=== PATIENT | male | born 1955 | race African-American/Black ===

== ENCOUNTER 2016-08-15 11:36 | Observation (INO) | payer MEDICARE, MEDICAID ==
--- NOTE | 2016-08-15 11:49 | ER Document Report ---
ED Medical Screen (RME) - General Stated Complaint: CHEST PAIN Mode of Arrival: Medic Information source: Patient Notes: Patient presents via EMS with chest pain history of cardiac disease and stents. No other symptoms, received nitroglycerin and aspirin. TRAVEL OUTSIDE OF THE [place] IN LAST 30 DAYS: No - Related Data Allergies/Adverse Reactions: adhesive [Adhesive] Allergy (Severe, Verified 08/15/16 11:49) peels skin gabapentin [From Neurontin] Allergy (Unknown, Verified 08/15/16 11:49) disoriented levofloxacin [From Levaquin] Allergy (Unknown, Verified 08/15/16 11:49) Sulfa (Sulfonamide Antibiotics) Allergy (Unknown, Verified 08/15/16 11:49) skin wilson tramadol [Tramadol] Allergy (Unknown, Verified 08/15/16 11:49) ibuprofen [From Motrin] Allergy (Verified 08/15/16 11:49) tramadol HCl [From Ultram] Allergy (Verified 08/15/16 11:49) Home Medications: Current Home Medications Amlodipine Besylate [Norvasc 10 mg Tablet] 10 mg PO DAILY 08/15/16 [History] Aspirin [Aspirin 325 mg Tablet] 325 mg PO DAILY 08/15/16 [History] Atorvastatin Calcium [Lipitor 80 mg Tablet] 80 mg PO QHS 08/15/16 [History] Clopidogrel Bisulfate [Plavix 75 mg Tablet] 75 mg PO DAILY 08/15/16 [History] Diazepam [Valium 5 mg Tablet] 5 mg PO TIDP PRN 08/15/16 [History] Isosorbide Mononitrate [Isosorbide Mononitrate ER] 120 mg PO DAILY 08/15/16 [ History] Lisinopril [Prinivil 10 mg Tablet] 10 mg PO DAILY 08/15/16 [History] Metformin HCl [Glucophage] 1,000 mg PO DAILY 08/15/16 [History] Morphine Sulfate 30 mg PO BIDP PRN 08/15/16 [History] Nitroglycerin [Nitrostat] 0.4 mg SL Q5MP PRN 08/15/16 [History] Ranitidine HCl 150 mg PO Q12 08/15/16 [History] Ranolazine [Ranexa] 1,000 mg PO BID 08/15/16 [History] Sertraline HCl [Zoloft 50 mg Tablet] 50 mg PO Q12 08/15/16 [History] Past Medical History - Social History Family history: DM, Hyperlipidemia, Hypertension - Past Medical History Cardiac Medical History: Reports: Hx Coronary Artery Disease, 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/ MOST RECENT 11/28/15, Hx Hypercholesterolemia, Hx Hypertension Pulmonary Medical History: Reports: Hx Pneumonia Denies: Hx Asthma, Hx Bronchitis, Hx COPD Neurological Medical History: Denies: Hx Cerebrovascular Accident, Hx Seizures Endocrine Medical History: Reports: Hx Diabetes Mellitus Type 2, Hx Hypothyroidism GI Medical History: Reports: Hx Gastroesophageal Reflux Disease Musculoskeltal Medical History: Reports Hx Arthritis Psychiatric Medical History: Reports: Hx Anxiety, Hx Depression Past Surgical History: Reports: Hx Adenoidectomy, Hx Appendectomy, Hx Bowel Surgery - hemorrhoidectomy, Hx Cardiac Catheterization - last one was 2010, Hx Cardiac Surgery - CABG, Hx Coronary Artery Bypass Graft, Hx Coronary Stent - X10 -most recent was 2010, Hx Open Heart Surgery, Hx Rectal Surgery - hemorrhoids, Hx Testicular Surgery - torsion, vastectomy, Hx Tonsillectomy - Immunizations Immunizations up to date: Yes Hx Diphtheria, Pertussis, Tetanus Vaccination: Yes Physical Exam - Vital signs Vitals: Temp Pulse Resp BP Pulse Ox 98.1 F 76 16 98/68 L 96 08/15/16 11:57 08/15/16 11:57 08/15/16 11:57 08/15/16 11:57 08/15/16 11:57 Course - Vital Signs Vital signs: Temp Pulse Resp BP Pulse Ox 98.2 F 59 L 18 103/62 100 08/15/16 19:00 08/15/16 19:00 08/15/16 19:00 08/15/16 19:00 08/15/16 19:00 - Laboratory Result Diagrams: 08/15/16 12:00 08/15/16 12:00 Laboratory results interpreted by me: 08/15/16 12:00 RBC 4.20 L Hgb 12.6 L MCHC 31.4 L Lymphocytes % 46.1 H Doctor's Discharge - Discharge Clinical Impression: Chest pain Qualifiers: Chest pain type: unspecified Qualified Code(s): R07.9 - Chest pain, unspecified Condition: Fair Disposition: ADMITTED OBSERVATION
[2016-08-15 12:23] LABS: ABSOLUTE EOSINOPHILS # (AUTO) 0.1 10^3/uL (0.0-0.6); ABSOLUTE LYMPHOCYTES (AUTO) 2.7 10^3/uL (0.5-4.7); ABSOLUTE MONOCYTES (AUTO) 0.4 10^3/uL (0.1-1.4); ABSOLUTE NEUT (AUTO) 2.7 10^3/uL (1.7-8.2); BASOPHILS % (AUTO) 0.6 % (0-2); EOSINOPHILS % (AUTO) 1.7 % (0-6); HEMATOCRIT 39.9 % (37.9-51.0); HEMOGLOBIN 12.6 g/dL (13.5-17.0); HGB HCT DIFFERENCE -2.1; LYMPHOCYTES % (AUTO) 46.1 % (13-45); MEAN CORPUSCULAR HEMOGLOBIN 29.9 pg (27.0-33.4); MEAN CORPUSCULAR HGB CONC 31.4 g/dL (32.0-36.0); MEAN CORPUSCULAR VOLUME 95 fl (80-97); MONOCYTES % (AUTO) 5.9 % (3-13); RED CELL DISTRIBUTION WIDTH 13.9 % (11.5-14.0); SEGMENTED NEUTROPHILS % (AUTO) 45.7 % (42-78); WHITE BLOOD COUNT 5.9 10^3/uL (4.0-10.5)
[2016-08-15 12:39] LABS: ALANINE AMINOTRANSFERASE 34 U/L (21-72); ALBUMIN 4.3 g/dL (3.5-5.0); ALKALINE PHOSPHATASE 55 U/L (38-126); ANION GAP 12 (5-19); ASPARTATE AMINO TRANSFERASE 21 U/L (17-59); BILIRUBIN,TOTAL 0.7 mg/dL (0.2-1.3); BLOOD UREA NITROGEN 9 mg/dL (7-20); CALCIUM 9.6 mg/dL (8.4-10.2); CARBON DIOXIDE 26 mmol/L (22-30); CHLORIDE 104 mmol/L (98-107); CREATINE KINASE 62 U/L (55-170); GLUCOSE 109 mg/dL (75-110); POTASSIUM 4.1 mmol/L (3.6-5.0); SODIUM 141.7 mmol/L (137-145); TOTAL PROTEIN 7.4 g/dL (6.3-8.2)
[2016-08-15 12:49] LABS: CREATINE KINASE MB 0.24 ng/mL (<4.55)
[2016-08-15 12:51] LABS: TROPONIN I < 0.012 ng/mL
[2016-08-15] MEDS ORDERED: NITROGLYCERIN 2% OINTMENT 1 GM PACKET TP ONE (13:49)
[2016-08-15] MEDS ORDERED: NITROGLYCERIN 0.4 MG/TAB 25 TAB/BOTTLE SL PRN ×3 (13:49→17:12)
--- NOTE | 2016-08-15 13:53 | ER Document Report ---
[id number] Mode of Arrival: Medic Information source: Patient Notes: 61-year-old male with past medical history including a CABG in 2009 requiring stenting around one year ago who presents today with some left sided radiating chest pain to his left shoulder. He describes it as a "burning" pain he denies any nausea, vomiting, aggravating or relieving factors, diaphoresis, calf pain or leg swelling, recent trips or travel, or shortness of breath. Patient did actually just come off antibiotics recently for an upper history tract infection. TRAVEL OUTSIDE OF THE [place] IN LAST 30 DAYS: No - HPI Patient complains to provider of: Chest pain Was the onset of pain: Gradual Is the pain a: New problem Chest pain location: Other - See above Quality of pain: Other - See above Chest pain radiation location: None - See above Severity now: Mild Severity at worst: Moderate Pain level currently: 2 Positive cardiac history: Yes Associated symptoms: Other - See above Exacerbated by: Denies Relieved by: Nothing Similar symptoms previously: Yes Recently seen / treated by doctor: Yes - Related Data Allergies/Adverse Reactions: adhesive [Adhesive] Allergy (Severe, Verified 08/15/16 11:49) peels skin gabapentin [From Neurontin] Allergy (Unknown, Verified 08/15/16 11:49) disoriented levofloxacin [From Levaquin] Allergy (Unknown, Verified 08/15/16 11:49) Sulfa (Sulfonamide Antibiotics) Allergy (Unknown, Verified 08/15/16 11:49) skin wilson tramadol [Tramadol] Allergy (Unknown, Verified 08/15/16 11:49) ibuprofen [From Motrin] Allergy (Verified 08/15/16 11:49) tramadol HCl [From Ultram] Allergy (Verified 08/15/16 11:49) Home Medications: Current Home Medications Amlodipine Besylate [Norvasc 10 mg Tablet] 10 mg PO DAILY 08/15/16 [History] Aspirin [Aspirin 325 mg Tablet] 325 mg PO DAILY 08/15/16 [History] Atorvastatin Calcium [Lipitor 80 mg Tablet] 80 mg PO QHS 08/15/16 [History] Clopidogrel Bisulfate [Plavix 75 mg Tablet] 75 mg PO DAILY 08/15/16 [History] Diazepam [Valium 5 mg Tablet] 5 mg PO TIDP PRN 08/15/16 [History] Isosorbide Mononitrate [Isosorbide Mononitrate ER] 120 mg PO DAILY 08/15/16 [ History] Lisinopril [Prinivil 10 mg Tablet] 10 mg PO DAILY 08/15/16 [History] Metformin HCl [Glucophage] 1,000 mg PO DAILY 08/15/16 [History] Morphine Sulfate 30 mg PO BIDP PRN 08/15/16 [History] Nitroglycerin [Nitrostat] 0.4 mg SL Q5MP PRN 08/15/16 [History] Ranitidine HCl 150 mg PO Q12 08/15/16 [History] Ranolazine [Ranexa] 1,000 mg PO BID 08/15/16 [History] Sertraline HCl [Zoloft 50 mg Tablet] 50 mg PO Q12 08/15/16 [History] Past Medical History - General Information source: Patient - Social History Smoking Status: Never Smoker Chew tobacco use (# tins/day): No Drug Abuse: None Family History: CAD, CVA Patient has suicidal ideation: No Patient has homicidal ideation: No - Past Medical History Cardiac Medical History: Reports: Hx Coronary Artery Disease, 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/ MOST RECENT 11/28/15, Hx Hypercholesterolemia, Hx Hypertension Pulmonary Medical History: Reports: Hx Pneumonia Denies: Hx Asthma, Hx Bronchitis, Hx COPD Neurological Medical History: Denies: Hx Cerebrovascular Accident, Hx Seizures Endocrine Medical History: Reports: Hx Diabetes Mellitus Type 2, Hx Hypothyroidism Renal/ Medical History: Reports: Hx Peritoneal Dialysis GI Medical History: Reports: Hx Gastroesophageal Reflux Disease Musculoskeltal Medical History: Reports Hx Arthritis Psychiatric Medical History: Reports: Hx Anxiety, Hx Depression Past Surgical History: Reports: Hx Adenoidectomy, Hx Appendectomy, Hx Bowel Surgery - hemorrhoidectomy, Hx Cardiac Catheterization - last one was 2010, Hx Cardiac Surgery - CABG, Hx Coronary Artery Bypass Graft, Hx Coronary Stent - X10 -most recent was 2010, Hx Open Heart Surgery, Hx Rectal Surgery - hemorrhoids, Hx Testicular Surgery - torsion, vastectomy, Hx Tonsillectomy - Immunizations Immunizations up to date: Yes Hx Diphtheria, Pertussis, Tetanus Vaccination: Yes Hx Pneumococcal Vaccination: 03/21/12 Review of Systems - Review of Systems Constitutional: denies: Fever EENT: denies: Eye discharge, Nose discharge Cardiovascular: denies: Palpitations, Heart racing, Syncope, Dizziness, Lightheaded Respiratory: Cough. denies: Short of breath Gastrointestinal: denies: Vomiting Genitourinary: denies: Dysuria Musculoskeletal: denies: Leg swelling Skin: Other - no hives. denies: Rash Neurological/Psychological: Other - no slurred speech -: Yes All other systems reviewed and negative Physical Exam - Vital signs Vitals: Temp Pulse Resp BP Pulse Ox 98.1 F 76 16 98/68 L 96 08/15/16 11:57 08/15/16 11:57 08/15/16 11:57 08/15/16 11:57 08/15/16 11:57 Notes: Reviewed vital signs and nursing note as charted by RN. CONSTITUTIONAL: Alert and oriented and responds appropriately to questions. Well -appearing; well-nourished HEAD: Normocephalic; atraumatic CARD: Regular rate and rhythm; no murmurs, no clicks, no rubs, no gallops; symmetric distal pulses RESP: Normal chest excursion without splinting or tachypnea; breath sounds clear and equal bilaterally; no wheezes, no rhonchi, no rales ABD/GI: Normal bowel sounds; non-distended; soft, non-tender, no rebound, no guarding; no palpable organomegaly or masses BACK: The back appears normal and is non-tender to palpation, there is no CVA tenderness EXT: Normal ROM in all joints; non-tender to palpation; no cyanosis, no effusions, no edema SKIN: Normal color for age and race; warm; dry; good turgor; capillary refill < 2 seconds; no acute lesions noted NEURO: Moves all extremities equally; Motor and sensory function intact PSYCH: The patient's mood and manner are appropriate. Grooming and personal hygiene are appropriate. Course - Re-evaluation Re-evalutation: 08/15/16 13:52 Given the history and physical examination with a heart of 76, oxygen saturation of 96%, I believe the risk of aortic dissection and pulmonary embolism to be unlikely. Given the patient's past history, we will place the patient on a monitor, provide aspirin and nitroglycerin, obtain an x-ray of the chest, and most likely admit the patient for serial cardiac markers and reevaluation. 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 Patient's HEART score is a 4. I believe he requires inpatient admission. Chest x-ray shows normal heart, normal mediastinum, no fractures, normal lung doyle, no pneumothorax. EKG shows a heart rate of 70, normal sinus rhythm, no obvious ST elevation or depression. Slightly inverted T waves in leads aVL and V2. - Vital Signs Vital signs: Temp Pulse Resp BP Pulse Ox 97.5 F 54 L 18 103/65 100 08/15/16 18:43 08/15/16 18:59 08/15/16 18:43 08/15/16 18:43 08/15/16 18:43 - Laboratory Result Diagrams: 08/15/16 12:00 08/15/16 12:00 Laboratory results interpreted by me: 08/15/16 12:00 RBC 4.20 L Hgb 12.6 L MCHC 31.4 L Lymphocytes % 46.1 H Discharge - Discharge Clinical Impression: Chest pain Qualifiers: Chest pain type: unspecified Qualified Code(s): R07.9 - Chest pain, unspecified Condition: Fair Disposition: ADMITTED OBSERVATION Admitting Provider: [facility] Unit Admitted: Telemetry
[2016-08-15] MEDS ORDERED: NORMAL SALINE 1000 ML 1,000 ML IV ONE (13:54)
[2016-08-15] MEDS ORDERED: DIAZEPAM 5 MG TABLET PO PRN (17:12)
--- NOTE | 2016-08-15 17:22 | PDOC H&P ---
History of Present Illness Admission Date/PCP: 08/15/16 16:43 SHELLY SETHI, Patient complains of: Chest pain History of Present Illness: ZOË ALATORRE is a 61 year old male Past Medical History Cardiac Medical History: Reports: Coronary Artery Disease, Myocardial Infarction - 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/ MOST RECENT 11/28/15, Hyperlipidema, Hypertension Pulmonary Medical History: Reports: Pneumonia Denies: Asthma, Bronchitis, Chronic Obstructive Pulmonary Disease (COPD) Neurological Medical History: Denies: Seizures Endocrine Medical History: Reports: Diabetes Mellitus Type 2, Hypothyroidism Malignancy Medical History: Denies: Breast Cancer, Cervical Cancer, Ovarian Cancer GI Medical History: Reports: Gastroesophageal Reflux Disease Musculoskeltal Medical History: Reports: Arthritis Psychiatric Medical History: Reports: Depression Hematology: Denies: Anemia Past Surgical History Past Surgical History: Reports: Appendectomy, Cardiac Catheterization - last one was 2010, Coronary Artery Bypass Graft, Coronary Stent - [id number] recent was 2010, Tonsillectomy Social History Smoking Status: Current Every Day Smoker Cigarettes Packs Per Day: 1 Frequency of Alcohol Use: None Hx Recreational Drug Use: No Hx Prescription Drug Abuse: No Family History Family History: CAD, CVA Parental Family History Reviewed: Yes Children Family History Reviewed: Yes Sibling(s) Family History Reviewed.: Yes Medication/Allergy Home Medications: Amlodipine Besylate [Norvasc 10 mg Tablet] 10 mg PO DAILY 08/15/16 Aspirin [Aspirin 325 mg Tablet] 325 mg PO DAILY 08/15/16 Atorvastatin Calcium [Lipitor 80 mg Tablet] 80 mg PO QHS 08/15/16 Clopidogrel Bisulfate [Plavix 75 mg Tablet] 75 mg PO DAILY 08/15/16 Diazepam [Valium 5 mg Tablet] 5 mg PO TIDP PRN 08/15/16 Isosorbide Mononitrate [Isosorbide Mononitrate ER] 120 mg PO DAILY 08/15/16 Lisinopril [Prinivil 10 mg Tablet] 10 mg PO DAILY 08/15/16 Metformin HCl [Glucophage] 1,000 mg PO DAILY 08/15/16 Morphine Sulfate 30 mg PO BIDP PRN 08/15/16 Nitroglycerin [Nitrostat] 0.4 mg SL Q5MP PRN 08/15/16 Ranitidine HCl 150 mg PO Q12 08/15/16 Ranolazine [Ranexa] 1,000 mg PO BID 08/15/16 Sertraline HCl [Zoloft 50 mg Tablet] 50 mg PO Q12 08/15/16 Allergies/Adverse Reactions: adhesive [Adhesive] Allergy (Severe, Verified 08/15/16 11:49) peels skin gabapentin [From Neurontin] Allergy (Unknown, Verified 08/15/16 11:49) disoriented levofloxacin [From Levaquin] Allergy (Unknown, Verified 08/15/16 11:49) Sulfa (Sulfonamide Antibiotics) Allergy (Unknown, Verified 08/15/16 11:49) skin wilson tramadol [Tramadol] Allergy (Unknown, Verified 08/15/16 11:49) ibuprofen [From Motrin] Allergy (Verified 08/15/16 11:49) tramadol HCl [From Ultram] Allergy (Verified 08/15/16 11:49) Review of Systems All systems: as per PMH Physical Exam Vital Signs: Temp Pulse Resp BP Pulse Ox 97.5 F 76 11 L 90/72 L 96 08/15/16 16:24 08/15/16 11:57 08/15/16 16:00 08/15/16 16:00 08/15/16 16:00 General appearance: PRESENT: mild distress Head exam: PRESENT: atraumatic Eye exam: PRESENT: conjunctiva pink Throat exam: ABSENT: post pharyngeal erythema Neck exam: ABSENT: carotid bruit, JVD Respiratory exam: PRESENT: clear to auscultation bessy Cardiovascular exam: PRESENT: RRR, +S1, +S2 Pulses: PRESENT: normal carotid pulses Vascular exam: PRESENT: normal capillary refill GI/Abdominal exam: PRESENT: normal bowel sounds, soft Extremities exam: PRESENT: full ROM Musculoskeletal exam: PRESENT: ambulatory Neurological exam: PRESENT: alert, oriented to time, CN II-XII grossly intact Results Impressions: Chest X-Ray 08/15/16 11:49 IMPRESSION: NO SIGNIFICANT RADIOGRAPHIC FINDING IN THE CHEST. Assessment & Plan - Diagnosis (1) Chest pain, rule out acute myocardial infarction Is this a current diagnosis for this admission?: YesPlan: Serial cardiac enzymes (2) Coronary artery disease Is this a current diagnosis for this admission?: YesPlan: Continue present medications (3) Diabetes mellitus Qualifiers: Diabetes mellitus type: type 2 Diabetes mellitus complication status: without complication Is this a current diagnosis for this admission?: YesPlan: Continue current treatment (4) Chronic pain syndrome Is this a current diagnosis for this admission?: YesPlan: Continue current treatment
[2016-08-15] MEDS ORDERED: (PENDING PHARMACY ID) (Ranolazine [Ranexa] 1,000 MG) PO SCH (18:00)
[2016-08-15 18:40] LABS: CREATINE KINASE MB < 0.22 ng/mL (<4.55); TROPONIN I < 0.012 ng/mL
--- NOTE | 2016-08-15 19:22 | EKG REPORT ---
SEVERITY:- BORDERLINE ECG - SINUS RHYTHM BORDERLINE T ABNORMALITIES, ANT-LAT LEADS : Confirmed by: Ann Domingo MD 15-Aug-2016 19:21:55
--- NOTE | 2016-08-15 19:22 | EKG REPORT ---
SEVERITY:- NORMAL ECG - SINUS RHYTHM : Confirmed by: Ann Domingo MD 15-Aug-2016 19:21:48
[2016-08-15] MEDS: MORPHINE SULFATE SR 30 MG TABLET PO SCH (21:04)
[2016-08-15] MEDS: FAMOTIDINE 20 MG TABLET PO SCH (21:04)
[2016-08-15] MEDS: SERTRALINE HCL 50 MG TABLET PO SCH (21:04)
[2016-08-15] MEDS: RANOLAZINE 500 MG TAB.SR.12H PO SCH (21:32)
[2016-08-15] MEDS ORDERED: ATORVASTATIN CALCIUM 80 MG TABLET PO SCH (22:00)
[2016-08-15] MEDS ORDERED: (PENDING PHARMACY ID) (Ranitidine Hcl [Ranitidine Hcl] 150 MG) PO SCH (22:00)
[2016-08-16 01:13] LABS: CREATINE KINASE MB < 0.22 ng/mL (<4.55); TROPONIN I < 0.012 ng/mL
[2016-08-16 07:16] LABS: CREATINE KINASE MB < 0.22 ng/mL (<4.55); TROPONIN I < 0.012 ng/mL
[2016-08-16 08:42] VITALS: BP 105/61
[2016-08-16] MEDS: RANOLAZINE 500 MG TAB.SR.12H PO SCH (09:18)
[2016-08-16] MEDS: SERTRALINE HCL 50 MG TABLET PO SCH (09:18)
[2016-08-16] MEDS: FAMOTIDINE 20 MG TABLET PO SCH (09:20)
[2016-08-16] MEDS: MORPHINE SULFATE SR 30 MG TABLET PO SCH (09:21)
--- NOTE | 2016-08-16 09:50 | PDOC DISCHARGE SUMMARY ---
General - Admit/Disc Date/PCP Admission Date/Primary Care Provider: 08/15/16 17:08 SHELLY SETHI, Discharge Date: 08/16/16 - Discharge Diagnosis (1) Chest pain, rule out acute myocardial infarction Summary: The patient ruled out for myocardial infarction. EKG no changes cardiac enzymes negative (2) Coronary artery disease Is this a current diagnosis for this admission?: YesSummary: Stable continue current medication. Follow-up with cardiology (3) Diabetes mellitus Is this a current diagnosis for this admission?: Yes (4) Chronic pain syndrome Is this a current diagnosis for this admission?: YesSummary: Controlled with medication continue current treatment and follow-up with pain management - Additional Information Resuscitation Status: Full Code Discharge Diet: As Tolerated Discharge Activity: Activity As Tolerated Home Medications: Amlodipine Besylate [Norvasc 10 mg Tablet] 10 mg PO DAILY 08/15/16 Aspirin [Aspirin 325 mg Tablet] 325 mg PO DAILY 08/15/16 Atorvastatin Calcium [Lipitor 80 mg Tablet] 80 mg PO QHS 08/15/16 Clopidogrel Bisulfate [Plavix 75 mg Tablet] 75 mg PO DAILY 08/15/16 Diazepam [Valium 5 mg Tablet] 5 mg PO TIDP PRN 08/15/16 Isosorbide Mononitrate [Isosorbide Mononitrate ER] 120 mg PO DAILY 08/15/16 Lisinopril [Prinivil 10 mg Tablet] 10 mg PO DAILY 08/15/16 Metformin HCl [Glucophage] 1,000 mg PO DAILY 08/15/16 Morphine Sulfate 30 mg PO BIDP PRN 08/15/16 Nitroglycerin [Nitrostat] 0.4 mg SL Q5MP PRN 08/15/16 Ranitidine HCl 150 mg PO Q12 08/15/16 Ranolazine [Ranexa] 1,000 mg PO BID 08/15/16 Sertraline HCl [Zoloft 50 mg Tablet] 50 mg PO Q12 08/15/16 History of Present Illness History of Present Illness: ZOË ALATORRE is a 61 year old male Hospital Course Hospital Course: The patient did well did not have any recurrence of chest pain. His cardiac enzymes were negative 3. Physical Exam Vital Signs: Temp Pulse Resp BP Pulse Ox 98.0 F 60 14 105/61 100 08/16/16 07:36 08/16/16 09:04 08/16/16 07:36 08/16/16 07:36 08/16/16 07:36 Intake & Output 08/15/16 08/16/16 08/17/16 06:59 06:59 06:59 Intake Total 596 Balance 596 Weight 86.7 kg General appearance: PRESENT: no acute distress Head exam: PRESENT: atraumatic Eye exam: PRESENT: conjunctiva pink Neck exam: ABSENT: carotid bruit, JVD Respiratory exam: PRESENT: clear to auscultation bessy Cardiovascular exam: PRESENT: RRR, +S1, +S2 Pulses: PRESENT: normal carotid pulses Vascular exam: PRESENT: normal capillary refill Extremities exam: PRESENT: full ROM Musculoskeletal exam: PRESENT: ambulatory Neurological exam: PRESENT: alert, oriented to time Results Laboratory Results: 08/15/16 08/16/16 08/16/16 18:05 00:37 06:22 CK-MB (CK-2) < 0.22 < 0.22 < 0.22 Troponin I < 0.012 < 0.012 < 0.012 Impressions: Chest X-Ray 08/15/16 11:49 IMPRESSION: NO SIGNIFICANT RADIOGRAPHIC FINDING IN THE CHEST. Plan Discharge Plan: Discharge home continue present medication follow-up in one week and when necessary Time Spent: Less than 30 Minutes
[2016-08-16] MEDS ORDERED: LISINOPRIL 10 MG TABLET PO SCH (10:00)
[2016-08-16] MEDS ORDERED: ISOSORBIDE MONONITRATE 60 MG TAB.ER.24H PO SCH (10:00)
[2016-08-16] MEDS ORDERED: ASPIRIN 81 MG TABLET, ENT COATED PO SCH (10:00)
[2016-08-16] MEDS ORDERED: AMLODIPINE BESYLATE 10 MG TABLET PO SCH (10:00)
[2016-08-16] MEDS ORDERED: ASPIRIN 325 MG TABLET PO SCH (10:00)
[2016-08-16] MEDS ORDERED: METFORMIN HCL 500 MG TABLET PO SCH (10:00)
[2016-08-16] MEDS ORDERED: CLOPIDOGREL BISULFATE 75 MG TABLET PO SCH (10:00)
[2016-08-16] MEDS ORDERED: (PENDING PHARMACY ID) (Isosorbide Mononitrate [Isosorbide Mononitrate Er] 120 MG) PO SCH (10:00)
--- NOTE | 2016-08-16 12:46 | EKG REPORT ---
SEVERITY:- NORMAL ECG - SINUS RHYTHM : Confirmed by: Ann Domingo MD 16-Aug-2016 12:45:35
== END 2016-08-16 10:50 | disposition home or self-care (01) ==
LOC: ER 11:36 → UNDOADMOB 16:43 → EH 16:43 → 4S 17:08 → EH 17:12 → 3N 08-16 00:11
PROVIDERS: ADMIT Internal Medicine; ATTEND Internal Medicine
DX: R07.9 Chest pain, unspecified (principal); I25.810 Atherosclerosis of coronary artery bypass graft(s) without angina pectoris; E11.9 Type 2 diabetes mellitus without complications; G89.4 Chronic pain syndrome; Z79.84 Long term (current) use of oral hypoglycemic drugs; I25.2 Old myocardial infarction; E78.5 Hyperlipidemia, unspecified; I10 Essential (primary) hypertension; E03.9 Hypothyroidism, unspecified; K21.9 Gastro-esophageal reflux disease without esophagitis; M19.90 Unspecified osteoarthritis, unspecified site; F32.9 Major depressive disorder, single episode, unspecified; Z95.1 Presence of aortocoronary bypass graft; F17.210 Nicotine dependence, cigarettes, uncomplicated; Z82.49 Family history of ischemic heart disease and other diseases of the circulatory system; Z82.3 Family history of stroke
CPT/HCPCS: 93005 ×2; 99285; 96360; 36415 ×2; 82553 ×2; 82550; 85025; 80053; 84484 ×2; 71020; 93010 ×2; G0378 ×2; A9270 ×10; J3490 ×2; J7030

== ENCOUNTER 2016-10-06 20:21 | Emergency (ER) | payer MEDICARE, MEDICAID ==
--- NOTE | 2016-10-06 20:30 | ER Document Report ---
ED Medical Screen (RME) - General Stated Complaint: BACK PAIN Notes: patient p/w back pain from friday, was moving a chair and pain started later. has been using valium, morphine, opana at home for chest pain but has not been covering his back pain. Denies any urinary/stool incontinence, saddle anesthesia. Patient is ambulatory and able to bear weight I have greeted and performed a rapid initial assessment of this patient. A comprehensive ED assessment and evaluation of the patient, analysis of test results and completion of the medical decision making process will be conducted by additional ED providers. TRAVEL OUTSIDE OF THE [place] IN LAST 30 DAYS: No - Related Data Allergies/Adverse Reactions: adhesive [Adhesive] Allergy (Severe, Verified 10/06/16 20:30) peels skin gabapentin [From Neurontin] Allergy (Unknown, Verified 10/06/16 20:30) disoriented levofloxacin [From Levaquin] Allergy (Unknown, Verified 10/06/16 20:30) Sulfa (Sulfonamide Antibiotics) Allergy (Unknown, Verified 10/06/16 20:30) skin wilson tramadol [Tramadol] Allergy (Unknown, Verified 10/06/16 20:30) ibuprofen [From Motrin] Allergy (Verified 10/06/16 20:30) tramadol HCl [From Ultram] Allergy (Verified 10/06/16 20:30) Past Medical History - Social History Family history: DM, Hyperlipidemia, Hypertension - Past Medical History Cardiac Medical History: Reports: Hx Coronary Artery Disease, 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/ MOST RECENT 11/28/15, Hx Hypercholesterolemia, Hx Hypertension Pulmonary Medical History: Reports: Hx Pneumonia Denies: Hx Asthma, Hx Bronchitis, Hx COPD Neurological Medical History: Denies: Hx Cerebrovascular Accident, Hx Seizures Endocrine Medical History: Reports: Hx Diabetes Mellitus Type 2, Hx Hypothyroidism Renal/ Medical History: Reports: Hx Peritoneal Dialysis GI Medical History: Reports: Hx Gastroesophageal Reflux Disease Musculoskeltal Medical History: Reports Hx Arthritis Psychiatric Medical History: Reports: Hx Anxiety, Hx Depression Past Surgical History: Reports: Hx Adenoidectomy, Hx Appendectomy, Hx Bowel Surgery - hemorrhoidectomy, Hx Cardiac Catheterization - last one was 2010, Hx Cardiac Surgery - CABG, Hx Coronary Artery Bypass Graft, Hx Coronary Stent - X10 -most recent was 2010, Hx Open Heart Surgery, Hx Rectal Surgery - hemorrhoids, Hx Testicular Surgery - torsion, vastectomy, Hx Tonsillectomy - Immunizations Immunizations up to date: Yes Hx Diphtheria, Pertussis, Tetanus Vaccination: Yes
--- NOTE | 2016-10-06 22:58 | ER Document Report ---
ED Neck/Back Problem - General Chief Complaint: Back Pain Stated Complaint: BACK PAIN Time seen by provider: 22:54 Mode of Arrival: Ambulatory Information source: Patient Notes: 61 yo male with chronic low back pain caused it to be worse after helping someon move furniture on friday. Started that evening. No saddle anesthesia, no radiculopapthy. Worse with movement, gets stuck bent forward. Takes pain management meds. Here for a back brace. TRAVEL OUTSIDE OF THE [place] IN LAST 30 DAYS: No - Related Data Allergies/Adverse Reactions: adhesive [Adhesive] Allergy (Severe, Verified 10/06/16 20:30) peels skin gabapentin [From Neurontin] Allergy (Unknown, Verified 10/06/16 20:30) disoriented levofloxacin [From Levaquin] Allergy (Unknown, Verified 10/06/16 20:30) Sulfa (Sulfonamide Antibiotics) Allergy (Unknown, Verified 10/06/16 20:30) skin wilson tramadol [Tramadol] Allergy (Unknown, Verified 10/06/16 20:30) ibuprofen [From Motrin] Allergy (Verified 10/06/16 20:30) tramadol HCl [From Ultram] Allergy (Verified 10/06/16 20:30) Past Medical History - General Information source: Patient - Social History Smoking Status: Current Every Day Smoker Chew tobacco use (# tins/day): No Frequency of alcohol use: None Drug Abuse: None Lives with: Family Family History: CAD, CVA - Past Medical History Cardiac Medical History: Reports: Hx Coronary Artery Disease, 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/ MOST RECENT 11/28/15, Hx Hypercholesterolemia, Hx Hypertension Pulmonary Medical History: Reports: Hx Pneumonia Endocrine Medical History: Reports: Hx Diabetes Mellitus Type 2, Hx Hypothyroidism Renal/ Medical History: Reports: Hx Peritoneal Dialysis GI Medical History: Reports: Hx Gastroesophageal Reflux Disease Musculoskeltal Medical History: Reports Hx Arthritis Psychiatric Medical History: Reports: Hx Anxiety, Hx Depression Past Surgical History: Reports: Hx Adenoidectomy, Hx Appendectomy, Hx Bowel Surgery - hemorrhoidectomy, Hx Cardiac Catheterization - last one was 2010, Hx Cardiac Surgery - CABG, Hx Coronary Artery Bypass Graft, Hx Coronary Stent - X10 -most recent was 2010, Hx Open Heart Surgery, Hx Rectal Surgery - hemorrhoids, Hx Testicular Surgery - torsion, vastectomy, Hx Tonsillectomy - Immunizations Immunizations up to date: Yes Hx Diphtheria, Pertussis, Tetanus Vaccination: Yes Hx Pneumococcal Vaccination: 03/21/12 Review of Systems - Review of Systems Constitutional: No symptoms reported EENT: No symptoms reported Cardiovascular: No symptoms reported Respiratory: No symptoms reported Gastrointestinal: No symptoms reported Genitourinary: No symptoms reported Male Genitourinary: No symptoms reported Musculoskeletal: See HPI Skin: No symptoms reported Hematologic/Lymphatic: No symptoms reported Neurological/Psychological: No symptoms reported Physical Exam - Vital signs Vitals: Temp Pulse Resp BP Pulse Ox 97.9 F 77 18 95/63 L 98 10/06/16 20:33 10/06/16 20:33 10/06/16 20:33 10/06/16 20:33 10/06/16 20:33 Interpretation: Normal - General General appearance: Appears well, Alert - HEENT Head: Normocephalic, Atraumatic Eyes: Normal Pupils: PERRL Neck: Supple - Respiratory Respiratory status: No respiratory distress Chest status: Nontender Breath sounds: Normal Chest palpation: Normal - Cardiovascular Rhythm: Regular Heart sounds: Normal auscultation Murmur: No - Abdominal Inspection: Normal Distension: No distension Bowel sounds: Normal Tenderness: Nontender Organomegaly: No organomegaly - Back Back: Normal, Nontender. No: Vertebra tenderness - Extremities General upper extremity: Normal inspection, Nontender, Normal color, Normal ROM , Normal temperature General lower extremity: Normal inspection, Nontender, Normal color, Normal ROM , Normal temperature, Normal weight bearing. No: Enrique's sign - Neurological Neuro grossly intact: Yes Cognition: Normal Orientation: AAOx4 Circle Coma Scale Eye Opening: Spontaneous Circle Coma Scale Verbal: Oriented Ken Coma Scale Motor: Obeys Commands Circle Coma Scale Total: 15 Speech: Normal Motor strength normal: LUE, RUE, LLE, RLE Sensory: Normal Knee - Reflex grade: 2 = Normal - bessy Ankle - Reflex grade: 2 = Normal - bessy - Psychological Associated symptoms: Normal affect, Normal mood - Skin Skin Temperature: Warm Skin Moisture: Dry Skin Color: Normal Course - Vital Signs Vital signs: Temp Pulse Resp BP Pulse Ox 97.7 F 71 16 92/63 L 98 10/06/16 23:05 10/06/16 23:05 10/06/16 23:05 10/06/16 23:05 10/06/16 23:05 Discharge - Discharge Clinical Impression: Low back strain Qualifiers: Encounter type: initial encounter Qualified Code(s): S39.012A - Strain of muscle, fascia and tendon of lower back, initial encounter Condition: Good Disposition: HOME, SELF-CARE Instructions: Warm Packs ([facility]), Muscle Strain ([facility]), Low Back Pain ([facility]) Additional Instructions: warm compress lizy wrap for back support back braces are available at [facility] over the counter Please complete the patient satisfaction survey if you get one, and return it.. If you do not receive a survey, then you can go to the [facility] website, [email or web address] and place your comments about your very good care. Thank you very much. It was a pleasure being your medical provider today. Referrals: SHELLY SETHI MD [Primary Care Provider] - Follow up tomorrow
[2016-10-06 23:53] VITALS: BP 92/63
== END 2016-10-06 23:05 | disposition home or self-care (01) ==
LOC: ER 20:21
DX: S39.012A Strain of muscle, fascia and tendon of lower back, initial encounter (principal); X50.0XXA Overexertion from strenuous movement or load, initial encounter; G89.29 Other chronic pain; M54.9 Dorsalgia, unspecified; F17.200 Nicotine dependence, unspecified, uncomplicated; I25.10 Atherosclerotic heart disease of native coronary artery without angina pectoris; E78.00 Pure hypercholesterolemia, unspecified; I10 Essential (primary) hypertension; E11.9 Type 2 diabetes mellitus without complications; E03.9 Hypothyroidism, unspecified; I25.2 Old myocardial infarction; Z88.6 Allergy status to analgesic agent; Z88.2 Allergy status to sulfonamides; Z95.1 Presence of aortocoronary bypass graft
CPT/HCPCS: 99283

== ENCOUNTER 2016-10-14 20:50 | Emergency (ER) | payer MEDICARE, MEDICAID ==
[2016-10-14] MEDS ORDERED: ASPIRIN 81 MG TABLET, CHEWABLE PO ONE (20:55)
--- NOTE | 2016-10-14 21:02 | ER Document Report ---
ED Medical Screen (RME) - General Chief Complaint: Chest Pain Stated Complaint: CHEST PAIN Mode of Arrival: Medic Information source: Patient, Emergency Med Personnel Notes: Patient presents to the emergency department with complaints of chest pain via EMS Reports that he had an argument with his son and started having chest pain. Has history of PA., CABG, stents , one artery still occluded, pain 4/5 burning sensation to left chest left shoulder with light pressure. 2 NTG SL, NO relief. No vomiting/fever. Pt took ASA TRAVEL OUTSIDE OF THE [place] IN LAST 30 DAYS: No - Related Data Allergies/Adverse Reactions: adhesive [Adhesive] Allergy (Severe, Verified 10/06/16 20:30) peels skin gabapentin [From Neurontin] Allergy (Unknown, Verified 10/06/16 20:30) disoriented levofloxacin [From Levaquin] Allergy (Unknown, Verified 10/06/16 20:30) Sulfa (Sulfonamide Antibiotics) Allergy (Unknown, Verified 10/06/16 20:30) skin wilson tramadol [Tramadol] Allergy (Unknown, Verified 10/06/16 20:30) ibuprofen [From Motrin] Allergy (Verified 10/06/16 20:30) tramadol HCl [From Ultram] Allergy (Verified 10/06/16 20:30) Past Medical History - Social History Family history: DM, Hyperlipidemia, Hypertension - Past Medical History Cardiac Medical History: Reports: Hx Coronary Artery Disease, 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/ MOST RECENT 11/28/15, Hx Hypercholesterolemia, Hx Hypertension Pulmonary Medical History: Reports: Hx Pneumonia Denies: Hx Asthma, Hx Bronchitis, Hx COPD Neurological Medical History: Denies: Hx Cerebrovascular Accident, Hx Seizures Endocrine Medical History: Reports: Hx Diabetes Mellitus Type 2, Hx Hypothyroidism Renal/ Medical History: Reports: Hx Peritoneal Dialysis GI Medical History: Reports: Hx Gastroesophageal Reflux Disease Musculoskeltal Medical History: Reports Hx Arthritis Psychiatric Medical History: Reports: Hx Anxiety, Hx Depression Past Surgical History: Reports: Hx Adenoidectomy, Hx Appendectomy, Hx Bowel Surgery - hemorrhoidectomy, Hx Cardiac Catheterization - last one was 2010, Hx Cardiac Surgery - CABG, Hx Coronary Artery Bypass Graft, Hx Coronary Stent - X10 -most recent was 2010, Hx Open Heart Surgery, Hx Rectal Surgery - hemorrhoids, Hx Testicular Surgery - torsion, vastectomy, Hx Tonsillectomy - Immunizations Immunizations up to date: Yes Hx Diphtheria, Pertussis, Tetanus Vaccination: Yes Physical Exam - Vital signs Vitals: Temp Pulse Resp BP Pulse Ox 98.8 F 73 12 110/73 96 10/14/16 21:15 10/14/16 21:15 10/14/16 21:15 10/14/16 21:15 10/14/16 21:15 Course - Vital Signs Vital signs: Temp Pulse Resp BP Pulse Ox 98.8 F 73 12 110/73 96 10/14/16 21:15 10/14/16 21:15 10/14/16 21:15 10/14/16 21:15 10/14/16 21:15
[2016-10-14 22:21] LABS: ABSOLUTE EOSINOPHILS # (AUTO) 0.1 10^3/uL (0.0-0.6); ABSOLUTE LYMPHOCYTES (AUTO) 3.6 10^3/uL (0.5-4.7); ABSOLUTE MONOCYTES (AUTO) 0.6 10^3/uL (0.1-1.4); ABSOLUTE NEUT (AUTO) 3.6 10^3/uL (1.7-8.2); BASOPHILS % (AUTO) 0.4 % (0-2); EOSINOPHILS % (AUTO) 1.4 % (0-6); HEMATOCRIT 36.1 % (37.9-51.0); HEMOGLOBIN 12.2 g/dL (13.5-17.0); HGB HCT DIFFERENCE 0.5; LYMPHOCYTES % (AUTO) 45.5 % (13-45); MEAN CORPUSCULAR HEMOGLOBIN 31.6 pg (27.0-33.4); MEAN CORPUSCULAR HGB CONC 33.8 g/dL (32.0-36.0); MEAN CORPUSCULAR VOLUME 94 fl (80-97); MONOCYTES % (AUTO) 7.4 % (3-13); RED BLOOD COUNT 3.85 10^6/uL (4.35-5.55); RED CELL DISTRIBUTION WIDTH 14.4 % (11.5-14.0); SEGMENTED NEUTROPHILS % (AUTO) 45.3 % (42-78); WHITE BLOOD COUNT 7.9 10^3/uL (4.0-10.5)
--- NOTE | 2016-10-14 22:33 | ER Document Report ---
ED Cardiac - General Mode of Arrival: Medic Information source: Patient TRAVEL OUTSIDE OF THE [place] IN LAST 30 DAYS: No - HPI Patient complains to provider of: Chest pain Quality of pain: Other - see HPI Chest pain radiation location: Left shoulder Cardiac risk factors: Diabetes, Hx [place] Associated symptoms: Other - see HPI <WERNER STEPHENS - Last Filed: 10/15/16 02:22> <MELISSA RICHARDSON - Last Filed: 10/15/16 06:40> - General Chief Complaint: Chest Pain Stated Complaint: CHEST PAIN Notes: 61 year old male with history of 10 stents, 2 MIs, and diabetes presents to the ED via EMS complaining of chest pain that started after having an argument with his son earlier this evening. Patient reports that he has left sided chest pain that radiates to his left shoulder. Patient was given 325 mg of Aspirin and 2x nitroglycerin to no relief. Patient is currently complaining of chest pain. Patient reports history of chest pain and explains that anytime the pain becomes too intense and starts radiating to his left shoulder, he comes into the ED. Patient is additionally complaining of dizziness, but no nausea or vomiting. Patient's television station manager is Dr. Cavanaugh and primary care physician is Dr. Sethi. (WERNER STEPHENS) - Related Data Allergies/Adverse Reactions: adhesive [Adhesive] Allergy (Severe, Verified 10/06/16 20:30) peels skin gabapentin [From Neurontin] Allergy (Unknown, Verified 10/06/16 20:30) disoriented levofloxacin [From Levaquin] Allergy (Unknown, Verified 10/06/16 20:30) Sulfa (Sulfonamide Antibiotics) Allergy (Unknown, Verified 10/06/16 20:30) skin wilson tramadol [Tramadol] Allergy (Unknown, Verified 10/06/16 20:30) ibuprofen [From Motrin] Allergy (Verified 10/06/16 20:30) tramadol HCl [From Ultram] Allergy (Verified 10/06/16 20:30) Past Medical History - General Information source: Patient, Emergency Med Personnel - Social History Smoking Status: Current Every Day Smoker Drug Abuse: None Family History: CAD, CVA Patient has suicidal ideation: No Patient has homicidal ideation: No - Past Medical History Cardiac Medical History: Reports: Hx Coronary Artery Disease, 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/ MOST RECENT 11/28/15, Hx Hypercholesterolemia, Hx Hypertension Pulmonary Medical History: Reports: Hx Pneumonia Endocrine Medical History: Reports: Hx Diabetes Mellitus Type 2, Hx Hypothyroidism Renal/ Medical History: Reports: Hx Peritoneal Dialysis GI Medical History: Reports: Hx Gastroesophageal Reflux Disease Musculoskeltal Medical History: Reports Hx Arthritis Psychiatric Medical History: Reports: Hx Anxiety, Hx Depression Past Surgical History: Reports: Hx Adenoidectomy, Hx Appendectomy, Hx Bowel Surgery - hemorrhoidectomy, Hx Cardiac Catheterization - last one was 2010, Hx Cardiac Surgery - CABG, Hx Coronary Artery Bypass Graft, Hx Coronary Stent - X10 -most recent was 2010, Hx Open Heart Surgery, Hx Rectal Surgery - hemorrhoids, Hx Testicular Surgery - torsion, vastectomy, Hx Tonsillectomy - Immunizations Immunizations up to date: Yes Hx Diphtheria, Pertussis, Tetanus Vaccination: Yes Hx Pneumococcal Vaccination: 03/21/12 <WERNER STEPHENS - Last Filed: 10/15/16 02:22> Review of Systems - Review of Systems Constitutional: No symptoms reported EENT: No symptoms reported Cardiovascular: See HPI, Chest pain - left, Dizziness Respiratory: No symptoms reported Gastrointestinal: No symptoms reported. denies: Nausea, Vomiting Genitourinary: No symptoms reported Male Genitourinary: No symptoms reported Musculoskeletal: No symptoms reported Skin: No symptoms reported Hematologic/Lymphatic: No symptoms reported Neurological/Psychological: No symptoms reported -: Yes All other systems reviewed and negative <WERNER STEPHENS - Last Filed: 10/15/16 02:22> Course - Laboratory Result Diagrams: 10/14/16 22:09 10/14/16 22:09 - Consults Dr. Cavanaugh Time consulted: 02:20 <WERNER STEPHENS - Last Filed: 10/15/16 02:22> - Laboratory Result Diagrams: 10/14/16 22:09 10/14/16 22:09 <MELISSA RICHARDSON - Last Filed: 10/15/16 06:40> - Re-evaluation Re-evalutation: 10/15/16 03:00 Patient is feeling better at this time. Troponin negative 2. EKG with no acute changes. Patient was discussed with his television station manager who states that the patient is to follow-up with him in the office. Patient agrees this plan. Stable for discharge at this time. (MELISSA RICHARDSON) - Vital Signs Vital signs: Temp Pulse Resp BP Pulse Ox 97.5 F 73 14 102/79 97 10/15/16 02:43 10/14/16 21:15 10/15/16 02:43 10/15/16 02:43 10/15/16 02:43 - Laboratory Laboratory results interpreted by me: 10/14/16 10/14/16 22:09 22:09 RBC 3.85 L Hgb 12.2 L Hct 36.1 L RDW 14.4 H Lymphocytes % 45.5 H AST 16 L - Consults Dr. Cavanaugh Reason for consultation: 10/15/16 02:20 Dr. Cavanaugh was called to discuss the patient's EKG and blood work, states to tell patient to call the office in the morning and schedule an appointment with him on Friday. (WERNER STEPHENS) Discharge <WERNER STEPHENS - Last Filed: 10/15/16 02:22> <MELISSA RICHARDSON - Last Filed: 10/15/16 06:40> - Discharge Clinical Impression: Chest pain Qualifiers: Chest pain type: unspecified Qualified Code(s): R07.9 - Chest pain, unspecified Condition: Stable Disposition: HOME, SELF-CARE Instructions: Chest Pain of Unclear Cause ([facility]) Referrals: SHELLY SETHI MD [Primary Care Provider] - Follow up as needed DANITA PEÑA MD [ACTIVE STAFF] - 10/15/16 Scribe Attestation: 10/15/16 06:39 I personally performed the services described in the documentation, reviewed and edited the documentation which was dictated to the scribe in my presence, and it accurately records my words and actions. (MELISSA RICHARDSON) Scribe Documentation - Scribe Written by Fabian:: Fabian Perez, 10/15/2016 0003 acting as scribe for :: Carlie <WERNER STEPHENS - Last Filed: 10/15/16 02:22>
[2016-10-14] MEDS ORDERED: NORMAL SALINE 1000 ML 500 ML IV ONE (22:34)
[2016-10-14 22:39] LABS: ALANINE AMINOTRANSFERASE 25 U/L (21-72); ALBUMIN 3.9 g/dL (3.5-5.0); ALKALINE PHOSPHATASE 47 U/L (38-126); ANION GAP 10 (5-19); ASPARTATE AMINO TRANSFERASE 16 U/L (17-59); BILIRUBIN,DIRECT 0.1 mg/dL (0.0-0.4); BILIRUBIN,TOTAL 0.4 mg/dL (0.2-1.3); BLOOD UREA NITROGEN 10 mg/dL (7-20); CALCIUM 9.2 mg/dL (8.4-10.2); CARBON DIOXIDE 27 mmol/L (22-30); CHLORIDE 105 mmol/L (98-107); CREATINE KINASE 74 U/L (55-170); CREATININE RESULT 0.73 mg/dL (0.52-1.25); GLUCOSE 93 mg/dL (75-110); POTASSIUM 3.7 mmol/L (3.6-5.0); SODIUM 142.3 mmol/L (137-145); TOTAL PROTEIN 6.4 g/dL (6.3-8.2)
[2016-10-14 22:52] LABS: CREATINE KINASE MB 0.44 ng/mL (<4.55)
[2016-10-14 22:53] LABS: TROPONIN I < 0.012 ng/mL
[2016-10-15 02:50] VITALS: BP 102/79
--- NOTE | 2016-10-15 09:35 | EKG REPORT ---
SEVERITY:- ABNORMAL ECG - SINUS RHYTHM NONSPECIFIC T ABNORMALITIES, ANT-LAT LEADS : Confirmed by: Bety Cobb 15-Oct-2016 09:34:30
== END 2016-10-15 02:48 | disposition home or self-care (01) ==
LOC: ER 20:50
DX: R07.9 Chest pain, unspecified (principal); M25.512 Pain in left shoulder; R42 Dizziness and giddiness; I25.10 Atherosclerotic heart disease of native coronary artery without angina pectoris; E78.00 Pure hypercholesterolemia, unspecified; I10 Essential (primary) hypertension; E11.9 Type 2 diabetes mellitus without complications; E03.9 Hypothyroidism, unspecified; K21.9 Gastro-esophageal reflux disease without esophagitis; I25.2 Old myocardial infarction; Z88.6 Allergy status to analgesic agent; Z88.2 Allergy status to sulfonamides; Z95.1 Presence of aortocoronary bypass graft
CPT/HCPCS: 93005; 99285; 36415; 82553; 82550; 85025; 80053; 84484; 71010; 93010; J7030

== ENCOUNTER → 2016-10-23 | Outpatient (CLI) | payer MEDICARE, MEDICAID ==
[~2016-10-23] MED LIST: AMINOPHYLLINE INJ/PF 250 MG/10 ML SDV IV ONE; REGADENOSON INJ 0.4 MG/5 ML DISP.SYRIN IV ONE
--- NOTE | 2016-10-23 13:39 | DRAGON STRESS TEST REPORT ---
INDICATION: Patient with chest pain PROCEDURE REPORT: Nuclear stress test explained to the patient in detail. Risks/benefits were discussed and informed consent was obtained. BASELINE: The patient's baseline heart rate was noted to be 70 bpm with BP of 111/69. Baseline EKG showed sinus rhythm, minor nonspecific T-wave changes noted. Following above being obtained, patient was bolused with regadenoson per protocol. The patient tolerated the Regadenoson bolus well without any significant complaints. At two minutes post-bolus, the patient's heart rate was 83 with BP of 106/68. At three minutes post-Regadenoson bolus, the patient's heart rate was 79 with BP of 101/66. Stress and postprocedure EKGs: EKGs obtained during the procedure and post- procedure did not show any additional STT wave changes. NUCLEAR IMAGING: Nuclear imaging was performed following a protocol. Rest imaging : was performed earlier in the day after patient was injected with a 12.8. Mci of technetium sestamibi compound Stress imaging: The patient was bolused with Regadenoson 0.4 mg over 10 seconds. This was followed by normal saline bolus followed by Technetium Sestamibi injection of 39.4 mci followed again by normal saline bolus. Stress imaging was performed according to set protocol. Both rest and stress images were obtained using tomographic technique. EKG gated imaging was also obtained. NUCLEAR INTERPRETATION: Both raw and processed data were used for interpretation. Visual, qualitative, computer generated quantitative data were used. There is good myocardial uptake of Technetium compound. Motion artifact and attenuation artifacts were noted. No definitive areas of transient perfusion defect was noted. No definite fixed perfusion defect noted. EKG gated imaging showed no significant regional wall motion abnormalities. LVEF is noted to be 56%. Lung/heart ratio noted to be within normal at 0.32 There is transient ischemic dilatation noted with tid ratio of 1.29 RV free wall uptake noted to be increased SUMMARY OF FINDINGS/IMPRESSION: 1. NO SIGNIFICANT EKG CHANGES WITH REGADENOSON BOLUS. 2. NUCLEAR IMAGES SHOWED NO DEFINITIVE AREAS OF TRANSIENT PERFUSION DEFECT OR ISCHEMIA NOTED. 3. NO DEFINITIVE FIXED DEFECTS OR SCAR NOTED. 4. EKG GATED IMAGING SHOWED NORMAL LVEF. NO DEFINITE WALL MOTION ABNORMALITIES NOTED. 5. LUNG/HEART RATIO NOTED TO BE WITHIN NORMAL LIMITS. 6. TRANSIENT ISCHEMIC DILATATIONS WERE NOTED. THIS IS OF UNCERTAIN SIGNIFICANCE IN THE ABSENCE OF SIGNIFICANT PERFUSION ABNORMALITIES HOWEVER OLDER LITERATURE SUGGESTS THAT THAT IT COULD REPRESENT BALANCED ISCHEMIA. MOST RECENT LITERATURE REVIEW SUGGEST NO SIGNIFICANT INCREASED RISK OF EVENTS IN THE ABSENCE OF PERFUSION ABNORMALITY. HOWEVER WOULD RECOMMEND CLOSE CARDIOLOGY FOLLOW-UP. 7. CLINICAL CORRELATION IS REQUESTED OCCASIONALLY SINGLE VESSEL DISEASE OR BALANCED ISCHEMIA COULD BE MISSED. ALSO INABILITY TO EXERCISE BY ITSELF LEADS TO INCREASED CARDIOVASCULAR EVENT RATE. STRESS TEST RESULTS WOULD ALSO NEED TO BE INTERPRETED IN THE CONTEXT OF PRETEST PROBABILITY. INTERPRETING PHYSICIAN: Radha HO. BOARD CERTIFIED IN CARDIOVASCULAR DISEASES , NUCLEAR CARDIOLOGY, ECHOCARDIOGRAPHY [facility]
== END ==
LOC: RAD 07:12
PROVIDERS: ATTEND Specialist
DX: R07.9 Chest pain, unspecified (principal)
CPT/HCPCS: 93017; 78452; A9500; J2785; J0280; Q9969

== ENCOUNTER 2016-10-28 14:40 | Emergency (ER) | payer MEDICARE, MEDICAID ==
[2016-10-28] MEDS ORDERED: AMOXICILLIN TR/POT CLAVULANATE 500-125 MG TAB PO ONE (15:33)
[2016-10-28] MEDS ORDERED: DIPH/PERTUSS(ACELL)/TETANUS VAC/PF 0.5 ML SYR (>=10YO) IM ONE (15:33)
--- NOTE | 2016-10-28 15:54 | ER Document Report ---
HPI - HPI Patient complains to provider of: dog bite Pain Level: 2 Context: Patient is a 61-year-old male presents emergency Department complaining of dog bite to his right leg in the finger. States this happened around 1 PM this afternoon. States is his friend's dog who said that his shots are up-to-date. Animal control has been notified and will be observing the dog of the next 1-2 weeks. States his pain over his right knee laceration. Otherwise he states his tetanus is not up-to-date. 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/ MOST RECENT 11/28/15, Hx Hypercholesterolemia, Hx Hypertension Pulmonary Medical History: Reports: Hx Pneumonia Denies: Hx Asthma, Hx Bronchitis, Hx COPD Neurological Medical History: Denies: Hx Cerebrovascular Accident, Hx Seizures Endocrine Medical History: Reports: Hx Diabetes Mellitus Type 2, Hx Hypothyroidism Renal/ Medical History: Denies: Hx Peritoneal Dialysis GI Medical History: Reports: Hx Gastroesophageal Reflux Disease Musculoskeltal Medical History: Reports Hx Arthritis Psychiatric Medical History: Reports: Hx Anxiety, Hx Depression Past Surgical History: Reports: Hx Adenoidectomy, Hx Appendectomy, Hx Bowel Surgery - hemorrhoidectomy, Hx Cardiac Catheterization - last one was 2010, Hx Cardiac Surgery - CABG, Hx Coronary Artery Bypass Graft, Hx Coronary Stent - X10 -most recent was 2010, Hx Open Heart Surgery, Hx Rectal Surgery - hemorrhoids, Hx Testicular Surgery - torsion, vastectomy, Hx Tonsillectomy - Immunizations Immunizations up to date: Yes Hx Diphtheria, Pertussis, Tetanus Vaccination: Yes Hx Pneumococcal Vaccination: 03/21/12 Vertical Provider Document - CONSTITUTIONAL Agree With Documented VS: Yes Exam Limitations: No Limitations General Appearance: WD/WN, No Apparent Distress - INFECTION CONTROL TRAVEL OUTSIDE OF THE [place] IN LAST 30 DAYS: No - RESPIRATORY O2 Sat by Pulse Oximetry: 97 - MUSCULOSKELETAL/EXTREMETIES Musculoskeletal/Extremeties: MAEW, FROM, Non-Tender, No Edema. negative: Eccymosis - NEURO Level of Consciousness: Awake, Alert, Appropriate - DERM Integumentary: Warm, Dry, Laceration - 3 cm laceration on the anterior aspect of the right knee that is not through the dermis and is a scabbed over. Nontender Notes: Does have evidence of a broken fingernail on the left middle finger and associated abrasion Course - Re-evaluation Re-evalutation: 10/28/16 17:00 Dog is a family dog can be observed for rabies concerns. Tetanus status is been updated, Augmentin has been given. Wounds were irrigated with Betadine and saline and dry sterile dressings applied. - Vital Signs Vital signs: Temp Pulse Resp BP Pulse Ox 99.2 F 100 16 111/86 H 97 10/28/16 15:12 10/28/16 15:12 10/28/16 15:12 10/28/16 15:12 10/28/16 15:12 Discharge - Discharge Clinical Impression: Dog bite Condition: Good Disposition: HOME, SELF-CARE Instructions: Animal Bites ([facility]), Tetanus Immunization Given ([facility]) Prescriptions: Amox Tr/Potassium Clavulanate [Augmentin 875-125 Tablet] 1 tab PO BID 5 Days Referrals: SHELLY SETHI MD [Primary Care Provider] - Follow up as needed
[2016-10-28 16:24] VITALS: BP 118/84
== END 2016-10-28 16:15 | disposition home or self-care (01) ==
LOC: ER 14:40
DX: S81.851A Open bite, right lower leg, initial encounter (principal); W54.0XXA Bitten by dog, initial encounter
CPT/HCPCS: 99283; 90471; 90715; A9270

== ENCOUNTER 2016-12-15 12:56 | Emergency (ER) | payer MEDICARE, MEDICAID ==
[2016-12-15 13:39] LABS: ABSOLUTE EOSINOPHILS # (AUTO) 0.2 10^3/uL (0.0-0.6); ABSOLUTE LYMPHOCYTES (AUTO) 2.5 10^3/uL (0.5-4.7); ABSOLUTE MONOCYTES (AUTO) 0.4 10^3/uL (0.1-1.4); ABSOLUTE NEUT (AUTO) 1.5 10^3/uL (1.7-8.2); BASOPHILS % (AUTO) 0.9 % (0-2); EOSINOPHILS % (AUTO) 4.2 % (0-6); HEMATOCRIT 35.9 % (37.9-51.0); HEMOGLOBIN 11.8 g/dL (13.5-17.0); HGB HCT DIFFERENCE -0.5; LYMPHOCYTES % (AUTO) 53.8 % (13-45); MEAN CORPUSCULAR HEMOGLOBIN 31.1 pg (27.0-33.4); MEAN CORPUSCULAR HGB CONC 32.8 g/dL (32.0-36.0); MEAN CORPUSCULAR VOLUME 95 fl (80-97); MONOCYTES % (AUTO) 8.5 % (3-13); RED BLOOD COUNT 3.78 10^6/uL (4.35-5.55); RED CELL DISTRIBUTION WIDTH 14.7 % (11.5-14.0); SEGMENTED NEUTROPHILS % (AUTO) 32.6 % (42-78); WHITE BLOOD COUNT 4.6 10^3/uL (4.0-10.5)
[2016-12-15 13:47] LABS: ALANINE AMINOTRANSFERASE 27 U/L (21-72); ALBUMIN 3.5 g/dL (3.5-5.0); ALKALINE PHOSPHATASE 52 U/L (38-126); ANION GAP 10 (5-19); ASPARTATE AMINO TRANSFERASE 16 U/L (17-59); BILIRUBIN,DIRECT 0.3 mg/dL (0.0-0.4); BILIRUBIN,TOTAL 0.6 mg/dL (0.2-1.3); BLOOD UREA NITROGEN 8 mg/dL (7-20); CALCIUM 9.1 mg/dL (8.4-10.2); CARBON DIOXIDE 26 mmol/L (22-30); CHLORIDE 107 mmol/L (98-107); CREATINE KINASE 66 U/L (55-170); CREATININE RESULT 0.86 mg/dL (0.52-1.25); GLUCOSE 87 mg/dL (75-110); POTASSIUM 4.1 mmol/L (3.6-5.0); SODIUM 142.6 mmol/L (137-145); TOTAL PROTEIN 6.2 g/dL (6.3-8.2)
[2016-12-15 14:00] LABS: CREATINE KINASE MB 0.32 ng/mL (<4.55); TROPONIN I < 0.012 ng/mL
--- NOTE | 2016-12-15 14:11 | RADIOLOGY REPORT (SQ) ---
EXAM DESCRIPTION: CHEST SINGLE VIEW COMPLETED DATE/TIME: 12/15/2016 1:54 pm REASON FOR STUDY: er 11 chest pain COMPARISON: 10/14/2016. EXAM PARAMETERS: NUMBER OF VIEWS: One view. TECHNIQUE: Single frontal radiographic view of the chest acquired. RADIATION DOSE: NA LIMITATIONS: None. FINDINGS: LUNGS AND PLEURA: No opacities, masses or pneumothorax. No pleural effusion. MEDIASTINUM AND HILAR STRUCTURES: No masses. Contour normal. HEART AND VASCULAR STRUCTURES: Heart normal in size. Normal vasculature. BONES: No acute findings. HARDWARE: Sternotomy wires. OTHER: No other significant finding. IMPRESSION: NO ACUTE RADIOGRAPHIC FINDING IN THE CHEST. TECHNICAL DOCUMENTATION: JOB ID: [id number]
[2016-12-15] MEDS ORDERED: METOCLOPRAMIDE HCL INJ/PF 10 MG/2 ML SDV IV ONE (14:16)
--- NOTE | 2016-12-15 14:16 | ER Document Report ---
ED General - General Chief Complaint: Chest Pain Stated Complaint: CHEST PAIN Time Seen by Provider: 12/15/16 13:48 Mode of Arrival: Medic Information source: Patient Notes: 61-year-old male extensive coronary artery disease 10 stents one bypass on Plavix with 3-4 MIs presents with complaints of chest burning sensation nonreproducible 3 out of 10 midsternal left-sided. Patient took sublingual nitros and aspirin per EMS with some relief. Notes pain has been consistent since sat night TRAVEL OUTSIDE OF THE [place] IN LAST 30 DAYS: No - HPI Onset: Yesterday Onset/Duration: Sudden Quality of pain: Burning, Pressure Severity: Mild Pain Level: 1 Associated symptoms: Chest pain, Nausea, Weakness Exacerbated by: Denies Relieved by: Denies Similar symptoms previously: Yes Recently seen / treated by doctor: Yes - Related Data Allergies/Adverse Reactions: adhesive [Adhesive] Allergy (Severe, Verified 12/15/16 13:27) peels skin gabapentin [From Neurontin] Allergy (Unknown, Verified 12/15/16 13:27) disoriented levofloxacin [From Levaquin] Allergy (Unknown, Verified 12/15/16 13:27) Sulfa (Sulfonamide Antibiotics) Allergy (Unknown, Verified 12/15/16 13:27) skin wilson tramadol [Tramadol] Allergy (Unknown, Verified 12/15/16 13:27) ibuprofen [From Motrin] Allergy (Verified 12/15/16 13:27) tramadol HCl [From Ultram] Allergy (Verified 12/15/16 13:27) Past Medical History - Social History Smoking Status: Never Smoker Cigarette use (# per day): No Chew tobacco use (# tins/day): No Smoking Education Provided: No Family History: CAD, CVA - Past Medical History Cardiac Medical History: Reports: Hx Coronary Artery Disease, 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/ MOST RECENT 11/28/15, Hx Hypercholesterolemia, Hx Hypertension Pulmonary Medical History: Reports: Hx Pneumonia Denies: Hx Asthma, Hx Bronchitis, Hx COPD Neurological Medical History: Denies: Hx Cerebrovascular Accident, Hx Seizures Endocrine Medical History: Reports: Hx Diabetes Mellitus Type 2, Hx Hypothyroidism Renal/ Medical History: Denies: Hx Peritoneal Dialysis GI Medical History: Reports: Hx Gastroesophageal Reflux Disease Musculoskeltal Medical History: Reports Hx Arthritis Psychiatric Medical History: Reports: Hx Anxiety, Hx Depression Past Surgical History: Reports: Hx Adenoidectomy, Hx Appendectomy, Hx Bowel Surgery - hemorrhoidectomy, Hx Cardiac Catheterization - last one was 2010, stent x 10, Hx Cardiac Surgery - CABG, Hx Coronary Artery Bypass Graft, Hx Coronary Stent - [id number] recent was 2010, Hx Open Heart Surgery, Hx Rectal Surgery - hemorrhoids, Hx Testicular Surgery - torsion, vastectomy, Hx Tonsillectomy - Immunizations Immunizations up to date: Yes Hx Diphtheria, Pertussis, Tetanus Vaccination: Yes Hx Pneumococcal Vaccination: 03/21/12 Review of Systems - Review of Systems Notes: PHYSICAL EXAMINATION: GENERAL: Well-appearing, well-nourished and in no acute distress. HEAD: Atraumatic, normocephalic. EYES: Pupils equal round and reactive to light, extraocular movements intact, sclera anicteric, conjunctiva are normal. ENT: Nares patent, oropharynx clear without exudates. Moist mucous membranes. NECK: Normal range of motion, supple without lymphadenopathy LUNGS: Breath sounds clear to auscultation bilaterally and equal. No wheezes rales or rhonchi. HEART: Regular rate and rhythm without murmurs midsternal scar noted ABDOMEN: Soft, nontender, nondistended abdomen. No guarding, no rebound. No masses appreciated. Abdominal surgical incisions noted Musculoskeletal: Normal range of motion, no pitting or edema. No cyanosis. NEUROLOGICAL: Cranial nerves grossly intact. Normal speech, normal gait. Normal sensory, motor exams PSYCH: Normal mood, normal affect. SKIN: Warm, Dry, normal turgor, no rashes or lesions noted. Physical Exam - Vital signs Vitals: Temp Pulse Resp BP Pulse Ox 98.2 F 67 17 99/65 L 97 12/15/16 13:00 12/15/16 13:00 12/15/16 13:00 12/15/16 13:00 12/15/16 13:00 Course - Re-evaluation Re-evalutation: 12/15/16 14:21 Patient has an extensive cardiac history however first set of cardiac enzymes negative. Patient does have mild hypertension, this could be secondary to the nitroglycerin he had taken nausea will be controlled. 12/15/16 18:24 12/15/16 19:27 Given the 2 sets of cardiac enzymes were negative I have a low suspicion for any cardiac involvement at this time. Patient unfortunately has an extensive cardiac history, but he does not wish to be admitted at this time. I will discharge with the understanding that this is not a complete cardiac evaluation that he must return immediately if there are any other concerns. Patient states he will do so After performing a Medical Screening Examination, I estimate there is LOW risk for RUPTURED ESOPHAGUS, PNEUMOTHORAX, PULMONARY EMBOLISM, ACUTE CORONARY SYNDROME, OR THORACIC AORTIC DISSECTION, thus I consider the discharge disposition reasonable. I have reevaluated this patient multiple times and no significant life threatening changes are noted. The patient and I have discussed the diagnosis and risks, and we agree with discharging home with close follow-up. We also discussed returning to the Emergency Department immediately if new or worsening symptoms occur. We have discussed the symptoms which are most concerning (e.g., bloody sputum, worsening pain or shortness of breath) that necessitate immediate return. - Vital Signs Vital signs: Temp Pulse Resp BP Pulse Ox 98.2 F 67 14 92/69 L 97 12/15/16 13:00 12/15/16 13:00 12/15/16 19:01 12/15/16 19:01 12/15/16 19:01 - Laboratory Result Diagrams: 12/15/16 13:15 12/15/16 13:15 Laboratory results interpreted by me: 12/15/16 12/15/16 13:15 13:15 RBC 3.78 L Hgb 11.8 L Hct 35.9 L RDW 14.7 H Seg Neutrophils % 32.6 L Lymphocytes % 53.8 H Absolute Neutrophils 1.5 L AST 16 L Total Protein 6.2 L - Diagnostic Test Radiology reviewed: Image reviewed - EKG Interpretation by Mo EKG shows normal: Sinus rhythm, [place], Intervals, QRS Complexes Discharge - Discharge Clinical Impression: Chest pain Qualifiers: Chest pain type: unspecified Qualified Code(s): R07.9 - Chest pain, unspecified Coronary artery disease Qualifiers: Coronary Disease-Associated Artery/Lesion type: unspecified vessel or lesion type [place] vs. transplanted heart: [place] heart Associated angina: with stable angina Qualified Code(s): I25.118 - Atherosclerotic heart disease of [place] coronary artery with other forms of angina pectoris Instructions: Chest Pain of Unclear Cause ([facility]) Additional Instructions: you must see your wash driller immediately if symptoms worsen or return immediately if there are any other concerns Referrals: SHELLY SETHI MD [Primary Care Provider] - Follow up as needed
[2016-12-15] MEDS ORDERED: NORMAL SALINE 1000 ML 1,000 ML IV ONE (14:19)
[2016-12-15 19:19] VITALS: BP 92/69
--- NOTE | 2016-12-16 21:13 | EKG REPORT ---
SEVERITY:- NORMAL ECG - SINUS RHYTHM : Confirmed by: Bety Cobb 16-Dec-2016 21:12:13
== END 2016-12-15 19:25 | disposition home or self-care (01) ==
LOC: ER 12:56
DX: I25.118 Atherosclerotic heart disease of native coronary artery with other forms of angina pectoris (principal); R07.9 Chest pain, unspecified
CPT/HCPCS: 93005; 99285; 96361; 96374; 36415; 82553; 82550; 85025; 80053; 84484; 71010; 93010; J2765; J7030

== ENCOUNTER → 2017-02-19 | Outpatient (CLI) | payer MEDICARE, MEDICAID ==
[2017-02-19 16:24] LABS: ALANINE AMINOTRANSFERASE 26 U/L (21-72); ALBUMIN 4.2 g/dL (3.5-5.0); ALKALINE PHOSPHATASE 54 U/L (38-126); ANION GAP 9 (5-19); ASPARTATE AMINO TRANSFERASE 15 U/L (17-59); BILIRUBIN,DIRECT 0.2 mg/dL (0.0-0.4); BILIRUBIN,TOTAL 0.8 mg/dL (0.2-1.3); BLOOD UREA NITROGEN 9 mg/dL (7-20); CALCIUM 9.7 mg/dL (8.4-10.2); CARBON DIOXIDE 28 mmol/L (22-30); CHLORIDE 104 mmol/L (98-107); CHOLESTEROL 152.74 mg/dL (0-200); CREATININE RESULT 0.85 mg/dL (0.52-1.25); Direct HDL 39 mg/dL (>40); GLUCOSE 83 mg/dL (75-110); POTASSIUM 4.5 mmol/L (3.6-5.0); SODIUM 141.3 mmol/L (137-145); TOTAL PROTEIN 7.1 g/dL (6.3-8.2); TRIGLYCERIDES 143 mg/dL (<150)
[2017-02-19 16:35] LABS: DIRECT LDL 73 mg/dL (<100)
== END ==
LOC: OD 15:13
PROVIDERS: ATTEND Internal Medicine
DX: I25.118 Atherosclerotic heart disease of native coronary artery with other forms of angina pectoris (principal); I10 Essential (primary) hypertension; Z95.1 Presence of aortocoronary bypass graft; E11.9 Type 2 diabetes mellitus without complications; E78.5 Hyperlipidemia, unspecified; R06.00 Dyspnea, unspecified; Z98.61 Coronary angioplasty status; I25.2 Old myocardial infarction; Z79.899 Other long term (current) drug therapy
CPT/HCPCS: 36415; 80053; 80061; 83036

== ENCOUNTER 2017-04-08 01:18 | Emergency (ER) | payer MEDICARE, MEDICAID ==
[2017-04-08 01:30] LABS: ABSOLUTE BASOPHILS # (AUTO) 0.1 10^3/uL (0.0-0.2); ABSOLUTE EOSINOPHILS # (AUTO) 0.3 10^3/uL (0.0-0.6); ABSOLUTE LYMPHOCYTES (AUTO) 3.9 10^3/uL (0.5-4.7); ABSOLUTE MONOCYTES (AUTO) 0.6 10^3/uL (0.1-1.4); ABSOLUTE NEUT (AUTO) 2.9 10^3/uL (1.7-8.2); BASOPHILS % (AUTO) 1.1 % (0-2); EOSINOPHILS % (AUTO) 3.5 % (0-6); HEMATOCRIT 36.8 % (37.9-51.0); HEMOGLOBIN 12.4 g/dL (13.5-17.0); HGB HCT DIFFERENCE 0.4; MEAN CORPUSCULAR HEMOGLOBIN 32.1 pg (27.0-33.4); MEAN CORPUSCULAR HGB CONC 33.7 g/dL (32.0-36.0); MEAN CORPUSCULAR VOLUME 95 fl (80-97); MONOCYTES % (AUTO) 7.3 % (3-13); RED BLOOD COUNT 3.87 10^6/uL (4.35-5.55); RED CELL DISTRIBUTION WIDTH 14.4 % (11.5-14.0); SEGMENTED NEUTROPHILS % (AUTO) 37.1 % (42-78); WHITE BLOOD COUNT 7.7 10^3/uL (4.0-10.5)
--- NOTE | 2017-04-08 01:35 | ER Document Report ---
ED General - General TRAVEL OUTSIDE OF THE [place].S[place] IN LAST 30 DAYS: No <MRATA GABRIEL - Last Filed: 04/08/17 03:29> <BEL LOZOYA - Last Filed: 04/08/17 08:50> - General Chief Complaint: Chest Pain Stated Complaint: CHEST PAIN Time Seen by Provider: 04/08/17 01:34 Notes: Patient is a 61-year-old male presents with complaint of chest pain. He has a long history of coronary disease. He has had multiple stents as well as coronary bypass surgery. Stents and bypass were performed at [facility]. Patient also has any pain over his left femoral artery where he had his previous heart cath done. His last heart catheterization was in 2009. Said the pain over his left femoral artery is gone. Says his pain in his chest is still there. This just left to this sternal border. Does not radiate anywhere. Denies any difficulty breathing. No fevers. No headaches. He did receive aspirin as well as nitro in the ambulance. He is to change his pain much. Patient is followed locally by Dr. Cobb. He did have a nuclear stress test in October of this year which did not show any definite ischemic deficit. ( MARTA GABRIEL) - Related Data Allergies/Adverse Reactions: adhesive [Adhesive] Allergy (Severe, Verified 12/15/16 13:27) peels skin gabapentin [From Neurontin] Allergy (Unknown, Verified 12/15/16 13:27) disoriented levofloxacin [From Levaquin] Allergy (Unknown, Verified 12/15/16 13:27) Sulfa (Sulfonamide Antibiotics) Allergy (Unknown, Verified 12/15/16 13:27) skin wilson tramadol [Tramadol] Allergy (Unknown, Verified 12/15/16 13:27) ibuprofen [From Motrin] Allergy (Verified 12/15/16 13:27) tramadol HCl [From Ultram] Allergy (Verified 12/15/16 13:27) Past Medical History - Social History Smoking Status: Unknown if Ever Smoked Frequency of alcohol use: None Drug Abuse: None Family History: CAD, CVA - Past Medical History Cardiac Medical History: Reports: Hx Coronary Artery Disease, 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/ MOST RECENT 11/28/15, Hx Hypercholesterolemia, Hx Hypertension Pulmonary Medical History: Reports: Hx Pneumonia Denies: Hx Asthma, Hx Bronchitis, Hx COPD Neurological Medical History: Denies: Hx Cerebrovascular Accident, Hx Seizures Endocrine Medical History: Reports: Hx Diabetes Mellitus Type 2, Hx Hypothyroidism Renal/ Medical History: Denies: Hx Peritoneal Dialysis GI Medical History: Reports: Hx Gastroesophageal Reflux Disease Musculoskeltal Medical History: Reports Hx Arthritis Psychiatric Medical History: Reports: Hx Anxiety, Hx Depression Past Surgical History: Reports: Hx Adenoidectomy, Hx Appendectomy, Hx Bowel Surgery - hemorrhoidectomy, Hx Cardiac Catheterization - last one was 2010, stent x 10, Hx Cardiac Surgery - CABG, Hx Coronary Artery Bypass Graft, Hx Coronary Stent - [id number] recent was 2010, Hx Open Heart Surgery, Hx Rectal Surgery - hemorrhoids, Hx Testicular Surgery - torsion, vastectomy, Hx Tonsillectomy - Immunizations Immunizations up to date: Yes Hx Diphtheria, Pertussis, Tetanus Vaccination: Yes Hx Pneumococcal Vaccination: 03/21/12 <MARTA GABRIEL - Last Filed: 04/08/17 03:29> Review of Systems <MARTA GABRIEL - Last Filed: 04/08/17 03:29> <BEL LOZOYA - Last Filed: 04/08/17 08:50> - Review of Systems Notes: My Normal Review Basic REVIEW OF SYSTEMS: CONSTITUTIONAL : Denies fever, chills, or sweats. Denies recent illness. EENT: Denies eye, ear, throat, or mouth pain or symptoms. Denies nasal or sinus congestion. CARDIOVASCULAR: Chest pain RESPIRATORY: Denies cough, cold, or chest congestion. Denies shortness of breath, difficulty breathing, or wheezing. GASTROINTESTINAL: Denies abdominal pain. Denies nausea, vomiting, or diarrhea. MUSCULOSKELETAL: Denies neck or back pain or joint pain or swelling. SKIN: Denies rash or skin lesions. NEUROLOGICAL: Denies altered mental status or loss of consciousness. Denies headache. Denies weakness or paralysis or loss of use of either side. Denies problems with gait or speech. Denies sensory or motor loss. ALL OTHER SYSTEMS REVIEWED AND NEGATIVE. (MARTA GABRIEL) Physical Exam <MARTA GABRIEL - Last Filed: 04/08/17 03:29> <BEL LOZOYA - Last Filed: 04/08/17 08:50> - Vital signs Vitals: Resp 04/08/17 01:21 - Notes Notes: General Appearance: Well nourished, alert, cooperative, no acute distress, no obvious discomfort. Vitals: reviewed, See vital signs table. Head: no swelling or tenderness to the head Eyes: PERRL, EOMI, Conjuctiva clear Mouth: No decreasd moisture Chest Wall: No reproducible pain palpation of chest wall. Lungs: No wheezing, No rales, No rhonci, No accessory muscle use, good air exchange bilaterally. Heart: Normal rate, Regular rythm, No murmur, no rub Abdomen: Normal BS, soft, No rigidity, No abdominal tenderness, No guarding, no rebound, no abdominal masses, no organomegaly Extremities: strength 5/5 in all extremities, good pulses in all extremities, no swelling or tenderness in the extremities, no edema. Skin: warm, dry, appropriate color, no rash Neuro: speech clear, oriented x 3, normal affect, responds appropriately to questions. (MARTA GABRIEL) Course - Laboratory Result Diagrams: 04/08/17 01:20 04/08/17 01:20 <MARTA GABRIEL - Last Filed: 04/08/17 03:29> - Laboratory Result Diagrams: 04/08/17 01:20 04/08/17 01:20 <BEL LOZOYA - Last Filed: 04/08/17 08:50> - Re-evaluation Re-evalutation: 04/08/17 03:26 Patient's cardiac enzymes and EKG are negative thus far. I do have concern that the patient has had recurring worsening chest pain over the last couple months. He did have a negative stress test here in October. He does have history of coronary disease with stenting as well as coronary bypass surgery. At this time due to the fact that he said the extent of workup that we can possibly perform here and she does have history of significant coronary disease and has been told in the past that he may need further stenting or feel that it is appropriate to transfer him to a facility that can potentially do heart cath or at least where he can be evaluated for potential heart cath. I did speak with Dr. Garcia, morgue attendant at [facility], who agrees to accept the patient for transfer. He requests that I give the patient Lovenox as well as start him on Atorvastatin 80 mg. (MARTA GABRIEL) 04/08/17 08:50 Patient was reevaluated prior to transfer. He has no complaints and denies further chest pain. Heart and lungs are normal. (BEL LOZOYA) - Vital Signs Vital signs: Temp Pulse Resp BP Pulse Ox 98.1 F 74 12 100/71 100 04/08/17 01:30 04/08/17 01:30 04/08/17 08:36 04/08/17 08:36 04/08/17 08:36 - Laboratory Laboratory results interpreted by me: 04/08/17 01:20 RBC 3.87 L Hgb 12.4 L Hct 36.8 L RDW 14.4 H Seg Neutrophils % 37.1 L Lymphocytes % 51.0 H - EKG Interpretation by Me Additional EKG results interpreted by me: 04/08/17 01:35 EKG is reviewed and interpreted by me. EKG shows normal sinus rhythm with a rate of [address] segment elevation or depression. Patient does have a wave inversions in leads aVL and V2 however these are unchanged in comparison to his old EKG from December 15, 2016. [place] interval, QRS duration, QTc intervals are within normal range. No old EKG available for comparison. 04/08/17 01:40 (MARTA GABRIEL) Discharge <MARTA GABRIEL - Last Filed: 04/08/17 03:29> <BEL LOZOYA - Last Filed: 04/08/17 08:50> - Discharge Clinical Impression: Chest pain Qualifiers: Chest pain type: unspecified Qualified Code(s): R07.9 - Chest pain, unspecified Condition: Stable Disposition: [facility]
[2017-04-08 01:42] LABS: ALANINE AMINOTRANSFERASE 30 U/L (21-72); ALBUMIN 3.9 g/dL (3.5-5.0); ALKALINE PHOSPHATASE 53 U/L (38-126); ANION GAP 9 (5-19); ASPARTATE AMINO TRANSFERASE 18 U/L (17-59); BILIRUBIN,DIRECT 0.3 mg/dL (0.0-0.4); BILIRUBIN,TOTAL 0.6 mg/dL (0.2-1.3); BLOOD UREA NITROGEN 13 mg/dL (7-20); CALCIUM 9.3 mg/dL (8.4-10.2); CARBON DIOXIDE 29 mmol/L (22-30); CHLORIDE 105 mmol/L (98-107); CREATINE KINASE 111 U/L (55-170); CREATININE RESULT 1.03 mg/dL (0.52-1.25); GLUCOSE 107 mg/dL (75-110); POTASSIUM 3.8 mmol/L (3.6-5.0); SODIUM 143.4 mmol/L (137-145); TOTAL PROTEIN 6.8 g/dL (6.3-8.2)
[2017-04-08] MEDS ORDERED: NITROGLYCERIN 2% OINTMENT 1 GM PACKET TP ONE (01:47)
[2017-04-08 01:54] LABS: CREATINE KINASE MB 0.88 ng/mL (<4.55); TROPONIN I < 0.012 ng/mL
--- NOTE | 2017-04-08 02:19 | RADIOLOGY REPORT (SQ) ---
EXAM DESCRIPTION: CHEST SINGLE VIEW COMPLETED DATE/TIME: 04/08/2017 1:37 am REASON FOR STUDY: CP COMPARISON: 12/15/2016. EXAM PARAMETERS: NUMBER OF VIEWS: One view. TECHNIQUE: Single frontal radiographic view of the chest acquired. RADIATION DOSE: NA LIMITATIONS: None. FINDINGS: LUNGS AND PLEURA: No opacities, masses or pneumothorax. No pleural effusion. MEDIASTINUM AND HILAR STRUCTURES: No masses. Contour normal. HEART AND VASCULAR STRUCTURES: Heart normal in size. Normal vasculature. BONES: No acute findings. HARDWARE: Sternotomy. OTHER: No other significant finding. IMPRESSION: NO ACUTE RADIOGRAPHIC FINDING IN THE CHEST. TECHNICAL DOCUMENTATION: JOB ID: [id number]
[2017-04-08] MEDS ORDERED: ATORVASTATIN CALCIUM 80 MG TABLET PO ONE (03:24)
[2017-04-08] MEDS ORDERED: ENOXAPARIN SODIUM INJ 100 MG/1 ML DISP.SYRIN SUBCUT SCH (03:30)
[2017-04-08] MEDS ORDERED: ONDANSETRON HCL INJ/PF 4 MG/2 ML SDV IV ONE (04:16)
--- NOTE | 2017-04-08 07:54 | EKG REPORT ---
SEVERITY:- BORDERLINE ECG - SINUS RHYTHM BORDERLINE T ABNORMALITIES, ANT-LAT LEADS : Confirmed by: Elio Rae MD 08-Apr-2017 07:54:23
[2017-04-08 08:43] VITALS: BP 100/71
== END 2017-04-08 08:53 | disposition short-term general hospital (02) ==
LOC: ER 01:18
DX: R07.9 Chest pain, unspecified (principal); I25.10 Atherosclerotic heart disease of native coronary artery without angina pectoris; E78.00 Pure hypercholesterolemia, unspecified; I10 Essential (primary) hypertension; E11.9 Type 2 diabetes mellitus without complications; E03.9 Hypothyroidism, unspecified; Z95.1 Presence of aortocoronary bypass graft; Z88.2 Allergy status to sulfonamides; Z88.6 Allergy status to analgesic agent; I25.2 Old myocardial infarction
CPT/HCPCS: 93005; 99285; 96372; 96374; 36415; 82553; 82550; 85025; 80053; 84484; 71010; 93010; J2405; J1650; A9270

== ENCOUNTER 2017-04-29 03:04 | Emergency (ER) | payer MEDICARE, MEDICAID ==
--- NOTE | 2017-04-29 03:40 | ER Document Report ---
ED General - General Chief Complaint: Chest Pain Stated Complaint: CHEST PAIN Time Seen by Provider: 04/29/17 03:27 Notes: 61-year-old male with chronic pain and cardiovascular disease with several stents presents with chest pain intermittently for 4 days now constant for 2 straight days, woke up with it this morning and it has been constant left-sided 2 out of 10 and then increase to 6 out of 10 burning and going down to his jaw and left arm. Similar to many prior episodes of chest pain. Took nitro with no relief. He was brought in by ambulance and got nitro from them as well. Of note his last stress test was in October and he is and based on the records it was essentially normal. He says he got a stent a few months ago divided. TRAVEL OUTSIDE OF THE [place] IN LAST 30 DAYS: No - Related Data Allergies/Adverse Reactions: adhesive [Adhesive] Allergy (Severe, Verified 12/15/16 13:27) peels skin gabapentin [From Neurontin] Allergy (Unknown, Verified 12/15/16 13:27) disoriented levofloxacin [From Levaquin] Allergy (Unknown, Verified 12/15/16 13:27) Sulfa (Sulfonamide Antibiotics) Allergy (Unknown, Verified 12/15/16 13:27) skin wilson tramadol [Tramadol] Allergy (Unknown, Verified 12/15/16 13:27) ibuprofen [From Motrin] Allergy (Verified 12/15/16 13:27) tramadol HCl [From Ultram] Allergy (Verified 12/15/16 13:27) Past Medical History - Social History Smoking Status: Unknown if Ever Smoked Frequency of alcohol use: None Drug Abuse: None Family History: CAD, CVA Patient has suicidal ideation: No Patient has homicidal ideation: No - Past Medical History Cardiac Medical History: Reports: Hx Coronary Artery Disease, 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/ MOST RECENT 11/28/15, Hx Hypercholesterolemia, Hx Hypertension Pulmonary Medical History: Reports: Hx Pneumonia Denies: Hx Asthma, Hx Bronchitis, Hx COPD Neurological Medical History: Denies: Hx Cerebrovascular Accident, Hx Seizures Endocrine Medical History: Reports: Hx Diabetes Mellitus Type 2, Hx Hypothyroidism Renal/ Medical History: Denies: Hx Peritoneal Dialysis GI Medical History: Reports: Hx Gastroesophageal Reflux Disease Musculoskeltal Medical History: Reports Hx Arthritis Psychiatric Medical History: Reports: Hx Anxiety, Hx Depression Past Surgical History: Reports: Hx Adenoidectomy, Hx Appendectomy, Hx Bowel Surgery - hemorrhoidectomy, Hx Cardiac Catheterization - last one was 2010, stent x 10, Hx Cardiac Surgery - CABG, Hx Coronary Artery Bypass Graft, Hx Coronary Stent - [id number] recent was 2010, Hx Open Heart Surgery, Hx Rectal Surgery - hemorrhoids, Hx Testicular Surgery - torsion, vastectomy, Hx Tonsillectomy - Immunizations Immunizations up to date: Yes Hx Diphtheria, Pertussis, Tetanus Vaccination: Yes Hx Pneumococcal Vaccination: 03/21/12 Review of Systems - Review of Systems Notes: REVIEW OF SYSTEMS GEN: Denies fever, chills, weight loss ENT: Denies sore throat, nasal discharge, ear pain EYES: Denies blurry vision, eye pain, discharge CV: Chest pain a RESP: Denies cough, shortness of breath, wheezing GI: Denies abdominal pain, nausea, vomiting, diarrhea MSK: Denies joint pain/swelling, edema, SKIN: Denies rash, skin lesions LYMPH: Denies swollen glands/lymph nodes NEURO: Denies headache, focal weakness or numbness, dizziness PSYCH: Denies depression, suicidal or homicidal ideation PHYSICAL EXAMINATION General: No acute distress, well-nourished Head: Atraumatic, normocephalic ENT: Mouth normal, oropharynx moist, no exudates or tonsillar enlargement Eyes: Conjunctiva normal, pupils equal, lids normal Neck: No JVD, supple, no guarding CVS: Normal rate, regular rhythm, no murmurs Resp: No resp distress, equal and normal breath sounds bilaterally GI: Nondistended, soft, no tenderness to palpation, no rebound or guarding Ext: No deformities, no edema, normal range of motion in upper and lower ext Back: No CVA or midline TTP Skin: No rash, warm Lymphatic: No lymphadeopathy noted Neuro: Awake, alert. Face symmetric. GCS 15. Physical Exam - Vital signs Vitals: Pulse Ox 98 04/29/17 03:06 Course - Re-evaluation Re-evalutation: 04/29/17 03:39 61-year-old male with cardiovascular disease as well as chronic pain presents with typical sounding chest pain. It has been escalating but has been constant all day today. His ECG is abnormal with some T-wave inversions in V2, however these are unchanged from prior and the remainder of his EKG is normal and nonischemic. Nitro did not help his pain. No it does sound typical, he has been seen many many times with chest pain and usually rules out in the ED. in terms of other etiologies besides acute coronary syndrome, this could be chronic chest wall pain or atypical chest pain, less likely dissection PE pneumothorax based on the story. He will get a single troponin which will rule out OR and I will speak with his customer relations advisor by phone. - Vital Signs Vital signs: Temp Pulse Resp BP Pulse Ox 97.9 F 16 105/79 93 04/29/17 03:08 04/29/17 03:08 04/29/17 03:08 04/29/17 03:08 04/29/17 06:08 Typical sounding chest pain in a patient with severe cardiac disease. Despite his story he is very well-appearing and his EKG is unchanged. I reassessed him at 6 AM after a negative troponin and he was sleeping. When he woke up he stated he had pain. Given this I think he requires transfer. Spoke with Dr. Garcia who accepted the patient for Dr. Griggs at [facility]. She agrees that patient probably does not need the Lovenox at this time. - Laboratory Result Diagrams: 04/29/17 04:25 04/29/17 04:25 Laboratory results interpreted by me: 04/29/17 04/29/17 04:25 04:25 RBC 3.58 L Hgb 11.2 L Hct 33.8 L RDW 14.4 H Chloride 108 H AST 15 L Total Protein 6.1 L - EKG Interpretation by Me EKG shows normal: Sinus rhythm Rate: Normal Rhythm: NSR When compared to previous EKG there are: No significant change Discharge - Discharge Clinical Impression: Chest pain, unspecified Qualifiers: Chest pain type: unspecified Qualified Code(s): R07.9 - Chest pain, unspecified Condition: Good Disposition: [facility]
[2017-04-29 04:39] LABS: ABSOLUTE EOSINOPHILS # (AUTO) 0.2 10^3/uL (0.0-0.6); ABSOLUTE LYMPHOCYTES (AUTO) 2.5 10^3/uL (0.5-4.7); ABSOLUTE MONOCYTES (AUTO) 0.4 10^3/uL (0.1-1.4); ABSOLUTE NEUT (AUTO) 2.7 10^3/uL (1.7-8.2); BASOPHILS % (AUTO) 0.5 % (0-2); EOSINOPHILS % (AUTO) 3.5 % (0-6); HEMATOCRIT 33.8 % (37.9-51.0); HEMOGLOBIN 11.2 g/dL (13.5-17.0); HGB HCT DIFFERENCE -0.2; LYMPHOCYTES % (AUTO) 42.3 % (13-45); MEAN CORPUSCULAR HEMOGLOBIN 31.4 pg (27.0-33.4); MEAN CORPUSCULAR HGB CONC 33.3 g/dL (32.0-36.0); MEAN CORPUSCULAR VOLUME 94 fl (80-97); MONOCYTES % (AUTO) 7.2 % (3-13); RED BLOOD COUNT 3.58 10^6/uL (4.35-5.55); RED CELL DISTRIBUTION WIDTH 14.4 % (11.5-14.0); SEGMENTED NEUTROPHILS % (AUTO) 46.5 % (42-78); WHITE BLOOD COUNT 5.9 10^3/uL (4.0-10.5)
[2017-04-29 04:45] LABS: PROTHROMBIN TIME 13.2 SEC (11.4-15.4)
[2017-04-29 04:51] LABS: ALANINE AMINOTRANSFERASE 35 U/L (21-72); ALBUMIN 3.5 g/dL (3.5-5.0); ALKALINE PHOSPHATASE 48 U/L (38-126); ANION GAP 8 (5-19); ASPARTATE AMINO TRANSFERASE 15 U/L (17-59); BILIRUBIN,DIRECT 0.3 mg/dL (0.0-0.4); BILIRUBIN,TOTAL 0.5 mg/dL (0.2-1.3); BLOOD UREA NITROGEN 7 mg/dL (7-20); CARBON DIOXIDE 29 mmol/L (22-30); CHLORIDE 108 mmol/L (98-107); CREATINE KINASE 78 U/L (55-170); CREATININE RESULT 0.84 mg/dL (0.52-1.25); GLUCOSE 85 mg/dL (75-110); POTASSIUM 3.9 mmol/L (3.6-5.0); SODIUM 144.7 mmol/L (137-145); TOTAL PROTEIN 6.1 g/dL (6.3-8.2)
[2017-04-29 05:06] LABS: TROPONIN I < 0.012 ng/mL
--- NOTE | 2017-04-29 05:08 | RADIOLOGY REPORT (SQ) ---
EXAM DESCRIPTION: CHEST SINGLE VIEW COMPLETED DATE/TIME: 04/29/2017 4:51 am REASON FOR STUDY: CP COMPARISON: None. EXAM PARAMETERS: NUMBER OF VIEWS: One view. TECHNIQUE: Single frontal radiographic view of the chest acquired. RADIATION DOSE: NA LIMITATIONS: None. FINDINGS: LUNGS AND PLEURA: No opacities, masses or pneumothorax. No pleural effusion. MEDIASTINUM AND HILAR STRUCTURES: No masses. Contour normal. HEART AND VASCULAR STRUCTURES: Heart normal in size. Normal vasculature. BONES: No acute findings. HARDWARE: Median sternotomy. OTHER: No other significant finding. IMPRESSION: NO ACUTE RADIOGRAPHIC FINDING IN THE CHEST. TECHNICAL DOCUMENTATION: JOB ID: [id number]
[2017-04-29 06:29] LABS: APPEARANCE,URINE CLEAR; BILIRUBIN,URINE NEGATIVE (NEGATIVE); GLUCOSE, URINE NEGATIVE (NEGATIVE); KETONES,URINE NEGATIVE (NEGATIVE); LEUKOCYTE ESTERASE,URINE NEGATIVE (NEGATIVE); NITRITE,URINE NEGATIVE (NEGATIVE); PROTEIN,URINE NEGATIVE (NEGATIVE); URINE SPECIFIC GRAVITY 1.006; UROBILINOGEN,URINE NEGATIVE mg/dL (<2.0)
--- NOTE | 2017-04-29 08:13 | EKG REPORT ---
SEVERITY:- BORDERLINE ECG - SINUS RHYTHM BORDERLINE T ABNORMALITIES, ANT-LAT LEADS : Confirmed by: Elio Rae MD 29-Apr-2017 08:13:01
--- NOTE | 2017-04-29 08:13 | EKG REPORT ---
SEVERITY:- ABNORMAL ECG - SINUS RHYTHM PROBABLE POSTERIOR INFARCT : Confirmed by: Elio Rae MD 29-Apr-2017 08:12:50
[2017-04-29] MEDS ORDERED: (PENDING PHARMACY ID) (Oxymorphone Hcl [Opana] 10 MG) PO PRN (14:28)
[2017-04-29] MEDS ORDERED: NITROGLYCERIN 0.4 MG/TAB 25 TAB/BOTTLE SL PRN (14:28)
[2017-04-29] MEDS ORDERED: DOCUSATE SODIUM 100 MG CAPSULE PO PRN ×2 (14:28→14:39)
[2017-04-29] MEDS ORDERED: MORPHINE SULFATE IR 30 MG TABLET PO PRN (14:28)
[2017-04-29] MEDS ORDERED: DIAZEPAM 5 MG TABLET PO PRN ×2 (14:28→14:38)
[2017-04-29] MEDS ORDERED: (PENDING PHARMACY ID) (Ranolazine [Ranexa] 1,000 MG) PO SCH (18:00)
[2017-04-29] MEDS ORDERED: RANOLAZINE 500 MG TAB.SR.12H PO SCH (22:00)
[2017-04-29] MEDS ORDERED: SERTRALINE HCL 50 MG TABLET PO SCH (22:00)
[2017-04-29] MEDS ORDERED: ATORVASTATIN CALCIUM 80 MG TABLET PO SCH (22:00)
[2017-04-29] MEDS ORDERED: FAMOTIDINE 20 MG TABLET PO SCH (22:00)
[2017-04-29] MEDS ORDERED: (PENDING PHARMACY ID) (Ranitidine Hcl [Ranitidine Hcl] 150 MG) PO SCH (22:00)
[2017-04-30 04:13] VITALS: BP 103/61
[2017-04-30] MEDS ORDERED: ASPIRIN 81 MG TABLET, CHEWABLE PO SCH (10:00)
[2017-04-30] MEDS ORDERED: ISOSORBIDE MONONITRATE 60 MG TAB.ER.24H PO SCH (10:00)
[2017-04-30] MEDS ORDERED: CLOPIDOGREL BISULFATE 75 MG TABLET PO SCH (10:00)
[2017-04-30] MEDS ORDERED: METFORMIN HCL 500 MG TABLET PO SCH (10:00)
[2017-04-30] MEDS ORDERED: ISOSORBIDE MONONITRATE PO SCH (10:00)
[2017-04-30] MEDS ORDERED: ASPIRIN 325 MG TABLET PO SCH (10:00)
[2017-04-30] MEDS ORDERED: AMLODIPINE BESYLATE 10 MG TABLET PO SCH (10:00)
== END 2017-04-30 04:13 | disposition short-term general hospital (02) ==
LOC: ER 03:04
DX: R07.9 Chest pain, unspecified (principal); G89.29 Other chronic pain; I25.10 Atherosclerotic heart disease of native coronary artery without angina pectoris; R68.84 Jaw pain; M79.602 Pain in left arm
CPT/HCPCS: 93005; 99285; 36415; 82553; 82550; 85025; 85610; 80053; 81001; 84484; 71010; 93010; A9270 ×3

== ENCOUNTER 2017-06-18 10:08 | Emergency (ER) | payer MEDICARE, MEDICAID ==
--- NOTE | 2017-06-18 10:18 | ER Document Report ---
ED Cardiac - General Chief Complaint: Chest Pain Stated Complaint: CHEST PAIN Time Seen by Provider: 06/18/17 10:17 Notes: The patient is a 62-year-old male, past medical history CAD status post stents and CABG, presents with left upper chest pain that started when he woke up today. He went to cardiac rehab today and came back to the ER because he was still having pain. He took his 240 mg isosorbide nitrate this morning, but did not take any of his other medications. He was admitted dto [facility] 2 months ago and said that his mononitrate was doubled. His last stress test was 7 months ago and he said it was normal and his last cath was 16 months ago. Patient denies shortness of breath, nausea, vomiting, back pain, numbness, tingling, leg swelling, fevers, headache or rash. TRAVEL OUTSIDE OF THE [place] IN LAST 30 DAYS: No - Related Data Allergies/Adverse Reactions: adhesive [Adhesive] Allergy (Severe, Verified 12/15/16 13:27) peels skin gabapentin [From Neurontin] Allergy (Unknown, Verified 12/15/16 13:27) disoriented levofloxacin [From Levaquin] Allergy (Unknown, Verified 12/15/16 13:27) Sulfa (Sulfonamide Antibiotics) Allergy (Unknown, Verified 12/15/16 13:27) skin wilson tramadol [Tramadol] Allergy (Unknown, Verified 12/15/16 13:27) ibuprofen [From Motrin] Allergy (Verified 12/15/16 13:27) tramadol HCl [From Ultram] Allergy (Verified 12/15/16 13:27) Past Medical History - General Information source: Patient - Social History Smoking Status: Unknown if Ever Smoked Family History: CAD, CVA - Past Medical History Cardiac Medical History: Reports: Hx Coronary Artery Disease, 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 Denies: Hx Pancreatitis Musculoskeltal Medical History: Reports Hx Arthritis Psychiatric Medical History: Reports: Hx Anxiety, Hx Depression Past Surgical History: Reports: Hx Adenoidectomy, Hx Appendectomy, Hx Bowel Surgery - hemorrhoidectomy, Hx Cardiac Catheterization - last one was 2010, stent x 10, Hx Cardiac Surgery - CABG, Hx Coronary Artery Bypass Graft, Hx Coronary Stent - [id number] recent was 2010, Hx Open Heart Surgery, Hx Rectal Surgery - hemorrhoids, Hx Testicular Surgery - torsion, vastectomy, Hx Tonsillectomy - Immunizations Immunizations up to date: Yes Hx Diphtheria, Pertussis, Tetanus Vaccination: Yes Hx Pneumococcal Vaccination: 03/21/12 Review of Systems - Review of Systems Notes: REVIEW OF SYSTEMS: CONSTITUTIONAL: -fevers, -chills EENT: -eye pain, -difficulty swallowing, -nasal congestion CARDIOVASCULAR:- +chest pain, -syncope. RESPIRATORY: -cough, -SOB GASTROINTESTINAL: -abdominal pain, - nausea, -vomiting, -diarrhea GENITOURINARY: -dysuria, -hematuria MUSCULOSKELETAL: -back pain, -neck pain SKIN: -rash or skin lesions. HEMATOLOGIC: -easy bruising or bleeding. LYMPHATIC: -swollen, enlarged glands. NEUROLOGICAL: -altered mental status or loss of consciousness, -headache, - neurologic symptoms PSYCHIATRIC: -anxiety, -depression. ALL OTHER SYSTEMS REVIEWED AND NEGATIVE. Physical Exam - Notes Notes: PHYSICAL EXAMINATION: GENERAL: Well-appearing, well-nourished and in no acute distress. HEAD: Atraumatic, normocephalic. EYES: Pupils equal round and reactive to light, extraocular movements intact, sclera anicteric, conjunctiva are normal. ENT: nares patent, oropharynx clear without exudates. Moist mucous membranes. NECK: Normal range of motion, supple without lymphadenopathy LUNGS: Breath sounds clear to auscultation bilaterally and equal. No wheezes rales or rhonchi. HEART: Regular rate and rhythm without murmurs ABDOMEN: Soft, nontender, normoactive bowel sounds. No guarding, no rebound. No masses appreciated. EXTREMITIES: Normal range of motion, no pitting or edema. No cyanosis. NEUROLOGICAL: Cranial nerves grossly intact. Normal speech, normal gait. Normal sensory and motor exams. PSYCH: Normal mood, normal affect. SKIN: Warm, Dry, normal turgor, no rashes or lesions noted. Course - Re-evaluation Re-evalutation: Patient's troponin, chest x-ray and EKG are all negative for acute ischemia. Feels much better after he received his sublingual nitro and he is chest pain free. He said that he did not have his nitro spray at home while he was at cardiac rehab and that is why he came to the ER. Spoke to Dr. Cavanaugh (his Lacing Operator) and he recommends discharging patient after 2 troponins and following-up in his office tomorrow. Also spoke to his PMD, Dr. Velasquez and he is in agreement with the plan. His chest pain is chronic in nature and he is already diagnosed with angina and has Nitro at home. Patient comfortable with plan and urged to return anytime if his symptoms worsen. - Laboratory Result Diagrams: 06/18/17 10:30 06/18/17 10:30 Laboratory results interpreted by me: 06/18/17 06/18/17 10:30 10:30 RBC 4.10 L Hgb 13.2 L RDW 14.3 H Lymphocytes % 45.2 H BUN 4 L - Diagnostic Test Radiology reviewed: Image reviewed, Reports reviewed Radiology results interpreted by me: CXR: NAD - EKG Interpretation by Me EKG shows normal: Sinus rhythm, [place], Intervals, QRS Complexes, ST-T Waves Rate: Normal When compared to previous EKG there are: No significant change Discharge - Discharge Clinical Impression: Chronic chest pain Condition: Stable Additional Instructions: You must see her office sweeper, Dr. Peña, tomorrow for further evaluation evaluation of your chronic chest pain. Continue to take the nitro. CHEST PAIN OF UNCLEAR CAUSE: The exact cause of your chest pain isn't clear. Fortunately, there is no evidence of a dangerous medical condition. Further testing may be required to find the source of the pain. Most often, we find that this pain is coming from the chest wall -- the muscles or rib joints in the chest. But chest pain can come from the lung and lung lining, the esophagus, the heart valves or heart lining, and even the stomach or gallbladder. Rest. Eat lightly until the pain is gone. We may prescribe medicine for pain and inflammation. You should call the physician immediately if the pain radiates to the shoulder, jaw or arms; if you start to run a fever or develop a cough; or if you develop shortness of breath, or other new or alarming symptoms. NORMAL EXAM AND WORKUP: At this time, your examination and workup show no significant abnormality. No significant abnormal physical findings were noted. All laboratory, EKG, and imaging (x-ray, CT scans, ultrasound) studies that were ordered show no significant abnormality. Although your examination and all studies that were ordered showed no significant abnormal finding, there are no examinations and no studies that are 100% accurate. There is always the possibility that some abnormality could exist and not be detected with physical examination or within the limits and capabilities of laboratory and other studies. You should return or follow up as you were instructed on your visit today for further evaluation if your symptoms do not resolve. CHEST WALL PAIN: Your chest pain may be coming from the chest wall. This is often caused by straining the muscles or joints in the chest during physical activity, direct trauma, coughing, or vigorous vomiting. Persons with arthritis are especially prone to this type of pain, due to inflammation of the cartilage joints near the breast bone. Occasionally, no cause can be found. Rest from strenuous physical activity. This kind of chest pain is usually made worse by movement of the chest. Depending on the symptoms, we may prescribe medicine for pain, muscle relaxation, and antiinflammatory effects. If the pain is new, and seems to be due to muscle strain, cold packs can help. Otherwise, apply gentle warmth to the painful area for 15 minutes every hour or two. You should call contact the doctor immediately if things change. Further evaluation is needed if you develop a fever or cough, if the nature of the pain changes, or if you become short of breath. ANGINA EPISODE: Your physician has diagnosed the pain you experienced as an episode of angina. Angina occurs when a portion of the heart muscle temporarily lacks oxygen. It does not cause any permanent heart damage, but serves as a warning. Hospitalization is not necessary now. Evaluation of your cardiac condition , and medical therapy for angina will be necessary. It's important you be sure to keep all appointments and take medication exactly as prescribed. Angina is usually treated with a type of "nitrate" medication. This is available as ointment, pills, or sublingual (under the tongue) tablets. Depending on your clinical situation, other medications may be added to help control angina. These may include beta blockers or calcium blockers. If episodes of angina are occurring with increased frequency, or if chest pain lasts longer than 15 minutes or does not respond to nitroglycerin, you must seek emergency medical care immediately. ASPIRIN: Aspirin has been shown to have a beneficial effect on blood circulation by reducing the clotting effect of platelets in the blood. These beneficial effects can be achieved by taking just a single baby (81 mg) aspirin a day. It is recommended that any person over the age of forty take a single baby aspirin every day for heart and brain circulation, unless you are allergic to aspirin or have some significant bleeding disorder. It is strongly recommended that people who have proven cardiac or blood circulation disturbances should take a baby aspirin every day. NITRATES: Nitroglycerin and related longer-acting nitrate medications are used to prevent or treat attacks of angina. These medicines dilate blood vessels, decreasing the work of the heart, and improving its supply of oxygen. Many different forms are available, including sublingual tablets (used under the tongue), sprays, skin patches, and long-acting pills. If the particular form of medication you have been given is not working well for you, contact your doctor. Long-acting forms: Take exactly as prescribed. Sudden stopping of medication can provoke increased attacks. Sublingual tabs or spray: A headache will usually occur with use. Sit or lie while waiting for the pain to go away. If angina doesn't respond to three doses (five minutes apart), call for emergency assistance. FOLLOW-UP CARE: If you have been referred to a physician for follow-up care, call the physician s office for an appointment as you were instructed or within the next two days. If you experience worsening or a significant change in your symptoms, notify the physician immediately or return to the Emergency Department at any time for re-evaluation. Referrals: SHELLY SETHI MD [Primary Care Provider] - Follow up as needed DANITA PEÑA MD [ACTIVE STAFF] - Follow up as needed
[2017-06-18 10:46] LABS: ABSOLUTE EOSINOPHILS # (AUTO) 0.1 10^3/uL (0.0-0.6); ABSOLUTE LYMPHOCYTES (AUTO) 2.2 10^3/uL (0.5-4.7); ABSOLUTE MONOCYTES (AUTO) 0.4 10^3/uL (0.1-1.4); ABSOLUTE NEUT (AUTO) 2.1 10^3/uL (1.7-8.2); EOSINOPHILS % (AUTO) 2.9 % (0-6); HEMATOCRIT 38.8 % (37.9-51.0); HEMOGLOBIN 13.2 g/dL (13.5-17.0); HGB HCT DIFFERENCE 0.8; LYMPHOCYTES % (AUTO) 45.2 % (13-45); MEAN CORPUSCULAR HEMOGLOBIN 32.1 pg (27.0-33.4); MEAN CORPUSCULAR HGB CONC 33.9 g/dL (32.0-36.0); MEAN CORPUSCULAR VOLUME 95 fl (80-97); MONOCYTES % (AUTO) 8.2 % (3-13); RED CELL DISTRIBUTION WIDTH 14.3 % (11.5-14.0); SEGMENTED NEUTROPHILS % (AUTO) 42.7 % (42-78)
[2017-06-18] MEDS ORDERED: NITROGLYCERIN 0.4 MG/TAB 25 TAB/BOTTLE SL PRN (11:07)
[2017-06-18] MEDS ORDERED: ASPIRIN 325 MG TABLET PO ONE (11:07)
[2017-06-18 11:13] LABS: ALANINE AMINOTRANSFERASE 35 U/L (21-72); ALBUMIN 4.3 g/dL (3.5-5.0); ALKALINE PHOSPHATASE 57 U/L (38-126); ANION GAP 11 (5-19); ASPARTATE AMINO TRANSFERASE 22 U/L (17-59); BILIRUBIN,DIRECT 0.3 mg/dL (0.0-0.4); BILIRUBIN,TOTAL 0.5 mg/dL (0.2-1.3); BLOOD UREA NITROGEN 4 mg/dL (7-20); CALCIUM 9.4 mg/dL (8.4-10.2); CARBON DIOXIDE 28 mmol/L (22-30); CHLORIDE 103 mmol/L (98-107); CREATINE KINASE 88 U/L (55-170); CREATININE RESULT 0.84 mg/dL (0.52-1.25); GLUCOSE 100 mg/dL (75-110); POTASSIUM 4.6 mmol/L (3.6-5.0); SODIUM 141.7 mmol/L (137-145)
--- NOTE | 2017-06-18 11:16 | RADIOLOGY REPORT (SQ) ---
EXAM DESCRIPTION: CHEST SINGLE VIEW COMPLETED DATE/TIME: 06/18/2017 11:08 am REASON FOR STUDY: chest pain COMPARISON: 04/29/2017. EXAM PARAMETERS: NUMBER OF VIEWS: One view. TECHNIQUE: Single frontal radiographic view of the chest acquired. RADIATION DOSE: NA LIMITATIONS: None. FINDINGS: LUNGS AND PLEURA: No opacities, masses or pneumothorax. No pleural effusion. MEDIASTINUM AND HILAR STRUCTURES: No masses. Contour normal. HEART AND VASCULAR STRUCTURES: Heart normal in size. Normal vasculature. BONES: No acute findings. HARDWARE: Sternotomy wires. OTHER: No other significant finding. IMPRESSION: NO ACUTE RADIOGRAPHIC FINDING IN THE CHEST. TECHNICAL DOCUMENTATION: JOB ID: [id number] [employer]- All Rights Reserved
[2017-06-18 11:26] LABS: TROPONIN I < 0.012 ng/mL
[2017-06-18 13:15] VITALS: BP 97/65
--- NOTE | 2017-06-18 13:22 | EKG REPORT ---
SEVERITY:- NORMAL ECG - SINUS RHYTHM : Confirmed by: Elio Rae MD 18-Jun-2017 13:22:06
== END 2017-06-18 13:16 | disposition home or self-care (01) ==
LOC: ER 10:08
DX: I25.119 Atherosclerotic heart disease of native coronary artery with unspecified angina pectoris (principal); I10 Essential (primary) hypertension; I25.2 Old myocardial infarction; Z95.5 Presence of coronary angioplasty implant and graft; Z91.5 Personal history of self-harm; Z79.899 Other long term (current) drug therapy; Z91.048 Other nonmedicinal substance allergy status; Z88.6 Allergy status to analgesic agent; Z88.1 Allergy status to other antibiotic agents; Z88.2 Allergy status to sulfonamides; Z88.5 Allergy status to narcotic agent
CPT/HCPCS: 36415; 71010; 80053; 82550; 83880; 84484; 85025; 93005; 93010; 99285

== ENCOUNTER 2017-08-22 14:39 | Emergency (ER) | payer MEDICARE, MEDICAID ==
[2017-08-22] MEDS ORDERED: METOCLOPRAMIDE HCL ORAL SOLN 10 MG/10 ML UDCUP PO ONE (14:57)
[2017-08-22] MEDS ORDERED: LIDOCAINE 2% URO-JET 5 ML KIT MM ONE (14:57)
--- NOTE | 2017-08-22 15:02 | ER Document Report ---
ED General - General Stated Complaint: ABDOMINAL PAIN Time Seen by Provider: 08/22/17 14:48 TRAVEL OUTSIDE OF THE [place] IN LAST 30 DAYS: No - HPI Notes: Patient is a 62-year-old male with a history of chronic narcotic use secondary to chronic significant cardiac medical history who presents the ED complaining of constipation and not having a bowel movement 4 days with pressure in his rectum. Patient states that he has no abdominal pain. Patient states that he has been trying to have a bowel movement for a couple days and has been unsuccessful. Patient states that he does feel the cramping, and when he tries to have a bowel movement nothing comes out. Patient states that he has pain with sitting as well. Patient states that he has had issues with this in the past. Patient states he is otherwise eating and drinking without difficulties. He is urinating normally. Patient denies any other recent illness. He has not noticed any melena or hematochezia. No other concerns or complaints. Patient has had a previous history of an obstruction as well in the past. Denies any headache, fever, neck pain, URI, sore throat, chest pain, palpitations, syncope, cough, shortness of breath, wheeze, dyspnea, abdominal pain, nausea/vomiting/diarrhea, urinary retention, dysuria, hematuria, loss of control of bowel or bladder, numbness/tingling, saddle anesthesia, muscle paralysis/weakness, or rash. - Related Data Allergies/Adverse Reactions: adhesive [Adhesive] Allergy (Severe, Verified 12/15/16 13:27) peels skin gabapentin [From Neurontin] Allergy (Unknown, Verified 12/15/16 13:27) disoriented levofloxacin [From Levaquin] Allergy (Unknown, Verified 12/15/16 13:27) Sulfa (Sulfonamide Antibiotics) Allergy (Unknown, Verified 12/15/16 13:27) skin wilson tramadol [Tramadol] Allergy (Unknown, Verified 12/15/16 13:27) ibuprofen [From Motrin] Allergy (Verified 12/15/16 13:27) tramadol HCl [From Ultram] Allergy (Verified 12/15/16 13:27) Past Medical History - Social History Smoking Status: Unknown if Ever Smoked Family History: CAD, CVA - Past Medical History Cardiac Medical History: Reports: Hx Coronary Artery Disease, 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 Denies: Hx Pancreatitis Musculoskeltal Medical History: Reports Hx Arthritis Psychiatric Medical History: Reports: Hx Anxiety, Hx Depression Past Surgical History: Reports: Hx Adenoidectomy, Hx Appendectomy, Hx Bowel Surgery - hemorrhoidectomy, Hx Cardiac Catheterization - last one was 2010, stent x 10, Hx Cardiac Surgery - CABG, Hx Coronary Artery Bypass Graft, Hx Coronary Stent - [id number] recent was 2010, Hx Open Heart Surgery, Hx Rectal Surgery - hemorrhoids, Hx Testicular Surgery - torsion, vastectomy, Hx Tonsillectomy - Immunizations Immunizations up to date: Yes Hx Diphtheria, Pertussis, Tetanus Vaccination: Yes Hx Pneumococcal Vaccination: 03/21/12 Review of Systems - Review of Systems -: Yes All other systems reviewed and negative Physical Exam - Vital signs Vitals: Temp Pulse Resp BP Pulse Ox 98.4 F 106 H 20 125/78 99 08/22/17 14:56 08/22/17 14:56 08/22/17 14:56 08/22/17 14:56 08/22/17 14:56 - Notes Notes: PHYSICAL EXAMINATION: GENERAL: Well-appearing, well-nourished and in no acute distress. LUNGS: Breath sounds clear to auscultation bilaterally and equal. No wheezes rales or rhonchi. HEART: Regular rate and rhythm without murmurs, rubs, gallops. ABDOMEN: Soft, nontender, nondistended abdomen. No guarding, no rebound. No masses appreciated. Normal bowel sounds present. No CVA tenderness bilaterally. Rectal: + fecal impaction noted. stool is brown colored, no jaqueline blood or melena noted. No obvious hemorrhoids or fissures.. Extremities: No cyanosis, clubbing, or edema b/l. Peripheral pulses 2+. Capillary refill less than 3 seconds. NEUROLOGICAL: Normal speech, normal gait. Normal sensory, motor exams PSYCH: Normal mood, normal affect. SKIN: Warm, Dry, normal turgor, no rashes or lesions noted. Course - Re-evaluation Re-evalutation: 08/22/17 16:36 Patient is an afebrile, well-hydrated, 62-year-old male who presents to the ED with fecal impaction and constipation. Vitals are stable. PE is otherwise unremarkable. Acute abdomen series was unremarkable for any acute pathology aside from abundant stool throughout. Patient was noted to have an impaction on exam. No other complaints were noted or exam findings. Patient was given Reglan p.o. as well as a Urojet rectally. Disimpaction was performed successfully without any complications to the extent that I could reach. Patient tolerated procedure well. We will now follow that up with a subset mineral oil enema. Pt's stool after impaction is Stage 3. 08/22/17 17:19 Nurse was able to get approx 250cc of the enema in. pt still having difficulty expelling his contents in the ED. Reviewed with Dr. Sy. We will send him home with Lactulose to take PO at home. His stool is now soft since we were able to get the hard stool balls removed during impaction that I could reach. Low suspicion/risk for acute appendicitis, bowel obstruction, acute cholecystitis, perforated diverticulitis, incarcerated hernia, pancreatitis, perforated ulcer, peritonitis, sepsis, testicular torsion, or other systemic emergent condition at this time. Patient is aware that his condition can change from initial presentation and he needs to monitor symptoms closely and seek medical attention if any acute changes. I will send him home with miralax as well. Conservative measures otherwise for symptoms. Recheck with PCM in 2-3 days. Consider consult with a space officer. Return to the ED with any worsening/concerning symptoms otherwise as reviewed in discharge. Patient is in agreement. - Vital Signs Vital signs: Temp Pulse Resp BP Pulse Ox 98.4 F 106 H 20 125/78 99 08/22/17 14:56 08/22/17 14:56 08/22/17 14:56 08/22/17 14:56 08/22/17 14:56 Discharge - Discharge Clinical Impression: Fecal impaction Constipation Qualifiers: Constipation type: drug induced constipation Qualified Code(s): K59.03 - Drug induced constipation Condition: Stable Disposition: HOME, SELF-CARE Instructions: Constipation ([facility]), Fecal Impaction ([facility]), Laxative ([facility]) Additional Instructions: Maintain adequate fluid and food intake tylenol if needed Take Lactulose as directed Monitor for any worsening symptoms Make sure you are staying hydrated enough to urinate and have normal BM's Recheck with your PCM in 2-3 days Consider consult with Gastroenterology for ongoing/worsening symptoms Return to the ED with any worsening symptoms and/or development of fever, headache, chest pain, palpitations, syncope, shortness of breath, trouble breathing, abdominal pain, n/v/d, blood in stool/urine, weakness, or other worsening symptoms that are concerning to you. Prescriptions: Polyethylene Glycol 3350 [Miralax] 1 cap PO DAILY #527 powder Referrals: SHELLY SETHI MD [Primary Care Provider] - 08/25/17 СЕРГЕЙ URBINA MD [ACTIVE STAFF] - Follow up as needed
--- NOTE | 2017-08-22 15:35 | RADIOLOGY REPORT (SQ) ---
EXAM DESCRIPTION: ACUTE ABDOMEN SERIES COMPLETED DATE/TIME: 08/22/2017 3:26 pm REASON FOR STUDY: constipation COMPARISON: 02/14/2007. NUMBER OF VIEWS: Three views. TECHNIQUE: Frontal chest, supine abdomen and upright/decubitus abdomen radiographic images acquired. LIMITATIONS: None. FINDINGS: CHEST: Lungs clear of infiltrates. FREE AIR: None. No abnormal gas collections. BOWEL GAS PATTERN: Nonobstructive pattern. No dilated loops or air fluid levels. CALCIFICATIONS: No suspicious calcifications. HARDWARE: Clips in the lower abdomen. Sternotomy wires. SOFT TISSUES: No gross mass or suggestion of organomegaly. BONES: No acute fracture. No worrisome bone lesions. OTHER: No other significant finding. IMPRESSION: NO RADIOGRAPHIC EVIDENCE FOR ACUTE ABDOMINAL DISEASE. TECHNICAL DOCUMENTATION: JOB ID: [id number] [employer]- All Rights Reserved
[2017-08-22] MEDS ORDERED: MINERAL OIL 30 ML UDCUP PR ONE (16:33)
[2017-08-22] MEDS ORDERED: LACTULOSE SYRUP 20 GM/30 ML UDCUP PO ONE (17:17)
[2017-08-22 17:56] VITALS: BP 116/60
== END 2017-08-22 18:00 | disposition home or self-care (01) ==
LOC: ER 14:39
DX: K59.03 Drug induced constipation (principal); Z79.899 Other long term (current) drug therapy
CPT/HCPCS: 99284; 74022; A9270 ×3; J3490

== ENCOUNTER 2017-08-22 21:04 | Emergency (ER) | payer MEDICARE, MEDICAID ==
--- NOTE | 2017-08-22 22:24 | ER Document Report ---
ED Medical Screen (RME) - General Chief Complaint: Constipation Stated Complaint: CONSTIPATION Time Seen by Provider: 08/22/17 21:54 Notes: Patient is a 62-year-old male who returns emergency department with a chief complaint of chest pain. Patient was seen here earlier today and diagnosed with constipation. Patient has not had a bowel movement in the past 4 days. Patient underwent digital disimpaction as well as an enema on the emergency department earlier this afternoon. He states that he has not had a bowel movement since then but is passing a lot of gas. States that he was at home when he started having intermittent chest pain with associated burning sensation and palpitations. He states this is what brought him to the emergency room. He denies any nausea, shortness of breath. He admits to abdominal discomfort, distention. He denies any nausea or vomiting admits to flatus without bowel movement. Patient states that he has a very complicated cardiac history and remains a DO NOT RESUSCITATE DO NOT INTUBATE and on symptom management for this condition. He has been taking chronic narcotics. Patient's cardiac history is as follows: 2 MIs in the , CABG 1 in 2008, 10 coronary stents was recently in November 2015, on Plavix Past medical history involves osteoarthritis, COPD, diabetes, hypertension, hyperlipidemia, CAD Patient smokes approximately one pack a day for the past 10 years. Denies alcohol or drug use TRAVEL OUTSIDE OF THE [place] IN LAST 30 DAYS: No - Related Data Allergies/Adverse Reactions: adhesive [Adhesive] Allergy (Severe, Verified 12/15/16 13:27) peels skin gabapentin [From Neurontin] Allergy (Unknown, Verified 12/15/16 13:27) disoriented levofloxacin [From Levaquin] Allergy (Unknown, Verified 12/15/16 13:27) Sulfa (Sulfonamide Antibiotics) Allergy (Unknown, Verified 12/15/16 13:27) skin wilson tramadol [Tramadol] Allergy (Unknown, Verified 12/15/16 13:27) ibuprofen [From Motrin] Allergy (Verified 12/15/16 13:27) tramadol HCl [From Ultram] Allergy (Verified 12/15/16 13:27) Past Medical History - Social History Family history: DM, Hyperlipidemia, Hypertension - Past Medical History Cardiac Medical History: Reports: Hx Coronary Artery Disease, 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 Denies: Hx Pancreatitis Musculoskeltal Medical History: Reports Hx Arthritis Psychiatric Medical History: Reports: Hx Anxiety, Hx Depression Past Surgical History: Reports: Hx Adenoidectomy, Hx Appendectomy, Hx Bowel Surgery - hemorrhoidectomy, Hx Cardiac Catheterization - last one was 2010, stent x 10, Hx Cardiac Surgery - CABG, Hx Coronary Artery Bypass Graft, Hx Coronary Stent - [id number] recent was 2010, Hx Open Heart Surgery, Hx Rectal Surgery - hemorrhoids, Hx Testicular Surgery - torsion, vastectomy, Hx Tonsillectomy - Immunizations Immunizations up to date: Yes Hx Diphtheria, Pertussis, Tetanus Vaccination: Yes Physical Exam - Vital signs Vitals: Temp Pulse Resp BP Pulse Ox 99.4 F 103 H 16 133/93 H 97 08/22/17 21:07 08/22/17 21:07 08/22/17 21:07 08/22/17 21:07 08/22/17 21:07 - Notes Notes: PHYSICAL EXAM GENERAL: Alert, interacts well. LUNGS: Clear to auscultation bilaterally, no wheezes, rales, or rhonchi. No respiratory distress. HEART: Regular rate and rhythm. No murmurs, gallops, or rubs. ABDOMEN: Soft, distended, nontender. No guarding, rebound, or rigidity.. hyperactive bowel sounds present in all 4 quadrants. EXTREMITIES: Moves all 4 extremities spontaneously. No edema, radial and dorsalis pedis pulses 2/4 bilaterally. No cyanosis. NEUROLOGICAL: Alert and oriented x4. Normal speech. PSYCH: Normal affect, normal mood. SKIN: Warm, dry, normal turgor. No rashes or lesions noted. Course - Vital Signs Vital signs: Temp Pulse Resp BP Pulse Ox 99.4 F 103 H 16 133/93 H 97 08/22/17 21:07 08/22/17 21:07 08/22/17 21:07 08/22/17 21:07 08/22/17 21:07
[2017-08-22] MEDS ORDERED: ASPIRIN 81 MG TABLET, CHEWABLE PO ONE (22:30)
--- NOTE | 2017-08-22 23:39 | RADIOLOGY REPORT (SQ) ---
EXAM DESCRIPTION: ACUTE ABDOMEN SERIES COMPLETED DATE/TIME: 08/22/2017 11:26 pm REASON FOR STUDY: ABD PAIN COMPARISON: Abdominal series 08/22/2017 at 15:19 hours, 02/14/2007 NUMBER OF VIEWS: Three views. TECHNIQUE: Frontal chest, supine abdomen and upright/decubitus abdomen radiographic images acquired on 08/22/2017 at 23:28 hours. LIMITATIONS: None. FINDINGS: CHEST: Lungs clear of infiltrates. FREE AIR: None. BOWEL GAS PATTERN: Nonobstructive pattern. No dilated loops or air fluid levels. Large amount of sto ol throughout the colon. CALCIFICATIONS: No suspicious calcifications. HARDWARE: Surgical clips are noted in the right lower quadrant. Sternotomy wires are present. SOFT TISSUES: No gross mass or suggestion of organomegaly. BONES: Degenerative changes at the spine. IMPRESSION: Nonobstructive bowel gas pattern. Large amount of stool at the colon. TECHNICAL DOCUMENTATION: JOB ID: [id number] [employer]- All Rights Reserved
[2017-08-22 23:54] LABS: ABSOLUTE LYMPHOCYTES (AUTO) 1.1 10^3/uL (0.5-4.7); ABSOLUTE MONOCYTES (AUTO) 0.6 10^3/uL (0.1-1.4); ABSOLUTE NEUT (AUTO) 8.5 10^3/uL (1.7-8.2); BASOPHILS % (AUTO) 0.2 % (0-2); EOSINOPHILS % (AUTO) 0.1 % (0-6); HEMATOCRIT 39.7 % (37.9-51.0); HEMOGLOBIN 13.4 g/dL (13.5-17.0); LYMPHOCYTES % (AUTO) 10.5 % (13-45); MEAN CORPUSCULAR HEMOGLOBIN 31.5 pg (27.0-33.4); MEAN CORPUSCULAR HGB CONC 33.9 g/dL (32.0-36.0); MEAN CORPUSCULAR VOLUME 93 fl (80-97); MONOCYTES % (AUTO) 6.1 % (3-13); PLATELET COUNT 201 10^3/uL (150-450); RED BLOOD COUNT 4.26 10^6/uL (4.35-5.55); RED CELL DISTRIBUTION WIDTH 14.1 % (11.5-14.0); SEGMENTED NEUTROPHILS % (AUTO) 83.1 % (42-78); TOTAL CELLS COUNTED % (AUTO) 100 %; WHITE BLOOD COUNT 10.3 10^3/uL (4.0-10.5)
[2017-08-23 00:02] LABS: ALANINE AMINOTRANSFERASE 29 U/L (21-72); ALBUMIN 4.4 g/dL (3.5-5.0); ALKALINE PHOSPHATASE 56 U/L (38-126); ANION GAP 10 (5-19); ASPARTATE AMINO TRANSFERASE 19 U/L (17-59); BILIRUBIN,DIRECT 0.2 mg/dL (0.0-0.4); BLOOD UREA NITROGEN 10 mg/dL (7-20); CALCIUM 9.6 mg/dL (8.4-10.2); CARBON DIOXIDE 28 mmol/L (22-30); CHLORIDE 105 mmol/L (98-107); CREATINE KINASE 150 U/L (55-170); GLUCOSE 97 mg/dL (75-110); POTASSIUM 3.9 mmol/L (3.6-5.0); SODIUM 142.7 mmol/L (137-145); TOTAL PROTEIN 7.3 g/dL (6.3-8.2)
[2017-08-23 00:14] LABS: CREATINE KINASE MB 0.87 ng/mL (<4.55)
[2017-08-23 00:16] LABS: TROPONIN I < 0.012 ng/mL
--- NOTE | 2017-08-23 00:26 | ER Document Report ---
ED GI/ - General Chief Complaint: Constipation Stated Complaint: CONSTIPATION Time Seen by Provider: 08/22/17 21:54 Mode of Arrival: Ambulatory Information source: Patient Notes: Patient is a 62-year-old male who presents to the ER today for constipation and chest pain. Patient was just seen here earlier today and disimpacted. Patient was sent home with a MiraLAX prescription which she has not gotten filled yet. Patient states that he got home and started having chest pains so he came back. Patient has been seen here many times for chest pain with normal workups. He denies any nausea, vomiting or shortness of breath with this. Patient denies having a heart attack or stroke. TRAVEL OUTSIDE OF THE [place] IN LAST 30 DAYS: No - Related Data Allergies/Adverse Reactions: adhesive [Adhesive] Allergy (Severe, Verified 12/15/16 13:27) peels skin gabapentin [From Neurontin] Allergy (Unknown, Verified 12/15/16 13:27) disoriented levofloxacin [From Levaquin] Allergy (Unknown, Verified 12/15/16 13:27) Sulfa (Sulfonamide Antibiotics) Allergy (Unknown, Verified 12/15/16 13:27) skin wilson tramadol [Tramadol] Allergy (Unknown, Verified 12/15/16 13:27) ibuprofen [From Motrin] Allergy (Verified 12/15/16 13:27) tramadol HCl [From Ultram] Allergy (Verified 12/15/16 13:27) Past Medical History - General Information source: Patient - Social History Smoking Status: Unknown if Ever Smoked Family History: CAD, CVA Patient has suicidal ideation: No Patient has homicidal ideation: No - Past Medical History Cardiac Medical History: Reports: Hx Coronary Artery Disease, 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 Denies: Hx Pancreatitis Musculoskeltal Medical History: Reports Hx Arthritis Psychiatric Medical History: Reports: Hx Anxiety, Hx Depression Past Surgical History: Reports: Hx Adenoidectomy, Hx Appendectomy, Hx Bowel Surgery - hemorrhoidectomy, Hx Cardiac Catheterization - last one was 2010, stent x 10, Hx Cardiac Surgery - CABG, Hx Coronary Artery Bypass Graft, Hx Coronary Stent - [id number] recent was 2010, Hx Open Heart Surgery, Hx Rectal Surgery - hemorrhoids, Hx Testicular Surgery - torsion, vastectomy, Hx Tonsillectomy - Immunizations Immunizations up to date: Yes Hx Diphtheria, Pertussis, Tetanus Vaccination: Yes Hx Pneumococcal Vaccination: 03/21/12 Review of Systems - Review of Systems Constitutional: No symptoms reported EENT: No symptoms reported Cardiovascular: See HPI Respiratory: No symptoms reported Gastrointestinal: See HPI Genitourinary: No symptoms reported Male Genitourinary: No symptoms reported Musculoskeletal: No symptoms reported Skin: No symptoms reported Hematologic/Lymphatic: No symptoms reported Neurological/Psychological: No symptoms reported Physical Exam - Vital signs Vitals: Temp Pulse Resp BP Pulse Ox 99.4 F 103 H 16 133/93 H 97 08/22/17 21:07 08/22/17 21:07 08/22/17 21:07 08/22/17 21:07 08/22/17 21:07 - Notes Notes: PHYSICAL EXAMINATION: GENERAL: Well-appearing and in no acute distress. HEAD: Atraumatic, normocephalic. EYES: Pupils equal round and reactive to light, extraocular movements intact, sclera anicteric, conjunctiva are normal. ENT: ear canals without erythema or foreign body, TMs pearly suárez with good bony landmarks, nares patent, oropharynx clear without exudates. Moist mucous membranes. NECK: Normal range of motion, supple without lymphadenopathy LUNGS: CTAB and equal. No wheezes rales or rhonchi. HEART: Regular rate and rhythm without murmurs ABDOMEN: Soft, no tenderness. No guarding, no rebound BACK: no vertebral tenderness, normal ROM GI/: no CVA tenderness EXTREMITIES: Normal range of motion, no pitting edema. No cyanosis. NEUROLOGICAL: Cranial nerves grossly intact. Normal sensory/motor exams. PSYCH: Normal mood, normal affect. SKIN: Warm, Dry, normal turgor, no rashes or lesions noted Course - Re-evaluation Re-evalutation: 08/23/17 04:11 Patient was just disimpacted and received an enema today in the emergency department. Patient states he has not had a bowel movement since that time but had quite a large bowel movement in the ER. Patient sent home with MiraLAX prescription, I advised him to get that filled. X-ray of the abdomen today reports constipation throughout the colon. Does not report any impacted stool at the rectum. Cardiac enzymes are negative today, EKG reveals a normal sinus rhythm without evidence of ischemia or abnormality. Patient be discharged home. - Vital Signs Vital signs: Temp Pulse Resp BP Pulse Ox 99.0 F 83 18 116/76 98 08/23/17 00:45 08/23/17 00:45 08/23/17 00:45 08/23/17 00:45 08/23/17 00:45 - Laboratory Result Diagrams: 08/22/17 23:39 08/22/17 23:39 Laboratory results interpreted by me: 08/22/17 23:39 RBC 4.26 L Hgb 13.4 L RDW 14.1 H Seg Neutrophils % 83.1 H Lymphocytes % 10.5 L Absolute Neutrophils 8.5 H Discharge - Discharge Clinical Impression: Constipation Qualifiers: Constipation type: unspecified constipation type Qualified Code(s): K59.00 - Constipation, unspecified Chest pain Qualifiers: Chest pain type: unspecified Qualified Code(s): R07.9 - Chest pain, unspecified Condition: Stable Disposition: HOME, SELF-CARE Additional Instructions: Please take your MiraLAX as prescribed yesterday. Return immediately for any new or worsening symptoms. Follow up with primary care provider, call tomorrow to make followup appointment. Referrals: SHELLY SETHI MD [Primary Care Provider] - Follow up as needed
[2017-08-23 00:47] VITALS: BP 116/76
--- NOTE | 2017-08-23 08:51 | EKG REPORT ---
SEVERITY:- ABNORMAL ECG - SINUS RHYTHM PROBABLE LEFT ATRIAL ABNORMALITY NONSPECIFIC T ABNORMALITIES, ANT-LAT LEADS : Confirmed by: Elio Rae MD 23-Aug-2017 08:51:08
== END 2017-08-23 00:47 | disposition home or self-care (01) ==
LOC: ER 21:04
DX: K59.00 Constipation, unspecified (principal); R07.9 Chest pain, unspecified; I25.10 Atherosclerotic heart disease of native coronary artery without angina pectoris; E78.00 Pure hypercholesterolemia, unspecified; I10 Essential (primary) hypertension; Z88.6 Allergy status to analgesic agent; Z88.2 Allergy status to sulfonamides; I25.2 Old myocardial infarction; Z95.1 Presence of aortocoronary bypass graft
CPT/HCPCS: 93005; 99284; 36415; 82553; 82550; 85025; 80053; 84484; 74022; 93010; A9270

== ENCOUNTER 2017-10-11 12:15 | Observation (INO) | payer MEDICARE, MEDICAID ==
[2017-10-11] MEDS ORDERED: ASPIRIN 81 MG TABLET, CHEWABLE PO ONE (12:16)
[2017-10-11] MEDS ORDERED: NITROGLYCERIN 0.4 MG/TAB 25 TAB/BOTTLE SL PRN ×2 (12:32→16:45)
--- NOTE | 2017-10-11 12:40 | ER Document Report ---
ED General - General Chief Complaint: Chest Pain Stated Complaint: CHEST PAIN Time Seen by Provider: 10/11/17 12:21 Mode of Arrival: Medic Information source: Patient TRAVEL OUTSIDE OF THE [place] IN LAST 30 DAYS: No - HPI Notes: 32-year-old male with a history of 11 stents placed, last one was placed August 2016, 2 heart attacks, CABG presents via EMS today with complaints of left-sided chest pain that started at 0830 this morning, states it felt like a burning pain and pressure, patient still went to anabaptism, patient took his blood pressure at home and his blood pressure was 169/80, patient decided to come to the emergency room. Patient states he does see Dr. Cavanaugh, implant polisher with [facility], states just last month he had his lisinopril increased due to elevated blood pressure. Patient was given 2 nitro in the ambulance and took morphine pill that he has and Valium at home, this did not cause any relief. Patient states his last stent was placed in August 2016. Patient states his last stress test was 6 months ago. States that this chest pain feels different today. It is still an active smoker. Denies fevers, chills, palpitations, shortness of breath, dyspnea, nausea, vomiting, diarrhea, abdominal pain, hematuria,blurred vision, double vision, loss of vision, speech changes, LH, dizziness, syncope, headaches, wheezing, ST, URI, neck pain, weakness, bowel or bladder dysfunction, saddle anesthesia, numbness or tingling in bilateral upper or lower extremities equally, muscle paralysis, weakness in bilateral upper or lower extremities equally or rash. Denies IV drug use. - Related Data Allergies/Adverse Reactions: adhesive [Adhesive] Allergy (Severe, Verified 10/11/17 12:22) peels skin gabapentin [From Neurontin] Allergy (Unknown, Verified 10/11/17 12:22) disoriented levofloxacin [From Levaquin] Allergy (Unknown, Verified 10/11/17 12:22) Sulfa (Sulfonamide Antibiotics) Allergy (Unknown, Verified 10/11/17 12:22) skin wilson tramadol [Tramadol] Allergy (Unknown, Verified 10/11/17 12:22) ibuprofen [From Motrin] Allergy (Verified 10/11/17 12:22) tramadol HCl [From Ultram] Allergy (Verified 03/24/18 12:22) Past Medical History - General Information source: Patient - Social History Smoking Status: Current Every Day Smoker Frequency of alcohol use: None Drug Abuse: None Family History: CAD, CVA Patient has suicidal ideation: No Patient has homicidal ideation: No - Past Medical History Cardiac Medical History: Reports: Hx Coronary Artery Disease, 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 Denies: Hx Pancreatitis Musculoskeltal Medical History: Reports Hx Arthritis Psychiatric Medical History: Reports: Hx Anxiety, Hx Depression Past Surgical History: Reports: Hx Adenoidectomy, Hx Appendectomy, Hx Bowel Surgery - hemorrhoidectomy, Hx Cardiac Catheterization - last one was 2010, stent x 10, Hx Cardiac Surgery - CABG, Hx Coronary Artery Bypass Graft, Hx Coronary Stent - [id number] recent was 2010, Hx Open Heart Surgery, Hx Rectal Surgery - hemorrhoids, Hx Testicular Surgery - torsion, vastectomy, Hx Tonsillectomy - Immunizations Immunizations up to date: Yes Hx Diphtheria, Pertussis, Tetanus Vaccination: Yes Hx Pneumococcal Vaccination: 03/21/12 Review of Systems - Review of Systems Notes: REVIEW OF SYSTEMS: CONSTITUTIONAL : Denies fever, chills, or sweats. Denies recent illness. EENT: Denies eye, ear, throat, or mouth pain or symptoms. Denies nasal or sinus congestion or discharge. Denies throat, tongue, or mouth swelling or difficulty swallowing. CARDIOVASCULAR: reports chest pain. Denies palpitations or racing or irregular heart beat. Denies ankle edema. RESPIRATORY: Denies cough, cold, or chest congestion. Denies shortness of breath, difficulty breathing, or wheezing. GASTROINTESTINAL: Denies abdominal pain or distention. Denies nausea, vomiting , or diarrhea. Denies blood in vomitus, stools, or per rectum. Denies black, tarry stools. Denies constipation. GENITOURINARY: Denies difficulty urinating, painful urination, burning, frequency, blood in urine, or discharge. MUSCULOSKELETAL: Denies back or neck pain or stiffness. Denies joint pain or swelling. SKIN: Denies rash, lesions or sores. HEMATOLOGIC : Denies easy bruising or bleeding. LYMPHATIC: Denies swollen, enlarged glands. NEUROLOGICAL: Denies confusion or altered mental status. Denies passing out or loss of consciousness. Denies dizziness or lightheadedness. Denies headache. Denies weakness or paralysis or loss of use of either side. Denies problems with gait or speech. Denies sensory loss, numbness, or tingling. Denies seizures. PSYCHIATRIC: Denies anxiety or stress. Denies depression, suicidal ideation, or homicidal ideation. ALL OTHER SYSTEMS REVIEWED AND NEGATIVE. Dictation was performed using [employer] voice recognition software PHYSICAL EXAMINATION: GENERAL: Well-appearing, well-nourished and in no acute distress. HEAD: Atraumatic, normocephalic. EYES: Pupils equal round and reactive to light, extraocular movements intact, sclera anicteric, conjunctiva are normal. ENT: Nares patent, oropharynx clear without exudates. Moist mucous membranes. NECK: Normal range of motion, supple without lymphadenopathy LUNGS: Breath sounds clear to auscultation bilaterally and equal. No wheezes rales or rhonchi. HEART: Regular rate and rhythm without murmurs. Unable to reproduce chest pain. ABDOMEN: Soft, nontender, nondistended abdomen. No guarding, no rebound. No masses appreciated. Musculoskeletal: Normal range of motion, no pitting or edema. No cyanosis. NEUROLOGICAL: Cranial nerves grossly intact. Normal speech, normal gait. Normal sensory, motor exams PSYCH: Normal mood, normal affect. SKIN: Warm, Dry, normal turgor, no rashes or lesions noted. Physical Exam - Vital signs Vitals: Pulse Ox 97 10/11/17 12:15 Course - Re-evaluation Re-evalutation: 10/11/17 16:00 A 62-year-old male with an extensive cardiac history presents today with sudden onset left-sided chest pain. States that he had an elevated blood pressure this morning of 169/80 with a heart rate of 99 with increasing left-sided chest pain. while patient was in emergency room, patient states that he started experiencing left-sided chest pain radiated to his left shoulder. patient states that this pain feels different than his typical chest pain. He was given nitro, states this did not help. CBC negative for any leukocytosis or anemia, CMP negative for any acute renal or hepatic dysfunction, electrolytes within normal range. Cardiac enzyme negative, EKG negative for STEMI, patient did have some relief with morphine. Patient is not finding any relief with his chest pain. And continues to have chest pain. Due to significant cardiac history with a heart score of 4, patient has a moderate heart score. Discussed with hospitalist, Dr. Ortez at 1550, will place pt in observation for serial repeat troponins as well as evaluation of unrelieved chest pain. - Vital Signs Vital signs: Temp Pulse Resp BP Pulse Ox 98.9 F 20 112/81 99 10/11/17 12:29 10/11/17 15:10 10/11/17 15:11 10/11/17 15:10 - Laboratory Result Diagrams: 10/11/17 12:00 10/11/17 12:00 Laboratory results interpreted by me: 10/11/17 10/11/17 12:00 12:00 RDW 15.2 H Sodium 145.2 H Carbon Dioxide 31 H BUN 4 L Glucose 119 H Calcium 10.6 H - EKG Interpretation by Dc EKG shows normal: Sinus rhythm Rate: Normal Rhythm: NSR When compared to previous EKG there are: No significant change Discharge - Discharge Clinical Impression: Unstable angina Condition: Good Disposition: ADMITTED OBSERVATION Admitting Provider: Hospitalist - Dr. Ortez Unit Admitted: Telemetry Referrals: SHELLY SETHI MD [Primary Care Provider] - Follow up as needed
[2017-10-11 12:46] LABS: ABSOLUTE EOSINOPHILS # (AUTO) 0.1 10^3/uL (0.0-0.6); ABSOLUTE LYMPHOCYTES (AUTO) 2.1 10^3/uL (0.5-4.7); ABSOLUTE MONOCYTES (AUTO) 0.3 10^3/uL (0.1-1.4); ABSOLUTE NEUT (AUTO) 2.5 10^3/uL (1.7-8.2); BASOPHILS % (AUTO) 0.8 % (0-2); EOSINOPHILS % (AUTO) 1.2 % (0-6); HEMATOCRIT 41.7 % (37.9-51.0); HEMOGLOBIN 13.8 g/dL (13.5-17.0); LYMPHOCYTES % (AUTO) 41.3 % (13-45); MEAN CORPUSCULAR VOLUME 94 fl (80-97); MONOCYTES % (AUTO) 6.7 % (3-13); PLATELET COUNT 220 10^3/uL (150-450); RED BLOOD COUNT 4.44 10^6/uL (4.35-5.55); RED CELL DISTRIBUTION WIDTH 15.2 % (11.5-14.0); TOTAL CELLS COUNTED % (AUTO) 100 %; WHITE BLOOD COUNT 5.1 10^3/uL (4.0-10.5)
[2017-10-11 13:02] LABS: ALANINE AMINOTRANSFERASE 37 U/L (21-72); ALBUMIN 4.6 g/dL (3.5-5.0); ALKALINE PHOSPHATASE 60 U/L (38-126); ANION GAP 11 (5-19); ASPARTATE AMINO TRANSFERASE 24 U/L (17-59); BILIRUBIN,DIRECT 0.1 mg/dL (0.0-0.4); BILIRUBIN,TOTAL 0.4 mg/dL (0.2-1.3); BLOOD UREA NITROGEN 4 mg/dL (7-20); CALCIUM 10.6 mg/dL (8.4-10.2); CARBON DIOXIDE 31 mmol/L (22-30); CHLORIDE 103 mmol/L (98-107); CREATINE KINASE 71 U/L (55-170); GLUCOSE 119 mg/dL (75-110); POTASSIUM 4.5 mmol/L (3.6-5.0); SODIUM 145.2 mmol/L (137-145); TOTAL PROTEIN 7.6 g/dL (6.3-8.2)
[2017-10-11 13:11] LABS: CREATINE KINASE MB 0.25 ng/mL (<4.55)
--- NOTE | 2017-10-11 13:11 | RADIOLOGY REPORT (SQ) ---
EXAM DESCRIPTION: CHEST SINGLE VIEW COMPLETED DATE/TIME: 10/11/2017 12:43 pm REASON FOR STUDY: chest pain COMPARISON: Chest films 08/15/2016, 12/15/2016, 04/29/2017, 06/18/2017 EXAM PARAMETERS: NUMBER OF VIEWS: One view. TECHNIQUE: Single frontal radiographic view of the chest acquired. RADIATION DOSE: NA LIMITATIONS: None. FINDINGS: LUNGS AND PLEURA: No opacities, masses or pneumothorax. No pleural effusion. MEDIASTINUM AND HILAR STRUCTURES: No masses. Contour normal. HEART AND VASCULAR STRUCTURES: Heart normal in size. Normal vasculature. BONES: No acute findings. HARDWARE: Old sternotomy. OTHER: No other significant finding. IMPRESSION: NO ACUTE RADIOGRAPHIC FINDING IN THE CHEST. TECHNICAL DOCUMENTATION: JOB ID: [id number] [employer]- All Rights Reserved Reading location - IP/workstation name: [email or web address]
[2017-10-11 13:13] LABS: TROPONIN I < 0.012 ng/mL
[2017-10-11] MEDS ORDERED: NITROGLYCERIN 0.4 MG/TAB 25 TAB/BOTTLE SL ONE ×2 (14:55→15:02)
[2017-10-11] MEDS ORDERED: MORPHINE SULFATE 10 MG/ML INJ IV ONE (15:12)
--- NOTE | 2017-10-11 15:18 | EKG REPORT ---
SEVERITY:- NORMAL ECG - SINUS RHYTHM : Confirmed by: Bety Cobb 11-Oct-2017 15:17:33
[2017-10-11] MEDS ORDERED: ZOLPIDEM TARTRATE 5 MG TABLET PO PRN (16:30)
[2017-10-11] MEDS ORDERED: PROMETHAZINE HCL INJ 25 MG/1 ML VIAL IV PRN (16:30)
[2017-10-11] MEDS ORDERED: ACETAMINOPHEN 325 MG TABLET PO PRN (16:30)
[2017-10-11] MEDS ORDERED: MAGNESIUM HYDROXIDE SUSP 30 ML UDCUP PO PRN (16:30)
[2017-10-11] MEDS ORDERED: MORPHINE SULFATE IR 30 MG TABLET PO PRN (16:45)
[2017-10-11] MEDS ORDERED: DIAZEPAM 5 MG TABLET PO PRN (16:45)
--- NOTE | 2017-10-11 17:12 | PDOC H&P ---
History of Present Illness Admission Date/PCP: 10/11/17 16:09 SHELLY SETHI, Patient complains of: Chest pain History of Present Illness: ZOË ALATORRE is a 62 year old male with known CAD presented to the ED with left sided chest pain that began about 0830 on the morning of admission. His pain was not brought on by anything. It wasn't relieved by Nitro at home, nor in the ED. It radiated to his left shoulder. It was not associated with nausea, vomiting, SOB, or palpitations. It wasn't relieved until he received morphine in the ED. he has an extensive cardiac history, beginning in 1995. He has had a CABG, 11 stents, and has experienced 2 MIs. His last stress test was about 4 months ago his bunghole borer's office. He sees . He tells me that there was a small area of concern on the stress imaging. He is on maximum medical therapy except for beta-tucker. For some reason he was taken off metoprolol. Despite his cardiac history, he continues to smoke cigarettes. Past Medical History Cardiac Medical History: Reports: Coronary Artery Disease, Myocardial Infarction - 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/ MOST RECENT 11/28/15, Hyperlipidema, Hypertension Pulmonary Medical History: Reports: Pneumonia Denies: Asthma, Bronchitis, Chronic Obstructive Pulmonary Disease (COPD) Neurological Medical History: Denies: Seizures Endocrine Medical History: Reports: Diabetes Mellitus Type 2, Hypothyroidism Malignancy Medical History: Denies: Breast Cancer, Cervical Cancer, Ovarian Cancer GI Medical History: Reports: Gastroesophageal Reflux Disease Musculoskeltal Medical History: Reports: Arthritis Psychiatric Medical History: Reports: Depression Hematology: Denies: Anemia Past Surgical History Past Surgical History: Reports: Appendectomy, Cardiac Catheterization - last one was 2010, stent x 10, Coronary Artery Bypass Graft, Coronary Stent - X10- most recent was 2010, Tonsillectomy Social History Smoking Status: Current Every Day Smoker Frequency of Alcohol Use: None Hx Recreational Drug Use: No Drugs: None Hx Prescription Drug Abuse: No - Advance Directive Resuscitation Status: Do Not Resuscitate Family History Family History: CAD, CVA Parental Family History Reviewed: No Children Family History Reviewed: No Sibling(s) Family History Reviewed.: No Medication/Allergy Home Medications: Amlodipine Besylate [Norvasc 10 mg Tablet] 10 mg PO DAILY 08/15/16 Aspirin [Aspirin 325 mg Tablet] 325 mg PO DAILY 08/15/16 Atorvastatin Calcium [Lipitor 80 mg Tablet] 80 mg PO QHS 08/15/16 Clopidogrel Bisulfate [Plavix 75 mg Tablet] 75 mg PO DAILY 08/15/16 Diazepam [Valium 5 mg Tablet] 5 mg PO TIDP PRN 08/15/16 Isosorbide Mononitrate [Isosorbide Mononitrate ER] 1 tab PO DAILY 08/15/16 Metformin HCl [Glucophage] 1,000 mg PO DAILY 08/15/16 Morphine Sulfate 30 mg PO BIDP PRN 08/15/16 Ranitidine HCl 150 mg PO Q12 08/15/16 Ranolazine [Ranexa] 1,000 mg PO BID 08/15/16 Sertraline HCl [Zoloft 50 mg Tablet] 50 mg PO Q12 08/15/16 Docusate Sodium 100 mg PO BID PRN 04/29/17 Fluticasone Propionate [24 Hour Allergy] 9.9 ml NS BID 10/11/17 Lisinopril 10 mg PO DAILY 10/11/17 Nitroglycerin [Nitrostat 0.4 mg (1/150 Gr) Tabs 25/Bottle] 1 tab SL Q5MP PRN Allergies/Adverse Reactions: adhesive [Adhesive] Allergy (Severe, Verified 10/11/17 12:22) peels skin gabapentin [From Neurontin] Allergy (Unknown, Verified 10/11/17 12:22) disoriented levofloxacin [From Levaquin] Allergy (Unknown, Verified 10/11/17 12:22) Sulfa (Sulfonamide Antibiotics) Allergy (Unknown, Verified 10/11/17 12:22) skin wilson tramadol [Tramadol] Allergy (Unknown, Verified 10/11/17 12:22) ibuprofen [From Motrin] Allergy (Verified 10/11/17 12:22) tramadol HCl [From Ultram] Allergy (Verified 10/11/17 12:22) Review of Systems Constitutional: ABSENT: chills, fever(s), headache(s), weight gain, weight loss Cardiovascular: PRESENT: chest pain. ABSENT: dyspnea on exertion, palpitations Respiratory: ABSENT: cough Gastrointestinal: ABSENT: abdominal pain, constipation, diarrhea, hematemesis, hematochezia, nausea, vomiting Musculoskeletal: ABSENT: joint swelling Neurological: ABSENT: abnormal gait, abnormal speech, confusion, dizziness, focal weakness, syncope Psychiatric: ABSENT: anxiety, depression, homidical ideation, suicidal ideation Endocrine: ABSENT: cold intolerance, heat intolerance, polydipsia, polyuria Hematologic/Lymphatic: ABSENT: easy bleeding, easy bruising Physical Exam Vital Signs: Temp Pulse Resp BP Pulse Ox 98.9 F 16 126/90 H 98 10/11/17 12:29 10/11/17 16:01 10/11/17 16:01 10/11/17 16:01 General appearance: PRESENT: no acute distress, well-developed, well-nourished Head exam: PRESENT: atraumatic, normocephalic Eye exam: PRESENT: EOMI, PERRLA Neck exam: ABSENT: carotid bruit, JVD, lymphadenopathy Respiratory exam: PRESENT: clear to auscultation bessy. ABSENT: rales, rhonchi, wheezes Cardiovascular exam: PRESENT: RRR. ABSENT: diastolic murmur, rubs, systolic murmur GI/Abdominal exam: PRESENT: normal bowel sounds, soft. ABSENT: distended, guarding, mass, organolmegaly, rebound, tenderness Musculoskeletal exam: PRESENT: ambulatory Neurological exam: PRESENT: alert, awake, oriented to person, oriented to place , oriented to time, oriented to situation, CN II-XII grossly intact. ABSENT: motor sensory deficit Psychiatric exam: PRESENT: appropriate affect, normal mood. ABSENT: homicidal ideation, suicidal ideation Skin exam: PRESENT: dry, intact, warm. ABSENT: cyanosis, rash Results Impressions: Chest X-Ray 10/11/17 12:16 IMPRESSION: NO ACUTE RADIOGRAPHIC FINDING IN THE CHEST. Assessment & Plan - Diagnosis (1) Chest pain Qualifiers: Chest pain type: unspecified Qualified Code(s): R07.9 - Chest pain, unspecified Is this a current diagnosis for this admission?: Yes Plan: He may be experiencing angina. He definitely has a history of CAD. The fact that he is taking Ranexa suggests he has chronic angina. The normal troponin and ECG is promising. I would not repeat another stress test since he had one 4 months ago. If anything, he would need a LHC, which is not done here. If his troponins and repeat ECG are normal, I will discharge him to follow up with Dr Cavanaugh. Continue ASA, Plavix, statin, and nitrates. I will defer to his bunghole borer about starting a beta tucker. (2) Dyslipidemia associated with type 2 diabetes mellitus Is this a current diagnosis for this admission?: Yes Plan: continue Statin (3) Hypertension Qualifiers: Hypertension type: essential hypertension Qualified Code(s): I10 - Essential (primary) hypertension Is this a current diagnosis for this admission?: Yes Plan: BP controlled. (4) Smoker Is this a current diagnosis for this admission?: Yes Plan: He was encouraged to quit. (5) CAD (coronary artery disease) Qualifiers: Coronary Disease-Associated Artery/Lesion type: unspecified vessel or lesion type [place] vs. transplanted heart: [place] heart Associated angina: with unspecified angina Qualified Code(s): I25.119 - Atherosclerotic heart disease of [place] coronary artery with unspecified angina pectoris Is this a current diagnosis for this admission?: Yes Plan: continue maximal medical management. (6) Type 2 diabetes mellitus Qualifiers: Diabetes mellitus [facility] insulin use: without [facility] use Diabetes mellitus complication status: without complication Qualified Code(s): E11.9 - Type 2 diabetes mellitus without complications Is this a current diagnosis for this admission?: Yes Plan: Continue glucophage. - Time Time Spent: 50 to 70 Minutes Smoking Cessation Education: 3 to 10 minutes Medications reviewed and adjusted accordingly: Yes Anticipated discharge: Home - Inpatient Certification Based on my medical assessment, after consideration of the patient's comorbidities, presenting symptoms, or acuity I expect that the services needed warrant INPATIENT care.: Yes I certify that my determination is in accordance with my understanding of Medicare's requirements for reasonable and necessary INPATIENT services [42 CFR 412.3e].: Yes
[2017-10-11] MEDS ORDERED: RANOLAZINE 500 MG TAB.SR.12H PO SCH (18:00)
[2017-10-11] MEDS ORDERED: ISOSORBIDE MONONITRATE 60 MG TAB.ER.24H PO SCH (18:00)
[2017-10-11] MEDS ORDERED: RANOLAZINE 500 MG TAB.SR.12H PO ONE (18:36)
[2017-10-11] MEDS: DOCUSATE SODIUM 100 MG CAPSULE PO PRN (18:57)
[2017-10-11] MEDS ORDERED: ATORVASTATIN CALCIUM 80 MG TABLET PO SCH (22:00)
[2017-10-11] MEDS ORDERED: METFORMIN HCL 500 MG TABLET PO SCH (22:00)
[2017-10-11] MEDS: SERTRALINE HCL 50 MG TABLET PO SCH (22:04)
[2017-10-11] MEDS: FAMOTIDINE 20 MG TABLET PO SCH (22:04)
[2017-10-11] MEDS: HEPARIN SOD (PORCINE) 5,000 UNIT/ML 1 ML SYRINGE SUBCUT SCH (22:17)
[2017-10-12] MEDS: HEPARIN SOD (PORCINE) 5,000 UNIT/ML 1 ML SYRINGE SUBCUT SCH (06:56)
--- NOTE | 2017-10-12 09:20 | PDOC DISCHARGE SUMMARY ---
General - Admit/Disc Date/PCP Admission Date/Primary Care Provider: 10/11/17 16:09 SHELLY SETHI, Discharge Date: 10/12/17 - Discharge Diagnosis (1) Chest pain Is this a current diagnosis for this admission?: Yes (2) Dyslipidemia associated with type 2 diabetes mellitus Is this a current diagnosis for this admission?: Yes (3) Hypertension Is this a current diagnosis for this admission?: Yes (4) Smoker Is this a current diagnosis for this admission?: Yes (5) CAD (coronary artery disease) Is this a current diagnosis for this admission?: Yes (6) Type 2 diabetes mellitus Is this a current diagnosis for this admission?: Yes - Additional Information Resuscitation Status: Do Not Resuscitate Discharge Diet: Cardiac Discharge Activity: Activity As Tolerated Home Medications: Amlodipine Besylate [Norvasc 10 mg Tablet] 10 mg PO DAILY 08/15/16 Aspirin [Aspirin 325 mg Tablet] 325 mg PO DAILY 08/15/16 Atorvastatin Calcium [Lipitor 80 mg Tablet] 80 mg PO QHS 08/15/16 Clopidogrel Bisulfate [Plavix 75 mg Tablet] 75 mg PO DAILY 08/15/16 Diazepam [Valium 5 mg Tablet] 5 mg PO TIDP PRN 08/15/16 Isosorbide Mononitrate [Isosorbide Mononitrate ER] 1 tab PO DAILY 08/15/16 Metformin HCl [Glucophage] 1,000 mg PO DAILY 08/15/16 Morphine Sulfate 30 mg PO BIDP PRN 08/15/16 Ranitidine HCl 150 mg PO Q12 08/15/16 Ranolazine [Ranexa] 1,000 mg PO BID 08/15/16 Sertraline HCl [Zoloft 50 mg Tablet] 50 mg PO Q12 08/15/16 Docusate Sodium 100 mg PO BID PRN 04/29/17 Lisinopril 10 mg PO DAILY 10/11/17 Nitroglycerin [Nitrostat 0.4 mg (1/150 Gr) Tabs 25/Bottle] 1 tab SL Q5MP PRN History of Present Illness History of Present Illness: ZOË ALATORRE is a 62 year old male with known CAD presented to the ED with left sided chest pain that began about 0830 on the morning of admission. His pain was not brought on by anything. It wasn't relieved by Nitro at home, nor in the ED. It radiated to his left shoulder. It was not associated with nausea, vomiting, SOB, or palpitations. It wasn't relieved until he received morphine in the ED. He has an extensive cardiac history, beginning in 1995. He has had a CABG, 11 stents, and has experienced 2 MIs. His last stress test was about 4 months ago his imaging aide's office. He sees Dr. Cavanaugh. He tells me that there was a small area of concern on the stress imaging. He is on maximum medical therapy except for beta-tucker. For some reason he was taken off metoprolol. Despite his cardiac history, he continues to smoke cigarettes. Hospital Course Hospital Course: He was admitted to rule out ME. His troponins were normal. His ECGs showed NSR , without ischemic changes. He may have chronic angina. His pain resolved by the time of discharge. His hospital stay was uneventful. He will follow up with his imaging aide for ongoing cardiac concerns. Physical Exam Vital Signs: Temp Pulse Resp BP Pulse Ox 98.4 F 71 14 94/56 L 98 10/12/17 07:22 10/12/17 07:22 10/12/17 07:22 10/12/17 07:22 10/12/17 07:22 Intake & Output 10/11/17 10/12/17 10/13/17 06:59 06:59 06:59 Intake Total 830 Output Total 750 Balance 80 Weight 86.4 kg General appearance: PRESENT: no acute distress Head exam: PRESENT: atraumatic, normocephalic Eye exam: PRESENT: EOMI, PERRLA Neck exam: ABSENT: carotid bruit Respiratory exam: PRESENT: clear to auscultation bessy. ABSENT: rales, rhonchi, wheezes Cardiovascular exam: PRESENT: RRR. ABSENT: diastolic murmur, rubs, systolic murmur GI/Abdominal exam: PRESENT: normal bowel sounds, soft. ABSENT: distended, guarding, mass, organolmegaly, rebound, tenderness Musculoskeletal exam: PRESENT: ambulatory Neurological exam: PRESENT: alert, awake, oriented to person, oriented to place , oriented to time, oriented to situation, CN II-XII grossly intact. ABSENT: motor sensory deficit Psychiatric exam: PRESENT: appropriate affect, normal mood. ABSENT: homicidal ideation, suicidal ideation Results Laboratory Results: 10/11/17 10/11/17 16:38 22:04 Troponin I < 0.012 < 0.012 Impressions: Chest X-Ray 10/11/17 12:16 IMPRESSION: NO ACUTE RADIOGRAPHIC FINDING IN THE CHEST. Qualifiers - * PATEINT BEING DISCHARGED WITH ANY OF THE FOLLOWING DIAGNOSIS?: No Plan Discharge Plan: Follow up with Dr Cavanaugh 1 - 2 weeks Time Spent: Less than 30 Minutes
[2017-10-12] MEDS: FAMOTIDINE 20 MG TABLET PO SCH (09:23)
[2017-10-12] MEDS: SERTRALINE HCL 50 MG TABLET PO SCH (09:23)
[2017-10-12] MEDS: DOCUSATE SODIUM 100 MG CAPSULE PO PRN (09:24)
[2017-10-12 09:34] VITALS: BP 99/57
[2017-10-12] MEDS ORDERED: LISINOPRIL 10 MG TABLET PO SCH (10:00)
[2017-10-12] MEDS ORDERED: AMLODIPINE BESYLATE 10 MG TABLET PO SCH (10:00)
[2017-10-12] MEDS ORDERED: ASPIRIN 325 MG TABLET PO SCH (10:00)
[2017-10-12] MEDS ORDERED: CLOPIDOGREL BISULFATE 75 MG TABLET PO SCH (10:00)
--- NOTE | 2017-10-12 16:21 | EKG REPORT ---
SEVERITY:- ABNORMAL ECG - SINUS RHYTHM PROBABLE POSTERIOR INFARCT : Confirmed by: Bety Cobb 12-Oct-2017 16:20:46
== END 2017-10-12 11:12 | disposition home or self-care (01) ==
LOC: ER 12:15 → EH 16:09 → 4S 17:05
PROVIDERS: ADMIT Internal Medicine; ATTEND Internal Medicine
DX: I25.119 Atherosclerotic heart disease of native coronary artery with unspecified angina pectoris (principal); I10 Essential (primary) hypertension; I25.2 Old myocardial infarction; E11.9 Type 2 diabetes mellitus without complications; E03.9 Hypothyroidism, unspecified; F17.200 Nicotine dependence, unspecified, uncomplicated; Z95.1 Presence of aortocoronary bypass graft
CPT/HCPCS: 93005 ×2; 99285; 96374; 36415; 82553; 82550; 85025; 80053; 84484; 71045; 93010 ×2; G0378 ×2; A9270 ×11; J1644; J2270

== ENCOUNTER 2017-11-03 18:19 | Emergency (ER) | payer MEDICARE, MEDICAID ==
[2017-11-03 18:48] LABS: ABSOLUTE EOSINOPHILS # (AUTO) 0.1 10^3/uL (0.0-0.6); ABSOLUTE LYMPHOCYTES (AUTO) 2.8 10^3/uL (0.5-4.7); ABSOLUTE MONOCYTES (AUTO) 0.4 10^3/uL (0.1-1.4); ABSOLUTE NEUT (AUTO) 2.1 10^3/uL (1.7-8.2); BASOPHILS % (AUTO) 0.8 % (0-2); EOSINOPHILS % (AUTO) 1.7 % (0-6); HEMATOCRIT 38.6 % (37.9-51.0); HEMOGLOBIN 12.7 g/dL (13.5-17.0); LYMPHOCYTES % (AUTO) 50.3 % (13-45); MEAN CORPUSCULAR HEMOGLOBIN 30.9 pg (27.0-33.4); MEAN CORPUSCULAR HGB CONC 32.8 g/dL (32.0-36.0); MEAN CORPUSCULAR VOLUME 94 fl (80-97); MONOCYTES % (AUTO) 7.9 % (3-13); PLATELET COUNT 214 10^3/uL (150-450); SEGMENTED NEUTROPHILS % (AUTO) 39.3 % (42-78); TOTAL CELLS COUNTED % (AUTO) 100 %; WHITE BLOOD COUNT 5.5 10^3/uL (4.0-10.5)
[2017-11-03 19:04] LABS: ALANINE AMINOTRANSFERASE 26 U/L (21-72); ALBUMIN 4.2 g/dL (3.5-5.0); ALKALINE PHOSPHATASE 59 U/L (38-126); ANION GAP 9 (5-19); ASPARTATE AMINO TRANSFERASE 17 U/L (17-59); BILIRUBIN,DIRECT 0.1 mg/dL (0.0-0.4); BILIRUBIN,TOTAL 0.4 mg/dL (0.2-1.3); BLOOD UREA NITROGEN 6 mg/dL (7-20); CALCIUM 9.3 mg/dL (8.4-10.2); CARBON DIOXIDE 29 mmol/L (22-30); CHLORIDE 101 mmol/L (98-107); CREATINE KINASE 124 U/L (55-170); GLUCOSE 128 mg/dL (75-110); POTASSIUM 3.7 mmol/L (3.6-5.0); SODIUM 139.4 mmol/L (137-145); TOTAL PROTEIN 6.8 g/dL (6.3-8.2)
[2017-11-03 19:16] LABS: CREATINE KINASE MB 0.57 ng/mL (<4.55)
[2017-11-03 19:17] LABS: TROPONIN I < 0.012 ng/mL
--- NOTE | 2017-11-03 19:23 | RADIOLOGY REPORT (SQ) ---
EXAM DESCRIPTION: CHEST SINGLE VIEW COMPLETED DATE/TIME: 11/03/2017 6:57 pm REASON FOR STUDY: bed 17 cp COMPARISON: 10/11/2017 EXAM PARAMETERS: NUMBER OF VIEWS: One view. TECHNIQUE: Single frontal radiographic view of the chest acquired. RADIATION DOSE: NA LIMITATIONS: None. FINDINGS: LUNGS AND PLEURA: No opacities, masses or pneumothorax. No pleural effusion. MEDIASTINUM AND HILAR STRUCTURES: No masses. Contour normal. HEART AND VASCULAR STRUCTURES: Heart normal in size. Normal vasculature. BONES: No acute findings. HARDWARE: Sternotomy wires. OTHER: No other significant finding. IMPRESSION: NO ACUTE RADIOGRAPHIC FINDING IN THE CHEST. TECHNICAL DOCUMENTATION: JOB ID: [id number] [employer]- All Rights Reserved Reading location - IP/workstation name: [email or web address]
[2017-11-03] MEDS ORDERED: MORPHINE SULFATE 10 MG/ML INJ IV ONE (19:48)
[2017-11-03] MEDS ORDERED: FENTANYL CITRATE INJ/PF 100 MCG/2 ML AMPUL IV ONE (20:17)
--- NOTE | 2017-11-03 21:12 | EKG REPORT ---
SEVERITY:- NORMAL ECG - SINUS RHYTHM : Confirmed by: Bety Cobb 03-Nov-2017 21:11:44
--- NOTE | 2017-11-03 21:17 | ER Document Report ---
ED General - General Chief Complaint: Chest Pain Stated Complaint: CHEST PAIN Time Seen by Provider: 11/03/17 19:25 Mode of Arrival: Stretcher Information source: Patient TRAVEL OUTSIDE OF THE [place] IN LAST 30 DAYS: No - HPI Patient complains to provider of: Chest pain Onset: This morning Onset/Duration: Intermittent Quality of pain: Sharp, Stabbing Severity: Moderate Pain Level: 3 Associated symptoms: None Exacerbated by: Denies Relieved by: Denies Similar symptoms previously: Yes Recently seen / treated by doctor: Yes Notes: Patient is a 62-year-old male with a history of coronary artery disease with a bypass surgery in 2008, presenting to the emergency room today complaining of intermittent chest pain lasting approximately 5 seconds at a time that has occurred 4-5 times throughout the day since early this morning, he states that the burning sensation and it is over the midsternum, and is associated with palpitations but no diaphoresis or shortness of breath, he states he normally gets this pain on a regular basis, usually gets a dose of morphine in the ER, pain goes away completely and he goes home - Related Data Allergies/Adverse Reactions: adhesive [Adhesive] Allergy (Severe, Verified 10/11/17 12:22) peels skin gabapentin [From Neurontin] Allergy (Unknown, Verified 10/11/17 12:22) disoriented levofloxacin [From Levaquin] Allergy (Unknown, Verified 10/11/17 12:22) Sulfa (Sulfonamide Antibiotics) Allergy (Unknown, Verified 10/11/17 12:22) skin wilson tramadol [Tramadol] Allergy (Unknown, Verified 10/11/17 12:22) ibuprofen [From Motrin] Allergy (Verified 10/11/17 12:22) tramadol HCl [From Ultram] Allergy (Verified 10/11/17 12:22) Past Medical History - General Information source: Patient - Social History Smoking Status: Current Every Day Smoker Chew tobacco use (# tins/day): No Frequency of alcohol use: None Drug Abuse: None Family History: CAD, CVA Patient has suicidal ideation: No Patient has homicidal ideation: No - Past Medical History Cardiac Medical History: Reports: Hx Coronary Artery Disease, 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 Denies: Hx Pancreatitis Musculoskeltal Medical History: Denies Hx Arthritis Psychiatric Medical History: Reports: Hx Anxiety, Hx Depression Past Surgical History: Reports: Hx Adenoidectomy, Hx Appendectomy, Hx Bowel Surgery - hemorrhoidectomy, Hx Cardiac Catheterization - last one was 2010, stent x 10, Hx Cardiac Surgery - CABG, Hx Coronary Artery Bypass Graft, Hx Coronary Stent - [id number] recent was 2010, Hx Open Heart Surgery, Hx Rectal Surgery - hemorrhoids, Hx Testicular Surgery - torsion, vastectomy, Hx Tonsillectomy - Immunizations Immunizations up to date: Yes Hx Diphtheria, Pertussis, Tetanus Vaccination: Yes Hx Pneumococcal Vaccination: 03/21/12 Review of Systems - Review of Systems Constitutional: No symptoms reported EENT: No symptoms reported, Ear pain Cardiovascular: Chest pain, Palpitations Respiratory: No symptoms reported Gastrointestinal: No symptoms reported Genitourinary: No symptoms reported Male Genitourinary: No symptoms reported Musculoskeletal: No symptoms reported Skin: No symptoms reported Hematologic/Lymphatic: No symptoms reported Neurological/Psychological: No symptoms reported -: Yes All other systems reviewed and negative Physical Exam - Vital signs Vitals: Pulse Ox 99 11/03/17 18:24 Interpretation: Normal - General General appearance: Appears well, Alert - HEENT Head: Normocephalic, Atraumatic Eyes: Normal Pupils: PERRL - Respiratory Respiratory status: No respiratory distress Chest status: Tender - Tenderness to palpate over the midsternum Breath sounds: Normal Chest palpation: Normal - Cardiovascular Rhythm: Regular Heart sounds: Normal auscultation Murmur: No - Abdominal Inspection: Normal Distension: No distension Bowel sounds: Normal Tenderness: Nontender Organomegaly: No organomegaly - Back Back: Normal, Nontender - Extremities General upper extremity: Normal inspection, Nontender, Normal color, Normal ROM , Normal temperature General lower extremity: Normal inspection, Nontender, Normal color, Normal ROM , Normal temperature, Normal weight bearing. No: Enrique's sign - Neurological Neuro grossly intact: Yes Cognition: Normal Orientation: AAOx4 [place] Coma Scale Eye Opening: Spontaneous [place] Coma Scale Verbal: Oriented [place] Coma Scale Motor: Obeys Commands [place] Coma Scale Total: 15 Speech: Normal Motor strength normal: LUE, RUE, LLE, RLE Sensory: Normal - Psychological Associated symptoms: Normal affect, Normal mood - Skin Skin Temperature: Warm Skin Moisture: Dry Skin Color: Normal Course - Re-evaluation Re-evalutation: 11/04/17 00:05 Patient with burning sensation in the midsternum, symptoms last 4-5 seconds at a time and have been going on since this morning intermittently, states he has had this pain many times in the past, usually gets a dose of pain medication and is discharged home, after receiving 1 dose of pain medication in the ER, his pain is once again resolved, his laboratory evaluation is unremarkable including a negative troponin, symptoms have been going on since about 8:00 this morning, I would expect to see some change in his troponin if this was an actual cardiac event, patient is agreeable to discharge home with outpatient follow-up, advised to return if symptoms worsen, patient acknowledges understanding and agreement with this plan - Vital Signs Vital signs: Temp Pulse Resp BP Pulse Ox 98.2 F 12 104/72 94 11/03/17 19:43 11/03/17 21:31 11/03/17 21:31 11/03/17 21:31 - Laboratory Result Diagrams: 11/03/17 18:06 11/03/17 18:06 Laboratory results interpreted by me: 11/03/17 11/03/17 18:06 18:06 RBC 4.10 L Hgb 12.7 L RDW 15.0 H Seg Neutrophils % 39.3 L Lymphocytes % 50.3 H BUN 6 L Glucose 128 H - Diagnostic Test Radiology reviewed: Image reviewed, Reports reviewed Discharge - Discharge Clinical Impression: Chronic chest pain Condition: Stable Disposition: HOME, SELF-CARE Instructions: Chest Pain of Unclear Cause ([facility]) Additional Instructions: Follow up with your primary care provider in one to 2 days. Return to the emergency room immediately if symptoms worsen or any additional concerns. Referrals: SHELLY SETHI MD [Primary Care Provider] - Follow up as needed
[2017-11-03 21:54] VITALS: BP 104/72
== END 2017-11-03 21:53 | disposition home or self-care (01) ==
LOC: ER 18:19
DX: G89.29 Other chronic pain (principal); R07.9 Chest pain, unspecified; F17.200 Nicotine dependence, unspecified, uncomplicated; E78.00 Pure hypercholesterolemia, unspecified; E11.9 Type 2 diabetes mellitus without complications; E03.9 Hypothyroidism, unspecified; I25.2 Old myocardial infarction; Z95.1 Presence of aortocoronary bypass graft
CPT/HCPCS: 93005; 99285; 96374; 36415; 82553; 82550; 85025; 80053; 84484; 71045; 93010; J3010

== ENCOUNTER → 2017-11-19 | Outpatient (CLI) | payer MEDICARE, MEDICAID ==
[2017-11-19 11:19] LABS: ALANINE AMINOTRANSFERASE 28 U/L (21-72); ALBUMIN 4.1 g/dL (3.5-5.0); ALKALINE PHOSPHATASE 56 U/L (38-126); ANION GAP 10 (5-19); ASPARTATE AMINO TRANSFERASE 21 U/L (17-59); BILIRUBIN,DIRECT 0.3 mg/dL (0.0-0.4); BILIRUBIN,TOTAL 0.5 mg/dL (0.2-1.3); BLOOD UREA NITROGEN 6 mg/dL (7-20); CALCIUM 9.7 mg/dL (8.4-10.2); CARBON DIOXIDE 31 mmol/L (22-30); CHLORIDE 104 mmol/L (98-107); CHOLESTEROL 145.25 mg/dL (0-200); GLUCOSE 97 mg/dL (75-110); POTASSIUM 4.5 mmol/L (3.6-5.0); SODIUM 144.7 mmol/L (137-145); TOTAL PROTEIN 7.2 g/dL (6.3-8.2); TRIGLYCERIDES 108 mg/dL (<150)
[2017-11-19 11:30] LABS: DIRECT LDL 72 mg/dL (<100)
[2017-11-19 13:19] LABS: ABSOLUTE EOSINOPHILS # (AUTO) 0.1 10^3/uL (0.0-0.6); ABSOLUTE LYMPHOCYTES (AUTO) 2.1 10^3/uL (0.5-4.7); ABSOLUTE MONOCYTES (AUTO) 0.4 10^3/uL (0.1-1.4); ABSOLUTE NEUT (AUTO) 3.5 10^3/uL (1.7-8.2); BASOPHILS % (AUTO) 0.7 % (0-2); EOSINOPHILS % (AUTO) 1.4 % (0-6); HEMATOCRIT 39.9 % (37.9-51.0); LYMPHOCYTES % (AUTO) 34.2 % (13-45); MEAN CORPUSCULAR HEMOGLOBIN 30.5 pg (27.0-33.4); MEAN CORPUSCULAR HGB CONC 32.5 g/dL (32.0-36.0); MEAN CORPUSCULAR VOLUME 94 fl (80-97); MONOCYTES % (AUTO) 6.1 % (3-13); PLATELET COUNT 251 10^3/uL (150-450); RED BLOOD COUNT 4.26 10^6/uL (4.35-5.55); RED CELL DISTRIBUTION WIDTH 15.3 % (11.5-14.0); SEGMENTED NEUTROPHILS % (AUTO) 57.6 % (42-78); TOTAL CELLS COUNTED % (AUTO) 100 %; WHITE BLOOD COUNT 6.1 10^3/uL (4.0-10.5)
== END ==
LOC: OD 09:17
PROVIDERS: ATTEND Internal Medicine
DX: E11.9 Type 2 diabetes mellitus without complications (principal); I10 Essential (primary) hypertension; I25.10 Atherosclerotic heart disease of native coronary artery without angina pectoris; E78.5 Hyperlipidemia, unspecified
CPT/HCPCS: 36415; 80053; 80061; 82043; 83036; 83735; 84443; 85025

== ENCOUNTER 2017-12-03 14:44 | Emergency (ER) | payer MEDICARE, MEDICAID ==
[2017-12-03] MEDS ORDERED: ASPIRIN 81 MG TABLET, CHEWABLE PO ONE (14:52)
[2017-12-03 15:10] LABS: ABSOLUTE BASOPHILS # (AUTO) 0.1 10^3/uL (0.0-0.2); ABSOLUTE EOSINOPHILS # (AUTO) 0.2 10^3/uL (0.0-0.6); ABSOLUTE MONOCYTES (AUTO) 0.5 10^3/uL (0.1-1.4); ABSOLUTE NEUT (AUTO) 1.9 10^3/uL (1.7-8.2); EOSINOPHILS % (AUTO) 4.1 % (0-6); HEMATOCRIT 35.3 % (37.9-51.0); HEMOGLOBIN 11.8 g/dL (13.5-17.0); LYMPHOCYTES % (AUTO) 52.6 % (13-45); MEAN CORPUSCULAR HEMOGLOBIN 31.3 pg (27.0-33.4); MEAN CORPUSCULAR HGB CONC 33.4 g/dL (32.0-36.0); MEAN CORPUSCULAR VOLUME 94 fl (80-97); MONOCYTES % (AUTO) 8.7 % (3-13); PLATELET COUNT 197 10^3/uL (150-450); RED BLOOD COUNT 3.78 10^6/uL (4.35-5.55); RED CELL DISTRIBUTION WIDTH 15.3 % (11.5-14.0); SEGMENTED NEUTROPHILS % (AUTO) 33.6 % (42-78); TOTAL CELLS COUNTED % (AUTO) 100 %; WHITE BLOOD COUNT 5.6 10^3/uL (4.0-10.5)
[2017-12-03] MEDS ORDERED: NORMAL SALINE 1000 ML 1,000 ML IV ONE ×2 (15:10→15:15)
[2017-12-03] MEDS ORDERED: FENTANYL CITRATE INJ/PF 100 MCG/2 ML AMPUL IV ONE (15:10)
--- NOTE | 2017-12-03 15:15 | ER Document Report ---
ED Cardiac - General Chief Complaint: Chest Pain > 30 Stated Complaint: CHEST PAIN Time Seen by Provider: 12/03/17 14:52 Notes: The patient is a 62-year-old male, past medical history CAD with 11 stents and a CABG in 2008 at [facility], presents with sudden onset of left upper chest pressure that started while he was waiting in the OB waiting room for his daughter to have a baby. He was given 2 nitro with only mild relief of his symptoms and his blood pressure dropped to 97/60. Patient says he has a known 100% occlusion of one of his coronary arteries. Patient denies radiation of pain, shortness of breath, back pain, nausea, vomiting, leg swelling, fevers, numbness, tingling, abdominal pain or rash. TRAVEL OUTSIDE OF THE [place] IN LAST 30 DAYS: No - Related Data Allergies/Adverse Reactions: adhesive [Adhesive] Allergy (Severe, Verified 10/11/17 12:22) peels skin gabapentin [From Neurontin] Allergy (Unknown, Verified 10/11/17 12:22) disoriented levofloxacin [From Levaquin] Allergy (Unknown, Verified 10/11/17 12:22) Sulfa (Sulfonamide Antibiotics) Allergy (Unknown, Verified 10/11/17 12:22) skin wilson tramadol [Tramadol] Allergy (Unknown, Verified 10/11/17 12:22) ibuprofen [From Motrin] Allergy (Verified 10/11/17 12:22) tramadol HCl [From Ultram] Allergy (Verified 10/11/17 12:22) Past Medical History - General Information source: Patient - Social History Smoking Status: Unknown if Ever Smoked Family History: CAD, CVA - Past Medical History Cardiac Medical History: Reports: Hx Coronary Artery Disease, 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 Denies: Hx Pancreatitis Musculoskeltal Medical History: Denies Hx Arthritis Psychiatric Medical History: Reports: Hx Anxiety, Hx Depression Past Surgical History: Reports: Hx Adenoidectomy, Hx Appendectomy, Hx Bowel Surgery - hemorrhoidectomy, Hx Cardiac Catheterization - last one was 2010, stent x 10, Hx Cardiac Surgery - CABG, Hx Coronary Artery Bypass Graft, Hx Coronary Stent - [id number] recent was 2010, Hx Open Heart Surgery, Hx Rectal Surgery - hemorrhoids, Hx Testicular Surgery - torsion, vastectomy, Hx Tonsillectomy - Immunizations Immunizations up to date: Yes Hx Diphtheria, Pertussis, Tetanus Vaccination: Yes Hx Pneumococcal Vaccination: 03/21/12 Review of Systems - Review of Systems Notes: REVIEW OF SYSTEMS: CONSTITUTIONAL: -fevers, -chills EENT: -eye pain, -difficulty swallowing, -nasal congestion CARDIOVASCULAR: +chest pain, -syncope. RESPIRATORY: -cough, -SOB GASTROINTESTINAL: -abdominal pain, -nausea, -vomiting, -diarrhea GENITOURINARY: -dysuria, -hematuria MUSCULOSKELETAL: -back pain, -neck pain SKIN: -rash or skin lesions. HEMATOLOGIC: -easy bruising or bleeding. LYMPHATIC: -swollen, enlarged glands. NEUROLOGICAL: -altered mental status or loss of consciousness, -headache, - neurologic symptoms PSYCHIATRIC: -anxiety, -depression. ALL OTHER SYSTEMS REVIEWED AND NEGATIVE. Physical Exam - Vital signs Vitals: Pulse Ox 100 12/03/17 14:49 - Notes Notes: PHYSICAL EXAMINATION: GENERAL: Well-appearing, well-nourished and in no acute distress. HEAD: Atraumatic, normocephalic. EYES: Pupils equal round and reactive to light, extraocular movements intact, sclera anicteric, conjunctiva are normal. ENT: nares patent, oropharynx clear without exudates. Moist mucous membranes. NECK: Normal range of motion, supple without lymphadenopathy LUNGS: Breath sounds clear to auscultation bilaterally and equal. No wheezes rales or rhonchi. HEART: Regular rhythm, bradycardia ABDOMEN: Soft, nontender, normoactive bowel sounds. No guarding, no rebound. No masses appreciated. EXTREMITIES: Normal range of motion, no pitting or edema. No cyanosis. NEUROLOGICAL: Cranial nerves grossly intact. Normal speech, normal gait. Normal sensory and motor exams. PSYCH: Normal mood, normal affect. SKIN: Warm, Dry, normal turgor, no rashes or lesions noted. Course - Re-evaluation Re-evalutation: Patient with anterior chest pain resolved after nitro and fentanyl. He took aspirin earlier today. Two EKG does not show any evidence of ischemic changes and two troponins are negative. Chest x-ray does not show any acute abnormalities. 12/03/17 16:00 Spoke to his coffee grinder, Dr. Cavanaugh. He recommends sending troponins and if these are negative, he will see the patient this week for follow-up. Patient is frequently in the ER for same chest pain. - Vital Signs Vital signs: Temp Pulse Resp BP Pulse Ox 8 L 96/66 L 100 12/03/17 18:31 12/03/17 18:31 12/03/17 18:31 - Laboratory Result Diagrams: 12/03/17 14:47 12/03/17 14:47 Laboratory results interpreted by me: 12/03/17 12/03/17 14:47 14:47 RBC 3.78 L Hgb 11.8 L Hct 35.3 L RDW 15.3 H Seg Neutrophils % 33.6 L Lymphocytes % 52.6 H Total Protein 6.1 L - Diagnostic Test Radiology reviewed: Image reviewed, Reports reviewed Radiology results interpreted by me: CXR: NAD - EKG Interpretation by Me EKG shows normal: Sinus rhythm, [place], Intervals, QRS Complexes, ST-T Waves Rate: Bradycardia When compared to previous EKG there are: No significant change Additional EKG results interpreted by me: No STEMI Discharge - Discharge Clinical Impression: Chronic chest pain Condition: Stable Disposition: HOME, SELF-CARE Additional Instructions: CHEST PAIN OF UNCLEAR CAUSE: The exact cause of your chest pain isn't clear. Fortunately, there is no evidence of a dangerous medical condition. Further testing may be required to find the source of the pain. Most often, we find that this pain is coming from the chest wall -- the muscles or rib joints in the chest. But chest pain can come from the lung and lung lining, the esophagus, the heart valves or heart lining, and even the stomach or gallbladder. Rest. Eat lightly until the pain is gone. We may prescribe medicine for pain and inflammation. You should call the physician immediately if the pain radiates to the shoulder, jaw or arms; if you start to run a fever or develop a cough; or if you develop shortness of breath, or other new or alarming symptoms. NORMAL EXAM AND WORKUP: At this time, your examination and workup show no significant abnormality. No significant abnormal physical findings were noted. All laboratory, EKG, and imaging (x-ray, CT scans, ultrasound) studies that were ordered show no significant abnormality. Although your examination and all studies that were ordered showed no significant abnormal finding, there are no examinations and no studies that are 100% accurate. There is always the possibility that some abnormality could exist and not be detected with physical examination or within the limits and capabilities of laboratory and other studies. You should return or follow up as you were instructed on your visit today for further evaluation if your symptoms do not resolve. CHEST WALL PAIN: Your chest pain may be coming from the chest wall. This is often caused by straining the muscles or joints in the chest during physical activity, direct trauma, coughing, or vigorous vomiting. Persons with arthritis are especially prone to this type of pain, due to inflammation of the cartilage joints near the breast bone. Occasionally, no cause can be found. Rest from strenuous physical activity. This kind of chest pain is usually made worse by movement of the chest. Depending on the symptoms, we may prescribe medicine for pain, muscle relaxation, and antiinflammatory effects. If the pain is new, and seems to be due to muscle strain, cold packs can help. Otherwise, apply gentle warmth to the painful area for 15 minutes every hour or two. You should call contact the doctor immediately if things change. Further evaluation is needed if you develop a fever or cough, if the nature of the pain changes, or if you become short of breath. ANGINA EPISODE: Your physician has diagnosed the pain you experienced as an episode of angina. Angina occurs when a portion of the heart muscle temporarily lacks oxygen. It does not cause any permanent heart damage, but serves as a warning. Hospitalization is not necessary now. Evaluation of your cardiac condition , and medical therapy for angina will be necessary. It's important you be sure to keep all appointments and take medication exactly as prescribed. Angina is usually treated with a type of "nitrate" medication. This is available as ointment, pills, or sublingual (under the tongue) tablets. Depending on your clinical situation, other medications may be added to help control angina. These may include beta blockers or calcium blockers. If episodes of angina are occurring with increased frequency, or if chest pain lasts longer than 15 minutes or does not respond to nitroglycerin, you must seek emergency medical care immediately. ASPIRIN: Aspirin has been shown to have a beneficial effect on blood circulation by reducing the clotting effect of platelets in the blood. These beneficial effects can be achieved by taking just a single baby (81 mg) aspirin a day. It is recommended that any person over the age of forty take a single baby aspirin every day for heart and brain circulation, unless you are allergic to aspirin or have some significant bleeding disorder. It is strongly recommended that people who have proven cardiac or blood circulation disturbances should take a baby aspirin every day. NITRATES: Nitroglycerin and related longer-acting nitrate medications are used to prevent or treat attacks of angina. These medicines dilate blood vessels, decreasing the work of the heart, and improving its supply of oxygen. Many different forms are available, including sublingual tablets (used under the tongue), sprays, skin patches, and long-acting pills. If the particular form of medication you have been given is not working well for you, contact your doctor. Long-acting forms: Take exactly as prescribed. Sudden stopping of medication can provoke increased attacks. Sublingual tabs or spray: A headache will usually occur with use. Sit or lie while waiting for the pain to go away. If angina doesn't respond to three doses (five minutes apart), call for emergency assistance. FOLLOW-UP CARE: If you have been referred to a physician for follow-up care, call the physician s office for an appointment as you were instructed or within the next two days. If you experience worsening or a significant change in your symptoms, notify the physician immediately or return to the Emergency Department at any time for re-evaluation. Referrals: DANITA PEÑA MD [ACTIVE STAFF] - Follow up tomorrow SHELLY SETHI MD [ACTIVE STAFF] - Follow up tomorrow
[2017-12-03 15:33] LABS: ALANINE AMINOTRANSFERASE 27 U/L (21-72); ALBUMIN 3.5 g/dL (3.5-5.0); ALKALINE PHOSPHATASE 44 U/L (38-126); ANION GAP 9 (5-19); ASPARTATE AMINO TRANSFERASE 18 U/L (17-59); BILIRUBIN,DIRECT 0.3 mg/dL (0.0-0.4); BILIRUBIN,TOTAL 0.7 mg/dL (0.2-1.3); BLOOD UREA NITROGEN 12 mg/dL (7-20); CALCIUM 8.8 mg/dL (8.4-10.2); CARBON DIOXIDE 28 mmol/L (22-30); CHLORIDE 106 mmol/L (98-107); CREATINE KINASE 69 U/L (55-170); GLUCOSE 99 mg/dL (75-110); POTASSIUM 4.7 mmol/L (3.6-5.0); SODIUM 142.6 mmol/L (137-145); TOTAL PROTEIN 6.1 g/dL (6.3-8.2)
--- NOTE | 2017-12-03 15:59 | RADIOLOGY REPORT (SQ) ---
EXAM DESCRIPTION: CHEST SINGLE VIEW COMPLETED DATE/TIME: 12/03/2017 3:39 pm REASON FOR STUDY: chest pain COMPARISON: Chest films 10/14/2016, 06/18/2017, 10/11/2017, 11/03/2017 EXAM PARAMETERS: NUMBER OF VIEWS: One view. TECHNIQUE: Single frontal radiographic view of the chest acquired. RADIATION DOSE: NA LIMITATIONS: Lordotic portable film with EKG leads over the chest FINDINGS: LUNGS AND PLEURA: No opacities, masses or pneumothorax. No pleural effusion. MEDIASTINUM AND HILAR STRUCTURES: No masses. Contour normal. HEART AND VASCULAR STRUCTURES: No cardiomegaly. Old sternotomy for CABG BONES: No acute findings. HARDWARE: None in the chest. OTHER: No other significant finding. IMPRESSION: No acute changes. Old sternotomy and CABG TECHNICAL DOCUMENTATION: JOB ID: [id number] [employer]- All Rights Reserved Reading location - IP/workstation name: [email or web address]
[2017-12-03 18:58] VITALS: BP 94/69
--- NOTE | 2017-12-03 22:52 | EKG REPORT ---
SEVERITY:- NORMAL ECG - SINUS RHYTHM : Confirmed by: Bety Cobb 03-Dec-2017 19:51:48
== END 2017-12-03 18:58 | disposition home or self-care (01) ==
LOC: ER 14:44
DX: R07.9 Chest pain, unspecified (principal); G89.29 Other chronic pain; I25.10 Atherosclerotic heart disease of native coronary artery without angina pectoris; Z95.1 Presence of aortocoronary bypass graft; I25.2 Old myocardial infarction; I10 Essential (primary) hypertension; E11.9 Type 2 diabetes mellitus without complications
CPT/HCPCS: 93005; 99285; 96361; 96374; 36415; 82962; 82550; 85025; 80053; 84484; 71045; 93010; J3010; J7030

== ENCOUNTER 2018-01-06 15:53 | Emergency (ER) | payer MEDICARE, MEDICAID ==
[2018-01-06] MEDS ORDERED: NORMAL SALINE 1000 ML 1,000 ML IV PRN (16:21)
[2018-01-06] MEDS ORDERED: FENTANYL CITRATE INJ/PF 100 MCG/2 ML AMPUL IV ONE (16:24)
--- NOTE | 2018-01-06 16:26 | ER Document Report ---
ED General - General Stated Complaint: POSSIBLE HEAT EXHAUSTION Time Seen by Provider: 01/06/18 16:21 Mode of Arrival: Ambulatory Information source: Patient Notes: This is a 62-year-old man with a history of coronary artery disease (CABG, 11 stents in the past) that presents to the emergency room with some nausea, left chest heaviness which occurred while he was outside power washing his house. It is extremely hot today. He states he was power washing the house for about 4 hours when he started to feel nauseated he went in the house started having some left chest heaviness. Patient states he did take aspirin at home just prior to arrival (325 mg). TRAVEL OUTSIDE OF THE [place] IN LAST 30 DAYS: No - HPI Onset: Just prior to arrival Onset/Duration: Gradual Quality of pain: Dull Severity: Mild Pain Level: 1 Associated symptoms: Chest pain, Shortness of breath Exacerbated by: Other - Heat exposure Relieved by: Denies Similar symptoms previously: Yes Recently seen / treated by doctor: Yes - Related Data Allergies/Adverse Reactions: adhesive [Adhesive] Allergy (Severe, Verified 10/11/17 12:22) peels skin gabapentin [From Neurontin] Allergy (Unknown, Verified 10/11/17 12:22) disoriented levofloxacin [From Levaquin] Allergy (Unknown, Verified 10/11/17 12:22) Sulfa (Sulfonamide Antibiotics) Allergy (Unknown, Verified 10/11/17 12:22) skin wilson tramadol [Tramadol] Allergy (Unknown, Verified 10/11/17 12:22) ibuprofen [From Motrin] Allergy (Verified 10/11/17 12:22) tramadol HCl [From Ultram] Allergy (Verified 10/11/17 12:22) Past Medical History - General Information source: Patient - Social History Smoking Status: Former Smoker Cigarette use (# per day): No Chew tobacco use (# tins/day): No Smoking Education Provided: No Frequency of alcohol use: None Drug Abuse: None Lives with: Family Family History: CAD, CVA Patient has suicidal ideation: No Patient has homicidal ideation: No - Past Medical History Cardiac Medical History: Reports: Hx Coronary Artery Disease, 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 Denies: Hx Pancreatitis Musculoskeltal Medical History: Denies Hx Arthritis Psychiatric Medical History: Reports: Hx Anxiety, Hx Depression Past Surgical History: Reports: Hx Adenoidectomy, Hx Appendectomy, Hx Bowel Surgery - hemorrhoidectomy, Hx Cardiac Catheterization - last one was 2010, stent x 10, Hx Cardiac Surgery - CABG, Hx Coronary Artery Bypass Graft, Hx Coronary Stent - [id number] recent was 2010, Hx Open Heart Surgery, Hx Rectal Surgery - hemorrhoids, Hx Testicular Surgery - torsion, vastectomy, Hx Tonsillectomy - Immunizations Immunizations up to date: Yes Hx Diphtheria, Pertussis, Tetanus Vaccination: Yes Hx Pneumococcal Vaccination: 03/21/12 Review of Systems - Review of Systems Constitutional: denies: Chills, Fever EENT: No symptoms reported Cardiovascular: See HPI Respiratory: No symptoms reported Gastrointestinal: No symptoms reported Genitourinary: No symptoms reported Male Genitourinary: No symptoms reported Musculoskeletal: No symptoms reported Skin: No symptoms reported Hematologic/Lymphatic: No symptoms reported Neurological/Psychological: No symptoms reported Physical Exam - Vital signs Vitals: Pulse Ox 94 01/06/18 16:05 Notes: Physical exam: GENERAL: 62-year-old man, alert and oriented 3, no acute distress. HEAD: Atraumatic, normocephalic. EYES: Pupils equal round and reactive to light, extraocular movements intact, sclera anicteric, conjunctiva are normal. ENT: TMs normal, nares patent, oropharynx clear without exudates. Moist mucous membranes. NECK: Normal range of motion, supple without obvious mass or JVD. LUNGS: Breath sounds clear to auscultation bilaterally and equal. No wheezes rales or rhonchi. HEART: Regular rate and rhythm without murmurs, rubs or gallops. ABDOMEN: Soft, normoactive bowel sounds. No tenderness to palpation. No guarding, no rebound. No masses appreciated. EXTREMITIES: Normal range of motion, no pitting or edema. No clubbing or cyanosis. NEUROLOGICAL: Cranial nerves II through XII grossly intact. Normal speech, moving all extremities. PSYCH: Normal mood, normal affect. SKIN: Warm, Dry, normal turgor, no rashes or lesions noted. Course - Re-evaluation Re-evalutation: 01/07/18 20:[address] Valencia who knows the patient well. He feels the patient should go home. The patient would like to go home and feels much better. Patient will follow up with Dr. Valencia in 1 day. - Vital Signs Vital signs: Temp Pulse Resp BP Pulse Ox 12 90/69 L 93 01/06/18 18:01 01/06/18 18:01 01/06/18 18:01 - Laboratory Result Diagrams: 01/06/18 16:50 01/06/18 16:50 Laboratory results interpreted by me: 01/06/18 01/06/18 16:50 16:50 RBC 3.59 L Hgb 11.2 L Hct 33.6 L RDW 14.9 H AST 14 L ALT 20 L Total Protein 6.2 L - Diagnostic Test Radiology reviewed: Image reviewed - EKG Interpretation by Me Rate: Normal Rhythm: NSR - EKG shows normal sinus rhythm with a ventricular rate of 72, inverted T waves in V2, no obvious ST elevations or depressions. Discharge - Discharge Clinical Impression: Chest pain Qualifiers: Ischemic chest pain type: stable angina pectoris Heat exhaustion Qualifiers: Encounter type: initial encounter Qualified Code(s): T67.5XXA - Heat exhaustion , unspecified, initial encounter Condition: Stable Disposition: HOME, SELF-CARE Additional Instructions: As we discussed, your labs and EKG look good. I did discuss the issues with Dr. Valencia and he wants to see you in the office tomorrow. Also, if you have any further chest pain, I am in the ER tomorrow. Continue current medicines. Referrals: SHELLY SETHI MD [Primary Care Provider] - Follow up tomorrow
--- NOTE | 2018-01-06 16:51 | RADIOLOGY REPORT (SQ) ---
EXAM DESCRIPTION: CHEST SINGLE VIEW COMPLETED DATE/TIME: 01/06/2018 4:39 pm REASON FOR STUDY: cp COMPARISON: None. EXAM PARAMETERS: NUMBER OF VIEWS: One view. TECHNIQUE: Single frontal radiographic view of the chest acquired. RADIATION DOSE: NA LIMITATIONS: None. FINDINGS: LUNGS AND PLEURA: No opacities, masses or pneumothorax. No pleural effusion. MEDIASTINUM AND HILAR STRUCTURES: No masses. Contour normal. HEART AND VASCULAR STRUCTURES: Heart normal in size. Normal vasculature. BONES: No acute findings. HARDWARE: None in the chest. OTHER: No other significant finding. IMPRESSION: NO ACUTE RADIOGRAPHIC FINDING IN THE CHEST. Status post CABG TECHNICAL DOCUMENTATION: JOB ID: [id number] [employer]- All Rights Reserved Reading location - IP/workstation name: [email or web address]
[2018-01-06 17:02] LABS: ABSOLUTE BASOPHILS # (AUTO) 0.1 10^3/uL (0.0-0.2); ABSOLUTE EOSINOPHILS # (AUTO) 0.2 10^3/uL (0.0-0.6); ABSOLUTE LYMPHOCYTES (AUTO) 1.8 10^3/uL (0.5-4.7); ABSOLUTE MONOCYTES (AUTO) 0.5 10^3/uL (0.1-1.4); BASOPHILS % (AUTO) 1.3 % (0-2); HEMATOCRIT 33.6 % (37.9-51.0); HEMOGLOBIN 11.2 g/dL (13.5-17.0); LYMPHOCYTES % (AUTO) 31.9 % (13-45); MEAN CORPUSCULAR HEMOGLOBIN 31.1 pg (27.0-33.4); MEAN CORPUSCULAR HGB CONC 33.2 g/dL (32.0-36.0); MEAN CORPUSCULAR VOLUME 94 fl (80-97); MONOCYTES % (AUTO) 9.1 % (3-13); PLATELET COUNT 184 10^3/uL (150-450); RED BLOOD COUNT 3.59 10^6/uL (4.35-5.55); RED CELL DISTRIBUTION WIDTH 14.9 % (11.5-14.0); SEGMENTED NEUTROPHILS % (AUTO) 54.7 % (42-78); TOTAL CELLS COUNTED % (AUTO) 100 %; WHITE BLOOD COUNT 5.6 10^3/uL (4.0-10.5)
[2018-01-06 17:21] LABS: ALANINE AMINOTRANSFERASE 20 U/L (21-72); ALBUMIN 3.7 g/dL (3.5-5.0); ALKALINE PHOSPHATASE 45 U/L (38-126); ANION GAP 10 (5-19); ASPARTATE AMINO TRANSFERASE 14 U/L (17-59); BILIRUBIN,DIRECT 0.3 mg/dL (0.0-0.4); BILIRUBIN,TOTAL 0.7 mg/dL (0.2-1.3); BLOOD UREA NITROGEN 11 mg/dL (7-20); CALCIUM 8.9 mg/dL (8.4-10.2); CARBON DIOXIDE 27 mmol/L (22-30); CHLORIDE 106 mmol/L (98-107); CREATINE KINASE 97 U/L (55-170); GLUCOSE 81 mg/dL (75-110); SODIUM 143.4 mmol/L (137-145); TOTAL PROTEIN 6.2 g/dL (6.3-8.2)
[2018-01-06 17:36] LABS: CREATINE KINASE MB 0.66 ng/mL (<4.55)
[2018-01-06 17:38] LABS: TROPONIN I < 0.012 ng/mL
--- NOTE | 2018-01-06 22:48 | EKG REPORT ---
SEVERITY:- ABNORMAL ECG - SINUS RHYTHM : Confirmed by: Bety Cobb 06-Jan-2018 22:48:07
--- NOTE | 2018-01-06 22:49 | EKG REPORT ---
SEVERITY:- ABNORMAL ECG - SINUS RHYTHM : Confirmed by: Bety Cobb 06-Jan-2018 22:48:43
[2018-01-12 08:19] VITALS: BP 95/78
== END 2018-01-06 19:16 | disposition home or self-care (01) ==
LOC: ER 15:53
DX: I20.8 Other forms of angina pectoris (principal); R11.0 Nausea; R07.9 Chest pain, unspecified; T67.5XXA Heat exhaustion, unspecified, initial encounter; X30.XXXA Exposure to excessive natural heat, initial encounter; Y93.H9 Activity, other involving exterior property and land maintenance, building and construction; Y92.009 Unspecified place in unspecified non-institutional (private) residence as the place of occurrence of the external cause; E11.9 Type 2 diabetes mellitus without complications; E03.9 Hypothyroidism, unspecified; Z95.1 Presence of aortocoronary bypass graft; Z88.6 Allergy status to analgesic agent; Z88.2 Allergy status to sulfonamides; I25.2 Old myocardial infarction
CPT/HCPCS: 93005; 99284; 96361; 96374; 36415; 82553; 82550; 85025; 80053; 84484; 71045; 93010; J3010; J7030

== ENCOUNTER 2018-02-23 13:32 | Observation (INO) | payer MEDICARE, MEDICAID ==
--- NOTE | 2018-02-23 14:19 | ER Document Report ---
ED Medical Screen (RME) - General TRAVEL OUTSIDE OF THE [place] IN LAST 30 DAYS: No <SHERRIE RAMOS - Last Filed: 02/23/18 14:18> <CARO CARTY - Last Filed: 02/23/18 19:37> - General Chief Complaint: Chest Pain Stated Complaint: CHEST PAIN Time Seen by Provider: 02/23/18 14:17 Notes: 62 years old male presents today with chest pain of nearly 2 day duration over the left precordial region. Nonradiating not associated with nausea vomiting palpitation or diaphoresis. No relevance to any exertion. Constant pain on and off exacerbation. History of coronary artery bypass surgery, 11 stents, multiple heart attacks. ( SHERRIE RAMOS) - Related Data Allergies/Adverse Reactions: adhesive [Adhesive] Allergy (Severe, Verified 10/11/17 12:22) peels skin gabapentin [From Neurontin] Allergy (Unknown, Verified 10/11/17 12:22) disoriented levofloxacin [From Levaquin] Allergy (Unknown, Verified 10/11/17 12:22) Sulfa (Sulfonamide Antibiotics) Allergy (Unknown, Verified 10/11/17 12:22) skin wilson tramadol [Tramadol] Allergy (Unknown, Verified 10/11/17 12:22) ibuprofen [From Motrin] Allergy (Verified 10/11/17 12:22) tramadol HCl [From Ultram] Allergy (Verified 10/11/17 12:22) Past Medical History - Social History Chew tobacco use (# tins/day): No Frequency of alcohol use: None Drug Abuse: None Family history: DM, Hyperlipidemia, Hypertension - Past Medical History Cardiac Medical History: Reports: Hx Coronary Artery Disease, 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 Denies: Hx Pancreatitis Musculoskeltal Medical History: Denies Hx Arthritis Psychiatric Medical History: Reports: Hx Anxiety, Hx Depression Past Surgical History: Reports: Hx Adenoidectomy, Hx Appendectomy, Hx Bowel Surgery - hemorrhoidectomy, Hx Cardiac Catheterization - last one was 2010, stent x 10, Hx Cardiac Surgery - CABG, Hx Coronary Artery Bypass Graft, Hx Coronary Stent - [id number] recent was 2010, Hx Open Heart Surgery, Hx Rectal Surgery - hemorrhoids, Hx Testicular Surgery - torsion, vastectomy, Hx Tonsillectomy - Immunizations Immunizations up to date: Yes Hx Diphtheria, Pertussis, Tetanus Vaccination: Yes History of Influenza Vaccine for 04/2017 - 09/2017 Season: Yes Influenza Administration Date for 04/2017 - 09/2017 Season: 07/21/17 <SHERRIE RAMOS - Last Filed: 02/23/18 14:18> - Vital signs Vitals: Temp Pulse Resp BP Pulse Ox 98.8 F 78 16 101/71 94 02/23/18 13:52 02/23/18 13:52 02/23/18 13:52 02/23/18 13:52 02/23/18 13:52 Course - Laboratory Result Diagrams: 02/23/18 14:31 02/23/18 14:31 <CARO CARTY F - Last Filed: 02/23/18 19:37> - Vital Signs Vital signs: Temp Pulse Resp BP Pulse Ox 98.8 F 78 14 101/71 97 02/23/18 13:52 02/23/18 13:52 02/23/18 18:25 02/23/18 13:52 02/23/18 18:25 - Laboratory Laboratory results interpreted by me: 02/23/18 02/23/18 14:31 14:31 RBC 3.99 L Hgb 12.5 L Hct 37.4 L RDW 14.8 H Glucose 116 H Doctor's Discharge <SHERRIE RAMOS - Last Filed: 02/23/18 14:18> <CARO CARTY - Last Filed: 02/23/18 19:37> - Discharge Clinical Impression: Chronic chest pain Condition: Stable Disposition: ADMITTED INPATIENT Instructions: Angina Episode ([facility]) Referrals: SHELLY SETHI MD [Primary Care Provider] - Follow up as needed
--- NOTE | 2018-02-23 15:06 | RADIOLOGY REPORT (SQ) ---
EXAM DESCRIPTION: CHEST 2 VIEWS COMPLETED DATE/TIME: 02/23/2018 2:56 pm REASON FOR STUDY: Chest pain COMPARISON: 08/15/2016 EXAM PARAMETERS: NUMBER OF VIEWS: two views TECHNIQUE: Digital Frontal and Lateral radiographic views of the chest acquired. RADIATION DOSE: NA LIMITATIONS: none FINDINGS: LUNGS AND PLEURA: No opacities, masses or pneumothorax. No pleural effusion. MEDIASTINUM AND HILAR STRUCTURES: No masses or contour abnormalities. HEART AND VASCULAR STRUCTURES: Heart normal size. No evidence for failure. BONES: No acute findings. HARDWARE: Prior anterior median sternotomy. OTHER: No other significant finding. IMPRESSION: 1 No significant interval changes since the prior examination dated 08/15/2016. No acute findings. TECHNICAL DOCUMENTATION: JOB ID: [id number] [employer]- All Rights Reserved Reading location - IP/workstation name: [email or web address]
[2018-02-23 15:10] LABS: ABSOLUTE EOSINOPHILS # (AUTO) 0.1 10^3/uL (0.0-0.6); ABSOLUTE MONOCYTES (AUTO) 0.3 10^3/uL (0.1-1.4); ABSOLUTE NEUT (AUTO) 2.4 10^3/uL (1.7-8.2); BASOPHILS % (AUTO) 0.7 % (0-2); HEMATOCRIT 37.4 % (37.9-51.0); HEMOGLOBIN 12.5 g/dL (13.5-17.0); LYMPHOCYTES % (AUTO) 40.9 % (13-45); MEAN CORPUSCULAR HEMOGLOBIN 31.4 pg (27.0-33.4); MEAN CORPUSCULAR HGB CONC 33.5 g/dL (32.0-36.0); MEAN CORPUSCULAR VOLUME 94 fl (80-97); MONOCYTES % (AUTO) 6.1 % (3-13); PLATELET COUNT 195 10^3/uL (150-450); RED BLOOD COUNT 3.99 10^6/uL (4.35-5.55); RED CELL DISTRIBUTION WIDTH 14.8 % (11.5-14.0); SEGMENTED NEUTROPHILS % (AUTO) 49.3 % (42-78); TOTAL CELLS COUNTED % (AUTO) 100 %; WHITE BLOOD COUNT 4.8 10^3/uL (4.0-10.5)
[2018-02-23 15:34] LABS: ALANINE AMINOTRANSFERASE 25 U/L (21-72); ALBUMIN 4.1 g/dL (3.5-5.0); ALKALINE PHOSPHATASE 52 U/L (38-126); ANION GAP 10 (5-19); ASPARTATE AMINO TRANSFERASE 18 U/L (17-59); BILIRUBIN,DIRECT 0.2 mg/dL (0.0-0.4); BILIRUBIN,TOTAL 0.6 mg/dL (0.2-1.3); BLOOD UREA NITROGEN 9 mg/dL (7-20); CALCIUM 9.2 mg/dL (8.4-10.2); CARBON DIOXIDE 27 mmol/L (22-30); CHLORIDE 106 mmol/L (98-107); CREATINE KINASE 74 U/L (55-170); GLUCOSE 116 mg/dL (75-110); POTASSIUM 4.6 mmol/L (3.6-5.0); SODIUM 142.7 mmol/L (137-145)
[2018-02-23 15:38] LABS: CREATINE KINASE MB 0.35 ng/mL (<4.55)
[2018-02-23 15:39] LABS: TROPONIN I < 0.012 ng/mL
[2018-02-23] MEDS ORDERED: FENTANYL CITRATE INJ/PF 100 MCG/2 ML AMPUL IV ONE (19:37)
[2018-02-23] MEDS ORDERED: ACETAMINOPHEN 325 MG TABLET PO PRN (20:41)
[2018-02-23] MEDS ORDERED: NORMAL SALINE 1000 ML 1,000 ML IV PRN (20:41)
[2018-02-23] MEDS ORDERED: MAGNESIUM HYDROXIDE SUSP 30 ML UDCUP PO PRN (20:41)
[2018-02-23] MEDS ORDERED: ONDANSETRON HCL INJ/PF 4 MG/2 ML SDV IV PRN (20:41)
[2018-02-23] MEDS ORDERED: MORPHINE SULFATE IR 30 MG TABLET PO PRN (20:57)
[2018-02-23] MEDS ORDERED: DIAZEPAM 5 MG TABLET PO PRN (20:57)
[2018-02-23] MEDS ORDERED: NITROGLYCERIN 0.4 MG/TAB 25 TAB/BOTTLE SL PRN (20:57)
[2018-02-23] MEDS ORDERED: DOCUSATE SODIUM 100 MG CAPSULE PO PRN (20:57)
[2018-02-23] MEDS ORDERED: SERTRALINE HCL 50 MG TABLET PO SCH (22:00)
[2018-02-23] MEDS ORDERED: RANOLAZINE 500 MG TAB.SR.12H PO SCH (22:00)
[2018-02-23] MEDS ORDERED: ATORVASTATIN CALCIUM 80 MG TABLET PO SCH (22:00)
[2018-02-23] MEDS ORDERED: FAMOTIDINE 20 MG TABLET PO SCH (22:00)
[2018-02-23] MEDS ORDERED: (PENDING PHARMACY ID) (Ranitidine Hcl [Ranitidine Hcl] 150 MG) PO SCH (22:00)
--- NOTE | 2018-02-23 22:28 | EKG REPORT ---
SEVERITY:- NORMAL ECG - SINUS RHYTHM : Confirmed by: Ann Domingo MD 23-Feb-2018 22:27:02
--- NOTE | 2018-02-23 23:26 | PDOC H&P ---
History of Present Illness Admission Date/PCP: 02/23/18 21:08 SHELLY SETHI MD Patient complains of: Chest pain History of Present Illness: ZOË ALATORRE is a 62 year old male with history of coronary artery disease status post PCI and a total of 11 stents more than 15 years ago who presented to the emergency room with acute onset of left parasternal chest pain felt like burning and graded 6-7/10 severity with no radiation, nausea vomiting or diaphoresis or dyspnea. He had yesterday and did not last long but it intensified this morning he admitted to [facility] however and it has been worsening with exertion. When he came to the ER his EKG showed normal sinus rhythm with rate of 79 with T-wave inversion in aVL. He denies any headache or dizziness or blurred vision. No bleeding diathesis. No cough or wheezing or hemoptysis. Upon arrival to the emergency room his blood pressure was 101/71 with a pulse of 78, respiratory rate of 16 and pulse oximetry 94 % on room air. His labs are remarkable for mild anemia with hemoglobin of 12.5 hematocrit of 37.4 and platelets were 195. Sodium was 142.7 with a potassium of 4.61, BUN of 9 and creatinine 0.95 with blood glucose of 116. LFTs were within normal and initial set of cardiac enzymes came back negative with CK of 74, CK-MB of 0.35 and troponin I less than 0.012. The patient will be admitted to an observation telemetry bed for further evaluation and monitoring. Past Medical History Past Medical History: Ongoing tobacco abuse Cardiac Medical History: Reports: Coronary Artery Disease, Myocardial Infarction - x2 TOTAL OF 11 STENTS/ MOST RECENT 08/21/16, Hyperlipidema, Hypertension Pulmonary Medical History: Denies: Asthma, Bronchitis, Chronic Obstructive Pulmonary Disease (COPD), Pneumonia Neurological Medical History: Denies: Seizures Endocrine Medical History: Reports: Diabetes Mellitus Type 2, Hypothyroidism Malignancy Medical History: Denies: Breast Cancer, Cervical Cancer, Ovarian Cancer GI Medical History: Reports: Gastroesophageal Reflux Disease Musculoskeltal Medical History: Denies: Arthritis Psychiatric Medical History: Reports: Depression Hematology: Denies: Anemia Past Surgical History Past Surgical History: Reports: Appendectomy, Cardiac Catheterization - last one was 2010, stent x 10, Coronary Artery Bypass Graft, Coronary Stent - X10- most recent was 2010, Tonsillectomy Social History Smoking Status: Current Every Day Smoker - He smokes half a pack of cigars per day Frequency of Alcohol Use: None Hx Recreational Drug Use: No Drugs: None Hx Prescription Drug Abuse: No Family History Family History: CAD, CVA, Malignancy Parental Family History Reviewed: Yes Children Family History Reviewed: Yes Sibling(s) Family History Reviewed.: Yes Medication/Allergy Allergies/Adverse Reactions: adhesive [Adhesive] Allergy (Severe, Verified 10/11/17 12:22) peels skin gabapentin [From Neurontin] Allergy (Unknown, Verified 10/11/17 12:22) disoriented levofloxacin [From Levaquin] Allergy (Unknown, Verified 10/11/17 12:22) Sulfa (Sulfonamide Antibiotics) Allergy (Unknown, Verified 10/11/17 12:22) skin wilson tramadol [Tramadol] Allergy (Unknown, Verified 10/11/17 12:22) ibuprofen [From Motrin] Allergy (Verified 10/11/17 12:22) tramadol HCl [From Ultram] Allergy (Verified 10/11/17 12:22) Review of Systems Review of Systems: As per history of present illness. All pertinent systems were reviewed above. Constitutional, HEENT, cardiovascular, respiratory, GI, , musculoskeletal, neuro, psychiatric, endocrine, integumentary and hematologic systems were reviewed and are otherwise negative/unremarkable except for positive findings mentioned above in the HPI. Physical Exam Vital Signs: Temp Pulse Resp BP Pulse Ox 98.8 F 78 10 L 101/71 96 02/23/18 13:52 02/23/18 13:52 02/23/18 22:00 02/23/18 13:52 02/23/18 22:00 Exam: Generally: Very pleasant elderly gentleman in no acute distress Vital signs-as listed Head - atraumatic, normocephalic. Pupils - equal, round and reactive to light and accommodation. Extraocular movements are intact. No scleral icterus. Oropharynx - moist mucous membranes and tongue. No pharyngeal erythema or exudate. Neck - supple. No JVD. Carotid pulses 2+ bilaterally. No carotid bruits. No palpable thyromegaly or lymphadenopathy. Cardiovascular - regular rate and rhythm. Normal S1 and S2. No murmurs, gallops or rubs. Lungs - clear to auscultation bilaterally. Abdomen - soft and nontender. Positive bowel sounds. No palpable organomegaly or masses. Extremities - no pitting edema, clubbing or cyanosis. Neuro - grossly non-focal. Skin - no rashes. and rectal exam - deferred. Results Impressions: Chest X-Ray 02/23/18 14:17 IMPRESSION: 1 No significant interval changes since the prior examination dated 08/15/2016. No acute findings. Assessment & Plan - Diagnosis (1) Chest pain Qualifiers: Chest pain type: unspecified Qualified Code(s): R07.9 - Chest pain, unspecified Is this a current diagnosis for this admission?: Yes Plan: Chest pain, rule out acute coronary syndrome. The patient will be admitted to an observation telemetry bed. Will follow serial cardiac enzymes and EKGs. We will obtain a cardiology consult in a.m. for further cardiac risk stratification. The patient will be placed on aspirin as well as p.r.n. sublingual nitroglycerin and morphine sulfate for pain. (2) Type 2 diabetes mellitus Is this a current diagnosis for this admission?: Yes Plan: The patient will be placed on supplemental coverage with Humalog (3) Dyslipidemia Is this a current diagnosis for this admission?: Yes Plan: We will continue statin therapy (4) Tobacco abuse Is this a current diagnosis for this admission?: Yes Plan: I counseled the patient for smoking cessation and the patient will receive further counseling here. (5) CAD (coronary artery disease) Qualifiers: Coronary Disease-Associated Artery/Lesion type: unspecified vessel or lesion type [place] vs. transplanted heart: [place] heart Associated angina: with unspecified angina Qualified Code(s): I25.119 - Atherosclerotic heart disease of [place] coronary artery with unspecified angina pectoris Is this a current diagnosis for this admission?: Yes Plan: We will continue aspirin and Plavix, statin therapy and BERTA inhibitor therapy, Ranexa. Heart rate is borderline for beta-tucker therapy. Will defer to Dr. Domingo (6) Hypertension Is this a current diagnosis for this admission?: Yes Plan: We will continue lisinopril. (7) DVT prophylaxis Is this a current diagnosis for this admission?: Yes Plan: Subcutaneous Lovenox
[2018-02-24 00:03] LABS: CREATINE KINASE MB 0.35 ng/mL (<4.55)
[2018-02-24 00:09] LABS: TROPONIN I < 0.012 ng/mL
--- NOTE | 2018-02-24 02:51 | RADIOLOGY REPORT (SQ) ---
EXAM DESCRIPTION: XR CHEST 1 VIEW COMPLETED DATE/TME: 02/24/2018 00:00 CLINICAL HISTORY: 62 years Male, chest pain COMPARISON: 6.19.18 NUMBER OF VIEWS/TECHNIQUE: 1/AP FINDINGS: Adequate lung volume, clear parenchyma, normal cardiac silhouette, and intact bony thorax. Sternotomy. IMPRESSION: No acute cardiopulmonary findings.
[2018-02-24 04:31] VITALS: BP 99/64
[2018-02-24 05:41] LABS: ABSOLUTE EOSINOPHILS # (AUTO) 0.2 10^3/uL (0.0-0.6); ABSOLUTE LYMPHOCYTES (AUTO) 2.2 10^3/uL (0.5-4.7); ABSOLUTE MONOCYTES (AUTO) 0.4 10^3/uL (0.1-1.4); BASOPHILS % (AUTO) 0.7 % (0-2); EOSINOPHILS % (AUTO) 3.6 % (0-6); HEMATOCRIT 32.1 % (37.9-51.0); MEAN CORPUSCULAR HGB CONC 34.2 g/dL (32.0-36.0); MEAN CORPUSCULAR VOLUME 93 fl (80-97); MONOCYTES % (AUTO) 7.6 % (3-13); PLATELET COUNT 161 10^3/uL (150-450); RED BLOOD COUNT 3.44 10^6/uL (4.35-5.55); RED CELL DISTRIBUTION WIDTH 14.9 % (11.5-14.0); SEGMENTED NEUTROPHILS % (AUTO) 42.1 % (42-78); TOTAL CELLS COUNTED % (AUTO) 100 %; WHITE BLOOD COUNT 4.9 10^3/uL (4.0-10.5)
[2018-02-24 05:59] LABS: ANION GAP 6 (5-19); BLOOD UREA NITROGEN 10 mg/dL (7-20); CALCIUM 8.6 mg/dL (8.4-10.2); CARBON DIOXIDE 27 mmol/L (22-30); CHLORIDE 110 mmol/L (98-107); CHOLESTEROL 135.79 mg/dL (0-200); GLUCOSE 111 mg/dL (75-110); POTASSIUM 4.1 mmol/L (3.6-5.0); SODIUM 143.4 mmol/L (137-145); TRIGLYCERIDES 241 mg/dL (<150)
[2018-02-24] MEDS ORDERED: LANSOPRAZOLE 30 MG TAB.RAP.DR PO SCH (06:00)
[2018-02-24 06:10] LABS: DIRECT LDL 52 mg/dL (<100)
[2018-02-24 06:11] LABS: CREATINE KINASE MB 0.33 ng/mL (<4.55)
[2018-02-24 06:15] LABS: TROPONIN I < 0.012 ng/mL; VLDL CHOLESTEROL 48.2 mg/dL (10-31)
--- NOTE | 2018-02-24 08:11 | PDOC DISCHARGE SUMMARY ---
General - Admit/Disc Date/PCP Admission Date/Primary Care Provider: 02/23/18 21:08 SHELLY SETHI MD Discharge Date: 02/24/18 - Discharge Diagnosis (1) Chronic chest pain Is this a current diagnosis for this admission?: Yes Summary: Continue current medications and follow-up with cardiology (2) Dyslipidemia Is this a current diagnosis for this admission?: Yes Summary: Diet and exercise (3) Hypertension Is this a current diagnosis for this admission?: Yes Summary: Continue current medications (4) Tobacco abuse Is this a current diagnosis for this admission?: Yes Summary: Smoking cessation discussed (5) Type 2 diabetes mellitus Is this a current diagnosis for this admission?: Yes Summary: Diet and medication (6) CAD (coronary artery disease) Is this a current diagnosis for this admission?: Yes Summary: Follow-up with cardiology (7) Chronic pain syndrome Is this a current diagnosis for this admission?: Yes Summary: Follow-up with pain management - Additional Information Resuscitation Status: Full Code Discharge Diet: Cardiac, Diabetic Discharge Activity: Activity As Tolerated Home Medications: Acetaminophen [Tylenol 325 mg Tablet] 650 mg PO Q4HP PRN tablet 02/24/18 Amlodipine Besylate [Norvasc 10 mg Tablet] 10 mg PO DAILY tablet 02/24/18 Aspirin [Aspirin 325 mg Tablet] 325 mg PO DAILY tablet 02/24/18 Atorvastatin Calcium [Lipitor 80 mg Tablet] 80 mg PO QHS tablet 02/24/18 Clopidogrel Bisulfate [Plavix 75 mg Tablet] 75 mg PO DAILY tablet 02/24/18 Diazepam [Valium 5 mg Tablet] 5 mg PO TIDP PRN tablet 02/24/18 Docusate Sodium [Colace 100 mg Capsule] 100 mg PO BID PRN capsule 02/24/18 Isosorbide Mononitrate [Imdur 60 mg Tablet.er] 120 mg PO DAILY tab.er.24h 02/24 Lansoprazole [Prevacid 30 mg Odt Tablet] 30 mg PO Q6AM tab.rap.dr 02/24/18 Lisinopril [Prinivil 10 mg Tablet] 10 mg PO DAILY tablet 02/24/18 Magnesium Hydroxide [Milk of Magnesia 30 ml Udcup] 30 ml PO HSP PRN udc Morphine Sulfate [Morphine Ir 30 mg Tablet] 30 mg PO BIDP PRN tablet 02/24/18 Nitroglycerin [Nitrostat 0.4 mg (1/150 Gr) Tabs 25/Bottle] 1 tab SL Q5MP PRN bottle 02/24/18 Ranolazine [Ranexa 500 mg Tab.sr] 1,000 mg PO Q12 tab.sr.12h 02/24/18 Sertraline HCl [Zoloft 50 mg Tablet] 50 mg PO Q12 tablet 02/24/18 History of Present Illness History of Present Illness: ZOË ALATORRE is a 62 year old male Hospital Course Hospital Course: The patient was admitted with chest pain. Unfortunately the nitroglycerin that he took at home did not relieve his pain. He has been eating at [employer] before the pain has started. The patient has chronic pains which she is having difficulty distinguishing from chronic pain syndrome and his chronic chest pain/angina. After the admission his cardiac enzymes were negative his EKG was unremarkable. The patient did not have any recurrence of chest pain or shortness of breath on the day of discharge he appeared comfortable in no acute distress Physical Exam Vital Signs: Temp Pulse Resp BP Pulse Ox 97.9 F 59 L 18 99/64 L 97 02/24/18 03:52 02/24/18 03:52 02/24/18 03:52 02/24/18 03:52 02/24/18 03:52 Intake & Output 02/23/18 02/24/18 02/25/18 06:59 06:59 06:59 Output Total 450 Balance -450 Weight 86.2 kg General appearance: PRESENT: no acute distress Head exam: PRESENT: atraumatic Eye exam: PRESENT: conjunctiva pink Neck exam: ABSENT: carotid bruit, JVD Respiratory exam: PRESENT: rhonchi Cardiovascular exam: PRESENT: RRR, +S1, +S2 Pulses: PRESENT: +1 pedal pulses bilateral GI/Abdominal exam: PRESENT: normal bowel sounds, soft Extremities exam: PRESENT: full ROM Musculoskeletal exam: PRESENT: ambulatory Neurological exam: PRESENT: alert, awake Results Laboratory Results: 02/24/18 05:15 02/24/18 05:15 02/24/18 02/24/18 05:15 05:15 WBC 4.9 RBC 3.44 L Hgb 11.0 L Hct 32.1 L MCV 93 MCH 32.0 MCHC 34.2 RDW 14.9 H Plt Count 161 Seg Neutrophils % 42.1 Lymphocytes % 46.0 H Monocytes % 7.6 Eosinophils % 3.6 Basophils % 0.7 Absolute Neutrophils 2.0 Absolute Lymphocytes 2.2 Absolute Monocytes 0.4 Absolute Eosinophils 0.2 Absolute Basophils 0.0 Sodium 143.4 Potassium 4.1 Chloride 110 H Carbon Dioxide 27 Anion Gap 6 BUN 10 Creatinine 0.84 Est GFR ( Amer) > 60 Est GFR (Non-Af Amer) > 60 Glucose 111 H Calcium 8.6 Triglycerides 241 H Cholesterol 135.79 LDL Cholesterol Direct 52 VLDL Cholesterol 48.2 H HDL Cholesterol 33 L 02/23/18 02/23/18 02/24/18 23:19 23:19 05:15 Creatine Kinase 66 63 CK-MB (CK-2) 0.35 Troponin I < 0.012 02/24/18 05:15 Creatine Kinase CK-MB (CK-2) 0.33 Troponin I < 0.012 Impressions: Chest X-Ray 02/24/18 00:00 IMPRESSION: No acute cardiopulmonary findings. Qualifiers - * PATIENT BEING DISCHARGED WITH ANY OF THE FOLLOWING DIAGNOSIS: No
[2018-02-24] MEDS ORDERED: ISOSORBIDE MONONITRATE 60 MG TAB.ER.24H PO SCH (10:00)
[2018-02-24] MEDS ORDERED: AMLODIPINE BESYLATE 10 MG TABLET PO SCH (10:00)
[2018-02-24] MEDS ORDERED: ASPIRIN 325 MG TABLET PO SCH (10:00)
[2018-02-24] MEDS ORDERED: LISINOPRIL 10 MG TABLET PO SCH (10:00)
[2018-02-24] MEDS ORDERED: ENOXAPARIN SODIUM INJ 40 MG/0.4 ML DISP.SYRIN SUBCUT SCH (10:00)
[2018-02-24] MEDS ORDERED: ISOSORBIDE MONONITRATE PO SCH (10:00)
[2018-02-24] MEDS ORDERED: (PENDING PHARMACY ID) (Ranolazine [Ranexa] 1,000 MG) PO SCH (10:00)
[2018-02-24] MEDS ORDERED: CLOPIDOGREL BISULFATE 75 MG TABLET PO SCH (10:00)
--- NOTE | 2018-02-24 13:43 | EKG REPORT ---
SEVERITY:- NORMAL ECG - SINUS RHYTHM : Confirmed by: Ann Domingo MD 24-Feb-2018 13:43:08
--- NOTE | 2018-02-28 08:34 | ER Document Report ---
ED Cardiac - General Chief Complaint: Chest Pain Stated Complaint: CHEST PAIN Time Seen by Provider: 02/23/18 14:17 TRAVEL OUTSIDE OF THE [place] IN LAST 30 DAYS: No - HPI Patient complains to provider of: Chest pain - 62 yo male with left sided chest pain with a history of [place] as well as 11 stents in the past. He notes pain and pressure in the chest over the last 2 days that has not stopped with normal medications. He denies diaphoresis, he denies emesis, he denies rashes, he denies diarrhea, constipation, fever, focal numbness of weakness. Was the onset of pain: Gradual Is the pain a: Chronic problem - Related Data Allergies/Adverse Reactions: adhesive [Adhesive] Allergy (Severe, Verified 10/11/17 12:22) peels skin gabapentin [From Neurontin] Allergy (Unknown, Verified 10/11/17 12:22) disoriented levofloxacin [From Levaquin] Allergy (Unknown, Verified 10/11/17 12:22) Sulfa (Sulfonamide Antibiotics) Allergy (Unknown, Verified 10/11/17 12:22) skin wilson tramadol [Tramadol] Allergy (Unknown, Verified 10/11/17 12:22) ibuprofen [From Motrin] Allergy (Verified 10/11/17 12:22) tramadol HCl [From Ultram] Allergy (Verified 10/11/17 12:22) Past Medical History - General Information source: Patient - Social History Smoking Status: Never Smoker Chew tobacco use (# tins/day): No Frequency of alcohol use: None Drug Abuse: None Family History: CAD, CVA, Malignancy Patient has suicidal ideation: No Patient has homicidal ideation: No - Past Medical History Cardiac Medical History: Reports: Hx Coronary Artery Disease, 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 Denies: Hx Pancreatitis Musculoskeletal Medical History: Denies Hx Arthritis Psychiatric Medical History: Reports: Hx Anxiety, Hx Depression Past Surgical History: Reports: Hx Adenoidectomy, Hx Appendectomy, Hx Bowel Surgery - hemorrhoidectomy, Hx Cardiac Catheterization - last one was 2010, stent x 10, Hx Cardiac Surgery - CABG, Hx Coronary Artery Bypass Graft, Hx Coronary Stent - [id number] recent was 2010, Hx Open Heart Surgery, Hx Rectal Surgery - hemorrhoids, Hx Testicular Surgery - torsion, vastectomy, Hx Tonsillectomy - Immunizations Immunizations up to date: Yes Hx Diphtheria, Pertussis, Tetanus Vaccination: Yes History of Pneumococcal Vaccine: Unknown Hx Pneumococcal Vaccination: 03/21/12 Review of Systems - Review of Systems -: Yes All other systems reviewed and negative Physical Exam - Vital signs Vitals: Temp Pulse Resp BP Pulse Ox 98.8 F 78 16 101/71 94 02/23/18 13:52 02/23/18 13:52 02/23/18 13:52 02/23/18 13:52 02/23/18 13:52 - General General appearance: Appears well In distress: None - HEENT Head: Normocephalic Eyes: Normal Conjunctiva: Normal - Respiratory Respiratory status: No respiratory distress Chest status: Nontender Breath sounds: Normal - Cardiovascular Rhythm: Regular Heart sounds: Normal auscultation Murmur: No - Abdominal Inspection: Normal Distension: No distension - Back Back: Normal - Extremities General upper extremity: Normal inspection General lower extremity: Normal inspection, Normal ROM - Neurological Neuro grossly intact: Yes Cognition: Normal Orientation: AAOx4 Course - Re-evaluation Re-evalutation: 02/28/18 08:31 this 62 year old man has a long history fo chest pain and significant cardiac disease including multiple stents in the past. He is now having pain at rest and has not recieved relief with nitroglycerin. He denies systemic illness at this time but is continuing to have pain. Initial troponin is negative, though given concerning history plan for admission and monitoring. His EKG was non diagnostic, did give narcotic for pain relief with improvment in his symptoms. Hospitalist has agreed to admission and monitoring. - Vital Signs Vital signs: Temp Pulse Resp BP Pulse Ox 97.9 F 59 L 18 99/64 L 97 02/24/18 08:36 02/24/18 08:36 02/24/18 08:36 02/24/18 08:36 02/24/18 08:36 - Laboratory Result Diagrams: 02/24/18 05:15 02/24/18 05:15 Laboratory results interpreted by me: 02/23/18 02/23/18 14:31 14:31 RBC 3.99 L Hgb 12.5 L Hct 37.4 L RDW 14.8 H Glucose 116 H Discharge - Discharge Clinical Impression: Chronic chest pain Condition: Good Disposition: ADMITTED INPATIENT
== END 2018-02-24 09:50 | disposition home or self-care (01) ==
LOC: ER 13:32 → EH 21:08 → 3W 23:52
PROVIDERS: ADMIT Family Medicine; ATTEND Family Medicine
DX: G89.29 Other chronic pain (principal); R07.9 Chest pain, unspecified; E78.5 Hyperlipidemia, unspecified; I10 Essential (primary) hypertension; E11.9 Type 2 diabetes mellitus without complications; I25.119 Atherosclerotic heart disease of native coronary artery with unspecified angina pectoris; G89.4 Chronic pain syndrome; D64.9 Anemia, unspecified; F17.290 Nicotine dependence, other tobacco product, uncomplicated; I25.2 Old myocardial infarction; Z79.899 Other long term (current) drug therapy; Z95.5 Presence of coronary angioplasty implant and graft; Z95.1 Presence of aortocoronary bypass graft; Z90.49 Acquired absence of other specified parts of digestive tract; Z82.49 Family history of ischemic heart disease and other diseases of the circulatory system; Z98.52 Vasectomy status; Z98.890 Other specified postprocedural states; Z79.02 Long term (current) use of antithrombotics/antiplatelets
CPT/HCPCS: 93005 ×2; 99285; 36415 ×2; 82553 ×2; 82550 ×2; 85025 ×2; 80048; 80053; 84484 ×2; 80061; 71046; 71045; 93010 ×2; G0378 ×2; A9270 ×7; J7030

== ENCOUNTER 2018-03-28 01:13 | Emergency (ER) | payer MEDICARE, MEDICAID ==
[2018-03-28] MEDS ORDERED: ASPIRIN 81 MG TABLET, CHEWABLE PO ONE (01:45)
[2018-03-28 02:02] LABS: ABSOLUTE EOSINOPHILS # (AUTO) 0.2 10^3/uL (0.0-0.6); ABSOLUTE LYMPHOCYTES (AUTO) 3.3 10^3/uL (0.5-4.7); ABSOLUTE MONOCYTES (AUTO) 0.5 10^3/uL (0.1-1.4); ABSOLUTE NEUT (AUTO) 2.6 10^3/uL (1.7-8.2); ALANINE AMINOTRANSFERASE 19 U/L (21-72); ALBUMIN 4.2 g/dL (3.5-5.0); ALKALINE PHOSPHATASE 54 U/L (38-126); ANION GAP 11 (5-19); ASPARTATE AMINO TRANSFERASE 20 U/L (17-59); BASOPHILS % (AUTO) 0.6 % (0-2); BILIRUBIN,DIRECT 0.3 mg/dL (0.0-0.4); BILIRUBIN,TOTAL 0.7 mg/dL (0.2-1.3); BLOOD UREA NITROGEN 7 mg/dL (7-20); CALCIUM 9.3 mg/dL (8.4-10.2); CARBON DIOXIDE 25 mmol/L (22-30); CHLORIDE 106 mmol/L (98-107); CREATINE KINASE 82 U/L (55-170); EOSINOPHILS % (AUTO) 2.6 % (0-6); GLUCOSE 98 mg/dL (75-110); HEMATOCRIT 39.2 % (37.9-51.0); HEMOGLOBIN 13.2 g/dL (13.5-17.0); LYMPHOCYTES % (AUTO) 49.7 % (13-45); MEAN CORPUSCULAR HEMOGLOBIN 31.6 pg (27.0-33.4); MEAN CORPUSCULAR HGB CONC 33.7 g/dL (32.0-36.0); MEAN CORPUSCULAR VOLUME 94 fl (80-97); MONOCYTES % (AUTO) 7.8 % (3-13); PLATELET COUNT 223 10^3/uL (150-450); POTASSIUM 3.8 mmol/L (3.6-5.0); RED BLOOD COUNT 4.19 10^6/uL (4.35-5.55); RED CELL DISTRIBUTION WIDTH 14.8 % (11.5-14.0); SEGMENTED NEUTROPHILS % (AUTO) 39.3 % (42-78); SODIUM 142.4 mmol/L (137-145); TOTAL CELLS COUNTED % (AUTO) 100 %; TOTAL PROTEIN 7.6 g/dL (6.3-8.2); WHITE BLOOD COUNT 6.6 10^3/uL (4.0-10.5)
[2018-03-28 02:14] LABS: CREATINE KINASE MB 0.37 ng/mL (<4.55)
[2018-03-28 02:15] LABS: TROPONIN I < 0.012 ng/mL
--- NOTE | 2018-03-28 02:15 | RADIOLOGY REPORT (SQ) ---
EXAM DESCRIPTION: XR CHEST 1 VIEW COMPLETED DATE/TME: 03/28/2018 01:45 CLINICAL HISTORY: 62 years, Male, chest pain COMPARISON: Prior single view chest performed on 02/24/2018. NUMBER OF VIEWS: One TECHNIQUE: A single portable AP upright view of the chest was performed. LIMITATIONS: None. FINDINGS: The lungs are well expanded and are clear. The cardiac silhouette and pulmonary vascularity are within normal limits. The costophrenic sulci are clear. No airspace process or pneumothorax is identified. There are remote postsurgical changes of the mediastinum. No acute osseous abnormalities are identified. No focal soft tissue abnormalities are seen. IMPRESSION: No evidence of acute intrathoracic disease or significant change when compared to the prior study.
[2018-03-28] MEDS ORDERED: FAMOTIDINE 20 MG TABLET PO ONE (02:34)
[2018-03-28] MEDS ORDERED: SUCRALFATE 1 GM TABLET PO ONE (02:34)
[2018-03-28] MEDS ORDERED: FENTANYL CITRATE INJ/PF 100 MCG/2 ML AMPUL IV ONE (02:59)
[2018-03-28] MEDS ORDERED: NORMAL SALINE 1000 ML 1,000 ML IV ONE (03:00)
--- NOTE | 2018-03-28 05:45 | ER Document Report ---
ED Cardiac - General Chief Complaint: Chest Pain Stated Complaint: CHEST PAIN Time Seen by Provider: 03/28/18 02:09 Notes: 62-year-old male presenting to the emergency department complaining of burning pressure in the center of his chest. Patient stated at 2300 hrs. this evening he was petting his dog, not exerting himself and developed 8 out of 10 chest discomfort. Patient denies any shortness of breath, diaphoresis, fever, nausea , vomiting, diarrhea, URI symptoms. Patient states his last echo was on 2017, states results were normal. Patient had a stress test 6 months ago and is scheduled for another one on 04/09/2018. Patient stated he took his at home aspirin and 3 sublingual nitroglycerin prior to calling EMS. EMS gave the patient 2 more sublingual nitroglycerin patient states pain is still 8 out of 10. Patient has a history of a CABG, with 11 stents and also GERD. Patient states he did not eat anything spicy or out of the ordinary this evening denies taking his Zantac. TRAVEL OUTSIDE OF THE [place] IN LAST 30 DAYS: No - HPI Patient complains to provider of: Chest pain - Related Data Allergies/Adverse Reactions: adhesive [Adhesive] Allergy (Severe, Verified 10/11/17 12:22) peels skin gabapentin [From Neurontin] Allergy (Unknown, Verified 10/11/17 12:22) disoriented levofloxacin [From Levaquin] Allergy (Unknown, Verified 10/11/17 12:22) Sulfa (Sulfonamide Antibiotics) Allergy (Unknown, Verified 10/11/17 12:22) skin wilson tramadol [Tramadol] Allergy (Unknown, Verified 10/11/17 12:22) ibuprofen [From Motrin] Allergy (Verified 10/11/17 12:22) tramadol HCl [From Ultram] Allergy (Verified 10/11/17 12:22) Past Medical History - General Information source: Patient - Social History Smoking Status: Current Every Day Smoker Frequency of alcohol use: None Drug Abuse: None Lives with: Alone Family History: CAD, CVA, Malignancy Patient has suicidal ideation: No Patient has homicidal ideation: No - Past Medical History Cardiac Medical History: Reports: Hx Coronary Artery Disease, 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 Denies: Hx Pancreatitis Musculoskeletal Medical History: Denies Hx Arthritis Psychiatric Medical History: Reports: Hx Anxiety, Hx Depression Past Surgical History: Reports: Hx Adenoidectomy, Hx Appendectomy, Hx Bowel Surgery - hemorrhoidectomy, Hx Cardiac Catheterization - last one was 2010, stent x 10, Hx Cardiac Surgery - CABG, Hx Coronary Artery Bypass Graft, Hx Coronary Stent - [id number] recent was 2010, Hx Open Heart Surgery, Hx Rectal Surgery - hemorrhoids, Hx Testicular Surgery - torsion, vastectomy, Hx Tonsillectomy - Immunizations Immunizations up to date: Yes Hx Diphtheria, Pertussis, Tetanus Vaccination: Yes Hx Pneumococcal Vaccination: 03/21/12 Review of Systems - Review of Systems Constitutional: See HPI EENT: No symptoms reported Cardiovascular: See HPI Respiratory: See HPI Gastrointestinal: No symptoms reported Genitourinary: No symptoms reported Male Genitourinary: No symptoms reported Musculoskeletal: No symptoms reported Skin: No symptoms reported Hematologic/Lymphatic: No symptoms reported Neurological/Psychological: No symptoms reported Physical Exam - Vital signs Vitals: Resp 17 03/28/18 01:38 - Notes Notes: GENERAL: Alert, interacts well. No acute distress. HEAD: Normocephalic, atraumatic. EYES: Pupils equal, round, and reactive to light. Extraocular movements intact. ENT: Oral mucosa moist, tongue midline. NECK: Full range of motion. Supple. Trachea midline. LUNGS: Clear to auscultation bilaterally, no wheezes, rales, or rhonchi. No respiratory distress. HEART: Regular rate and rhythm. No murmur ABDOMEN: Soft, non-tender. Non-distended. Bowel sounds present in all 4 quadrants. EXTREMITIES: Moves all 4 extremities spontaneously. No edema, normal radial and dorsalis pedis pulses bilaterally. No cyanosis. BACK: no cervical, thoracic, lumbar midline tenderness. No saddle anesthesia, normal distal neurovascular exam. NEUROLOGICAL: Alert and oriented x3. Normal speech. . PSYCH: Normal affect, normal mood. SKIN: Warm, dry, normal turgor. No rashes or lesions noted. Course - Re-evaluation Re-evalutation: We will treat the patient for GERD seeing as her nitroglycerin has not improved patient's pain. Initial troponin negative. EKG without any ST segment changes. Upon reevaluation patient states indigestion medicines did not help. Will do a trial of narcotics. Just prior to discharge went to evaluate the patient and the patient is sleeping. Upon waking up patient states pain is completely gone. Extensive conversation with the patient about need for follow-up with cotton program technician and primary care within 24-48 hours. Return precautions given. Repeat troponin negative. - Vital Signs Vital signs: Temp Pulse Resp BP Pulse Ox 97.9 F 16 96/74 L 100 03/28/18 06:09 03/28/18 06:01 03/28/18 06:00 03/28/18 06:01 - Laboratory Result Diagrams: 03/28/18 00:55 03/28/18 00:55 Laboratory results interpreted by me: 03/28/18 03/28/18 00:55 00:55 RBC 4.19 L Hgb 13.2 L RDW 14.8 H Seg Neutrophils % 39.3 L Lymphocytes % 49.7 H ALT 19 L Discharge - Discharge Clinical Impression: Chronic chest pain Condition: Stable Disposition: HOME, SELF-CARE Instructions: Angina Episode ([facility]), Antacid Therapy ([facility]), Chest Pain of Unclear Cause ([facility]) Referrals: SHELLY SETHI MD [Primary Care Provider] - Follow up as needed
[2018-03-28 06:09] VITALS: BP 96/74
--- NOTE | 2018-03-28 10:12 | EKG REPORT ---
SEVERITY:- ABNORMAL ECG - SINUS RHYTHM NONSPECIFIC REPOL ABNORMALITY, ANTERIOR LEADS, INCREASED FORM 02/24/18 EKG : Confirmed by: Elio Rae MD 28-Mar-2018 10:11:57
== END 2018-03-28 06:09 | disposition home or self-care (01) ==
LOC: ER 01:13
DX: R07.9 Chest pain, unspecified (principal); G89.29 Other chronic pain; Z79.899 Other long term (current) drug therapy; Z95.1 Presence of aortocoronary bypass graft; F17.200 Nicotine dependence, unspecified, uncomplicated; I25.10 Atherosclerotic heart disease of native coronary artery without angina pectoris; I10 Essential (primary) hypertension; E11.9 Type 2 diabetes mellitus without complications
CPT/HCPCS: 93005; 99285; 96360; 36415; 82553; 82550; 85025; 80053; 84484; 71045; 93010; A9270 ×2; J3010; J7030

== ENCOUNTER 2018-04-10 14:25 | Emergency (ER) | payer MEDICARE, MEDICAID ==
[2018-04-10 15:14] LABS: ALANINE AMINOTRANSFERASE 22 U/L (21-72); ALBUMIN 3.8 g/dL (3.5-5.0); ALKALINE PHOSPHATASE 53 U/L (38-126); ANION GAP 10 (5-19); ASPARTATE AMINO TRANSFERASE 20 U/L (17-59); BILIRUBIN,DIRECT 0.4 mg/dL (0.0-0.4); BLOOD UREA NITROGEN 6 mg/dL (7-20); CALCIUM 9.2 mg/dL (8.4-10.2); CARBON DIOXIDE 26 mmol/L (22-30); CHLORIDE 106 mmol/L (98-107); CREATINE KINASE 142 U/L (55-170); GLUCOSE 126 mg/dL (75-110); POTASSIUM 3.8 mmol/L (3.6-5.0); SODIUM 141.7 mmol/L (137-145); TOTAL PROTEIN 6.6 g/dL (6.3-8.2)
--- NOTE | 2018-04-10 15:25 | RADIOLOGY REPORT (SQ) ---
EXAM DESCRIPTION: CHEST SINGLE VIEW COMPLETED DATE/TIME: 04/10/2018 3:17 pm REASON FOR STUDY: cp COMPARISON: 03/28/2018. EXAM PARAMETERS: NUMBER OF VIEWS: One view. TECHNIQUE: Single frontal radiographic view of the chest acquired. RADIATION DOSE: NA LIMITATIONS: None. FINDINGS: LUNGS AND PLEURA: No opacities, masses or pneumothorax. No pleural effusion. MEDIASTINUM AND HILAR STRUCTURES: No masses. Contour normal. HEART AND VASCULAR STRUCTURES: Heart normal in size. Normal vasculature. BONES: No acute findings. HARDWARE: Sternotomy wires. OTHER: No other significant finding. IMPRESSION: NO ACUTE RADIOGRAPHIC FINDING IN THE CHEST. TECHNICAL DOCUMENTATION: JOB ID: [id number] [employer]- All Rights Reserved Reading location - IP/workstation name: [email or web address]
[2018-04-10 15:26] LABS: CREATINE KINASE MB 0.86 ng/mL (<4.55)
[2018-04-10 15:30] LABS: TROPONIN I < 0.012 ng/mL
[2018-04-10 16:04] LABS: ABSOLUTE EOSINOPHILS # (AUTO) 0.2 10^3/uL (0.0-0.6); ABSOLUTE LYMPHOCYTES (AUTO) 2.3 10^3/uL (0.5-4.7); ABSOLUTE MONOCYTES (AUTO) 0.4 10^3/uL (0.1-1.4); ABSOLUTE NEUT (AUTO) 1.7 10^3/uL (1.7-8.2); BASOPHILS % (AUTO) 0.9 % (0-2); EOSINOPHILS % (AUTO) 4.4 % (0-6); HEMATOCRIT 33.9 % (37.9-51.0); HEMOGLOBIN 11.6 g/dL (13.5-17.0); LYMPHOCYTES % (AUTO) 49.5 % (13-45); MEAN CORPUSCULAR HEMOGLOBIN 32.2 pg (27.0-33.4); MEAN CORPUSCULAR HGB CONC 34.2 g/dL (32.0-36.0); MEAN CORPUSCULAR VOLUME 94 fl (80-97); MONOCYTES % (AUTO) 9.1 % (3-13); PLATELET COUNT 188 10^3/uL (150-450); RED CELL DISTRIBUTION WIDTH 14.9 % (11.5-14.0); SEGMENTED NEUTROPHILS % (AUTO) 36.1 % (42-78); TOTAL CELLS COUNTED % (AUTO) 100 %; WHITE BLOOD COUNT 4.7 10^3/uL (4.0-10.5)
[2018-04-10] MEDS: NORMAL SALINE 1000 ML 1,000 ML IV PRN ×2 (16:30→18:32)
[2018-04-10 16:47] LABS: APPEARANCE,URINE CLEAR; BILIRUBIN,URINE NEGATIVE (NEGATIVE); COLOR,URINE AMBER; GLUCOSE, URINE NEGATIVE (NEGATIVE); KETONES,URINE NEGATIVE (NEGATIVE); LEUKOCYTE ESTERASE,URINE NEGATIVE (NEGATIVE); NITRITE,URINE NEGATIVE (NEGATIVE); PROTEIN,URINE NEGATIVE (NEGATIVE); URINE SPECIFIC GRAVITY 1.019
[2018-04-10 17:17] LABS: URINE AMPHETAMINES SCREEN NEGATIVE; URINE BARBITURATES SCREEN NEGATIVE; URINE BENZODIAZEPINES SCREEN UNCONFIRMED POSITIVE; URINE COCAINE SCREEN NEGATIVE; URINE MARIJUANA (THC) SCREEN NEGATIVE; URINE METHADONE SCREEN NEGATIVE; URINE PHENCYCLIDINE SCREEN NEGATIVE
--- NOTE | 2018-04-10 19:47 | ER Document Report ---
ED General - General Chief Complaint: Chest Pain Stated Complaint: CHEST PAIN Time Seen by Provider: 04/10/18 14:29 TRAVEL OUTSIDE OF THE [place] IN LAST 30 DAYS: No - HPI Patient complains to provider of: Chest pain Notes: Patient coming in for evaluation chest pain. Patient states started approximate 30 minutes prior to arrival. Patient states left-sided chest. Denies any fever chills nausea vomiting diarrhea. Patient is not able to differentiate between new chest pain versus his chronic chest pain. Patient otherwise is resting comfortably upon my evaluation denies any trauma. - Related Data Allergies/Adverse Reactions: adhesive [Adhesive] Allergy (Severe, Verified 10/11/17 12:22) peels skin gabapentin [From Neurontin] Allergy (Unknown, Verified 10/11/17 12:22) disoriented levofloxacin [From Levaquin] Allergy (Unknown, Verified 10/11/17 12:22) Sulfa (Sulfonamide Antibiotics) Allergy (Unknown, Verified 10/11/17 12:22) skin wilson tramadol [Tramadol] Allergy (Unknown, Verified 10/11/17 12:22) ibuprofen [From Motrin] Allergy (Verified 10/11/17 12:22) tramadol HCl [From Ultram] Allergy (Verified 10/11/17 12:22) Past Medical History - Social History Smoking Status: Current Every Day Smoker Frequency of alcohol use: None Drug Abuse: None Family History: CAD, CVA, Malignancy Patient has suicidal ideation: No Patient has homicidal ideation: No - Past Medical History Cardiac Medical History: Reports: Hx Coronary Artery Disease, 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 Denies: Hx Pancreatitis Musculoskeletal Medical History: Denies Hx Arthritis Psychiatric Medical History: Reports: Hx Anxiety, Hx Depression Past Surgical History: Reports: Hx Adenoidectomy, Hx Appendectomy, Hx Bowel Surgery - hemorrhoidectomy, Hx Cardiac Catheterization - last one was 2010, stent x 10, Hx Cardiac Surgery - CABG, Hx Coronary Artery Bypass Graft, Hx Coronary Stent - [id number] recent was 2010, Hx Open Heart Surgery, Hx Rectal Surgery - hemorrhoids, Hx Testicular Surgery - torsion, vastectomy, Hx Tonsillectomy - Immunizations Immunizations up to date: Yes Hx Diphtheria, Pertussis, Tetanus Vaccination: Yes Hx Pneumococcal Vaccination: 03/21/12 Review of Systems - Review of Systems Constitutional: No symptoms reported EENT: No symptoms reported Cardiovascular: Chest pain Respiratory: No symptoms reported Gastrointestinal: No symptoms reported Genitourinary: No symptoms reported Male Genitourinary: No symptoms reported Musculoskeletal: No symptoms reported Skin: No symptoms reported Hematologic/Lymphatic: No symptoms reported Neurological/Psychological: No symptoms reported -: Yes All other systems reviewed and negative Physical Exam - Vital signs Vitals: Temp Pulse Resp BP Pulse Ox 98.0 F 75 18 118/60 94 04/10/18 14:29 04/10/18 14:29 04/10/18 14:29 04/10/18 14:04/10/18 14:29 Interpretation: Normal - General General appearance: Appears well, Alert - HEENT Head: Normocephalic, Atraumatic Eyes: Normal Pupils: PERRL - Respiratory Respiratory status: No respiratory distress Chest status: Nontender Breath sounds: Normal Chest palpation: Normal - Cardiovascular Rhythm: Regular Heart sounds: Normal auscultation Murmur: No - Abdominal Inspection: Normal Distension: No distension Bowel sounds: Normal Tenderness: Nontender Organomegaly: No organomegaly - Back Back: Normal, Nontender - Extremities General upper extremity: Normal inspection, Nontender, Normal color, Normal ROM , Normal temperature General lower extremity: Normal inspection, Nontender, Normal color, Normal ROM , Normal temperature, Normal weight bearing. No: Enrique's sign - Neurological Neuro grossly intact: Yes Cognition: Normal Orientation: AAOx4 Ken Coma Scale Eye Opening: Spontaneous [place] Coma Scale Verbal: Oriented [place] Coma Scale Motor: Obeys Commands Ken Coma Scale Total: 15 Speech: Normal Motor strength normal: LUE, RUE, LLE, RLE Sensory: Normal - Psychological Associated symptoms: Normal affect, Normal mood - Skin Skin Temperature: Warm Skin Moisture: Dry Skin Color: Normal Course - Re-evaluation Re-evalutation: 04/10/18 22:31 The patient has atypical chest pain as the patient's chest pain is not suggestive of pulmonary embolus, cardiac ischemia, aortic dissection, or other serious etiology. Given the extremely low risk of these diagnoses further testing and evaluation for these possibilities does not appear to be indicated at this time. The patient has been instructed to return if the symptoms worsen or change in any way. - Vital Signs Vital signs: Temp Pulse Resp BP Pulse Ox 98.6 F 75 12 101/70 95 04/10/18 14:39 04/10/18 14:29 04/10/18 20:00 04/10/18 20:00 04/10/18 20:01 - Laboratory Result Diagrams: 04/10/18 15:52 04/10/18 14:37 Laboratory results interpreted by me: 04/10/18 04/10/18 04/10/18 14:37 15:52 16:04 RBC 3.60 L Hgb 11.6 L Hct 33.9 L RDW 14.9 H Seg Neutrophils % 36.1 L Lymphocytes % 49.5 H BUN 6 L Glucose 126 H Urine Urobilinogen 2.0 H Discharge - Discharge Clinical Impression: Chronic chest pain Condition: Good Disposition: HOME, SELF-CARE Instructions: Chest Wall Pain ([facility]), Chest Pain of Unclear Cause ([facility]) Additional Instructions: Your EKG laboratory studies today show no signs of cardiac ischemia cardiac damage. Chest x-ray is also negative for any signs of infection please continue take her home medications as prescribed sure drinking plenty water stay well-hydrated follow-up with your primary care physician return to ER symptoms worsen. Referrals: SHELLY SETHI MD [Primary Care Provider] - Follow up as needed
[2018-04-10 20:08] VITALS: BP 101/70
--- NOTE | 2018-04-11 12:42 | EKG REPORT ---
SEVERITY:- NORMAL ECG - SINUS RHYTHM : Confirmed by: Ann Domingo MD 11-Apr-2018 12:41:04
== END 2018-04-10 20:20 | disposition home or self-care (01) ==
LOC: ER 14:25
DX: G89.29 Other chronic pain (principal); R07.9 Chest pain, unspecified; I25.10 Atherosclerotic heart disease of native coronary artery without angina pectoris; E78.00 Pure hypercholesterolemia, unspecified; I10 Essential (primary) hypertension; E11.9 Type 2 diabetes mellitus without complications; E03.9 Hypothyroidism, unspecified; Z88.2 Allergy status to sulfonamides; Z88.6 Allergy status to analgesic agent; I25.2 Old myocardial infarction; Z95.1 Presence of aortocoronary bypass graft
CPT/HCPCS: 36415; 71045; 80053; 80307; 81001; 82550; 82553; 83690; 84484; 85025; 93005; 93010; 96360; 99285

== ENCOUNTER 2018-04-27 12:54 | Emergency (ER) | payer MEDICARE, MEDICAID ==
--- NOTE | 2018-04-27 13:54 | ER Document Report ---
HPI - HPI Patient complains to provider of: Left thumb injury Onset: This afternoon Onset/Duration: Sudden Quality of pain: Achy Pain Level: 4 Context: Patient was using a hammer and accidentally struck his left thumb. Patient is right-hand dominant. Patient complains of pain and swelling to left thumb. Patient's tetanus immunization is currently up-to-date but he is requesting a flu vaccine today. Exacerbated by: Movement Relieved by: Denies Similar symptoms previously: No Recently seen / treated by doctor: No - ROS ROS below otherwise negative: Yes Systems Reviewed and Negative: Yes All other systems reviewed and negative - REPRODUCTIVE Reproductive: DENIES: : - MUSCULOSKELETAL Musculoskeletal: REPORTS: Extremity pain, Swelling - DERM Skin Color: Ecchymosis Skin Problems: Abrasion Past Medical History - General Information source: Patient - Social History Smoking Status: Current Every Day Smoker Smoking Education Provided: Yes Frequency of alcohol use: None Drug Abuse: None Occupation: None Family History: CAD, CVA, Malignancy - Past Medical History Cardiac Medical History: Reports: Hx Coronary Artery Disease, 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 Denies: Hx Pancreatitis Musculoskeletal Medical History: Denies Hx Arthritis Psychiatric Medical History: Reports: Hx Anxiety, Hx Depression Past Surgical History: Reports: Hx Adenoidectomy, Hx Appendectomy, Hx Bowel Surgery - hemorrhoidectomy, Hx Cardiac Catheterization - last one was 2010, stent x 10, Hx Cardiac Surgery - CABG, Hx Coronary Artery Bypass Graft, Hx Coronary Stent - [id number] recent was 2010, Hx Open Heart Surgery, Hx Rectal Surgery - hemorrhoids, Hx Testicular Surgery - torsion, vastectomy, Hx Tonsillectomy - Immunizations Immunizations up to date: Yes Hx Diphtheria, Pertussis, Tetanus Vaccination: Yes Hx Pneumococcal Vaccination: 03/21/12 Vertical Provider Document - CONSTITUTIONAL Agree With Documented VS: Yes Exam Limitations: No Limitations General Appearance: WD/WN, No Apparent Distress - INFECTION CONTROL TRAVEL OUTSIDE OF THE [place] IN LAST 30 DAYS: No - HEENT HEENT: Atraumatic, Normocephalic - NECK Neck: Normal Inspection - RESPIRATORY Respiratory: No Respiratory Distress - CARDIOVASCULAR Pulses: Normal: Radial - MUSCULOSKELETAL/EXTREMETIES Musculoskeletal/Extremeties: MAEW, Tender - Left thumb tenderness with swelling and ecchymosis, small abrasion to area just proximal of nail bed - NEURO Level of Consciousness: Awake, Alert, Appropriate Motor/Sensory: No Motor Deficit - DERM Integumentary: Warm, Dry, No Rash, Laceration - Superficial laceration to left thumb Course - Vital Signs Vital signs: Temp Pulse Resp BP Pulse Ox 98.7 F 92 16 111/81 97 04/27/18 13:03 04/27/18 13:03 04/27/18 13:03 04/27/18 13:03 04/27/18 13:03 - Diagnostic Test Radiology reviewed: Pending, Image reviewed Procedures - Immobilization Left Thumb Pre-Proc Neuro Vasc Exam: Normal Immobilizer type: Thumb spica Performed by: PCT Post-Proc Neuro Vasc Exam: Normal Alignment checked and good: Yes Discharge - Discharge Clinical Impression: Abrasion Thumb fracture Qualifiers: Encounter type: initial encounter Fracture type: closed Phalanx: distal Fracture alignment: nondisplaced Laterality: left Qualified Code(s): S62.525A - Nondisplaced fracture of distal phalanx of left thumb, initial encounter for closed fracture Condition: Stable Disposition: HOME, SELF-CARE Instructions: Cephalexin ([facility]), Splint Precautions ([facility]), Fractured Thumb ([facility]) Additional Instructions: Return immediately for any new or worsening symptoms Followup with your primary care provider, call tomorrow to make a followup appointment Follow-up with orthopedics for further evaluation, call today to make a follow- up appointment Prescriptions: Cephalexin Monohydrate [Keflex 500 mg Capsule] 500 mg PO Q6H 5 Days capsule Forms: Smoking Cessation Education Referrals: SHELLY SETHI MD [Primary Care Provider] - Follow up as needed [facility] [Provider Group] - Follow up tomorrow
[2018-04-27] MEDS ORDERED: CEPHALEXIN 500 MG CAPSULE PO ONE (14:39)
[2018-04-27 15:22] VITALS: BP 96/72
--- NOTE | 2018-04-27 15:33 | RADIOLOGY REPORT (SQ) ---
EXAM DESCRIPTION: FINGER LEFT COMPLETED DATE/TIME: 04/27/2018 3:19 pm REASON FOR STUDY: left thumb struck with hammer COMPARISON: None. NUMBER OF VIEWS: Three views. TECHNIQUE: AP, lateral, and oblique images acquired of the left thumb. LIMITATIONS: None. FINDINGS: MINERALIZATION: Normal. BONES: No acute fracture or dislocation. No worrisome bone lesions. SOFT TISSUES: No soft tissue swelling. No foreign body. OTHER: No other significant finding. IMPRESSION: NO RADIOGRAPHIC EVIDENCE OF ACUTE INJURY. COMMENT: SITE OF TRAUMA/COMPLAINT MARKED/STAMP COMPLETED: No TECHNICAL DOCUMENTATION: JOB ID: [id number] [employer]- All Rights Reserved Reading location - IP/workstation name: [email or web address]
== END 2018-04-27 15:23 | disposition home or self-care (01) ==
LOC: ER 12:54
DX: S62.525A Nondisplaced fracture of distal phalanx of left thumb, initial encounter for closed fracture (principal); S61.012A Laceration without foreign body of left thumb without damage to nail, initial encounter; W27.8XXA Contact with other nonpowered hand tool, initial encounter; Z23 Encounter for immunization; F17.200 Nicotine dependence, unspecified, uncomplicated; I25.10 Atherosclerotic heart disease of native coronary artery without angina pectoris; I10 Essential (primary) hypertension; E11.9 Type 2 diabetes mellitus without complications; Z95.5 Presence of coronary angioplasty implant and graft; Z95.1 Presence of aortocoronary bypass graft
CPT/HCPCS: 99283; 73140; 90686; 29125; G0008; A9270; 90471

== ENCOUNTER 2018-07-11 23:32 | Emergency (ER) | payer MEDICARE, MEDICAID ==
--- NOTE | 2018-07-11 23:40 | ER Document Report ---
ED General - General Stated Complaint: CHEST PAIN Time Seen by Provider: 07/11/18 23:39 Notes: Patient is a pleasant 63-year-old male with a known history of coronary disease. He has had multiple stents placed. Last stent was in 2011. He had coronary bypass surgery that was in 2008. He had a negative stress test 3 months ago. He has chronic angina. His primary care doctor is Dr. Villarreal. His lead fabricator is Dr. Peña. He says that he has chronic angina but today was more intense than usual. He also had some associated nausea and therefore he came to the hospital. They gave him nitro name once but did not relieve his pain. He did receive 325 mg of aspirin. No fevers. No vomiting. No other complaints at this time. Patient says chest pain is left-sided and nonradiating. In a typical spot where his had in the past. TRAVEL OUTSIDE OF THE [place] IN LAST 30 DAYS: No - Related Data Allergies/Adverse Reactions: adhesive [Adhesive] Allergy (Severe, Verified 10/11/17 12:22) peels skin gabapentin [From Neurontin] Allergy (Unknown, Verified 10/11/17 12:22) disoriented levofloxacin [From Levaquin] Allergy (Unknown, Verified 10/11/17 12:22) Sulfa (Sulfonamide Antibiotics) Allergy (Unknown, Verified 10/11/17 12:22) skin wilson tramadol [Tramadol] Allergy (Unknown, Verified 10/11/17 12:22) ibuprofen [From Motrin] Allergy (Verified 10/11/17 12:22) tramadol HCl [From Ultram] Allergy (Verified 10/11/17 12:22) Past Medical History - Social History Smoking Status: Unknown if Ever Smoked Frequency of alcohol use: None Drug Abuse: None Family History: CAD, CVA, Malignancy - Past Medical History Cardiac Medical History: Reports: Hx Coronary Artery Disease, 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 Denies: Hx Pancreatitis Musculoskeletal Medical History: Denies Hx Arthritis Psychiatric Medical History: Reports: Hx Anxiety, Hx Depression Past Surgical History: Reports: Hx Adenoidectomy, Hx Appendectomy, Hx Bowel Surgery - hemorrhoidectomy, Hx Cardiac Catheterization - last one was 2010, stent x 10, Hx Cardiac Surgery - CABG, Hx Coronary Artery Bypass Graft, Hx Coronary Stent - [id number] recent was 2010, Hx Open Heart Surgery, Hx Rectal Surgery - hemorrhoids, Hx Testicular Surgery - torsion, vastectomy, Hx Tonsillectomy - Immunizations Immunizations up to date: Yes Hx Diphtheria, Pertussis, Tetanus Vaccination: Yes Hx Pneumococcal Vaccination: 03/21/12 Review of Systems - Review of Systems Notes: My Normal Review Basic REVIEW OF SYSTEMS: CONSTITUTIONAL : Denies fever, chills, or sweats. Denies recent illness. EENT: Denies eye, ear, throat, or mouth pain or symptoms. Denies nasal or sinus congestion. CARDIOVASCULAR: Has chest pain RESPIRATORY: Denies cough, cold, or chest congestion. Denies shortness of breath, difficulty breathing, or wheezing. GASTROINTESTINAL: Denies abdominal pain. Some nausea MUSCULOSKELETAL: Denies neck or back pain or joint pain or swelling. SKIN: Denies rash or skin lesions. HEMATOLOGIC : Denies easy bruising or bleeding. NEUROLOGICAL: Denies altered mental status or loss of consciousness. ALL OTHER SYSTEMS REVIEWED AND NEGATIVE. Physical Exam - Vital signs Vitals: Temp 97.9 F 07/11/18 23:32 - Notes Notes: General Appearance: Well nourished, alert, cooperative, no acute distress, no obvious discomfort. Vitals: reviewed, See vital signs table. Head: no swelling or tenderness to the head Eyes: PERRL, EOMI, Conjuctiva clear Mouth: No decreasd moisture Chest wall: No reproduction of chest pain with palpation of chest wall. Lungs: No wheezing, No rales, No rhonci, No accessory muscle use, good air exchange bilaterally. Heart: Normal rate, Regular rythm, No murmur, no rub Abdomen: Normal BS, soft, No rigidity, No abdominal tenderness, No guarding, no rebound, Extremities: strength 5/5 in all extremities, good pulses in all extremities, no swelling or tenderness in the extremities, Skin: warm, dry, appropriate color, no rash Neuro: speech clear, oriented x 3, normal affect, responds appropriately to questions. Course - Re-evaluation Re-evalutation: 07/12/18 03:18 Patient is remained chest pain-free since receiving the morphine. His repeat EKG remains normal. His repeat troponin remains normal. He has a history of chronic recurring chest pain. He has a recent negative stress test. Being that he does have a history of significant coronary disease I did call and speak with his lead fabricator, Dr. Cavanaugh, he says that he feels that he is safe to be discharged home and he would follow him up in the office. Informed patient if he has recurrent chest pain or feels unwell that he should return to the ER immediately. Patient agrees with plan and will be discharged home. Dictation of this chart was performed using voice recognition software; therefore, there may be some unintended grammatical errors. - Vital Signs Vital signs: Temp Pulse Resp BP Pulse Ox 97.9 F 12 100/70 92 07/11/18 23:32 07/12/18 03:02 07/12/18 03:02 07/12/18 03:02 - Laboratory Result Diagrams: 07/11/18 23:40 07/11/18 23:40 Laboratory results interpreted by me: 07/11/18 07/11/18 23:40 23:40 RBC 4.17 L Hgb 13.0 L RDW 14.4 H Lymphocytes % 45.1 H ALT 19 L - EKG Interpretation by Me Additional EKG results interpreted by me: 07/11/18 23:39 EKG is reviewed and interpreted by me. EKG shows sinus rhythm with a rate of [address] segment elevation or depression. No ischemic T wave inversions. NV interval, QRS duration, QT intervals are within normal range. Old EKG for comparison is from April 10, 2018. 07/11/18 23:41 07/12/18 02:44 EKG #2 is reviewed and interpreted by me. EKG shows sinus rhythm with a rate of [address] segment elevation or depression. No ischemic T wave inversions. NV interval slightly prolonged. QRS duration and QT intervals are within normal range. Old EKG for comparison is from July 11, 2018. Discharge - Discharge Clinical Impression: Chronic chest pain Condition: Good Disposition: HOME, SELF-CARE Additional Instructions: Please call Dr. Cavanaugh's office Friday morning to make a follow up appointment. please return to the ER if you have recurrent chest pain not immediately improved with your nitro, difficulty breathing, vomiting, or if you feel unwell. Referrals: DANITA PEÑA MD [ACTIVE STAFF] - Follow up in 3-5 days
[2018-07-11] MEDS ORDERED: MORPHINE SULFATE 10 MG/ML INJ IV ONE (23:46)
[2018-07-11 23:57] LABS: ABSOLUTE EOSINOPHILS # (AUTO) 0.1 10^3/uL (0.0-0.6); ABSOLUTE LYMPHOCYTES (AUTO) 3.1 10^3/uL (0.5-4.7); ABSOLUTE MONOCYTES (AUTO) 0.4 10^3/uL (0.1-1.4); ABSOLUTE NEUT (AUTO) 3.1 10^3/uL (1.7-8.2); BASOPHILS % (AUTO) 0.6 % (0-2); EOSINOPHILS % (AUTO) 1.6 % (0-6); HEMATOCRIT 38.9 % (37.9-51.0); LYMPHOCYTES % (AUTO) 45.1 % (13-45); MEAN CORPUSCULAR HEMOGLOBIN 31.1 pg (27.0-33.4); MEAN CORPUSCULAR HGB CONC 33.3 g/dL (32.0-36.0); MEAN CORPUSCULAR VOLUME 93 fl (80-97); MONOCYTES % (AUTO) 6.5 % (3-13); PLATELET COUNT 209 10^3/uL (150-450); RED BLOOD COUNT 4.17 10^6/uL (4.35-5.55); RED CELL DISTRIBUTION WIDTH 14.4 % (11.5-14.0); SEGMENTED NEUTROPHILS % (AUTO) 46.2 % (42-78); TOTAL CELLS COUNTED % (AUTO) 100 %; WHITE BLOOD COUNT 6.8 10^3/uL (4.0-10.5)
[2018-07-12 00:07] LABS: ALANINE AMINOTRANSFERASE 19 U/L (21-72); ALBUMIN 4.2 g/dL (3.5-5.0); ALKALINE PHOSPHATASE 60 U/L (38-126); ANION GAP 9 (5-19); ASPARTATE AMINO TRANSFERASE 23 U/L (17-59); BILIRUBIN,DIRECT 0.2 mg/dL (0.0-0.4); BILIRUBIN,TOTAL 0.4 mg/dL (0.2-1.3); BLOOD UREA NITROGEN 11 mg/dL (7-20); CALCIUM 9.4 mg/dL (8.4-10.2); CARBON DIOXIDE 26 mmol/L (22-30); CHLORIDE 105 mmol/L (98-107); GLUCOSE 108 mg/dL (75-110); SODIUM 139.5 mmol/L (137-145); TOTAL PROTEIN 7.1 g/dL (6.3-8.2)
--- NOTE | 2018-07-12 00:14 | RADIOLOGY REPORT (SQ) ---
EXAM DESCRIPTION: XR CHEST 1 VIEW COMPLETED DATE/TME: 07/11/2018 23:45 CLINICAL HISTORY: 63 years, Male, chest pain COMPARISON: None. NUMBER OF VIEWS: TECHNIQUE: LIMITATIONS: None. FINDINGS: No evidence of pulmonary infiltrate or pleural effusion. The heart is normal in size. No evidence of heart failure. The mediastinum is unremarkable. There are sternotomy wires place. IMPRESSION: No acute finding. copyright 2010 [employer]- All Rights Reserved
[2018-07-12 03:06] VITALS: BP 100/70
--- NOTE | 2018-07-12 07:40 | EKG REPORT ---
SEVERITY:- ABNORMAL ECG - SINUS RHYTHM PROBABLE LEFT ATRIAL ABNORMALITY PROBABLE POSTERIOR INFARCT : Confirmed by: Elio Rae MD 12-Jul-2018 07:39:23
--- NOTE | 2018-07-12 07:41 | EKG REPORT ---
SEVERITY:- BORDERLINE ECG - SINUS RHYTHM PROBABLE LEFT ATRIAL ABNORMALITY : Confirmed by: Elio Rae MD 12-Jul-2018 07:40:01
== END 2018-07-12 03:36 | disposition home or self-care (01) ==
LOC: ER 23:32
DX: G89.29 Other chronic pain (principal); R07.9 Chest pain, unspecified; I25.10 Atherosclerotic heart disease of native coronary artery without angina pectoris; E11.9 Type 2 diabetes mellitus without complications; Z95.1 Presence of aortocoronary bypass graft; Z88.2 Allergy status to sulfonamides; Z88.6 Allergy status to analgesic agent; I25.2 Old myocardial infarction
CPT/HCPCS: 93005 ×2; 99285; 36415; 85025; 80053; 84484; 71045; 93010 ×2; J2270

== ENCOUNTER 2018-07-30 20:17 | Emergency (ER) | payer MEDICARE, MEDICAID ==
[2018-07-30 21:35] LABS: ABSOLUTE BASOPHILS # (AUTO) 0.1 10^3/uL (0.0-0.2); ABSOLUTE EOSINOPHILS # (AUTO) 0.1 10^3/uL (0.0-0.6); ABSOLUTE LYMPHOCYTES (AUTO) 3.2 10^3/uL (0.5-4.7); ABSOLUTE MONOCYTES (AUTO) 0.5 10^3/uL (0.1-1.4); BASOPHILS % (AUTO) 0.9 % (0-2); EOSINOPHILS % (AUTO) 2.1 % (0-6); HEMATOCRIT 37.9 % (37.9-51.0); HEMOGLOBIN 12.9 g/dL (13.5-17.0); LYMPHOCYTES % (AUTO) 46.4 % (13-45); MEAN CORPUSCULAR HEMOGLOBIN 31.7 pg (27.0-33.4); MEAN CORPUSCULAR VOLUME 93 fl (80-97); MONOCYTES % (AUTO) 6.8 % (3-13); PLATELET COUNT 229 10^3/uL (150-450); RED BLOOD COUNT 4.06 10^6/uL (4.35-5.55); RED CELL DISTRIBUTION WIDTH 14.2 % (11.5-14.0); SEGMENTED NEUTROPHILS % (AUTO) 43.8 % (42-78); TOTAL CELLS COUNTED % (AUTO) 100 %; WHITE BLOOD COUNT 6.8 10^3/uL (4.0-10.5)
[2018-07-30 21:42] LABS: INTERNATIONAL RATION (INR) 0.96; PROTHROMBIN TIME 13.3 SEC (11.4-15.4)
[2018-07-30 21:43] LABS: PARTIAL THROMBOPLASTIN TIME 36.8 SEC (23.5-35.8)
[2018-07-30 21:53] LABS: ALANINE AMINOTRANSFERASE 26 U/L (21-72); ALBUMIN 4.4 g/dL (3.5-5.0); ALKALINE PHOSPHATASE 64 U/L (38-126); ANION GAP 9 (5-19); ASPARTATE AMINO TRANSFERASE 20 U/L (17-59); BILIRUBIN,DIRECT 0.1 mg/dL (0.0-0.4); BILIRUBIN,TOTAL 0.4 mg/dL (0.2-1.3); BLOOD UREA NITROGEN 6 mg/dL (7-20); CALCIUM 9.3 mg/dL (8.4-10.2); CARBON DIOXIDE 26 mmol/L (22-30); CHLORIDE 106 mmol/L (98-107); GLUCOSE 84 mg/dL (75-110); LIPASE 67.7 U/L (23-300); POTASSIUM 3.9 mmol/L (3.6-5.0); SODIUM 140.7 mmol/L (137-145); TOTAL PROTEIN 7.1 g/dL (6.3-8.2)
[2018-07-30 22:00] LABS: APPEARANCE,URINE SLIGHTLY-CLOUDY; BILIRUBIN,URINE NEGATIVE (NEGATIVE); CALCIUM OXALATE CRYSTALS,URINE RARE /HPF; COLOR,URINE YELLOW; GLUCOSE, URINE NEGATIVE (NEGATIVE); KETONES,URINE NEGATIVE (NEGATIVE); LEUKOCYTE ESTERASE,URINE NEGATIVE (NEGATIVE); NITRITE,URINE NEGATIVE (NEGATIVE); PROTEIN,URINE NEGATIVE (NEGATIVE); URINE SPECIFIC GRAVITY 1.018; UROBILINOGEN,URINE NEGATIVE mg/dL (<2.0)
[2018-07-30] MEDS ORDERED: NORMAL SALINE 500 ML IV ONE (22:36)
[2018-07-30] MEDS ORDERED: ONDANSETRON HCL INJ/PF 4 MG/2 ML SDV IV ONE (22:36)
[2018-07-30] MEDS ORDERED: DICYCLOMINE HCL 20 MG TABLET PO ONE (22:37)
--- NOTE | 2018-07-30 22:40 | ER Document Report ---
ED General - General Chief Complaint: Abdominal Pain Stated Complaint: ABDOMINAL PAIN Time Seen by Provider: 07/30/18 22:14 Notes: Patient is a 63-year-old male that presents to the emergency department for chief complaint of nausea and lower abdominal pain. Patient states that he is having pain from where he had a prior appendectomy that wraps around to the left side of his abdomen, comes and goes as a second time is had this, he had asso ciated nausea but no vomiting. Is also felt fatigued. He has a good appetite, denies any any fevers, chills, night sweats, chest pain or shortness of breath. He is unsure the cause, but it does feel similar to when he had it in the past, he does not recall what they told him was causing at that time. He otherwise states his been doing well, he currently rates the pain as a 4 out of 10, describes as an aching sensation. Past Medical History: CAD, diabetes, hypertension Past Surgical History: CABG, appendectomy, PCI with stenting Social History: Admits to smoking cigarettes, denies alcohol or drug use. Family History: Reviewed and noncontributory for presenting illness Allergies: Reviewed, see documented allergy list. REVIEW OF SYSTEMS: Other than noted above, the 12 point review of systems was reviewed with the patient and were negative, all pertinent findings are included in the HPI. PHYSICAL EXAMINATION: Vital signs reviewed, nursing noted reviewed. GENERAL: Well-appearing, well-nourished and in no acute distress. HEAD: Atraumatic, normocephalic. EYES: Eyes appear normal, extraocular movements intact, sclera anicteric, conjunctiva are normal. ENT: nares patent, oropharynx clear without exudates. Moist mucous membranes. NECK: Normal range of motion, supple without lymphadenopathy LUNGS: Breath sounds clear to auscultation bilaterally and equal. No wheezes rales or rhonchi. HEART: Regular rate and rhythm without murmurs ABDOMEN: Soft, nontender, no CVA tenderness, normoactive bowel sounds. No rebound, guarding, or rigidity. No masses appreciated. EXTREMITIES: Nontender, good range of motion, no pitting or edema. NEUROLOGICAL: No focal neurological deficits. Moves all extremities spontaneously Motor and sensory grossly intact on exam. PSYCH: Normal mood, normal affect. SKIN: Warm, Dry, normal turgor, no rashes or lesions noted on exposed skin TRAVEL OUTSIDE OF THE [place] IN LAST 30 DAYS: No - Related Data Allergies/Adverse Reactions: adhesive [Adhesive] Allergy (Severe, Verified 10/11/17 12:22) peels skin gabapentin [From Neurontin] Allergy (Unknown, Verified 10/11/17 12:22) disoriented levofloxacin [From Levaquin] Allergy (Unknown, Verified 10/11/17 12:22) Sulfa (Sulfonamide Antibiotics) Allergy (Unknown, Verified 10/11/17 12:22) skin wilson tramadol [Tramadol] Allergy (Unknown, Verified 10/11/17 12:22) ibuprofen [From Motrin] Allergy (Verified 10/11/17 12:22) tramadol HCl [From Ultram] Allergy (Verified 10/11/17 12:22) Past Medical History - Social History Smoking Status: Current Every Day Smoker Chew tobacco use (# tins/day): No Frequency of alcohol use: None Drug Abuse: None Family History: CAD, CVA, Malignancy Patient has suicidal ideation: No Patient has homicidal ideation: No - Past Medical History Cardiac Medical History: Reports: Hx Coronary Artery Disease, 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 Denies: Hx Pancreatitis Musculoskeletal Medical History: Denies Hx Arthritis Psychiatric Medical History: Reports: Hx Anxiety, Hx Depression Past Surgical History: Reports: Hx Adenoidectomy, Hx Appendectomy, Hx Bowel Surgery - hemorrhoidectomy, Hx Cardiac Catheterization - last one was 2010, stent x 10, Hx Cardiac Surgery - CABG, Hx Coronary Artery Bypass Graft, Hx Coronary Stent - [id number] recent was 2010, Hx Open Heart Surgery, Hx Rectal Surgery - hemorrhoids, Hx Testicular Surgery - torsion, vastectomy, Hx Tonsillectomy - Immunizations Immunizations up to date: Yes Hx Diphtheria, Pertussis, Tetanus Vaccination: Yes Hx Pneumococcal Vaccination: 03/21/12 Physical Exam - Vital signs Vitals: Temp Pulse Resp BP Pulse Ox 98.5 F 76 18 111/76 95 07/30/18 20:34 07/30/18 20:34 07/30/18 20:34 07/30/18 20:34 07/30/18 20:34 Course - Re-evaluation Re-evalutation: Patient seen and examined vital signs reviewed. Laboratory data and imaging were ordered as appropriate for the patient's presenting symptoms and complaint, with consideration of any critical or life threatening conditions that may be associated with their obtained history and exam as noted above. Patient's abdomen was nontender, will obtain a KUB, did not warrant CT imaging at this time although he was having discomfort, therefore will evaluate for possible obstruction, or constipation. Patient was treated with IV fluid, Zofran and Bentyl Results were reviewed when available and demonstrated unremarkable blood work, only mild anemia, seems to be consistent with his baseline, there is trace blood noted in the urine, no evidence of infection, results mentioned to the patient, advised follow-up regarding this and repeat UA. xr abdomen demonstrates significant stool burden, which would explain the patient symptoms. The patient was re-evaluated and was stable Evaluation was most consistent with constipation, patient will be started on miralax daily Results were discussed with the patient at this point, after careful consideration I feel that that patient can be discharged from the emergency department, the patient was educated treatments and reasons to return to the emergency department based on their presumed diagnosis as noted above, they were advised to followup with a primary care physician in 2-3 days. Patient was agreeable to plan of care. *Note is created using voice recognition software and may contain spelling, syntax or grammatical errors. Laboratory 07/30/18 07/30/18 07/30/18 21:09 21:20 21:20 WBC 6.8 RBC 4.06 L Hgb 12.9 L Hct 37.9 MCV 93 MCH 31.7 MCHC 34.0 RDW 14.2 H Plt Count 229 Seg Neutrophils % 43.8 Lymphocytes % 46.4 H Monocytes % 6.8 Eosinophils % 2.1 Basophils % 0.9 Absolute Neutrophils 3.0 Absolute Lymphocytes 3.2 Absolute Monocytes 0.5 Absolute Eosinophils 0.1 Absolute Basophils 0.1 PT INR APTT Sodium 140.7 Potassium 3.9 Chloride 106 Carbon Dioxide 26 Anion Gap 9 BUN 6 L Creatinine 0.79 Est GFR ( Amer) > 60 Est GFR (Non-Af Amer) > 60 Glucose 84 Calcium 9.3 Total Bilirubin 0.4 Direct Bilirubin 0.1 Neonat Total Bilirubin Not Reportable Neonat Direct Bilirubin Not Reportable Neonat Indirect Bili Not Reportable AST 20 ALT 26 Alkaline Phosphatase 64 Total Protein 7.1 Albumin 4.4 Lipase 67.7 Urine Color YELLOW Urine Appearance SLIGHTLY-CLOUDY Urine pH 5.0 Ur Specific [place] 1.018 Urine Protein NEGATIVE Urine Glucose (UA) NEGATIVE Urine Ketones NEGATIVE Urine Blood SMALL H Urine Nitrite NEGATIVE Urine Bilirubin NEGATIVE Urine Urobilinogen NEGATIVE Ur Leukocyte Esterase NEGATIVE Urine WBC (Auto) 1 Urine RBC (Auto) 6 Calcium Oxalate Cr Auto RARE Urine Mucus (Auto) OCC Urine Ascorbic Acid NEGATIVE 07/30/18 21:20 WBC RBC Hgb Hct MCV MCH MCHC RDW Plt Count Seg Neutrophils % Lymphocytes % Monocytes % Eosinophils % Basophils % Absolute Neutrophils Absolute Lymphocytes Absolute Monocytes Absolute Eosinophils Absolute Basophils PT 13.3 INR 0.96 APTT 36.8 H Sodium Potassium Chloride Carbon Dioxide Anion Gap BUN Creatinine Est GFR ( Amer) Est GFR (Non-Af Amer) Glucose Calcium Total Bilirubin Direct Bilirubin Neonat Total Bilirubin Neonat Direct Bilirubin Neonat Indirect Bili AST ALT Alkaline Phosphatase Total Protein Albumin Lipase Urine Color Urine Appearance Urine pH Ur Specific [place] Urine Protein Urine Glucose (UA) Urine Ketones Urine Blood Urine Nitrite Urine Bilirubin Urine Urobilinogen Ur Leukocyte Esterase Urine WBC (Auto) Urine RBC (Auto) Calcium Oxalate Cr Auto Urine Mucus (Auto) Urine Ascorbic Acid Abdomen X-Ray 07/30/18 22:39 IMPRESSION: Nonspecific gas pattern. Abundant stool in the colon copyright 2011 [employer]- All Rights Reserved - Vital Signs Vital signs: Temp Pulse Resp BP Pulse Ox 98.2 F 70 20 115/74 98 07/30/18 23:51 07/30/18 23:51 07/30/18 23:51 07/30/18 23:51 07/30/18 23:51 - Laboratory Result Diagrams: 07/30/18 21:20 07/30/18 21:20 Laboratory results interpreted by me: 07/30/18 07/30/18 07/30/18 21:09 21:20 21:20 RBC 4.06 L Hgb 12.9 L RDW 14.2 H Lymphocytes % 46.4 H APTT BUN 6 L Urine Blood SMALL H 07/30/18 21:20 RBC Hgb RDW Lymphocytes % APTT 36.8 H BUN Urine Blood - EKG Interpretation by Me Additional EKG results interpreted by me: EKG demonstrates sinus rhythm with a ventricular rate of 60 bpm, normal axis, normal intervals, single T wave inversion in lead V2, this is compared with prior EKG from 07/12/2018, without significant change. Discharge - Discharge Clinical Impression: Constipation Qualifiers: Constipation type: unspecified constipation type Qualified Code(s): K59.00 - Constipation, unspecified Abdominal pain Qualifiers: Abdominal location: unspecified location Qualified Code(s): R10.9 - Unspecified abdominal pain Condition: Stable Disposition: HOME, SELF-CARE Instructions: Abdominal Pain ([facility]), Constipation ([facility]) Additional Instructions: Please take the MiraLAX as instructed, 1 capful daily at least for the next week, he can also take [id number] magnesium citrate, which comes in a bottle. Prescriptions: Polyethylene Glycol 3350 [Miralax] 17 gm PO DAILY #238 gm Referrals: SHELLY SETHI MD [Primary Care Provider] - Follow up as needed
--- NOTE | 2018-07-30 23:10 | RADIOLOGY REPORT (SQ) ---
EXAM DESCRIPTION: XR ABDOMEN 2 VIEWS SUPINE ERECT COMPLETED DATE/TME: 07/30/2018 22:39 CLINICAL HISTORY: 63 years, Male, bilateral lower abdominal pain COMPARISON: None. NUMBER OF VIEWS: 2 TECHNIQUE: Supine and erect views of the abdomen LIMITATIONS: None. FINDINGS: Nonspecific, nonobstructive bowel gas pattern. No free air. Abundant stool in the colon. Surgical clips in the pelvis IMPRESSION: Nonspecific gas pattern. Abundant stool in the colon copyright 2010 [employer]- All Rights Reserved
[2018-07-30 23:58] VITALS: BP 115/74
--- NOTE | 2018-07-31 07:55 | EKG REPORT ---
SEVERITY:- ABNORMAL ECG - SINUS RHYTHM PROBABLE LEFT ATRIAL ABNORMALITY PROBABLE POSTERIOR INFARCT : Confirmed by: Elio Rae MD 31-Jul-2018 07:55:00
== END 2018-07-30 23:51 | disposition home or self-care (01) ==
LOC: ER 20:17
DX: K59.00 Constipation, unspecified (principal); R10.30 Lower abdominal pain, unspecified; R11.0 Nausea; I25.10 Atherosclerotic heart disease of native coronary artery without angina pectoris; E11.9 Type 2 diabetes mellitus without complications; I10 Essential (primary) hypertension; Z95.1 Presence of aortocoronary bypass graft; F17.210 Nicotine dependence, cigarettes, uncomplicated; Z88.3 Allergy status to other anti-infective agents; Z88.2 Allergy status to sulfonamides; Z88.6 Allergy status to analgesic agent
CPT/HCPCS: 93005; 99284; 96361; 96374; 36415; 83690; 85025; 85610; 85730; 80053; 81001; 74019; 93010; A9270; J2405; J7040; J3490

== ENCOUNTER 2018-08-01 19:32 | Emergency (ER) | payer MEDICARE, MEDICAID ==
[2018-08-01] MEDS ORDERED: METOCLOPRAMIDE HCL INJ/PF 10 MG/2 ML SDV IV ONE (19:57)
[2018-08-01] MEDS ORDERED: NORMAL SALINE 500 ML IV ONE (19:57)
--- NOTE | 2018-08-01 19:59 | ER Document Report ---
ED GI/ - General Chief Complaint: Constipation Stated Complaint: ABDOMINAL PAIN Time Seen by Provider: 08/01/18 19:43 Notes: Patient is a 63-year-old male that comes to the emergency department by EMS for chief complaint of abdominal pain. Pain is both in the lower and upper abdomen, intermittent, crampy, occasionally sharp. Had nausea earlier patient, denies vomiting. Had a bowel movement earlier that was nonbloody. States she was seen 2 days ago, placed on MiraLAX, states he has not started taking this yet. He is on morphine for chronic pain. He states he was told that he was severely constipated. He denies shortness of breath, chest pain, flank pain, fever. He states he was trying to "cleanse" and was drinking fluids today but not eating. Past medical history includes appendectomy, CABG, CAD, type 2 diabetes, hypertension, smoking. TRAVEL OUTSIDE OF THE [place] IN LAST 30 DAYS: No - Related Data Allergies/Adverse Reactions: adhesive [Adhesive] Allergy (Severe, Verified 10/11/17 12:22) peels skin gabapentin [From Neurontin] Allergy (Unknown, Verified 10/11/17 12:22) disoriented levofloxacin [From Levaquin] Allergy (Unknown, Verified 10/11/17 12:22) Sulfa (Sulfonamide Antibiotics) Allergy (Unknown, Verified 10/11/17 12:22) skin wilson tramadol [Tramadol] Allergy (Unknown, Verified 10/11/17 12:22) ibuprofen [From Motrin] Allergy (Verified 10/11/17 12:22) tramadol HCl [From Ultram] Allergy (Verified 10/11/17 12:22) Past Medical History - General Information source: Patient - Social History Smoking Status: Never Smoker Frequency of alcohol use: None Drug Abuse: None Lives with: Family Family History: CAD, CVA, Malignancy Patient has suicidal ideation: No Patient has homicidal ideation: No - Past Medical History Cardiac Medical History: Reports: Hx Coronary Artery Disease, 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 Denies: Hx Pancreatitis Musculoskeletal Medical History: Denies Hx Arthritis Psychiatric Medical History: Reports: Hx Anxiety, Hx Depression Past Surgical History: Reports: Hx Adenoidectomy, Hx Appendectomy, Hx Bowel Surgery - hemorrhoidectomy, Hx Cardiac Catheterization - last one was 2010, stent x 10, Hx Cardiac Surgery - CABG, Hx Coronary Artery Bypass Graft, Hx Coronary Stent - [id number] recent was 2010, Hx Open Heart Surgery, Hx Rectal Surgery - hemorrhoids, Hx Testicular Surgery - torsion, vastectomy, Hx Tonsillectomy - Immunizations Immunizations up to date: Yes Hx Diphtheria, Pertussis, Tetanus Vaccination: Yes Hx Pneumococcal Vaccination: 03/21/12 Review of Systems - Review of Systems Constitutional: No symptoms reported EENT: No symptoms reported Cardiovascular: No symptoms reported Respiratory: No symptoms reported Gastrointestinal: See HPI Genitourinary: No symptoms reported Male Genitourinary: No symptoms reported Musculoskeletal: No symptoms reported Skin: No symptoms reported Hematologic/Lymphatic: No symptoms reported Neurological/Psychological: No symptoms reported Physical Exam - Vital signs Vitals: Temp Pulse Resp BP Pulse Ox 98.5 F 81 18 103/71 95 08/01/18 19:41 08/01/18 19:41 08/01/18 19:41 08/01/18 19:41 08/01/18 19:41 - Notes Notes: GENERAL: Alert, interacts well. No acute distress. HEAD: Normocephalic, atraumatic. EYES: Pupils equal, round, and reactive to light. Extraocular movements intact. ENT: Oral mucosa moist, tongue midline. Oropharynx unremarkable. Airway patent. Nares patent, no nasal septal hematoma, TM's intact. NECK: Full range of motion. Supple. Trachea midline. LUNGS: Clear to auscultation bilaterally, no wheezes, rales, or rhonchi. No respiratory distress. HEART: Regular rate and rhythm. No murmur ABDOMEN: GENITOURINARY: Deferred EXTREMITIES: Moves all 4 extremities spontaneously. No edema, normal radial and dorsalis pedis pulses bilaterally. No cyanosis. BACK: no cervical, thoracic, lumbar midline tenderness. No saddle anesthesia, normal distal neurovascular exam. NEUROLOGICAL: Alert and oriented x3. Normal speech. [cranial nerves II through XII grossly intact]. PSYCH: Normal affect, normal mood. SKIN: Warm, dry, normal turgor. No rashes or lesions noted. Course - Re-evaluation Re-evalutation: Patient is smiling and well-appearing. Soft benign abdomen. Unremarkable vital signs. No chest pain, fever, vomiting, bloody stools. Acute abdominal series does not show obstruction or free air. Appears to show retained stool still, patient has had minimal bowel movement since previous evaluation. CBC, chemistry, urinalysis generally unremarkable. Discussed with patient. Patient states he has required enemas in the past and after discussion he is requesting one. He was provided to this. He did have a bowel movement, he does state he feels much better. Patient has been evaluated 3 times during his stay, twice he was sleeping but easily aroused. Low suspicion of acute abdomen. Blood glucose slightly low, will be given nourishment. Discussed return precautions, follow-up, medications at home. He has already been prescribed MiraLAX he states. Patient states understanding and agreement with plan. - Vital Signs Vital signs: Temp Pulse Resp BP Pulse Ox 98.4 F 66 18 100/61 98 08/02/18 01:42 08/02/18 01:42 08/02/18 01:42 08/02/18 01:42 08/02/18 01:42 - Laboratory Result Diagrams: 08/01/18 20:50 08/01/18 20:50 Laboratory results interpreted by me: 08/01/18 08/01/18 08/02/18 20:50 20:50 00:35 RBC 4.10 L Hgb 12.8 L RDW 14.3 H AST 74 H Urine Protein 30 H Urine Ketones TRACE H Urine Urobilinogen 2.0 H Discharge - Discharge Clinical Impression: Abdominal pain Qualifiers: Abdominal location: generalized Qualified Code(s): R10.84 - Generalized abdominal pain Condition: Stable Disposition: HOME, SELF-CARE Additional Instructions: You have been given a soapsuds and mineral oil enema here tonight. You will probably have additional results from this at home. I recommend that you additionally take your MiraLAX stool softener 1-2 times a day. Drink plenty of fluids, increase fiber in your diet. You may need to be on a daily stool softener such as MiraLAX because of the morphine medications causing constipation. Return if you worsen in any way including severe pain, vomiting, fever, pain in her chest, inability to eat, or any other concerning or worsening symptoms. Referrals: SHELLY SETHI MD [Primary Care Provider] - Follow up as needed
--- NOTE | 2018-08-01 20:51 | RADIOLOGY REPORT (SQ) ---
EXAM DESCRIPTION: ACUTE ABDOMEN SERIES COMPLETED DATE/TIME: 08/01/2018 8:26 pm REASON FOR STUDY: worsening abd pain COMPARISON: 07/30/2018 NUMBER OF VIEWS: Three views. TECHNIQUE: Frontal chest, supine abdomen and upright/decubitus abdomen radiographic images acquired. LIMITATIONS: None. FINDINGS: CHEST: Lungs clear of infiltrates. Postsurgical changes of the mediastinum. FREE AIR: None. No abnormal gas collections. BOWEL GAS PATTERN: Nonobstructive pattern. No dilated loops or air fluid levels. CALCIFICATIONS: No suspicious calcifications. HARDWARE: Metallic clips in the right lower quadrant of the abdomen. SOFT TISSUES: No gross mass or suggestion of organomegaly. BONES: No acute fracture. No worrisome bone lesions. OTHER: No other significant finding. IMPRESSION: NO RADIOGRAPHIC EVIDENCE FOR ACUTE ABDOMINAL DISEASE. TECHNICAL DOCUMENTATION: JOB ID: [id number] [employer]- All Rights Reserved Reading location - IP/workstation name: [email or web address]
[2018-08-01 21:02] LABS: ABSOLUTE EOSINOPHILS # (AUTO) 0.1 10^3/uL (0.0-0.6); ABSOLUTE LYMPHOCYTES (AUTO) 1.3 10^3/uL (0.5-4.7); ABSOLUTE MONOCYTES (AUTO) 0.8 10^3/uL (0.1-1.4); ABSOLUTE NEUT (AUTO) 6.8 10^3/uL (1.7-8.2); BASOPHILS % (AUTO) 0.2 % (0-2); EOSINOPHILS % (AUTO) 0.8 % (0-6); HEMOGLOBIN 12.8 g/dL (13.5-17.0); LYMPHOCYTES % (AUTO) 14.4 % (13-45); MEAN CORPUSCULAR HEMOGLOBIN 31.3 pg (27.0-33.4); MEAN CORPUSCULAR HGB CONC 33.8 g/dL (32.0-36.0); MEAN CORPUSCULAR VOLUME 93 fl (80-97); MONOCYTES % (AUTO) 8.5 % (3-13); PLATELET COUNT 220 10^3/uL (150-450); RED CELL DISTRIBUTION WIDTH 14.3 % (11.5-14.0); SEGMENTED NEUTROPHILS % (AUTO) 76.1 % (42-78); TOTAL CELLS COUNTED % (AUTO) 100 %
[2018-08-01 21:27] LABS: ALANINE AMINOTRANSFERASE 53 U/L (21-72); ALBUMIN 4.1 g/dL (3.5-5.0); ALKALINE PHOSPHATASE 94 U/L (38-126); ANION GAP 10 (5-19); ASPARTATE AMINO TRANSFERASE 74 U/L (17-59); BILIRUBIN,DIRECT 0.4 mg/dL (0.0-0.4); BILIRUBIN,TOTAL 1.2 mg/dL (0.2-1.3); BLOOD UREA NITROGEN 8 mg/dL (7-20); CALCIUM 9.3 mg/dL (8.4-10.2); CARBON DIOXIDE 25 mmol/L (22-30); CHLORIDE 105 mmol/L (98-107); GLUCOSE 92 mg/dL (75-110); LIPASE 59.4 U/L (23-300); POTASSIUM 4.1 mmol/L (3.6-5.0); SODIUM 139.9 mmol/L (137-145); TOTAL PROTEIN 6.8 g/dL (6.3-8.2)
[2018-08-01] MEDS ORDERED: MINERAL OIL 30 ML UDCUP PR ONE (21:34)
[2018-08-01] MEDS ORDERED: MINERAL OIL 30 ML UDCUP ONE (23:57)
[2018-08-02 00:52] LABS: APPEARANCE,URINE CLEAR; BILIRUBIN,URINE NEGATIVE (NEGATIVE); GLUCOSE, URINE NEGATIVE (NEGATIVE); KETONES,URINE TRACE mg/dL (NEGATIVE); LEUKOCYTE ESTERASE,URINE NEGATIVE (NEGATIVE); NITRITE,URINE NEGATIVE (NEGATIVE); PROTEIN,URINE 30 mg/dL (NEGATIVE); URINE SPECIFIC GRAVITY 1.024
[2018-08-02 00:53] LABS: COLOR,URINE DARK YELLOW
[2018-08-02 01:43] VITALS: BP 100/61
== END 2018-08-02 01:43 | disposition home or self-care (01) ==
LOC: ER 19:32
DX: R10.84 Generalized abdominal pain (principal); R11.0 Nausea; I25.10 Atherosclerotic heart disease of native coronary artery without angina pectoris; E78.00 Pure hypercholesterolemia, unspecified; I10 Essential (primary) hypertension; E11.9 Type 2 diabetes mellitus without complications; E03.9 Hypothyroidism, unspecified; Z88.6 Allergy status to analgesic agent; Z88.2 Allergy status to sulfonamides; Z88.3 Allergy status to other anti-infective agents; Z95.1 Presence of aortocoronary bypass graft; I25.2 Old myocardial infarction
CPT/HCPCS: 99283; 96361; 96374; 36415; 83690; 85025; 80053; 81001; 74022; J2765; J3490; J7040

== ENCOUNTER → 2018-08-07 | Outpatient (CLI) | payer MEDICARE, MEDICAID ==
--- NOTE | 2018-08-07 11:30 | RADIOLOGY REPORT (SQ) ---
EXAM DESCRIPTION: U/S ABDOMEN LIMITED W/O DOP COMPLETED DATE/TIME: 08/07/2018 10:29 am REASON FOR STUDY: CHOLELITHIASES (K80.20) K80.20 CALCULUS OF GALLBLADDER W/O CHOLECYSTITIS W/O OBST RUC COMPARISON: None. TECHNIQUE: Dynamic and static grayscale images acquired of the abdomen and recorded on PACS. Additio nal selected color Doppler and spectral images recorded. LIMITATIONS: None. FINDINGS: PANCREAS: Not seen. LIVER: No masses. Echotexture normal. LIVER VASCULATURE: Normal directional flow of the main portal vein and hepatic veins. GALLBLADDER: Some small gallstones are present. There is no significant wall thickening. There is n o pericholecystic fluid. ULTRASOUND-DETECTED ROMAN'S SIGN: Negative. INTRAHEPATIC DUCTS AND COMMON DUCT: Common bile duct is mildly enlarged at 8 mm. There is no intrahe patic ductal dilatation. INFERIOR VENA CAVA: Not imaged. AORTA: No aneurysm. RIGHT KIDNEY: Normal size, 11.2 cm. Normal echogenicity. No solid or suspicious masses. No hydroneph rosis. No calcifications. PERITONEAL AND RIGHT PLEURAL SPACE: No ascites or effusions. OTHER: No other significant findings. IMPRESSION: Cholelithiasis with borderline common bile duct at 8 mm. TECHNICAL DOCUMENTATION: JOB ID: [id number] [employer]- All Rights Reserved Reading location - IP/workstation name: [email or web address]
== END ==
LOC: RAD 09:57
PROVIDERS: ATTEND Internal Medicine
DX: K80.20 Calculus of gallbladder without cholecystitis without obstruction (principal)
CPT/HCPCS: 76705

== ENCOUNTER → 2018-08-21 | Outpatient (CLI) | payer MEDICARE, MEDICAID ==
[2018-08-21 11:25] LABS: ABSOLUTE EOSINOPHILS # (AUTO) 0.1 10^3/uL (0.0-0.6); ABSOLUTE LYMPHOCYTES (AUTO) 1.1 10^3/uL (0.5-4.7); ABSOLUTE MONOCYTES (AUTO) 0.2 10^3/uL (0.1-1.4); ABSOLUTE NEUT (AUTO) 3.1 10^3/uL (1.7-8.2); BASOPHILS % (AUTO) 0.7 % (0-2); EOSINOPHILS % (AUTO) 1.5 % (0-6); HEMATOCRIT 37.9 % (37.9-51.0); HEMOGLOBIN 12.7 g/dL (13.5-17.0); LYMPHOCYTES % (AUTO) 24.2 % (13-45); MEAN CORPUSCULAR HEMOGLOBIN 30.8 pg (27.0-33.4); MEAN CORPUSCULAR HGB CONC 33.5 g/dL (32.0-36.0); MEAN CORPUSCULAR VOLUME 92 fl (80-97); MONOCYTES % (AUTO) 5.4 % (3-13); PLATELET COUNT 219 10^3/uL (150-450); RED BLOOD COUNT 4.12 10^6/uL (4.35-5.55); RED CELL DISTRIBUTION WIDTH 14.7 % (11.5-14.0); SEGMENTED NEUTROPHILS % (AUTO) 68.2 % (42-78); TOTAL CELLS COUNTED % (AUTO) 100 %; WHITE BLOOD COUNT 4.5 10^3/uL (4.0-10.5)
[2018-08-21 11:43] LABS: ALANINE AMINOTRANSFERASE 24 U/L (21-72); ALBUMIN 4.2 g/dL (3.5-5.0); ALKALINE PHOSPHATASE 73 U/L (38-126); ANION GAP 8 (5-19); ASPARTATE AMINO TRANSFERASE 17 U/L (17-59); BILIRUBIN,DIRECT 0.1 mg/dL (0.0-0.4); BILIRUBIN,TOTAL 0.6 mg/dL (0.2-1.3); BLOOD UREA NITROGEN 6 mg/dL (7-20); CALCIUM 9.5 mg/dL (8.4-10.2); CARBON DIOXIDE 29 mmol/L (22-30); CHLORIDE 107 mmol/L (98-107); CHOLESTEROL 173.37 mg/dL (0-200); GLUCOSE 102 mg/dL (75-110); POTASSIUM 4.5 mmol/L (3.6-5.0); SODIUM 143.9 mmol/L (137-145); TOTAL PROTEIN 6.9 g/dL (6.3-8.2); TRIGLYCERIDES 71 mg/dL (<150)
[2018-08-21 11:54] LABS: DIRECT LDL 95 mg/dL (<100)
== END ==
LOC: OD 10:29
PROVIDERS: ATTEND Internal Medicine
DX: E11.9 Type 2 diabetes mellitus without complications (principal); I10 Essential (primary) hypertension; E78.5 Hyperlipidemia, unspecified; R35.1 Nocturia; R53.83 Other fatigue
CPT/HCPCS: 36415; 80053; 80061; 83036; 84153; 84443; 85025

== ENCOUNTER 2018-08-31 16:14 | Emergency (ER) | payer MEDICARE, MEDICAID ==
[2018-08-31] MEDS ORDERED: ASPIRIN 81 MG TABLET, CHEWABLE PO ONE (16:18)
--- NOTE | 2018-08-31 16:45 | ER Document Report ---
ED General - General Chief Complaint: Chest Pain Stated Complaint: CHEST PAIN Time Seen by Provider: 08/31/18 16:29 Primary Care Provider: SHELLY SETHI MD [Primary Care Provider] - Follow up as needed TRAVEL OUTSIDE OF THE [place] IN LAST 30 DAYS: No - HPI Notes: Patient is a 63-year-old male that presents to the emergency department for chief complaint of chest pain. Patient reports a chest pain located on his left side of his chest radiating to his left arm that he describes as a burning pressure sensation. The pain started 2 hours prior to presentation while at rest. He has been constant are coming and going the pain is constant without resolution. He reports associated nausea. He did take 2 sprays of nitro at home, 325 mg of aspirin and hydromorphone with no relief of his symptoms. Patient has a history of CAD, CABG and chronic chest pain. He is a patient of Dr. Mohr. Patient states this feels similar to his previous MIs. Patient denies any associated shortness of breath nausea or vomiting. His last cardiac stress test was normal at the end of last year. Past Medical History: Chronic chest pain, diabetes, GERD, JULIET, hypertension, chronic pain syndrome, depression, anxiety Past Surgical History: CABG Social History: Daily tobacco. Denies drug use. Denies alcohol. Family History: Reviewed and noncontributory for presenting illness Allergies: Reviewed, see documented allergy list. REVIEW OF SYSTEMS: CONSTITUTIONAL : No fever No chills No diaphoresis No recent illness EENT: No vision changes No congestion No sore throat CARDIOVASCULAR: chest pain No palpitations RESPIRATORY: No shortness of breath No cough No difficulty breathing GASTROINTESTINAL: No abdominal pain nausea No vomiting No diarrhea GENITOURINARY: No dysuria No hematuria No difficulty urinating MUSCULOSKELETAL: No back pain No leg pain No arm pain SKIN: No rashes No lesions LYMPHATIC: No swollen, enlarged glands. NEUROLOGICAL: No lightheadedness No headache No weakness No paresthesias PSYCHIATRIC: No anxiety No depression PHYSICAL EXAMINATION: Vital signs reviewed, nursing noted reviewed. GENERAL: Well-appearing, well-nourished and in no acute distress. HEAD: Atraumatic, normocephalic. EYES: Eyes appear normal, extraocular movements intact, sclera anicteric, conjunctiva are normal. ENT: nares patent, oropharynx clear without exudates. Moist mucous membranes. NECK: Normal range of motion, supple without lymphadenopathy LUNGS: Breath sounds clear to auscultation bilaterally and equal. No wheezes rales or rhonchi. HEART: Regular rate and rhythm without murmurs ABDOMEN: Soft, nontender, normoactive bowel sounds. No rebound, guarding, or rigidity. No masses appreciated. EXTREMITIES: Nontender, good range of motion, no pitting or edema. NEUROLOGICAL: No focal neurological deficits. Moves all extremities spontaneously Motor and sensory grossly intact on exam. PSYCH: Normal mood, normal affect. SKIN: Warm, Dry, normal turgor, no rashes or lesions noted on exposed skin - Related Data Allergies/Adverse Reactions: adhesive [Adhesive] Allergy (Severe, Verified 10/11/17 12:22) peels skin gabapentin [From Neurontin] Allergy (Unknown, Verified 10/11/17 12:22) disoriented levofloxacin [From Levaquin] Allergy (Unknown, Verified 10/11/17 12:22) Sulfa (Sulfonamide Antibiotics) Allergy (Unknown, Verified 10/11/17 12:22) skin wilson tramadol [Tramadol] Allergy (Unknown, Verified 10/11/17 12:22) ibuprofen [From Motrin] Allergy (Verified 10/11/17 12:22) tramadol HCl [From Ultram] Allergy (Verified 10/11/17 12:22) Past Medical History - Social History Smoking Status: Current Every Day Smoker Family History: CAD, CVA, Malignancy Patient has suicidal ideation: No Patient has homicidal ideation: No - Past Medical History Cardiac Medical History: Reports: Hx Coronary Artery Disease, 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 Denies: Hx Pancreatitis Musculoskeletal Medical History: Denies Hx Arthritis Psychiatric Medical History: Reports: Hx Anxiety, Hx Depression Past Surgical History: Reports: Hx Adenoidectomy, Hx Appendectomy, Hx Bowel Surgery - hemorrhoidectomy, Hx Cardiac Catheterization - last one was 2010, stent x 10, Hx Cardiac Surgery - CABG, Hx Coronary Artery Bypass Graft, Hx Coronary Stent - [id number] recent was 2010, Hx Open Heart Surgery, Hx Rectal Surgery - hemorrhoids, Hx Testicular Surgery - torsion, vastectomy, Hx Tonsillectomy - Immunizations Immunizations up to date: Yes Hx Diphtheria, Pertussis, Tetanus Vaccination: Yes Hx Pneumococcal Vaccination: 03/21/12 Physical Exam - Vital signs Vitals: Pulse Ox 97 08/31/18 16:26 Course - Re-evaluation Re-evalutation: 08/31/18 17:47 Vitals reviewed. Nursing notes reviewed. Patient is resting comfortably and in no acute distress. He is watching television throughout my conversation with him. He states that this is the pain he has always and it is unchanged except for in severity. He states that he needs more morphine than he has at home and he usually feels better and will go home after pain medication. Patient does not appear to be in in extremis. He is not tachycardic. His initial cardiac workup is unremarkable. I discussed his care with Dr. Peña who states this is his chronic pain and how he always presents. He does not recommend delta troponin or admission to the hospital. He states he will see the patient in the office for close outpatient follow-up. Lidoderm patch was given to the patient since his pain is mostly located on the superior aspect of his left shoulder currently. Patient is in agreement with this plan of care. He will follow-up with Dr. Peña in the next 1-2 days. He will return for any new or worsening symptoms. His family is at bedside and also in agreement with plan of care. He is stable at discharge. Laboratory 08/31/18 08/31/18 08/31/18 16:42 16:42 16:42 WBC 6.8 RBC 3.89 L Hgb 12.4 L Hct 36.2 L MCV 93 MCH 31.8 MCHC 34.1 RDW 15.0 H Plt Count 206 Seg Neutrophils % 43.4 Lymphocytes % 46.2 H Monocytes % 7.5 Eosinophils % 2.0 Basophils % 0.9 Absolute Neutrophils 3.0 Absolute Lymphocytes 3.2 Absolute Monocytes 0.5 Absolute Eosinophils 0.1 Absolute Basophils 0.1 Sodium 140.1 Potassium 4.1 Chloride 105 Carbon Dioxide 27 Anion Gap 8 BUN 7 Creatinine 0.84 Est GFR ( Amer) > 60 Est GFR (Non-Af Amer) > 60 Glucose 85 Calcium 9.1 Total Bilirubin 0.5 Direct Bilirubin 0.2 Neonat Total Bilirubin Not Reportable Neonat Direct Bilirubin Not Reportable Neonat Indirect Bili Not Reportable AST 16 L ALT 17 L Alkaline Phosphatase 61 Troponin I < 0.012 Total Protein 6.5 Albumin 3.9 Chest X-Ray 08/31/18 16:18 IMPRESSION: NO ACUTE FINDINGS. - Vital Signs Vital signs: Temp Pulse Resp BP Pulse Ox 18 95 08/31/18 16:28 08/31/18 16:28 - Laboratory Result Diagrams: 08/31/18 16:42 08/31/18 16:42 Laboratory results interpreted by me: 08/31/18 08/31/18 16:42 16:42 RBC 3.89 L Hgb 12.4 L Hct 36.2 L RDW 15.0 H Lymphocytes % 46.2 H AST 16 L ALT 17 L - EKG Interpretation by Me Additional EKG results interpreted by me: 08/31/18 16:44 Interpreted by myself 1619: Sinus bradycardia, rate 57, normal axis, no ST elevation, borderline biphasic V2 similar to previous on 07/30/18 Discharge - Discharge Clinical Impression: Chronic chest pain Condition: Stable Disposition: HOME, SELF-CARE Instructions: Chest Pain of Unclear Cause ([facility]) Additional Instructions: Please return to the emergency department if you have any worsening, or concern of your symptoms. Please return to the emergency department if you develop chest pain, difficulty breathing, severe abdominal pain, or ongoing vomiting. If prescribed, take all medications as directed. If you have any questions or concerns do not hesitate to return the emergency department for evaluation. Call Dr. Peña first thing tomorrow morning to establish close follow-up Referrals: SHELLY SETHI MD [Primary Care Provider] - Follow up as needed DANITA PEÑA MD [ACTIVE STAFF] - Follow up tomorrow
[2018-08-31 16:55] LABS: ABSOLUTE BASOPHILS # (AUTO) 0.1 10^3/uL (0.0-0.2); ABSOLUTE EOSINOPHILS # (AUTO) 0.1 10^3/uL (0.0-0.6); ABSOLUTE LYMPHOCYTES (AUTO) 3.2 10^3/uL (0.5-4.7); ABSOLUTE MONOCYTES (AUTO) 0.5 10^3/uL (0.1-1.4); BASOPHILS % (AUTO) 0.9 % (0-2); HEMATOCRIT 36.2 % (37.9-51.0); HEMOGLOBIN 12.4 g/dL (13.5-17.0); LYMPHOCYTES % (AUTO) 46.2 % (13-45); MEAN CORPUSCULAR HEMOGLOBIN 31.8 pg (27.0-33.4); MEAN CORPUSCULAR HGB CONC 34.1 g/dL (32.0-36.0); MEAN CORPUSCULAR VOLUME 93 fl (80-97); MONOCYTES % (AUTO) 7.5 % (3-13); PLATELET COUNT 206 10^3/uL (150-450); RED BLOOD COUNT 3.89 10^6/uL (4.35-5.55); SEGMENTED NEUTROPHILS % (AUTO) 43.4 % (42-78); TOTAL CELLS COUNTED % (AUTO) 100 %; WHITE BLOOD COUNT 6.8 10^3/uL (4.0-10.5)
--- NOTE | 2018-08-31 17:10 | RADIOLOGY REPORT (SQ) ---
EXAM DESCRIPTION: CHEST SINGLE VIEW COMPLETED DATE/TIME: 08/31/2018 4:36 pm REASON FOR STUDY: cp COMPARISON: 07/11/2018 TECHNIQUE: Single frontal radiographic view of the chest acquired. NUMBER OF VIEWS: One view. LIMITATIONS: None. FINDINGS: LUNGS AND PLEURA: No pneumothorax. No consolidation or pleural effusion. MEDIASTINUM AND HILAR STRUCTURES: Stable. HEART AND VASCULAR STRUCTURES: Stable. BONES: No acute findings. HARDWARE: CABG. OTHER: No other significant finding. IMPRESSION: NO ACUTE FINDINGS. TECHNICAL DOCUMENTATION: JOB ID: [id number] [employer]- All Rights Reserved Reading location - IP/workstation name: [email or web address]
[2018-08-31 17:16] LABS: ALANINE AMINOTRANSFERASE 17 U/L (21-72); ALBUMIN 3.9 g/dL (3.5-5.0); ALKALINE PHOSPHATASE 61 U/L (38-126); ANION GAP 8 (5-19); ASPARTATE AMINO TRANSFERASE 16 U/L (17-59); BILIRUBIN,DIRECT 0.2 mg/dL (0.0-0.4); BILIRUBIN,TOTAL 0.5 mg/dL (0.2-1.3); BLOOD UREA NITROGEN 7 mg/dL (7-20); CALCIUM 9.1 mg/dL (8.4-10.2); CARBON DIOXIDE 27 mmol/L (22-30); CHLORIDE 105 mmol/L (98-107); GLUCOSE 85 mg/dL (75-110); POTASSIUM 4.1 mmol/L (3.6-5.0); SODIUM 140.1 mmol/L (137-145); TOTAL PROTEIN 6.5 g/dL (6.3-8.2)
[2018-08-31] MEDS ORDERED: LIDOCAINE 5% (700 MG) TRANSDERMAL ADH..PATCH TP ONE (17:46)
[2018-08-31 18:45] VITALS: BP 112/79
--- NOTE | 2018-08-31 23:22 | EKG REPORT ---
SEVERITY:- NORMAL ECG - SINUS RHYTHM : Confirmed by: Ann Domingo MD 31-Aug-2018 23:22:08
== END 2018-08-31 18:45 | disposition home or self-care (01) ==
LOC: ER 16:14
DX: R07.9 Chest pain, unspecified (principal); G89.29 Other chronic pain; R11.0 Nausea; I25.10 Atherosclerotic heart disease of native coronary artery without angina pectoris; E11.9 Type 2 diabetes mellitus without complications; F17.200 Nicotine dependence, unspecified, uncomplicated
CPT/HCPCS: 36415; 71045; 80053; 84484; 85025; 93005; 93010; 99285

== ENCOUNTER 2018-09-20 15:47 | Inpatient (IN) | payer MEDICARE, MEDICAID ==
[2018-09-20] MEDS ORDERED: RINGERS SOLUTION,LACTATED 1,000 ML IV ONE (17:29)
[2018-09-20] MEDS ORDERED: ACETAMINOPHEN 650 MG SUPP.RECT PR ONE (17:30)
[2018-09-20] MEDS ORDERED: ACETAMINOPHEN 325 MG SUPP.RECT PR ONE (17:32)
[2018-09-20 17:39] LABS: VENOUS BLOOD PCO2 43.2 mmHg (35-63); VENOUS BLOOD PH 7.41 (7.30-7.42)
[2018-09-20 17:42] LABS: ABSOLUTE EOSINOPHILS # (AUTO) 0.1 10^3/uL (0.0-0.6); ABSOLUTE LYMPHOCYTES (AUTO) 1.1 10^3/uL (0.5-4.7); ABSOLUTE MONOCYTES (AUTO) 0.3 10^3/uL (0.1-1.4); ABSOLUTE NEUT (AUTO) 6.7 10^3/uL (1.7-8.2); BASOPHILS % (AUTO) 0.3 % (0-2); EOSINOPHILS % (AUTO) 0.8 % (0-6); HEMATOCRIT 38.7 % (37.9-51.0); HEMOGLOBIN 12.9 g/dL (13.5-17.0); LYMPHOCYTES % (AUTO) 13.7 % (13-45); MEAN CORPUSCULAR HEMOGLOBIN 31.1 pg (27.0-33.4); MEAN CORPUSCULAR HGB CONC 33.4 g/dL (32.0-36.0); MEAN CORPUSCULAR VOLUME 93 fl (80-97); MONOCYTES % (AUTO) 3.5 % (3-13); PLATELET COUNT 183 10^3/uL (150-450); RED BLOOD COUNT 4.16 10^6/uL (4.35-5.55); RED CELL DISTRIBUTION WIDTH 15.5 % (11.5-14.0); SEGMENTED NEUTROPHILS % (AUTO) 81.7 % (42-78); TOTAL CELLS COUNTED % (AUTO) 100 %; WHITE BLOOD COUNT 8.2 10^3/uL (4.0-10.5)
[2018-09-20 17:44] LABS: INTERNATIONAL RATION (INR) 0.93; PROTHROMBIN TIME 12.9 SEC (11.4-15.4)
[2018-09-20 17:48] LABS: ALANINE AMINOTRANSFERASE 31 U/L (21-72); ALBUMIN 4.2 g/dL (3.5-5.0); ALKALINE PHOSPHATASE 68 U/L (38-126); ANION GAP 8 (5-19); ASPARTATE AMINO TRANSFERASE 28 U/L (17-59); BILIRUBIN,DIRECT 0.3 mg/dL (0.0-0.4); BILIRUBIN,TOTAL 0.9 mg/dL (0.2-1.3); BLOOD UREA NITROGEN 8 mg/dL (7-20); CALCIUM 9.2 mg/dL (8.4-10.2); CARBON DIOXIDE 29 mmol/L (22-30); CHLORIDE 104 mmol/L (98-107); GLUCOSE 95 mg/dL (75-110); POTASSIUM 4.1 mmol/L (3.6-5.0); TOTAL PROTEIN 7.3 g/dL (6.3-8.2)
--- NOTE | 2018-09-20 18:12 | ER Document Report ---
ED General - General Chief Complaint: Abdominal Pain Stated Complaint: ABDOMINAL PAIN Time Seen by Provider: 09/20/18 17:28 Mode of Arrival: Ambulatory Information source: Patient Notes: This is a 63-year-old man with a history of coronary artery disease (status post CABG in the past), history of gallbladder disease who is scheduled for gallbladder surgery later this month. Patient presents to the emergency room with upper abdominal pain and fever of 103. Patient denies any nausea vomiting. Patient denies cough. Patient denies any diarrhea. TRAVEL OUTSIDE OF THE [place] IN LAST 30 DAYS: No - HPI Onset: This morning Onset/Duration: Gradual Quality of pain: Dull Severity: Moderate Pain Level: 2 Associated symptoms: Chills, Fever Exacerbated by: Denies Relieved by: Denies Similar symptoms previously: No Recently seen / treated by doctor: No - Related Data Allergies/Adverse Reactions: adhesive [Adhesive] Allergy (Severe, Verified 10/11/17 12:22) peels skin gabapentin [From Neurontin] Allergy (Unknown, Verified 10/11/17 12:22) disoriented levofloxacin [From Levaquin] Allergy (Unknown, Verified 10/11/17 12:22) Sulfa (Sulfonamide Antibiotics) Allergy (Unknown, Verified 10/11/17 12:22) skin wilson tramadol [Tramadol] Allergy (Unknown, Verified 10/11/17 12:22) ibuprofen [From Motrin] Allergy (Verified 10/11/17 12:22) tramadol HCl [From Ultram] Allergy (Verified 10/11/17 12:22) Past Medical History - General Information source: Patient - Social History Smoking Status: Never Smoker Cigarette use (# per day): No Chew tobacco use (# tins/day): No Frequency of alcohol use: None Drug Abuse: None Lives with: Family Family History: CAD, CVA, Malignancy Patient has suicidal ideation: No Patient has homicidal ideation: No - Past Medical History Cardiac Medical History: Reports: Hx Coronary Artery Disease, 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 Denies: Hx Pancreatitis Musculoskeletal Medical History: Denies Hx Arthritis Psychiatric Medical History: Reports: Hx Anxiety, Hx Depression Past Surgical History: Reports: Hx Adenoidectomy, Hx Appendectomy, Hx Bowel Surgery - hemorrhoidectomy, Hx Cardiac Catheterization - last one was 2010, stent x 10, Hx Cardiac Surgery - CABG, Hx Coronary Artery Bypass Graft, Hx Coronary Stent - [id number] recent was 2010, Hx Open Heart Surgery, Hx Rectal Surgery - hemorrhoids, Hx Testicular Surgery - torsion, vastectomy, Hx Tonsillectomy - Immunizations Immunizations up to date: Yes Hx Diphtheria, Pertussis, Tetanus Vaccination: Yes Hx Pneumococcal Vaccination: 03/21/12 Review of Systems - Review of Systems Constitutional: denies: Chills, Fever EENT: No symptoms reported Cardiovascular: No symptoms reported Respiratory: No symptoms reported Gastrointestinal: See HPI Genitourinary: No symptoms reported Male Genitourinary: No symptoms reported Musculoskeletal: No symptoms reported Skin: No symptoms reported Hematologic/Lymphatic: No symptoms reported Neurological/Psychological: No symptoms reported Physical Exam - Vital signs Vitals: Resp Pulse Ox 25 H 94 09/20/18 16:17 09/20/18 16:17 Notes: Physical exam: GENERAL: Febrile 63-year-old man, alert and oriented x3. No acute distress. HEAD: Atraumatic, normocephalic. EYES: Pupils equal round and reactive to light, extraocular movements intact, sclera anicteric, conjunctiva are normal. ENT: TMs normal, nares patent, oropharynx clear without exudates. Moist mucous membranes. NECK: Normal range of motion, supple without obvious mass or JVD. LUNGS: Breath sounds clear to auscultation bilaterally and equal. No wheezes rales or rhonchi. HEART: Regular rate and rhythm without murmurs, rubs or gallops. ABDOMEN: Soft, normoactive bowel sounds. Mildly tender in the epigastrium. No guarding, no rebound. No masses appreciated. EXTREMITIES: Normal range of motion, no pitting or edema. No clubbing or cyanosis. NEUROLOGICAL: Cranial nerves II through XII grossly intact. Normal speech, moving all extremities. PSYCH: Normal mood, normal affect. SKIN: Warm, Dry, normal turgor, no rashes or lesions noted. Course - Vital Signs Vital signs: Temp Pulse Resp BP Pulse Ox 99.5 F 73 17 82/54 L 93 09/20/18 22:13 09/20/18 22:13 09/20/18 22:13 09/20/18 22:13 09/20/18 22:13 - Laboratory Result Diagrams: 09/20/18 15:58 09/20/18 15:58 Laboratory results interpreted by me: 09/20/18 09/20/18 15:58 16:22 RBC 4.16 L Hgb 12.9 L RDW 15.5 H Seg Neutrophils % 81.7 H POC Glucose 116 H - Diagnostic Test Radiology reviewed: Image reviewed, Reports reviewed - X-ray shows no infiltrates - EKG Interpretation by Me Rate: Tachycardia - EKG shows sinus tachycardia with a ventricular rate of 101, nonspecific T changes Discharge - Discharge Clinical Impression: Abdominal pain Condition: Stable Disposition: ADMITTED INPATIENT
[2018-09-20] MEDS ORDERED: PIPERACILLIN/TAZOBACTAM 4.5 GM VIAL IV ONE (18:26)
[2018-09-20] MEDS ORDERED: METRONIDAZOLE 500 MG/NS RTU 500 MG/100 ML RTUPB IV ONE (18:26)
[2018-09-20] MEDS ORDERED: MORPHINE SULFATE 10 MG/ML INJ IV ONE (18:27)
[2018-09-20] MEDS ORDERED: ONDANSETRON HCL INJ/PF 4 MG/2 ML SDV IV ONE (18:27)
--- NOTE | 2018-09-20 18:40 | RADIOLOGY REPORT (SQ) ---
EXAM DESCRIPTION: CHEST SINGLE VIEW COMPLETED DATE/TIME: 09/20/2018 6:32 pm REASON FOR STUDY: pain COMPARISON: 08/31/2018 EXAM PARAMETERS: NUMBER OF VIEWS: One view. TECHNIQUE: Single frontal radiographic view of the chest acquired. RADIATION DOSE: NA LIMITATIONS: None. FINDINGS: LUNGS AND PLEURA: No opacities, masses or pneumothorax. No pleural effusion. MEDIASTINUM AND HILAR STRUCTURES: No masses. Contour normal. HEART AND VASCULAR STRUCTURES: Heart normal in size. Normal vasculature. BONES: No acute findings. HARDWARE: None in the chest. OTHER: No other significant finding. IMPRESSION: NO ACUTE RADIOGRAPHIC FINDING IN THE CHEST. TECHNICAL DOCUMENTATION: JOB ID: [id number] [employer]- All Rights Reserved Reading location - IP/workstation name: [email or web address]
--- NOTE | 2018-09-20 18:48 | PDOC H&P ---
History of Present Illness Admission Date/PCP: SHELLY SETHI MD Patient complains of: Abdominal pain History of Present Illness: ZOË ALATORRE is a 63 year old male Seen in the emergency department complaining of a 3-day history of abdominal pain epigastric, sudden in origin, nonradiating. Patient takes p.o. narcotics for chronic chest and lower back pain, and took these medications and slept off the pain. He denies nausea vomiting diarrhea constipation. Pain is persisted intermittently, then was better early this morning. He had breakfast, took his pain medication and then approximately 4 hours later the pain intensified. He was brought by ground rescue to the emergency department where he was found to be tachycardic, and febrile to 103.2. He is complaining of shakes. Patient was evaluated and found to have a left shift but no total leukocytosis. Patient has known gallstones and was set up for laparoscopic possible open cholecystectomy by Dr. Simon on October 07. Surgery was consulted this afternoon, patient evaluated and felt to have sepsis probable intra-abdominal source and was admitted to the surgical service for further evaluation and treatment. Patient is status post open appendectomy; he is 2-1/2 years status post colonoscopy by Dr. Simon with multiple small polypectomies. Past Medical History Past Medical History: Consistent with coronary artery disease, diabetes mellitus, chronic pain syndrome, chronic lumbar radiculopathy, hyperlipidemia, history of myocardial infarction. Cardiac Medical History: Reports: Coronary Artery Disease, Myocardial Infarction - x2 TOTAL OF 11 STENTS/ MOST RECENT 08/21/16, Hyperlipidema, Hypertension Pulmonary Medical History: Denies: Asthma, Bronchitis, Chronic Obstructive Pulmonary Disease (COPD), Pneumonia Neurological Medical History: Denies: Seizures Endocrine Medical History: Reports: Diabetes Mellitus Type 2, Hypothyroidism Malignancy Medical History: Denies: Breast Cancer, Cervical Cancer, Ovarian Cancer GI Medical History: Reports: Gastroesophageal Reflux Disease Musculoskeltal Medical History: Denies: Arthritis Psychiatric Medical History: Reports: Depression Hematology: Denies: Anemia Past Surgical History Past Surgical History: Reports: Appendectomy, Cardiac Catheterization - last one was 2010, stent x 10, Coronary Artery Bypass Graft, Coronary Stent - [id number] recent was 2010, Tonsillectomy Social History Information Source: Patient Smoking Status: Former Smoker Frequency of Alcohol Use: None Hx Recreational Drug Use: No Drugs: None Hx Prescription Drug Abuse: No Family History Family History: CAD, CVA, Malignancy Parental Family History Reviewed: Yes Children Family History Reviewed: Yes Sibling(s) Family History Reviewed.: Yes Medication/Allergy Home Medications: Acetaminophen [Tylenol 325 mg Tablet] 650 mg PO Q4HP PRN tablet 02/24/18 Amlodipine Besylate [Norvasc 10 mg Tablet] 10 mg PO DAILY tablet 02/24/18 Aspirin [Aspirin 325 mg Tablet] 325 mg PO DAILY tablet 02/24/18 Atorvastatin Calcium [Lipitor 80 mg Tablet] 80 mg PO QHS tablet 02/24/18 Clopidogrel Bisulfate [Plavix 75 mg Tablet] 75 mg PO DAILY tablet 02/24/18 Diazepam [Valium 5 mg Tablet] 5 mg PO TIDP PRN tablet 02/24/18 Docusate Sodium [Colace 100 mg Capsule] 100 mg PO BID PRN capsule 02/24/18 Isosorbide Mononitrate [Imdur 60 mg Tablet.er] 120 mg PO DAILY tab.er.24h 02/24/18 Lansoprazole [Prevacid 30 mg Odt Tablet] 30 mg PO Q6AM tab.rap.dr 02/24/18 Lisinopril [Prinivil 10 mg Tablet] 10 mg PO DAILY tablet 02/24/18 Magnesium Hydroxide [Milk of Magnesia 30 ml Udcup] 30 ml PO HSP PRN udc 02/24/18 Morphine Sulfate [Morphine Ir 30 mg Tablet] 30 mg PO BIDP PRN tablet 02/24/18 Nitroglycerin [Nitrostat 0.4 mg (1/150 Gr) Tabs 25/Bottle] 1 tab SL Q5MP PRN bottle 02/24/18 Ranolazine [Ranexa 500 mg Tab.sr] 1,000 mg PO Q12 tab.sr.12h 02/24/18 Sertraline HCl [Zoloft 50 mg Tablet] 50 mg PO Q12 tablet 02/24/18 Cephalexin Monohydrate [Keflex 500 mg Capsule] 500 mg PO Q6H 5 Days capsule 04/27/18 Polyethylene Glycol 3350 [Miralax] 17 gm PO DAILY #238 gm 07/30/18 Allergies/Adverse Reactions: adhesive [Adhesive] Allergy (Severe, Verified 10/11/17 12:22) peels skin gabapentin [From Neurontin] Allergy (Unknown, Verified 10/11/17 12:22) disoriented levofloxacin [From Levaquin] Allergy (Unknown, Verified 10/11/17 12:22) Sulfa (Sulfonamide Antibiotics) Allergy (Unknown, Verified 10/11/17 12:22) skin wilson tramadol [Tramadol] Allergy (Unknown, Verified 10/11/17 12:22) ibuprofen [From Motrin] Allergy (Verified 10/11/17 12:22) tramadol HCl [From Ultram] Allergy (Verified 10/11/17 12:22) Review of Systems Constitutional: PRESENT: as per HPI Eyes: ABSENT: visual disturbances Ears: ABSENT: hearing changes Cardiovascular: PRESENT: as per HPI Gastrointestinal: PRESENT: other Genitourinary: ABSENT: dysuria, hematuria Musculoskeletal: ABSENT: joint swelling Integumentary: ABSENT: rash, wounds Psychiatric: ABSENT: anxiety, depression, homidical ideation, suicidal ideation Endocrine: ABSENT: cold intolerance, heat intolerance, polydipsia, polyuria Physical Exam Vital Signs: Temp Pulse Resp BP Pulse Ox 103.2 F H 09/20/18 16:18 General appearance: PRESENT: mild distress Head exam: PRESENT: normocephalic Eye exam: PRESENT: EOMI Mouth exam: PRESENT: dry mucosa Teeth exam: PRESENT: poor dentation Neck exam: PRESENT: full ROM Respiratory exam: PRESENT: clear to auscultation bessy Cardiovascular exam: PRESENT: tachycardia Pulses: PRESENT: normal carotid pulses, normal radial pulses, normal dorsalis pedis pul GI/Abdominal exam: PRESENT: other - Scars epigastric area consistent with previous chest tube insertion; nonlocalized abdominal tenderness; diffusely sore to deep palpation MT: The abdomen is not very distended Rectal exam: PRESENT: deferred Extremities exam: PRESENT: full ROM Musculoskeletal exam: PRESENT: ambulatory Neurological exam: PRESENT: alert, awake, oriented to person, oriented to place, oriented to time, oriented to situation Psychiatric exam: PRESENT: anxious Results Laboratory Results: 09/20/18 15:58 09/20/18 15:58 09/20/18 09/20/18 09/20/18 15:58 15:58 16:30 WBC 8.2 RBC 4.16 L Hgb 12.9 L Hct 38.7 MCV 93 MCH 31.1 MCHC 33.4 RDW 15.5 H Plt Count 183 Seg Neutrophils % 81.7 H Lymphocytes % 13.7 Monocytes % 3.5 Eosinophils % 0.8 Basophils % 0.3 Absolute Neutrophils 6.7 Absolute Lymphocytes 1.1 Absolute Monocytes 0.3 Absolute Eosinophils 0.1 Absolute Basophils 0.0 VBG pH 7.41 VBG pCO2 43.2 VBG HCO3 27.0 VBG Base Excess 2.0 Sodium 141.0 Potassium 4.1 Chloride 104 Carbon Dioxide 29 Anion Gap 8 BUN 8 Creatinine 0.88 Est GFR ( Amer) > 60 Est GFR (Non-Af Amer) > 60 Glucose 95 Calcium 9.2 Total Bilirubin 0.9 AST 28 ALT 31 Alkaline Phosphatase 68 Total Protein 7.3 Albumin 4.2 Assessment & Plan - Diagnosis (1) Abdominal pain Is this a current diagnosis for this admission?: Yes Plan: Impression: Patient presents with acute abdominal pain, tachycardia, fever, and rigors with abdominal tenderness, nonlocalized. Known history of cholelithiasis. Clinical picture concerning for possible perforated viscus. Multiple chronic medical problems including chronic pain syndrome, on chronic narcotic therapy, makes clinical presentation of significant concern. Commendations: 1. Keep n.p.o., IV fluids, intravenous antibiotics. 2. Admit to surgical service; obtain CT scan of the abdomen and pelvis with IV, also obtain chest x-ray 3. Although patient symptoms may be due to a acutely inflamed gallbladder, other more serious intra-abdominal conditions such as visceral perforation be considered; this was discussed with patient and he agrees to proceed with the above plan (6) Sepsis Is this a current diagnosis for this admission?: Yes (7) Cholelithiasis Is this a current diagnosis for this admission?: Yes - Time Time Spent: 30 to 50 Minutes Critical Time spent with patient: 15-24 minutes Medications reviewed and adjusted accordingly: Yes Anticipated discharge: Home - Inpatient Certification Based on my medical assessment, after consideration of the patient's comorbidities, presenting symptoms, or acuity I expect that the services needed warrant INPATIENT care.: Yes I certify that my determination is in accordance with my understanding of Medicare's requirements for reasonable and necessary INPATIENT services [42 CFR 412.3e].: Yes Medical Necessity: Need For IV Fluids, Need for Pain Control, Need for IV Antibiotics, Need for Surgery
[2018-09-20] MEDS ORDERED: PIPERACILLIN/TAZOBACTAM 3.375 GM VIAL IV PRN (18:59)
[2018-09-20] MEDS: NORMAL SALINE 1000 ML 1,000 ML IV PRN ×2 (19:13→21:58)
[2018-09-20 20:29] LABS: APPEARANCE,URINE CLEAR; BILIRUBIN,URINE NEGATIVE (NEGATIVE); COLOR,URINE YELLOW; GLUCOSE, URINE NEGATIVE (NEGATIVE); KETONES,URINE NEGATIVE (NEGATIVE); LEUKOCYTE ESTERASE,URINE NEGATIVE (NEGATIVE); NITRITE,URINE NEGATIVE (NEGATIVE); PROTEIN,URINE NEGATIVE (NEGATIVE); URINE SPECIFIC GRAVITY 1.008; UROBILINOGEN,URINE NEGATIVE mg/dL (<2.0)
--- NOTE | 2018-09-20 21:25 | RADIOLOGY REPORT (SQ) ---
EXAM DESCRIPTION: CT ABDOMEN PELVIS WITH IV CONTRAST COMPLETED DATE/TME: 09/20/2018 18:25 CLINICAL HISTORY: 63 years, Male, fever, abdominal pain Comparison: None TECHNIQUE: Contiguous axial CT images of the abdomen and pelvis were obtained. Sagittal and coronal reformats were reviewed. This exam was performed according to our departmental dose-optimization program, which includes automated exposure control, adjustment of the mA and/or kV according to patient size and/or use of iterative reconstruction technique. FINDINGS: Lung bases: Clear. Liver:Diffuse low-attenuation throughout the liver consistent with hepatocellular disease/fatty infiltration. No focal liver lesion seen. Gallbladder: The gallbladder appears mildly distended. There are tiny gallstones in the dependent portion. No adjacent inflammatory changes. Mild intrahepatic biliary dilatation however the common bile duct is normal in caliber. There are no obstructing lesions identified. Spleen:Unremarkable Pancreas: Pancreas is unremarkable. Adrenal glands:Within normal limits. Kidneys/ureters:Within normal limits Stomach/small bowel/colon: Stomach is unremarkable. Small bowel is unremarkable. Marked colonic stool. No bowel wall thickening. Appendix: Appendectomy. Peritoneum: No free fluid. Vascular structures: within normal limits Lymph nodes: No abnormal lymph nodes. Bladder: Circumferential wall thickening of the urinary bladder. Pelvic organs: No acute abnormality. Coarse central calcifications in the prostate gland. Bones: No acute osseous abnormality. Soft tissues: Small fat containing right inguinal hernia.. IMPRESSION: Mild distention of the gallbladder with small gallstones in the dependent portion. There is mild dilatation of the intrahepatic biliary ducts however the common bile duct is normal in caliber. There are no obstructing lesions identified. Circumferential wall thickening of the urinary bladder may be related to cystitis, underdistention or chronic outlet obstruction. Correlate with urinalysis.
--- NOTE | 2018-09-20 22:54 | EKG REPORT ---
SEVERITY:- ABNORMAL ECG - SINUS TACHYCARDIA PROBABLE LEFT ATRIAL ABNORMALITY NONSPECIFIC T ABNORMALITIES, ANT-LAT LEADS : Confirmed by: Bety Cobb 20-Sep-2018 22:52:38
[2018-09-21] MEDS ORDERED: PIPERACILLIN/TAZOBACTAM 3.375 GM VIAL IV ONE (00:35)
[2018-09-21] MEDS: NORMAL SALINE 1000 ML 1,000 ML IV PRN ×2 (02:12→06:54)
[2018-09-21] MEDS: PIPERACILLIN SODIUM/TAZOBACTAM 3.375 GM in NORMAL SALINE 100 ML IV SCH ×3 (02:17→17:33)
[2018-09-21] MEDS: ACETAMINOPHEN 650 MG SUPP.RECT PR PRN ×2 (03:14→06:53)
[2018-09-21] MEDS ORDERED: MORPHINE SULFATE 10 MG/ML INJ IV ONE (04:00)
[2018-09-21] MEDS ORDERED: GLUCAGON,HUMAN RECOMB 1 MG INJ SUBCUT PRN (06:08)
[2018-09-21] MEDS ORDERED: DEXTROSE 40% GEL 15 GM TUBE PO PRN ×2 (06:08)
[2018-09-21] MEDS ORDERED: DEXTROSE 50%-WATER 25 GM/50 ML DISP.SYRIN IV PRN ×2 (06:08)
[2018-09-21] MEDS ORDERED: FENTANYL CITRATE INJ/PF 100 MCG/2 ML AMPUL ONE (08:20)
[2018-09-21] MEDS ORDERED: HYDROMORPHONE HCL INJ/PF 2 MG/ML AMPULE ONE (08:20)
[2018-09-21] MEDS ORDERED: PROPOFOL INJ 200 MG/20 ML VIAL IV ONE (08:21)
[2018-09-21] MEDS ORDERED: MIDAZOLAM 2 MG/2 ML INJ ONE (08:21)
[2018-09-21] MEDS ORDERED: ACETAMINOPHEN 0 MG/0 ML RTUPB IV ONE (08:21)
[2018-09-21] MEDS ORDERED: PROMETHAZINE HCL INJ 25 MG/1 ML VIAL IV PRN (09:18)
[2018-09-21] MEDS ORDERED: FENTANYL CITRATE INJ/PF 100 MCG/2 ML AMPUL IV PRN ×3 (09:18)
[2018-09-21] MEDS ORDERED: MEPERIDINE HCL/PF INJ 25 MG/1 ML DISP.SYRIN IV PRN (09:18)
[2018-09-21] MEDS ORDERED: DIPHENHYDRAMINE HCL 50 MG/ML VIAL IV PRN (09:18)
[2018-09-21] MEDS ORDERED: MORPHINE SULFATE 10 MG/ML INJ IV PRN ×2 (09:18→13:25)
[2018-09-21] MEDS ORDERED: BUPIVACAINE HCL 0.5%-EPI 1:200000 INJ/PF 30 ML VIAL ONE (09:24)
[2018-09-21] MEDS ORDERED: DEXAMETHASONE SOD PHOSPHATE INJ 4 MG/1 ML VIAL ONE (10:38)
[2018-09-21] MEDS ORDERED: ONDANSETRON HCL INJ/PF 4 MG/2 ML SDV ONE (10:38)
[2018-09-21] MEDS ORDERED: SUCCINYLCHOLINE CHLORIDE INJ 200 MG/10 ML VIAL ONE (10:38)
--- NOTE | 2018-09-21 12:14 | Operative Report ---
Operative Report DATE OF SURGERY: 09/21/18 PREOPERATIVE DIAGNOSIS: cholcystitis POSTOPERATIVE DIAGNOSIS: cholecystistis OPERATION: lap cholecystectomy iwth intraoperative cholangiogram SURGEON: MIKY GONZALEZ ANESTHESIA: GA TISSUE REMOVED OR ALTERED: gallbladder COMPLICATIONS: none ESTIMATED BLOOD LOSS: 25cc PROCEDURE: see dictation
--- NOTE | 2018-09-21 12:48 | OPERATIVE REPORT E ---
Operative Report NAME: ZOË ALATORRE : 1955 AGE: 63Y DATE OF SURGERY: 09/21/2018 ROOM: 415 PREOPERATIVE DIAGNOSIS: CHOLECYSTITIS. POSTOPERATIVE DIAGNOSIS: CHOLECYSTITIS. OPERATION: Laparoscopic cholecystectomy. SURGEON: MIKY GONZALEZ M.D. CAREER DEVELOPMENT ASSOCIATE: Josué Quezada, Resident medical student, third year. ANESTHESIA: General. PROCEDURE: The patient was brought to the operating room in awake, alert, and stable condition, and placed on the operating table in supine position, induced under general anesthesia, and intubated. The abdomen was prepped and draped in usual sterile manner for the procedure. A Veress needle was placed into the umbilicus and the abdomen was insufflated with 6 liters of CO2 gas. An infraumbilical 10 mm incision was made with a 10 blade and a 10 mm port placed in the abdominal cavity. Intraabdominal visualization revealed no evidence of a Veress needle and trocar injury. An epigastric 5 mm port was placed under direct vision and two lateral 5 mm ports all under direct vision. The gallbladder was acutely inflamed and distended. It required drainage with a cholecystostomy needle. Once that was completed, we placed the gallbladder on traction, identified the hepatoduodenal ligament. Cystic artery and cystic duct were both dissected out of the hepatojejunal ligament. One Endoclips was placed on the specimen side of the cystic duct and the cystic ductotomy was then performed. A contraband catheter was then placed into the cystic duct and intraoperative cholangiogram revealed no evidence of common bile duct stones with good flow to the duodenum as well as to the right and left hepatic ducts. Two Endoclips were placed on the stay side of the cystic duct. Similarly the cystic artery was handled. It was divided also. The gallbladder was dissected out of the liver bed with Bovie cautery, placed in an Endobag and removed through the umbilical port site. The right upper quadrant was irrigated with normal saline, suctioned dry. Hemostasis was obtained with Bovie cautery in the liver bed. Once good hemostasis was obtained, we then reirrigated the right upper quadrant with normal saline and suctioned dry. We then inspected the other abdominal structures. The duodenum was inspected as well as the liver. There was no evidence of any purulent material in other portions of the abdominal cavity. The duodenum appeared to be normal as well as the stomach, spleen, and there was no evidence of any fluid or purulence in the pelvis. After removing the gallbladder, we closed the umbilical port site with 0 Vicryl suture and then closed all 4 skin incisions with intracuticular 4-0 Monocryl. Steri-Strips completed the procedure. Estimated blood loss was less than 25 mL. Sponge and needle counts were correct x2. The patient was awakened in the operating room, extubated, and transferred to recovery in stable condition. No complications. DICTATING PHYSICIAN: MIKY GONZALEZ M.D. [id number] PHY#: [id number] ID: [id number] JOB#: [id number] ACCT: [id number] cc:MIKY GONZALEZ M.D. >
--- NOTE | 2018-09-21 14:09 | RADIOLOGY REPORT (SQ) ---
EXAM DESCRIPTION: CHOLANGIOGRAM OPERATIVE COMPLETED DATE/TIME: 09/21/2018 11:48 am REASON FOR STUDY: CHOLANGIOGRAM COMPARISON: None. FLUOROSCOPY TIME: Fluoroscopic time: 1.1 minutes Three images saved to PACS. TECHNIQUE: Cinegraphic images were obtained from an intraoperative cholangiogram. LIMITATIONS: None. FINDINGS: There is opacification of the bile ducts, cystic duct remnants and second portion of the d uodenum. Please see intraoperative procedure report. IMPRESSION: 1. INTRAOPERATIVE CHOLANGIOGRAM. Please see intraoperative procedure report. COMMENT: Quality ID [id number]: Final reports for procedures using fluoroscopy that document radiation exp osure indices, or exposure time and number of fluorographic images (if radiation exposure indices are not available) TECHNICAL DOCUMENTATION: JOB ID: [id number] [employer]- All Rights Reserved Reading location - IP/workstation name: [email or web address]
--- NOTE | 2018-09-21 16:42 | PDOC CONSULTATION ---
Consultation Consult Date: 09/21/18 Attending physician:: MAXIMILIAN HUDSON Consult reason:: Multiple medical problems and surgical clearance History of Present Illness Admission Date/PCP: 09/20/18 19:46 SHELLY SETHI MD Patient complains of: Abdominal pain, cholelithiasis History of Present Illness: ZOË ALATORRE is a 63 year old male Past Medical History Cardiac Medical History: Reports: Coronary Artery Disease, Myocardial Infarction - x2 TOTAL OF 11 STENTS/ MOST RECENT 08/21/16, Hyperlipidema, Hypertension Pulmonary Medical History: Denies: Asthma, Bronchitis, Chronic Obstructive Pulmonary Disease (COPD), Pneumonia Neurological Medical History: Denies: Seizures Endocrine Medical History: Reports: Diabetes Mellitus Type 2, Hypothyroidism Malignancy Medical History: Denies: Breast Cancer, Cervical Cancer, Ovarian Cancer GI Medical History: Reports: Gastroesophageal Reflux Disease Musculoskeltal Medical History: Denies: Arthritis Psychiatric Medical History: Reports: Depression, Tobacco Dependency Hematology: Denies: Anemia Past Surgical History Past Surgical History: Reports: Appendectomy, Cardiac Catheterization - last one was 2010, stent x 10, Coronary Artery Bypass Graft, Coronary Stent - [id number] recent was 2010, Tonsillectomy Social History Lives with: Family Smoking Status: Never Smoker Cigarettes Packs Per Day: 1 Frequency of Alcohol Use: None Hx Recreational Drug Use: No Drugs: None Hx Prescription Drug Abuse: No - Advance Directive Resuscitation Status: Full Code Family History Family History: CAD, CVA, Malignancy Parental Family History Reviewed: Yes Children Family History Reviewed: Yes Sibling(s) Family History Reviewed.: Yes Medication/Allergy Home Medications: Amlodipine Besylate [Norvasc 10 mg Tablet] 10 mg PO DAILY tablet 02/24/18 Atorvastatin Calcium [Lipitor 80 mg Tablet] 80 mg PO QHS tablet 02/24/18 Clopidogrel Bisulfate [Plavix 75 mg Tablet] 75 mg PO DAILY tablet 02/24/18 Diazepam [Valium 5 mg Tablet] 5 mg PO TIDP PRN tablet 02/24/18 Lisinopril [Prinivil 10 mg Tablet] 10 mg PO DAILY tablet 02/24/18 Nitroglycerin [Nitrostat 0.4 mg (1/150 Gr) Tabs 25/Bottle] 1 tab SL Q5MP PRN bottle 02/24/18 Aspirin [Ecotrin 325 mg EC Tablet] 325 mg PO DAILY 09/21/18 Fluticasone Propionate [Flonase Nasal [place] 50 Mcg/[place] 16 gm] 1 spray NASL Q12 09/21/18 Isosorbide Mononitrate [Isosorbide Mononitrate ER] 120 mg PO DAILY 09/21/18 Latanoprost [Xalatan 0.005% Oph Soln 2.5 ml] 1 drop OP QHS 09/21/18 Metformin HCl [Glucophage 500 mg Tablet] 1,000 mg PO DAILY 09/21/18 Morphine Sulfate [Morphine Sulfate ER] 30 mg PO Q12 09/21/18 Nitroglycerin [Nitrolingual] 12 gm TL Q5MP PRN 09/21/18 Oxymorphone HCl [Opana] 10 mg PO Q6HP PRN 09/21/18 Polyethylene Glycol 3350 [Miralax] 17 gm PO DAILYP PRN 09/21/18 Ranitidine HCl [Zantac 150 mg Tablet] 150 mg PO BID 09/21/18 Ranolazine [Ranexa] 1,000 mg PO BID 09/21/18 Sertraline HCl [Zoloft] 50 mg PO Q12 09/21/18 Allergies/Adverse Reactions: adhesive [Adhesive] Allergy (Severe, Verified 09/21/18 10:56) peels skin gabapentin [From Neurontin] Allergy (Unknown, Verified 09/21/18 10:56) disoriented levofloxacin [From Levaquin] Allergy (Unknown, Verified 09/21/18 10:56) Sulfa (Sulfonamide Antibiotics) Allergy (Unknown, Verified 09/21/18 10:56) skin wilson tramadol [Tramadol] Allergy (Unknown, Verified 09/21/18 10:56) ibuprofen [From Motrin] Allergy (Verified 09/21/18 10:56) Review of Systems All systems: as per PMH Physical Exam Vital Signs: Temp Pulse Resp BP Pulse Ox 97.9 F 66 18 95/56 L 97 09/21/18 14:35 09/21/18 14:35 09/21/18 14:35 09/21/18 14:35 09/21/18 14:35 Intake & Output 09/20/18 09/21/18 09/22/18 06:59 06:59 06:59 Intake Total 3200 2555 Output Total 2325 295 Balance 875 2260 Weight 88.9 kg General appearance: PRESENT: mild distress Head exam: PRESENT: atraumatic Eye exam: PRESENT: conjunctiva pink Respiratory exam: PRESENT: clear to auscultation bessy Cardiovascular exam: PRESENT: RRR, +S1, +S2 Pulses: PRESENT: +1 pedal pulses bilateral GI/Abdominal exam: PRESENT: soft, tenderness. ABSENT: guarding, rebound Extremities exam: PRESENT: full ROM Musculoskeletal exam: PRESENT: ambulatory Neurological exam: PRESENT: alert, awake, oriented to person, oriented to place, oriented to time Results Laboratory Results: 09/20/18 15:58 09/20/18 15:58 09/20/18 09/20/18 09/20/18 15:58 15:58 16:30 WBC 8.2 RBC 4.16 L Hgb 12.9 L Hct 38.7 MCV 93 MCH 31.1 MCHC 33.4 RDW 15.5 H Plt Count 183 Seg Neutrophils % 81.7 H Lymphocytes % 13.7 Monocytes % 3.5 Eosinophils % 0.8 Basophils % 0.3 Absolute Neutrophils 6.7 Absolute Lymphocytes 1.1 Absolute Monocytes 0.3 Absolute Eosinophils 0.1 Absolute Basophils 0.0 VBG pH 7.41 VBG pCO2 43.2 VBG HCO3 27.0 VBG Base Excess 2.0 Sodium 141.0 Potassium 4.1 Chloride 104 Carbon Dioxide 29 Anion Gap 8 BUN 8 Creatinine 0.88 Est GFR ( Amer) > 60 Est GFR (Non-Af Amer) > 60 Glucose 95 Lactic Acid Calcium 9.2 Total Bilirubin 0.9 AST 28 ALT 31 Alkaline Phosphatase 68 Total Protein 7.3 Albumin 4.2 Urine Color Urine Appearance Urine pH Ur Specific [place] Urine Protein Urine Glucose (UA) Urine Ketones Urine Blood Urine Nitrite Ur Leukocyte Esterase Urine WBC (Auto) Urine RBC (Auto) 09/20/18 09/20/18 16:30 20:14 WBC RBC Hgb Hct MCV MCH MCHC RDW Plt Count Seg Neutrophils % Lymphocytes % Monocytes % Eosinophils % Basophils % Absolute Neutrophils Absolute Lymphocytes Absolute Monocytes Absolute Eosinophils Absolute Basophils VBG pH VBG pCO2 VBG HCO3 VBG Base Excess Sodium Potassium Chloride Carbon Dioxide Anion Gap BUN Creatinine Est GFR ( Amer) Est GFR (Non-Af Amer) Glucose Lactic Acid 1.2 Calcium Total Bilirubin AST ALT Alkaline Phosphatase Total Protein Albumin Urine Color YELLOW Urine Appearance CLEAR Urine pH 5.0 Ur Specific [place] 1.008 Urine Protein NEGATIVE Urine Glucose (UA) NEGATIVE Urine Ketones NEGATIVE Urine Blood NEGATIVE Urine Nitrite NEGATIVE Ur Leukocyte Esterase NEGATIVE Urine WBC (Auto) 0 Urine RBC (Auto) 0 Impressions: Chest X-Ray 09/20/18 18:22 IMPRESSION: NO ACUTE RADIOGRAPHIC FINDING IN THE CHEST. Abdomen/Pelvis CT 09/20/18 18:25 IMPRESSION: Mild distention of the gallbladder with small gallstones in the dependent portion. There is mild dilatation of the intrahepatic biliary ducts however the common bile duct is normal in caliber. There are no obstructing lesions identified. Circumferential wall thickening of the urinary bladder may be related to cystitis, underdistention or chronic outlet obstruction. Correlate with urinalysis. Cholangiogram 09/21/18 00:00 IMPRESSION: 1. INTRAOPERATIVE CHOLANGIOGRAM. Please see intraoperative procedure report. Assessment & Plan - Diagnosis (1) Chronic pain syndrome Is this a current diagnosis for this admission?: Yes Plan: Currently under the care of [facility] pain [facility]. I would continue with the same medications (2) Cholelithiasis Is this a current diagnosis for this admission?: Yes Plan: Status post laparoscopic cholecystectomy (3) Sepsis Is this a current diagnosis for this admission?: Yes Plan: Continue current antibiotics status post laparoscopic cholecystectomy (4) CAD (coronary artery disease) Qualifiers: Coronary Disease-Associated Artery/Lesion type: unspecified vessel or lesion type [place] vs. transplanted heart: [place] heart Associated angina: with unspecified angina Qualified Code(s): I25.119 - Atherosclerotic heart disease of [place] coronary artery with unspecified angina pectoris Is this a current diagnosis for this admission?: Yes Plan: Continue current medications (5) Chronic pain syndrome Is this a current diagnosis for this admission?: Yes Plan: Continue current treatment (6) Diabetes mellitus Qualifiers: Diabetes mellitus type: type 2 Is this a current diagnosis for this admission?: Yes Plan: Relatively well controlled as an outpatient. I would continue with the same medications once not n.p.o. (7) Dyslipidemia Is this a current diagnosis for this admission?: Yes Plan: Continue current treatment (8) Hypertension Qualifiers: Hypertension type: essential hypertension Qualified Code(s): I10 - Essential (primary) hypertension Is this a current diagnosis for this admission?: Yes Plan: Well controlled with oral medication with continue current treatment (9) Smoker Is this a current diagnosis for this admission?: Yes Plan: Discussed smoking cessation.
[2018-09-21] MEDS ORDERED: NITROGLYCERIN 0.4 MG/TAB 25 TAB/BOTTLE SL PRN (16:52)
[2018-09-21] MEDS ORDERED: DIAZEPAM 5 MG TABLET PO PRN (16:52)
[2018-09-21] MEDS ORDERED: (PENDING PHARMACY ID) (Oxymorphone Hcl [Opana] 10 MG) PO PRN (16:52)
[2018-09-21] MEDS ORDERED: NITROGLYCERIN TL PRN (16:52)
[2018-09-21] MEDS ORDERED: (PENDING PHARMACY ID) (Polyethylene Glycol 3350 [Miralax] 17 GM) PO PRN (16:52)
[2018-09-21] MEDS ORDERED: POLYETHYLENE GLYCOL 3350 POWDER 17 GM/1 PACKET PO PRN (17:56)
[2018-09-21] MEDS ORDERED: (PENDING PHARMACY ID) (Ranitidine Hcl [Zantac 150 Mg Tablet] 150 MG) PO SCH (18:00)
[2018-09-21] MEDS ORDERED: (PENDING PHARMACY ID) (Ranolazine [Ranexa] 1,000 MG) PO SCH (18:00)
[2018-09-21] MEDS: RANOLAZINE 500 MG TAB.SR.12H PO SCH (18:30)
[2018-09-21] MEDS: FAMOTIDINE 20 MG TABLET PO SCH (18:30)
[2018-09-21] MEDS: MORPHINE SULFATE SR 30 MG TABLET PO SCH (21:25)
[2018-09-21] MEDS: FLUTICASONE NASAL SPRAY 50 MCG/SPRY 120 SPRAY/16 GM NASL SCH (21:25)
[2018-09-21] MEDS: ATORVASTATIN CALCIUM 80 MG TABLET PO SCH (21:25)
[2018-09-21] MEDS: SERTRALINE HCL 50 MG TABLET PO SCH (21:25)
[2018-09-21] MEDS: LATANOPROST 0.005% OPH SOLN 2.5 ML OU SCH (21:27)
[2018-09-21] MEDS ORDERED: (PENDING PHARMACY ID) (Sertraline Hcl [Zoloft] 50 MG) PO SCH (22:00)
[2018-09-21] MEDS ORDERED: (PENDING PHARMACY ID) (Morphine Sulfate [Morphine Sulfate Er] 30 MG) PO SCH (22:00)
[2018-09-22] MEDS: PIPERACILLIN SODIUM/TAZOBACTAM 3.375 GM in NORMAL SALINE 100 ML IV SCH ×2 (03:34→09:23)
[2018-09-22 08:33] LABS: ABSOLUTE MONOCYTES (AUTO) 0.7 10^3/uL (0.1-1.4); HEMOGLOBIN 11.5 g/dL (13.5-17.0); TOTAL CELLS COUNTED % (AUTO) 100 %
[2018-09-22 08:44] LABS: ABSOLUTE LYMPHOCYTES (AUTO) 0.5 10^3/uL (0.5-4.7); ABSOLUTE NEUT (AUTO) 8.5 10^3/uL (1.7-8.2); BASOPHILS % (AUTO) 0.1 % (0-2); HEMATOCRIT 34.3 % (37.9-51.0); LYMPHOCYTES % (AUTO) 5.3 % (13-45); MEAN CORPUSCULAR HEMOGLOBIN 31.1 pg (27.0-33.4); MEAN CORPUSCULAR HGB CONC 33.7 g/dL (32.0-36.0); MEAN CORPUSCULAR VOLUME 92 fl (80-97); MONOCYTES % (AUTO) 6.8 % (3-13); PLATELET COUNT 114 10^3/uL (150-450); RED BLOOD COUNT 3.71 10^6/uL (4.35-5.55); RED CELL DISTRIBUTION WIDTH 15.5 % (11.5-14.0); SEGMENTED NEUTROPHILS % (AUTO) 87.8 % (42-78); WHITE BLOOD COUNT 9.7 10^3/uL (4.0-10.5)
[2018-09-22 08:50] LABS: ALANINE AMINOTRANSFERASE 71 U/L (21-72); ALBUMIN 3.3 g/dL (3.5-5.0); ALKALINE PHOSPHATASE 64 U/L (38-126); ANION GAP 7 (5-19); ASPARTATE AMINO TRANSFERASE 83 U/L (17-59); BLOOD UREA NITROGEN 9 mg/dL (7-20); CALCIUM 8.7 mg/dL (8.4-10.2); CARBON DIOXIDE 25 mmol/L (22-30); CHLORIDE 111 mmol/L (98-107); GLUCOSE 160 mg/dL (75-110); SODIUM 143.2 mmol/L (137-145)
[2018-09-22 08:51] LABS: BILIRUBIN,DIRECT 0.7 mg/dL (0.0-0.4); BILIRUBIN,TOTAL 1.7 mg/dL (0.2-1.3); TOTAL PROTEIN 5.9 g/dL (6.3-8.2)
[2018-09-22] MEDS: NORMAL SALINE 1000 ML 1,000 ML IV PRN (09:22)
[2018-09-22] MEDS: SERTRALINE HCL 50 MG TABLET PO SCH ×2 (09:24→21:28)
[2018-09-22] MEDS: FAMOTIDINE 20 MG TABLET PO SCH ×2 (09:25→17:01)
[2018-09-22] MEDS: MORPHINE SULFATE SR 30 MG TABLET PO SCH ×2 (09:25→21:27)
[2018-09-22] MEDS: FLUTICASONE NASAL SPRAY 50 MCG/SPRY 120 SPRAY/16 GM NASL SCH ×2 (09:26→21:27)
[2018-09-22] MEDS: RANOLAZINE 500 MG TAB.SR.12H PO SCH ×2 (09:26→17:01)
[2018-09-22] MEDS ORDERED: ISOSORBIDE MONONITRATE 60 MG TAB.ER.24H PO SCH (10:00)
[2018-09-22] MEDS ORDERED: LISINOPRIL 10 MG TABLET PO SCH (10:00)
[2018-09-22] MEDS ORDERED: AMLODIPINE BESYLATE 10 MG TABLET PO SCH (10:00)
[2018-09-22] MEDS ORDERED: ASPIRIN 325 MG TABLET, ENT COATED PO SCH (10:00)
[2018-09-22] MEDS ORDERED: (PENDING PHARMACY ID) (Isosorbide Mononitrate [Isosorbide Mononitrate Er] 120 MG) PO SCH (10:00)
[2018-09-22] MEDS ORDERED: CLOPIDOGREL BISULFATE 75 MG TABLET PO SCH (10:00)
[2018-09-22] MEDS ORDERED: METFORMIN HCL 500 MG TABLET PO SCH (10:00)
--- NOTE | 2018-09-22 11:30 | PDOC PROGRESS REPORT ---
Subjective Progress Note for:: 09/22/18 Subjective:: patient feels better since surgery; however, he still reports lower abdominal discomfort Reason For Visit: SEPSIS Physical Exam Vital Signs: Temp Pulse Resp BP Pulse Ox 98.9 F 75 18 106/70 92 09/22/18 03:11 09/22/18 03:11 09/22/18 03:11 09/22/18 03:11 09/22/18 03:11 Intake & Output 09/21/18 09/22/18 09/23/18 06:59 06:59 06:59 Intake Total 3200 3841 Output Total 2325 2095 Balance 875 1746 Weight 88.9 kg 92.5 kg General appearance: PRESENT: no acute distress, cooperative Respiratory exam: PRESENT: clear to auscultation bessy Cardiovascular exam: PRESENT: RRR GI/Abdominal exam: PRESENT: hypoactive bowel sounds, soft, other - incisions c/d/i Results Laboratory Results: 09/22/18 08:05 09/22/18 08:05 09/22/18 09/22/18 08:05 08:05 WBC 9.7 RBC 3.71 L Hgb 11.5 L Hct 34.3 L MCV 92 MCH 31.1 MCHC 33.7 RDW 15.5 H Plt Count 114 L Seg Neutrophils % 87.8 H Lymphocytes % 5.3 L Monocytes % 6.8 Eosinophils % 0.0 Basophils % 0.1 Absolute Neutrophils 8.5 H Absolute Lymphocytes 0.5 Absolute Monocytes 0.7 Absolute Eosinophils 0.0 Absolute Basophils 0.0 Sodium 143.2 Potassium 4.0 Chloride 111 H Carbon Dioxide 25 Anion Gap 7 BUN 9 Creatinine 0.76 Est GFR ( Amer) > 60 Est GFR (Non-Af Amer) > 60 Glucose 160 H Calcium 8.7 Total Bilirubin 1.7 H AST 83 H ALT 71 Alkaline Phosphatase 64 Total Protein 5.9 L Albumin 3.3 L Impressions: Chest X-Ray 09/20/18 18:22 IMPRESSION: NO ACUTE RADIOGRAPHIC FINDING IN THE CHEST. Abdomen/Pelvis CT 09/20/18 18:25 IMPRESSION: Mild distention of the gallbladder with small gallstones in the dependent portion. There is mild dilatation of the intrahepatic biliary ducts however the common bile duct is normal in caliber. There are no obstructing lesions identified. Circumferential wall thickening of the urinary bladder may be related to cystitis, underdistention or chronic outlet obstruction. Correlate with urinalysis. Cholangiogram 09/21/18 00:00 IMPRESSION: 1. INTRAOPERATIVE CHOLANGIOGRAM. Please see intraoperative procedure report. Assessment & Plan - Diagnosis (1) Positive blood culture Is this a current diagnosis for this admission?: Yes (2) Abdominal pain Qualifiers: Abdominal location: lower abdomen, unspecified Qualified Code(s): R10.30 - Lower abdominal pain, unspecified Is this a current diagnosis for this admission?: Yes (3) Cholelithiasis Qualifiers: Cholelithiasis location: gallbladder Biliary obstruction: without biliary obstruction Is this a current diagnosis for this admission?: Yes - Plan Summary Plan Summary: A/ POD#1 after lap cali for cholecystitis and cholelithiasis Fever 102.8 last evening, afebrile today Normal WBC Diarrhea this AM Lower abdominal cramp-like pain P/ Continue Full liquid diet Continue IVF Continue Zosyn of other antibiotics as per PCP Send stools for C. Difficilis, WBC, and cx Continue hospitalization at this time
[2018-09-22] MEDS ORDERED: NORMAL SALINE 1000 ML 1,000 ML IV PRN ×2 (11:33→11:35)
--- NOTE | 2018-09-22 11:40 | PDOC PROGRESS REPORT ---
Subjective Progress Note for:: 09/22/18 Subjective:: The patient states to feel better. He is still having some lower abdominal discomfort. He is 1 day postop. He has tolerated clear liquids well. He is having some diarrhea Reason For Visit: SEPSIS Physical Exam Vital Signs: Temp Pulse Resp BP Pulse Ox 98.9 F 75 18 106/70 92 09/22/18 03:11 09/22/18 03:11 09/22/18 03:11 09/22/18 03:11 09/22/18 03:11 Intake & Output 09/21/18 09/22/18 09/23/18 06:59 06:59 06:59 Intake Total 3200 3841 100 Output Total 2325 2095 Balance 875 1746 100 Weight 88.9 kg 92.5 kg General appearance: PRESENT: mild distress Head exam: PRESENT: atraumatic Eye exam: PRESENT: conjunctiva pink Neck exam: ABSENT: carotid bruit, JVD Respiratory exam: PRESENT: clear to auscultation bessy Cardiovascular exam: PRESENT: RRR, +S1, +S2 GI/Abdominal exam: PRESENT: soft, tenderness Extremities exam: PRESENT: full ROM Musculoskeletal exam: PRESENT: ambulatory Neurological exam: PRESENT: alert, awake, oriented to person, oriented to place, oriented to time Results Laboratory Results: 09/22/18 08:05 09/22/18 08:05 09/22/18 09/22/18 08:05 08:05 WBC 9.7 RBC 3.71 L Hgb 11.5 L Hct 34.3 L MCV 92 MCH 31.1 MCHC 33.7 RDW 15.5 H Plt Count 114 L Seg Neutrophils % 87.8 H Lymphocytes % 5.3 L Monocytes % 6.8 Eosinophils % 0.0 Basophils % 0.1 Absolute Neutrophils 8.5 H Absolute Lymphocytes 0.5 Absolute Monocytes 0.7 Absolute Eosinophils 0.0 Absolute Basophils 0.0 Sodium 143.2 Potassium 4.0 Chloride 111 H Carbon Dioxide 25 Anion Gap 7 BUN 9 Creatinine 0.76 Est GFR ( Amer) > 60 Est GFR (Non-Af Amer) > 60 Glucose 160 H Calcium 8.7 Total Bilirubin 1.7 H AST 83 H ALT 71 Alkaline Phosphatase 64 Total Protein 5.9 L Albumin 3.3 L Impressions: Chest X-Ray 09/20/18 18:22 IMPRESSION: NO ACUTE RADIOGRAPHIC FINDING IN THE CHEST. Abdomen/Pelvis CT 09/20/18 18:25 IMPRESSION: Mild distention of the gallbladder with small gallstones in the dependent portion. There is mild dilatation of the intrahepatic biliary ducts however the common bile duct is normal in caliber. There are no obstructing lesions identified. Circumferential wall thickening of the urinary bladder may be related to cystitis, underdistention or chronic outlet obstruction. Correlate with urinalysis. Cholangiogram 09/21/18 00:00 IMPRESSION: 1. INTRAOPERATIVE CHOLANGIOGRAM. Please see intraoperative procedure report. Assessment & Plan - Diagnosis (1) Chronic pain syndrome Is this a current diagnosis for this admission?: Yes (2) Cholelithiasis Qualifiers: Cholelithiasis location: gallbladder Biliary obstruction: without biliary obstruction Is this a current diagnosis for this admission?: Yes Plan: 1 day postop for lap cali (3) Sepsis Is this a current diagnosis for this admission?: Yes Plan: 1 bottle of blood cultures positive for gram-negative rods (4) CAD (coronary artery disease) Qualifiers: Coronary Disease-Associated Artery/Lesion type: unspecified vessel or lesion type [place] vs. transplanted heart: [place] heart Associated angina: with unspecified angina Qualified Code(s): I25.119 - Atherosclerotic heart disease of [place] coronary artery with unspecified angina pectoris Is this a current diagnosis for this admission?: Yes Plan: Continue current medications (5) Chronic pain syndrome Is this a current diagnosis for this admission?: Yes Plan: Continue current treatment (6) Diabetes mellitus Qualifiers: Diabetes mellitus type: type 2 Is this a current diagnosis for this admission?: Yes Plan: Relatively well controlled as an outpatient. I would continue with the same medications once not n.p.o. (7) Dyslipidemia Is this a current diagnosis for this admission?: Yes (8) Hypertension Qualifiers: Hypertension type: essential hypertension Qualified Code(s): I10 - Essential (primary) hypertension Is this a current diagnosis for this admission?: Yes (9) Smoker Is this a current diagnosis for this admission?: Yes
[2018-09-22] MEDS: DOXYCYCLINE HYCLATE 100 MG TABLET PO SCH ×2 (12:17→21:27)
[2018-09-22] MEDS: METRONIDAZOLE 250 MG TABLET PO SCH ×2 (13:58→21:28)
[2018-09-22] MEDS: LATANOPROST 0.005% OPH SOLN 2.5 ML OU SCH (21:23)
[2018-09-22] MEDS: ATORVASTATIN CALCIUM 80 MG TABLET PO SCH (21:28)
[2018-09-23] MEDS: METRONIDAZOLE 250 MG TABLET PO SCH (05:32)
--- NOTE | 2018-09-23 08:08 | Discharge Summary ---
Discharge Summary (SDC) - Discharge Final Diagnosis: cholecystitis Date of Surgery: 09/21/18 Discharge Date: 09/23/18 Condition: Good Treatment or Instructions: oral antibiotics for 10 days post op doxcycline 100mg bid Referrals: [facility] [Provider Group] (S/P BESSY ABRIL 09/21) SHELLY SETHI MD [Primary Care Provider] - Follow up as needed Discharge Diet: As Tolerated Discharge Activity: Activity As Tolerated, No Lifting Over 10 Pounds Report the Following to Your Physician Immediately: Nausea, Vomiting, Increase in Pain, Yellow Skin, Fever over 101 Degrees
[2018-09-23 08:18] VITALS: BP 130/86
--- NOTE | 2018-09-23 08:38 | DISCHARGE SUMMARY E ---
Discharge Summary NAME: ZOË ALATORRE : 1955 AGE: 63Y ADMITTED: 09/20/2018 DISCHARGED: 09/23/2018 The patient is being discharged from room 415. ADMITTING DIAGNOSIS: Cholecystitis. DISCHARGE DIAGNOSIS: Cholecystitis. OPERATIVE PROCEDURE: Laparoscopic cholecystectomy with intraoperative cholangiogram. SURGEON: Simone Gonzalez M.D. REASON FOR HOSPITALIZATION/HOSPITAL COURSE: The patient presented to the emergency room on the 20 of September with acute abdominal pain, tachycardia, fever, and rigors. He had abdominal tenderness that was nonlocalized. He had a known history of cholelithiasis. Initially the patient underwent a CT scan of his abdomen which showed a thickened gallbladder wall but no evidence of any visceral perforation. He was started on IV antibiotics and the following morning was taken to the operating room for laparoscopic cholecystectomy. He underwent that procedure and tolerated it well. Postoperatively he had some postoperative diarrhea which was checked for Clostridium difficile which was negative. He was continued on IV antibiotics and continued to improve. The following day, on postop day #2, he was afebrile, stable vital signs, he was tolerating a regular diet, his diarrhea had essentially resolved, his abdomen was soft and nontender, and he was ready for discharge home. There was 1 positive blood culture with Gram-negative rods. He will be discharged home on oral doxycycline 100 mg p.o. b.i.d. for 10 days. He will follow up with me in [facility] approximately 7 to 10 days after discharge. He has pain medicine at home and will continue this as necessary. He was instructed not to lift anything greater than 5 to 10 pounds for the next 6 weeks and notify the Surgery Clinic should he start developing increasing fevers or chills, abdominal pain, recurrent diarrhea, or should he notice any other changes in his skin color or wound drainage. DICTATING PHYSICIAN: SIMONE GONZALEZ M.D. [id number] PHY#: [id number] ID: [id number] JOB#: [id number] ACCT: [id number] cc:Mac REINOSO M.D. >
--- NOTE | 2018-09-23 08:46 | PDOC PROGRESS REPORT ---
Subjective Progress Note for:: 09/23/18 Subjective:: The patient states to feel better. He denies any further fever. He denies any abdominal pain or diarrhea. His blood cultures are positive and are sensitive to tetracycline Reason For Visit: SEPSIS Physical Exam Vital Signs: Temp Pulse Resp BP Pulse Ox 97.9 F 58 L 16 130/86 H 100 09/23/18 07:33 09/23/18 07:33 09/23/18 07:33 09/23/18 07:33 09/23/18 07:33 Intake & Output 09/22/18 09/23/18 09/24/18 06:59 06:59 06:59 Intake Total 3841 3809 Output Total 2095 400 Balance 1746 3409 Weight 92.5 kg 93.4 kg General appearance: PRESENT: no acute distress Eye exam: PRESENT: conjunctiva pink Mouth exam: PRESENT: dry mucosa Respiratory exam: PRESENT: clear to auscultation bessy Cardiovascular exam: PRESENT: RRR, +S2 GI/Abdominal exam: PRESENT: normal bowel sounds, soft, tenderness Extremities exam: PRESENT: full ROM Musculoskeletal exam: PRESENT: ambulatory Results Laboratory Results: 09/22/18 08:05 09/22/18 08:05 09/22/18 09/22/18 09/22/18 08:05 08:05 13:00 WBC 9.7 RBC 3.71 L Hgb 11.5 L Hct 34.3 L MCV 92 MCH 31.1 MCHC 33.7 RDW 15.5 H Plt Count 114 L Seg Neutrophils % 87.8 H Lymphocytes % 5.3 L Monocytes % 6.8 Eosinophils % 0.0 Basophils % 0.1 Absolute Neutrophils 8.5 H Absolute Lymphocytes 0.5 Absolute Monocytes 0.7 Absolute Eosinophils 0.0 Absolute Basophils 0.0 Sodium 143.2 Potassium 4.0 Chloride 111 H Carbon Dioxide 25 Anion Gap 7 BUN 9 Creatinine 0.76 Est GFR ( Amer) > 60 Est GFR (Non-Af Amer) > 60 Glucose 160 H Calcium 8.7 Total Bilirubin 1.7 H AST 83 H ALT 71 Alkaline Phosphatase 64 Total Protein 5.9 L Albumin 3.3 L Stool for White Cells NO WBCs SEEN 09/20/18 16:30 Blood Blood Culture - Final Enterobacter Cloacae Impressions: Chest X-Ray 09/20/18 18:22 IMPRESSION: NO ACUTE RADIOGRAPHIC FINDING IN THE CHEST. Abdomen/Pelvis CT 09/20/18 18:25 IMPRESSION: Mild distention of the gallbladder with small gallstones in the dependent portion. There is mild dilatation of the intrahepatic biliary ducts however the common bile duct is normal in caliber. There are no obstructing lesions identified. Circumferential wall thickening of the urinary bladder may be related to cystitis, underdistention or chronic outlet obstruction. Correlate with urinalysis. Cholangiogram 09/21/18 00:00 IMPRESSION: 1. INTRAOPERATIVE CHOLANGIOGRAM. Please see intraoperative procedure report. Assessment & Plan - Diagnosis (1) Chronic pain syndrome Is this a current diagnosis for this admission?: Yes (2) Cholelithiasis Qualifiers: Cholelithiasis location: gallbladder Biliary obstruction: without biliary obstruction Is this a current diagnosis for this admission?: Yes Plan: 1 day postop for lap cali (3) Sepsis Is this a current diagnosis for this admission?: Yes Plan: Status post lap cali with positive blood cultures sensitive to tetracycline. (4) CAD (coronary artery disease) Qualifiers: Coronary Disease-Associated Artery/Lesion type: unspecified vessel or lesion type [place] vs. transplanted heart: [place] heart Associated angina: with unspecified angina Qualified Code(s): I25.119 - Atherosclerotic heart disease of [place] coronary artery with unspecified angina pectoris Is this a current diagnosis for this admission?: Yes Plan: Continue current medications (5) Chronic pain syndrome Is this a current diagnosis for this admission?: Yes Plan: Continue current treatment (6) Diabetes mellitus Qualifiers: Diabetes mellitus type: type 2 Is this a current diagnosis for this admission?: Yes (7) Dyslipidemia Is this a current diagnosis for this admission?: Yes (8) Hypertension Qualifiers: Hypertension type: essential hypertension Qualified Code(s): I10 - Essential (primary) hypertension Is this a current diagnosis for this admission?: Yes (9) Smoker Is this a current diagnosis for this admission?: Yes
[2018-09-23 09:57] LABS: ABSOLUTE LYMPHOCYTES (AUTO) 1.2 10^3/uL (0.5-4.7); ABSOLUTE MONOCYTES (AUTO) 0.4 10^3/uL (0.1-1.4); ABSOLUTE NEUT (AUTO) 4.7 10^3/uL (1.7-8.2); HEMOGLOBIN 12.3 g/dL (13.5-17.0); MEAN CORPUSCULAR HEMOGLOBIN 31.3 pg (27.0-33.4); MEAN CORPUSCULAR HGB CONC 34.2 g/dL (32.0-36.0); TOTAL CELLS COUNTED % (AUTO) 100 %
[2018-09-23 10:10] LABS: BASOPHILS % (AUTO) 0.2 % (0-2); EOSINOPHILS % (AUTO) 0.3 % (0-6); HEMATOCRIT 35.9 % (37.9-51.0); LYMPHOCYTES % (AUTO) 18.8 % (13-45); MEAN CORPUSCULAR VOLUME 92 fl (80-97); MONOCYTES % (AUTO) 6.8 % (3-13); PLATELET COUNT 131 10^3/uL (150-450); RED BLOOD COUNT 3.92 10^6/uL (4.35-5.55); RED CELL DISTRIBUTION WIDTH 15.7 % (11.5-14.0); SEGMENTED NEUTROPHILS % (AUTO) 73.9 % (42-78); WHITE BLOOD COUNT 6.3 10^3/uL (4.0-10.5)
[2018-09-23 10:15] LABS: ALANINE AMINOTRANSFERASE 64 U/L (21-72); ALBUMIN 3.9 g/dL (3.5-5.0); ALKALINE PHOSPHATASE 73 U/L (38-126); ANION GAP 12 (5-19); ASPARTATE AMINO TRANSFERASE 51 U/L (17-59); BILIRUBIN,DIRECT 0.3 mg/dL (0.0-0.4); BLOOD UREA NITROGEN 9 mg/dL (7-20); CALCIUM 9.3 mg/dL (8.4-10.2); CARBON DIOXIDE 23 mmol/L (22-30); CHLORIDE 107 mmol/L (98-107); GLUCOSE 142 mg/dL (75-110); POTASSIUM 3.6 mmol/L (3.6-5.0); SODIUM 141.9 mmol/L (137-145); TOTAL PROTEIN 6.8 g/dL (6.3-8.2)
--- NOTE | 2018-10-05 16:32 | Physician Advisory Note ---
Physician Advisor ProgressNote .: Pursuant to the plan for [facility], I have reviewed the medical record for this patient. Physician Advisor Statement: Asked to review chart r.e. sepsis dx. Case already has a query r.e. cholecystitis dx on chart awaiting response. Pt came in w/fever 103, chills, tachypnea 25, tachycardia 101 on EKG, BP as low as 82/54 (MAP's as low as 63 @22:13, 66 @00:00, 69 @14:29 on 09/21/18). Plts dropped from 183 on 3/3PM to 114 on 35 AM. Lactate level 1.2, TBili WNL ini tially, no PHILLY or clear hypoxemia.... BC (+) 1 of 2 from day 1 for enterobacter. Tx'd w/IV abx begun urgently, & urgent IVF @250ml/hr from 09/20 at 18:15 until 09/22 at 14:22. Sepsis protocol order set was not used that I can tell, lactate level was not re-checked. Attending, please clarify in documentation which diagnostic statement is accurate in relation to each of the following 2 dx.s in this case: 1. ? about sepsis dx: A. "Sepsis, evidenced by fever/tachycardia/tachypnea/(+)BC/hypotension due to sepsis, & thrombocytopenia due to sepsis that was present 3/5AM & likely developing the first night." B. "Sepsis, evidenced by fever/tachycardia/tachypnea/(+)BC, but not causing any acute organ dysfunction." (or, causing either hypotension or thrombocytopenia but not both) C. "Enterobacter bacteremia; sepsis was considered but ruled out - the acute cholecystitis alone was sufficient to explain the F/C/tachypnea/tachycardia, & the hypotension was due to ." D. or specific other statement that addresses these issues most precisely. 2. ? about cholecystitis dx: A. "Acute on chronic cholecystitis" (as stated on path report) B. "Acute cholecystitis only" C. "Chronic cholecystitis only" Thanks! (We need to clarify w/sepsis now not just (1) the info supporting the dx, but also (2) any acute organ dysfunction caused by the sepsis.) CK
--- NOTE | 2018-10-06 09:39 | DISCHARGE SUMMARY E ---
Discharge Summary NAME: ZOË ALATORRE : 1955 AGE: 63Y ADMITTED: 09/20/2018 DISCHARGED: 09/23/2018 ADDENDUM FINAL DIAGNOSIS: Acute and chronic cholecystitis. Pathology report revealed the operative specimen to be acute and chronic cholecystitis, which I agree with. DICTATING PHYSICIAN: MIKY GONZALEZ M.D. [id number] PHY#: [id number] ID: [id number] JOB#: [id number] ACCT: [id number] cc:MIKY GONZALEZ M.D., WILLIAM M.D. >
--- NOTE | 2018-10-06 13:07 | DISCHARGE SUMMARY E ---
Discharge Summary NAME: ZOË ALATORRE : 1955 AGE: 63Y ADMITTED: 09/20/2018 DISCHARGED: 09/23/2018 ADDENDUM: The final pathology report stated acute on chronic cholecystitis, which I agree with. The patient was admitted with diagnosis of cholecystitis and sepsis. Sepsis was evidenced by fever, tachycardia, and tachypnea upon admission with a positive blood culture, but there was no evidence of acute kidney failure or organ damage. It did result in slight hypotension which was treated with IV fluid resuscitation. DICTATING PHYSICIAN: MIYK GONZALEZ M.D. [id number] PHY#: [id number] ID: [id number] JOB#: [id number] ACCT: [id number] cc:MIKY GONZALEZ M.D., WILLIAM M.D. >
== END 2018-09-23 10:37 | disposition home or self-care (01) | DRG 417 ==
LOC: ER 15:47 → EH 19:46 → 4N 21:34
PROVIDERS: ATTEND Surgery
PROC: BF101ZZ Fluoroscopy of Bile Ducts using Low Osmolar Contrast (ICD-10-PCS; 2018-09-21)
PROC: 0FT44ZZ Resection of Gallbladder, Percutaneous Endoscopic Approach (ICD-10-PCS; principal; 2018-09-21 10:15)
DX: K80.12 Calculus of gallbladder with acute and chronic cholecystitis without obstruction (principal); A41.9 Sepsis, unspecified organism; I25.10 Atherosclerotic heart disease of native coronary artery without angina pectoris; E11.9 Type 2 diabetes mellitus without complications; G89.4 Chronic pain syndrome; M54.16 Radiculopathy, lumbar region; F17.200 Nicotine dependence, unspecified, uncomplicated; E78.5 Hyperlipidemia, unspecified; I25.2 Old myocardial infarction; I10 Essential (primary) hypertension; Z95.5 Presence of coronary angioplasty implant and graft; K21.9 Gastro-esophageal reflux disease without esophagitis; F32.9 Major depressive disorder, single episode, unspecified; Z90.49 Acquired absence of other specified parts of digestive tract; Z79.899 Other long term (current) drug therapy; Z82.49 Family history of ischemic heart disease and other diseases of the circulatory system; Z82.3 Family history of stroke; Z88.2 Allergy status to sulfonamides; Z88.1 Allergy status to other antibiotic agents; Z88.8 Allergy status to other drugs, medicaments and biological substances; E03.9 Hypothyroidism, unspecified; Z79.82 Long term (current) use of aspirin
CPT/HCPCS: 36415; 71045; 74177; 74300; 790; 80048; 80053; 80076; 81001; 82803; 82962; 83605; 85025; 85610; 87040; 87045; 87077; 87186; 87205; 87493; 89055; 93005; 93010; 99283; J0131; J0330; J1100; J1170; J2250; J2270; J2405; J2543; J2704; J3010; J3490; J7030; J7120

== ENCOUNTER 2018-09-26 19:50 | Emergency (ER) | payer MEDICARE, MEDICAID ==
[2018-09-26] MEDS ORDERED: ACETAMINOPHEN 325 MG TABLET PO ONE (20:27)
[2018-09-26] MEDS ORDERED: FENTANYL CITRATE INJ/PF 100 MCG/2 ML AMPUL IV ONE (20:28)
--- NOTE | 2018-09-26 20:30 | ER Document Report ---
ED Medical Screen (RME) - General Chief Complaint: Abdominal Pain Stated Complaint: ABDOMINAL PAIN Time Seen by Provider: 09/26/18 20:19 Primary Care Provider: SHELLY SETHI MD [Primary Care Provider] - Follow up as needed Notes: Patient is a 63-year-old male 5 days status post laparoscopic cholecystectomy. Patient states he noted he had a temperature this afternoon as well as increased epigastric abdominal pain which is why he presents to the emergency room. Patient states he is also not been able to have a bowel movement for the last 5 days. GENERAL: Alert, interacts well. No acute distress. LUNGS: Clear to auscultation bilaterally, no wheezes, rales, or rhonchi. No respiratory distress. HEART: Regular rate and rhythm. No murmur ABDOMEN: Soft, generalized epigastric tenderness noted. Non-distended. Bowel sounds present in all 4 quadrants. Well-healing laparoscopic scars, no erythema or discharge noted I have greeted and performed a rapid initial assessment of this patient. A comprehensive ED assessment and evaluation of the patient, analysis of test results and completion of the medical decision making process will be conducted by additional ED providers. TRAVEL OUTSIDE OF THE [place] IN LAST 30 DAYS: No - Related Data Allergies/Adverse Reactions: adhesive [Adhesive] Allergy (Severe, Verified 09/26/18 20:00) peels skin gabapentin [From Neurontin] Allergy (Unknown, Verified 09/26/18 20:00) disoriented levofloxacin [From Levaquin] Allergy (Unknown, Verified 09/26/18 20:00) Sulfa (Sulfonamide Antibiotics) Allergy (Unknown, Verified 09/26/18 20:00) skin wilson tramadol [Tramadol] Allergy (Unknown, Verified 09/26/18 20:00) ibuprofen [From Motrin] Allergy (Verified 09/26/18 20:00) Past Medical History - Social History Family history: DM, Hyperlipidemia, Hypertension - Past Medical History Cardiac Medical History: Reports: Hx Coronary Artery Disease, 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 Denies: Hx Pancreatitis Musculoskeltal Medical History: Denies Hx Arthritis Psychiatric Medical History: Reports: Hx Anxiety, Hx Depression Past Surgical History: Reports: Hx Adenoidectomy, Hx Appendectomy, Hx Bowel Surgery - hemorrhoidectomy, Hx Cardiac Catheterization - last one was 2010, stent x 10, Hx Cardiac Surgery - CABG, Hx Coronary Artery Bypass Graft, Hx Coronary Stent - [id number] recent was 2010, Hx Open Heart Surgery, Hx Rectal Surgery - hemorrhoids, Hx Testicular Surgery - torsion, vastectomy, Hx Tonsillectomy - Immunizations Immunizations up to date: Yes Hx Diphtheria, Pertussis, Tetanus Vaccination: Yes History of Influenza Vaccine for 04/2017 - 09/2017 Season: Yes Influenza Administration Date for 04/2017 - 09/2017 Season: 07/21/17 Physical Exam - Vital signs Vitals: Temp Pulse Resp BP Pulse Ox 100.5 F H 108 H 19 130/78 H 96 09/26/18 20:08 09/26/18 20:08 09/26/18 20:08 09/26/18 20:08 09/26/18 20:08 Course - Vital Signs Vital signs: Temp Pulse Resp BP Pulse Ox 100.5 F H 108 H 19 130/78 H 96 09/26/18 20:08 09/26/18 20:08 09/26/18 20:08 09/26/18 20:08 09/26/18 20:08 Doctor's Discharge - Discharge Referrals: SHELLY SETHI MD [Primary Care Provider] - Follow up as needed
[2018-09-26 21:04] LABS: ABSOLUTE EOSINOPHILS # (AUTO) 0.1 10^3/uL (0.0-0.6); ABSOLUTE LYMPHOCYTES (AUTO) 1.5 10^3/uL (0.5-4.7); ABSOLUTE MONOCYTES (AUTO) 0.6 10^3/uL (0.1-1.4); ABSOLUTE NEUT (AUTO) 6.7 10^3/uL (1.7-8.2); BASOPHILS % (AUTO) 0.5 % (0-2); EOSINOPHILS % (AUTO) 1.6 % (0-6); HEMATOCRIT 38.7 % (37.9-51.0); HEMOGLOBIN 12.9 g/dL (13.5-17.0); LYMPHOCYTES % (AUTO) 16.5 % (13-45); MEAN CORPUSCULAR HEMOGLOBIN 30.9 pg (27.0-33.4); MEAN CORPUSCULAR HGB CONC 33.4 g/dL (32.0-36.0); MEAN CORPUSCULAR VOLUME 93 fl (80-97); PLATELET COUNT 242 10^3/uL (150-450); RED BLOOD COUNT 4.18 10^6/uL (4.35-5.55); RED CELL DISTRIBUTION WIDTH 15.5 % (11.5-14.0); SEGMENTED NEUTROPHILS % (AUTO) 74.4 % (42-78); TOTAL CELLS COUNTED % (AUTO) 100 %
[2018-09-26 21:18] LABS: ALANINE AMINOTRANSFERASE 49 U/L (21-72); ALBUMIN 4.1 g/dL (3.5-5.0); ALKALINE PHOSPHATASE 101 U/L (38-126); ANION GAP 13 (5-19); ASPARTATE AMINO TRANSFERASE 34 U/L (17-59); BILIRUBIN,DIRECT 0.4 mg/dL (0.0-0.4); BILIRUBIN,TOTAL 0.8 mg/dL (0.2-1.3); BLOOD UREA NITROGEN 8 mg/dL (7-20); CALCIUM 9.2 mg/dL (8.4-10.2); CARBON DIOXIDE 26 mmol/L (22-30); CHLORIDE 100 mmol/L (98-107); GLUCOSE 105 mg/dL (75-110); POTASSIUM 3.8 mmol/L (3.6-5.0); SODIUM 139.2 mmol/L (137-145); TOTAL PROTEIN 7.4 g/dL (6.3-8.2)
--- NOTE | 2018-09-26 21:47 | ER Document Report ---
ED General - General Chief Complaint: Abdominal Pain Stated Complaint: ABDOMINAL PAIN Time Seen by Provider: 09/26/18 20:19 Primary Care Provider: SHELLY SETHI MD [Primary Care Provider] - Follow up as needed Notes: Patient is a 63-year-old male with chronic pain, has a history of a cholecystectomy 5 days ago, discharged in the hospital 3 days ago, presents with increasing upper abdominal pain, nausea, vomiting, and fever. Patient reports the pain as being a throbbing, aching, moderately intense pain to the upper abdomen. Nothing improves or worsens that pain. Denies history of similar pains after being discharged. Has had a fever to 102.5 F at home. Has had nausea and vomiting. Has not had a bowel movement in 5 days. TRAVEL OUTSIDE OF THE [place] IN LAST 30 DAYS: No - Related Data Allergies/Adverse Reactions: adhesive [Adhesive] Allergy (Severe, Verified 09/26/18 20:00) peels skin gabapentin [From Neurontin] Allergy (Unknown, Verified 09/26/18 20:00) disoriented levofloxacin [From Levaquin] Allergy (Unknown, Verified 09/26/18 20:00) Sulfa (Sulfonamide Antibiotics) Allergy (Unknown, Verified 09/26/18 20:00) skin wilson tramadol [Tramadol] Allergy (Unknown, Verified 09/26/18 20:00) ibuprofen [From Motrin] Allergy (Verified 09/26/18 20:00) Past Medical History - General Information source: Patient - Social History Smoking Status: Current Every Day Smoker Chew tobacco use (# tins/day): No Frequency of alcohol use: None Drug Abuse: None Lives with: Family Family History: CAD, CVA, Malignancy Patient has suicidal ideation: No Patient has homicidal ideation: No - Past Medical History Cardiac Medical History: Reports: Hx Coronary Artery Disease, 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 Denies: Hx Pancreatitis Musculoskeletal Medical History: Denies Hx Arthritis Psychiatric Medical History: Reports: Hx Anxiety, Hx Depression Past Surgical History: Reports: Hx Adenoidectomy, Hx Appendectomy, Hx Bowel Surgery - hemorrhoidectomy, Hx Cardiac Catheterization - last one was 2010, stent x 10, Hx Cardiac Surgery - CABG, Hx Coronary Artery Bypass Graft, Hx Cor onary Stent - [id number] recent was 2010, Hx Genitourinary Surgery, Hx Open Heart Surgery, Hx Rectal Surgery - hemorrhoids, Hx Testicular Surgery - torsion, vastectomy, Hx Tonsillectomy - Immunizations Immunizations up to date: Yes Hx Diphtheria, Pertussis, Tetanus Vaccination: Yes Hx Pneumococcal Vaccination: 03/21/12 Review of Systems - Review of Systems Notes: Constitutional: Positive for fever. HENT: Negative for sore throat. Eyes: Negative for visual changes. Cardiovascular: Negative for chest pain. Respiratory: Negative for shortness of breath. Gastrointestinal: Positive for upper abdominal pain and vomiting. Positive constipation. Genitourinary: Negative for dysuria. Musculoskeletal: Negative for back pain. Skin: Negative for rash. Neurological: Negative for headaches, weakness or numbness. 10 point ROS negative except as marked above and in HPI. Physical Exam - Vital signs Vitals: Temp Pulse Resp BP Pulse Ox 100.5 F H 108 H 19 130/78 H 96 09/26/18 20:08 09/26/18 20:08 09/26/18 20:08 09/26/18 20:08 09/26/18 20:08 Interpretation: Tachycardic, Febrile Notes: PHYSICAL EXAMINATION: GENERAL: Well-appearing, well-nourished and in no acute distress. HEAD: Atraumatic, normocephalic. EYES: Pupils equal round and reactive to light, extraocular movements intact, sclera anicteric, conjunctiva are normal. ENT: nares patent, oropharynx clear without exudates. Mild dry mucous me mbranes. NECK: Normal range of motion, supple without lymphadenopathy LUNGS: Breath sounds clear to auscultation bilaterally and equal. No wheezes rales or rhonchi. HEART: Regular rate and rhythm without murmurs ABDOMEN: Soft, mild upper abdominal pain to the right upper quadrant epigastrium palpation otherwise no localized areas of tenderness. Normoactive bowel sounds. No guarding, no rebound. No masses appreciated. EXTREMITIES: Normal range of motion, no pitting or edema. No cyanosis. NEUROLOGICAL: No focal neurological deficits. Moves all extremities spontaneously and on command. PSYCH: Normal mood, normal affect. SKIN: Warm, Dry, normal turgor, no rashes or lesions noted. Course - Re-evaluation Re-evalutation: 09/26/18 21:46 Patient presents with postoperative abdominal pain and fever up to 100.5 F here . Incisions are well-healing, no obvious sign of cutaneous infection. Patient has some generalized abdominal discomfort but no areas of rebound or guarding. Febrile to 100.5 F at time of triage. Will obtain CT of the abdomen and pelvis with IV and oral contrast and reassess. 09/27/18 03:38 CT demonstrates inflammation in the gallbladder fossa, no other acute findings. Labs all unremarkable. The patient has refused to stay our surgeon on-call Dr. Ventura. Did attempt to convince the patient to see the surgeon on-call as I do not the patient refused and asked Dr. Ventura to leave the room for which I was present. I did contact Dr. Beckwith and requested that he admit the patient on IV antibiotics and allow Dr. Crawley to consult on the patient tomorrow. He did declined to do this. I have contacted nursing mains and service supervisor to seek an administrative solution to this problem today. 09/27/18 04:05 [address] will place orders for the patient and Dr. Crawley will see in the a.m. - Vital Signs Vital signs: Temp Pulse Resp BP Pulse Ox 97.8 F 70 19 96/62 L 95 09/27/18 03:13 09/27/18 03:13 09/27/18 03:13 09/27/18 03:13 09/27/18 03:13 - Laboratory Result Diagrams: 09/26/18 20:49 09/26/18 20:49 Laboratory results interpreted by me: 09/26/18 20:49 RBC 4.18 L Hgb 12.9 L RDW 15.5 H - Diagnostic Test Radiology reviewed: Image reviewed, Reports reviewed Discharge - Discharge Clinical Impression: Postoperative fever, Upper abdominal pain Nausea and vomiting Qualifiers: Vomiting type: unspecified Vomiting Intractability: non-intractable Qualified Code(s): R11.2 - Nausea with vomiting, unspecified Condition: Fair Disposition: ADMITTED INPATIENT Admitting Provider: Surgicalist Unit Admitted: Surgical Floor Referrals: SHELLY SETHI MD [Primary Care Provider] - Follow up as needed
--- NOTE | 2018-09-26 22:00 | RADIOLOGY REPORT (SQ) ---
EXAM DESCRIPTION: US ABDOMEN DOPPLER LIMITED COMPLETED DATE/TME: 09/26/2018 00:00 CLINICAL HISTORY: 63 years, Male, RUQ EPIGASTRIC PAIN, RECENT LAP CHOLEY COMPARISON: CT 09/20/2018 TECHNIQUE: Limited right upper quadrant ultrasound LIMITATIONS: None. FINDINGS: Echogenic appearance to the liver consistent with fatty infiltrative change. Status post cholecystectomy. No gross abnormality in the gallbladder fossa. The CBD measures 7 mm. Pancreas not well seen due to bowel gas. Visualized right kidney, abdominal aorta, inferior vena cava are unremarkable. No ascites IMPRESSION: Status post cholecystectomy. CBD mildly prominent at 7 mm. This could be a function of postcholecystectomy state. Fatty infiltrative change to the liver copyright 2010 [employer]- All Rights Reserved
[2018-09-26 22:33] LABS: APPEARANCE,URINE CLOUDY; BILIRUBIN,URINE NEGATIVE (NEGATIVE); CALCIUM OXALATE CRYSTALS,URINE MODERATE /HPF; COLOR,URINE YELLOW; GLUCOSE, URINE NEGATIVE (NEGATIVE); KETONES,URINE NEGATIVE (NEGATIVE); LEUKOCYTE ESTERASE,URINE NEGATIVE (NEGATIVE); NITRITE,URINE NEGATIVE (NEGATIVE); PROTEIN,URINE NEGATIVE (NEGATIVE); URINE SPECIFIC GRAVITY 1.021; UROBILINOGEN,URINE NEGATIVE mg/dL (<2.0)
[2018-09-26] MEDS ORDERED: NORMAL SALINE 1000 ML 1,000 ML IV ONE (22:43)
--- NOTE | 2018-09-27 01:00 | RADIOLOGY REPORT (SQ) ---
EXAM DESCRIPTION: CT ABDOMEN PELVIS WITH IV CONTRAST COMPLETED DATE/TME: 09/26/2018 00:00 CLINICAL HISTORY: 63 years, Male, post op fever/ab pain COMPARISON: Ultrasound 09/26/2018. CT 09/20/2018. TECHNIQUE: 434 Images stored on PACS. All CT scanners at this facility use dose modulation, iterative reconstruction, and/or weight based dosing when appropriate to reduce radiation dose to as low as reasonably achievable (ALARA). [facility]: Dose Right [facility]: CareDose [facility]: Dose Right [facility]: Teradose 4D [facility]: CloudStrategies LIMITATIONS: None. FINDINGS: Visualized lung bases are unremarkable. Osseous structures are grossly intact. Fatty infiltrative change to the liver. Status post cholecystectomy. There are inflammatory changes of the gallbladder fossa. No discrete or defined fluid collection of the gallbladder fossa. The spleen, adrenal glands, pancreas, kidneys are unremarkable. Large amount stool in the colon. No gross evidence for bowel obstruction. No free air or free fluid. There appears to be surgical absence of the appendix. IMPRESSION: Status post cholecystectomy with inflammatory changes of the gallbladder fossa. Note well-defined fluid collection at the postoperative site. Fatty infiltrative change to the liver. TECHNICAL DOCUMENTATION: Quality ID # [id number]: Final reports with documentation of one or more dose reduction techniques (e.g., Automated exposure control, adjustment of the mA and/or kV according to patient size, use of iterative reconstruction technique) copyright 2011 [employer]- All Rights Reserved
[2018-09-27] MEDS ORDERED: PIPERACILLIN/TAZOBACTAM 3.375 GM VIAL IV ONE (03:12)
--- NOTE | 2018-09-27 03:18 | RADIOLOGY REPORT (SQ) ---
EXAM DESCRIPTION: XR CHEST 1 VIEW COMPLETED DATE/TME: 09/27/2018 01:33 CLINICAL HISTORY: 63 years, Male, fever COMPARISON: 09/20/2018 chest NUMBER OF VIEWS: 1 TECHNIQUE: Portable chest LIMITATIONS: None. FINDINGS: Heart size is normal. Stable postsurgical change. Lungs are clear. No pneumothorax IMPRESSION: No acute cardiopulmonary process copyright 2010 [employer]- All Rights Reserved
[2018-09-27 05:22] VITALS: BP 160/85
== END 2018-09-27 04:20 | disposition home or self-care (01) ==
LOC: ER 19:50
DX: G89.18 Other acute postprocedural pain (principal); R10.11 Right upper quadrant pain; R10.13 Epigastric pain; R50.82 Postprocedural fever; K59.00 Constipation, unspecified; Z90.49 Acquired absence of other specified parts of digestive tract; R11.2 Nausea with vomiting, unspecified; F17.200 Nicotine dependence, unspecified, uncomplicated; I25.10 Atherosclerotic heart disease of native coronary artery without angina pectoris; I10 Essential (primary) hypertension; E11.9 Type 2 diabetes mellitus without complications; Z91.048 Other nonmedicinal substance allergy status; Z88.6 Allergy status to analgesic agent; Z88.1 Allergy status to other antibiotic agents; Z88.2 Allergy status to sulfonamides; Z88.5 Allergy status to narcotic agent; Z95.5 Presence of coronary angioplasty implant and graft; Z95.1 Presence of aortocoronary bypass graft
CPT/HCPCS: 36415; 87040; 85025; 80053; 81001; 71045; 76705; 93976; 74177; A9270; J3010; J7030; J2543

== ENCOUNTER 2018-10-11 12:15 | Emergency (ER) | payer MEDICARE, MEDICAID ==
[2018-10-11] MEDS ORDERED: FENTANYL CITRATE INJ/PF 100 MCG/2 ML AMPUL IV ONE (12:39)
--- NOTE | 2018-10-11 12:39 | ER Document Report ---
ED General - General Chief Complaint: Chest Pain > 30 Stated Complaint: CHEST PAIN Time Seen by Provider: 10/11/18 12:26 Primary Care Provider: SHELLY SETHI MD [Primary Care Provider] - Follow up as needed DANITA PEÑA MD [ACTIVE STAFF] - Follow up in 3-5 days Mode of Arrival: Medic Information source: Patient, Emergency Med Personnel, [facility] Records Notes: 63-year-old male with coronary artery disease, hyperlipidemia, hypertension, type 2 diabetes, hypothyroidism, COPD, GERD, history of CABG, 11 stents presents with left-sided chest pain that started 3 hours prior to arrival 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 Patient describes the pain as burning, without radiation, constant. States it feels similar to his chronic chest pain although it is lasting longer than usual. Patient denies any associated dizziness, diaphoresis, nausea, vomiting, shortness of breath. Patient took 3 nitroglycerin prior to EMS arrival who then administered 3 more nitroglycerin tabs. Patient took aspirin prior to arrival. TRAVEL OUTSIDE OF THE [place] IN LAST 30 DAYS: No - HPI Onset: This morning Onset/Duration: Gradual, Persistent Quality of pain: Burning Severity: Moderate Associated symptoms: Chest pain. denies: Nonproductive cough, Productive cough, Headache, Nausea, Vomiting, Shortness of breath Exacerbated by: Denies Relieved by: Denies Similar symptoms previously: Yes Recently seen / treated by doctor: Yes - Related Data Allergies/Adverse Reactions: adhesive [Adhesive] Allergy (Severe, Verified 09/26/18 20:00) peels skin gabapentin [From Neurontin] Allergy (Unknown, Verified 09/26/18 20:00) disoriented levofloxacin [From Levaquin] Allergy (Unknown, Verified 09/26/18 20:00) Sulfa (Sulfonamide Antibiotics) Allergy (Unknown, Verified 09/26/18 20:00) skin wilson tramadol [Tramadol] Allergy (Unknown, Verified 09/26/18 20:00) ibuprofen [From Motrin] Allergy (Verified 09/26/18 20:00) Past Medical History - General Information source: Patient, [facility] Records - Social History Smoking Status: Former Smoker Frequency of alcohol use: None Drug Abuse: None Lives with: Alone Family History: CAD, CVA, Malignancy - Past Medical History Cardiac Medical History: Reports: Hx Coronary Artery Disease, 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 Denies: Hx Pancreatitis Musculoskeletal Medical History: Denies Hx Arthritis Psychiatric Medical History: Reports: Hx Anxiety, Hx Depression Past Surgical History: Reports: Hx Adenoidectomy, Hx Appendectomy, Hx Bowel Surgery - hemorrhoidectomy, Hx Cardiac Catheterization - last one was 2010, stent x 10, Hx Cardiac Surgery - CABG, Hx Coronary Artery Bypass Graft, Hx Coronary Stent - R37-inus recent was 2010, Hx Genitourinary Surgery, Hx Open Heart Surgery, Hx Rectal Surgery - hemorrhoids, Hx Testicular Surgery - torsion, vastectomy, Hx Tonsillectomy - Immunizations Immunizations up to date: Yes Hx Diphtheria, Pertussis, Tetanus Vaccination: Yes Hx Pneumococcal Vaccination: 03/21/12 Review of Systems - Review of Systems Constitutional: Recent illness EENT: denies: Blurred vision Cardiovascular: Chest pain. denies: Palpitations, Dyspnea, Syncope, Dizziness, Lightheaded Respiratory: denies: Cough, Short of breath Gastrointestinal: denies: Abdominal pain, Nausea, Vomiting Genitourinary: denies: Dysuria, Flank pain Male Genitourinary: No symptoms reported Musculoskeletal: denies: Back pain Skin: denies: Rash Hematologic/Lymphatic: No symptoms reported Neurological/Psychological: denies: Headaches -: Yes All other systems reviewed and negative Physical Exam - Vital signs Vitals: Pulse Ox 95 10/11/18 12:17 - Notes Notes: PHYSICAL EXAMINATION: GENERAL: Well-appearing, well-nourished and in no acute distress. HEAD: Atraumatic, normocephalic. EYES: Pupils equal round and reactive to light, extraocular movements intact, sclera anicteric, conjunctiva are normal. ENT: Nares patent, oropharynx clear without exudates. Moist mucous membranes. NECK: Normal range of motion, supple without lymphadenopathy LUNGS: Breath sounds clear to auscultation bilaterally and equal. No wheezes rales or rhonchi. HEART: Regular rate and rhythm without murmurs ABDOMEN: Soft, nontender, nondistended abdomen. No guarding, no rebound. No masses appreciated. Musculoskeletal: Normal range of motion, no pitting or edema. No cyanosis. NEUROLOGICAL: Cranial nerves grossly intact. Normal speech, normal gait. Normal sensory, motor exams PSYCH: Normal mood, normal affect. SKIN: Warm, Dry, normal turgor, no rashes or lesions noted. Course - Re-evaluation Re-evalutation: Laboratory 10/11/18 10/11/18 10/11/18 11:52 11:52 11:52 WBC 5.0 RBC 3.90 L Hgb 11.9 L Hct 35.6 L MCV 91 MCH 30.5 MCHC 33.4 RDW 14.8 H Plt Count 301 Seg Neutrophils % 65.9 Lymphocytes % 26.3 Monocytes % 5.4 Eosinophils % 2.2 Basophils % 0.2 Absolute Neutrophils 3.3 Absolute Lymphocytes 1.3 Absolute Monocytes 0.3 Absolute Eosinophils 0.1 Absolute Basophils 0.0 Sodium 139.9 Potassium 4.3 Chloride 103 Carbon Dioxide 26 Anion Gap 11 BUN 7 Creatinine 0.79 Est GFR ( Amer) > 60 Est GFR (Non-Af Amer) > 60 Glucose 118 H Calcium 9.7 Total Bilirubin 0.4 Direct Bilirubin 0.3 Neonat Total Bilirubin Not Reportable Neonat Direct Bilirubin Not Reportable Neonat Indirect Bili Not Reportable AST 32 ALT 28 Alkaline Phosphatase 104 Creatine Kinase 45 L CK-MB (CK-2) < 0.22 Troponin I < 0.012 Total Protein 7.8 Albumin 4.1 Chest X-Ray 10/11/18 12:38 IMPRESSION: NO SIGNIFICANT RADIOGRAPHIC FINDING IN THE CHEST. 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 Patient describes the pain as burning, without radiation, constant. States it feels similar to his chronic chest pain although it is lasting longer than usual. Patient denies any associated dizziness, diaphoresis, nausea, vomiting, shortness of breath. Patient took 3 nitroglycerin prior to EMS arrival who then administered 3 more nitroglycerin tabs. Upon arrival patient is mildly hypotensive likely secondary to the 6 doses of nitroglycerin that patient was given. This resolved with a small fluid bolus. Patient has remained comfortable, asymptomatic throughout his 4-1/2-hour ED course. 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 10/11/18 16:09 Patient reevaluated and reports resolution of his chronic chest pain. CBC, CMP, cardiac enzymes are within normal limits. Delta troponin pending. Patient's blood pressure on my reevaluation is 95/70. Patient is asymptomatic. 10/11/18 18:06 Delta troponin negative 10/11/18 18:07 Patient was evaluated and treated as appropriate for the patient's presenting symptoms and complaint, with consideration of any critical or life threatening conditions that may be associated with their obtained history and exam as noted above. All results were discussed with patient. Patient provided the opportunity to ask questions, and express concerns. Patient was educated on treatments based on their presumed diagnosis as noted above. At this time we will discharge the patient with return precautions and follow-up recommendations. Verbal discharge instructions given a the bedside. Medication warnings reviewed. Patient is in agreement with this plan and has verbalized understanding of return precautions. After careful consideration I feel that that patient can be safely discharged from the emergency department, they were advised to followup with a primary care physician in 2-3 days. Dictation on this chart was performed using voice recognition software and may result in unintended grammatical, spelling, syntax or errors. Temp Pulse Resp BP Pulse Ox 97.9 F 15 89/74 L 98 10/11/18 16:46 10/11/18 17:01 10/11/18 17:01 10/11/18 17:01 10/11/18 18:09 - Vital Signs Vital signs: Temp Pulse Resp BP Pulse Ox 97.9 F 15 89/74 L 98 10/11/18 16:46 10/11/18 17:01 10/11/18 17:01 10/11/18 17:01 - Laboratory Result Diagrams: 10/11/18 11:52 10/11/18 11:52 Laboratory results interpreted by me: 10/11/18 10/11/18 11:52 11:52 RBC 3.90 L Hgb 11.9 L Hct 35.6 L RDW 14.8 H Glucose 118 H Creatine Kinase 45 L - Diagnostic Test Radiology reviewed: Image reviewed, Reports reviewed - EKG Interpretation by Me EKG shows normal: Sinus rhythm Rate: Normal Rhythm: NSR When compared to previous EKG there are: No significant change Discharge - Discharge Clinical Impression: Chronic chest pain, Chronic pain syndrome CAD (coronary artery disease) Qualifiers: Coronary Disease-Associated Artery/Lesion type: unspecified vessel or lesion type [place] vs. transplanted heart: [place] heart Associated angina: with stable angina Qualified Code(s): I25.118 - Atherosclerotic heart disease of [place] coronary artery with other forms of angina pectoris Condition: Good Disposition: HOME, SELF-CARE Instructions: Angina Episode ([facility]) Additional Instructions: You were seen today for chest pain. The exact cause of your pain is unclear. However, based on your cardiac enzyme testing, chest x-ray, and EKG it does not appear that it is from an immediately life-threatening cause at this time. Alt kristopher your testing here is normal is critical that you follow-up with your primary care physician for continued evaluation of this chest pain and possible stress testing. I recommended you see your physician within the next 24-48 hours to be evaluated for consideration of a stress test. Please return to emergency department immediately if you have worsening of your chest pain, shortness of breath, vomiting, become unable to exert yourself due to pain or difficulty breathing, you pass out, or have any pain that radiates into your arms, jaw, or back. Please also return if you have any additional symptoms that are concerning to you. Referrals: SHELLY SETHI MD [Primary Care Provider] - Follow up as needed DANITA PEÑA MD [ACTIVE STAFF] - Follow up in 3-5 days
[2018-10-11 12:44] LABS: ABSOLUTE EOSINOPHILS # (AUTO) 0.1 10^3/uL (0.0-0.6); ABSOLUTE LYMPHOCYTES (AUTO) 1.3 10^3/uL (0.5-4.7); ABSOLUTE MONOCYTES (AUTO) 0.3 10^3/uL (0.1-1.4); ABSOLUTE NEUT (AUTO) 3.3 10^3/uL (1.7-8.2); BASOPHILS % (AUTO) 0.2 % (0-2); EOSINOPHILS % (AUTO) 2.2 % (0-6); HEMATOCRIT 35.6 % (37.9-51.0); HEMOGLOBIN 11.9 g/dL (13.5-17.0); LYMPHOCYTES % (AUTO) 26.3 % (13-45); MEAN CORPUSCULAR HEMOGLOBIN 30.5 pg (27.0-33.4); MEAN CORPUSCULAR HGB CONC 33.4 g/dL (32.0-36.0); MEAN CORPUSCULAR VOLUME 91 fl (80-97); MONOCYTES % (AUTO) 5.4 % (3-13); PLATELET COUNT 301 10^3/uL (150-450); RED CELL DISTRIBUTION WIDTH 14.8 % (11.5-14.0); SEGMENTED NEUTROPHILS % (AUTO) 65.9 % (42-78); TOTAL CELLS COUNTED % (AUTO) 100 %
[2018-10-11 12:55] LABS: ALANINE AMINOTRANSFERASE 28 U/L (21-72); ALBUMIN 4.1 g/dL (3.5-5.0); ALKALINE PHOSPHATASE 104 U/L (38-126); ANION GAP 11 (5-19); ASPARTATE AMINO TRANSFERASE 32 U/L (17-59); BILIRUBIN,DIRECT 0.3 mg/dL (0.0-0.4); BILIRUBIN,TOTAL 0.4 mg/dL (0.2-1.3); BLOOD UREA NITROGEN 7 mg/dL (7-20); CALCIUM 9.7 mg/dL (8.4-10.2); CARBON DIOXIDE 26 mmol/L (22-30); CHLORIDE 103 mmol/L (98-107); CREATINE KINASE 45 U/L (55-170); GLUCOSE 118 mg/dL (75-110); POTASSIUM 4.3 mmol/L (3.6-5.0); SODIUM 139.9 mmol/L (137-145); TOTAL PROTEIN 7.8 g/dL (6.3-8.2)
[2018-10-11 13:09] LABS: CREATINE KINASE MB < 0.22 ng/mL (<4.55); TROPONIN I < 0.012 ng/mL
--- NOTE | 2018-10-11 13:20 | RADIOLOGY REPORT (SQ) ---
EXAM DESCRIPTION: CHEST 2 VIEWS COMPLETED DATE/TIME: 10/11/2018 12:52 pm REASON FOR STUDY: chest pain COMPARISON: 09/27/2018 TECHNIQUE: Frontal and lateral radiographic views of the chest acquired. NUMBER OF VIEWS: Two view. LIMITATIONS: None. FINDINGS: LUNGS AND PLEURA: No opacities, masses or pneumothorax. No pleural effusion. MEDIASTINUM AND HILAR STRUCTURES: Stable postoperative contours. HEART AND VASCULAR STRUCTURES: Heart normal size. No evidence for failure. BONES: No acute findings. HARDWARE: None in the chest. OTHER: No other significant finding. IMPRESSION: NO SIGNIFICANT RADIOGRAPHIC FINDING IN THE CHEST. TECHNICAL DOCUMENTATION: JOB ID: [id number] [employer]- All Rights Reserved Reading location - IP/workstation name: [email or web address]
[2018-10-11] MEDS ORDERED: NORMAL SALINE 500 ML IV ONE (16:07)
[2018-10-11 17:09] VITALS: BP 89/74
--- NOTE | 2018-10-12 00:04 | EKG REPORT ---
SEVERITY:- ABNORMAL ECG - SINUS RHYTHM NONSPECIFIC T ABNORMALITIES, ANT-LAT LEADS : Confirmed by: Bety Cobb 12-Oct-2018 00:03:35
== END 2018-10-11 17:15 | disposition home or self-care (01) ==
LOC: ER 12:15
DX: I25.119 Atherosclerotic heart disease of native coronary artery with unspecified angina pectoris (principal); G89.4 Chronic pain syndrome; Z79.891 Long term (current) use of opiate analgesic; I10 Essential (primary) hypertension; I25.2 Old myocardial infarction; E11.9 Type 2 diabetes mellitus without complications; Z95.1 Presence of aortocoronary bypass graft; Z91.048 Other nonmedicinal substance allergy status; Z88.6 Allergy status to analgesic agent; Z88.1 Allergy status to other antibiotic agents; Z88.2 Allergy status to sulfonamides; Z88.5 Allergy status to narcotic agent; Z95.5 Presence of coronary angioplasty implant and graft
CPT/HCPCS: 93005; 99285; 96361; 96374; 36415; 82553; 82550; 85025; 80053; 84484; 71046; 93010; J3010; J7040

== ENCOUNTER 2018-10-16 11:19 | Emergency (ER) | payer OTHER, MEDICARE, MEDICAID ==
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
[2018-10-16 13:33] VITALS: BP 101/63
== END 2018-10-16 13:33 | disposition home or self-care (01) ==
LOC: ER 11:19
DX: S16.1XXA Strain of muscle, fascia and tendon at neck level, initial encounter (principal); S09.90XA Unspecified injury of head, initial encounter; M54.2 Cervicalgia; R51 Headache; M79.10 Myalgia, unspecified site; V49.40XA Driver injured in collision with unspecified motor vehicles in traffic accident, initial encounter; I25.10 Atherosclerotic heart disease of native coronary artery without angina pectoris; I25.2 Old myocardial infarction; E11.9 Type 2 diabetes mellitus without complications; I10 Essential (primary) hypertension; F17.210 Nicotine dependence, cigarettes, uncomplicated; Z71.6 Tobacco abuse counseling; Z91.018 Allergy to other foods; Z88.6 Allergy status to analgesic agent; Z88.2 Allergy status to sulfonamides; Z88.0 Allergy status to penicillin; Z88.8 Allergy status to other drugs, medicaments and biological substances; Z95.5 Presence of coronary angioplasty implant and graft; Z95.1 Presence of aortocoronary bypass graft
CPT/HCPCS: 70450; 72125; 99283; 99406

== ENCOUNTER 2018-10-23 15:06 | Emergency (ER) | payer MEDICARE, MEDICAID ==
[2018-10-23 15:54] LABS: ABSOLUTE EOSINOPHILS # (AUTO) 0.1 10^3/uL (0.0-0.6); ABSOLUTE LYMPHOCYTES (AUTO) 2.9 10^3/uL (0.5-4.7); ABSOLUTE MONOCYTES (AUTO) 0.5 10^3/uL (0.1-1.4); ABSOLUTE NEUT (AUTO) 4.1 10^3/uL (1.7-8.2); BASOPHILS % (AUTO) 0.6 % (0-2); EOSINOPHILS % (AUTO) 1.6 % (0-6); HEMATOCRIT 35.1 % (37.9-51.0); HEMOGLOBIN 11.9 g/dL (13.5-17.0); LYMPHOCYTES % (AUTO) 37.7 % (13-45); MEAN CORPUSCULAR HEMOGLOBIN 30.9 pg (27.0-33.4); MEAN CORPUSCULAR HGB CONC 33.9 g/dL (32.0-36.0); MEAN CORPUSCULAR VOLUME 91 fl (80-97); MONOCYTES % (AUTO) 6.5 % (3-13); PLATELET COUNT 216 10^3/uL (150-450); RED BLOOD COUNT 3.86 10^6/uL (4.35-5.55); RED CELL DISTRIBUTION WIDTH 15.2 % (11.5-14.0); SEGMENTED NEUTROPHILS % (AUTO) 53.6 % (42-78); TOTAL CELLS COUNTED % (AUTO) 100 %; WHITE BLOOD COUNT 7.6 10^3/uL (4.0-10.5)
[2018-10-23 16:06] LABS: ALANINE AMINOTRANSFERASE 27 U/L (21-72); ALBUMIN 3.7 g/dL (3.5-5.0); ALKALINE PHOSPHATASE 87 U/L (38-126); ANION GAP 9 (5-19); ASPARTATE AMINO TRANSFERASE 17 U/L (17-59); BILIRUBIN,DIRECT 0.3 mg/dL (0.0-0.4); BILIRUBIN,TOTAL 0.4 mg/dL (0.2-1.3); BLOOD UREA NITROGEN 9 mg/dL (7-20); CALCIUM 9.7 mg/dL (8.4-10.2); CARBON DIOXIDE 25 mmol/L (22-30); CHLORIDE 106 mmol/L (98-107); CREATINE KINASE 71 U/L (55-170); GLUCOSE 130 mg/dL (75-110); POTASSIUM 3.8 mmol/L (3.6-5.0); SODIUM 139.8 mmol/L (137-145); TOTAL PROTEIN 6.5 g/dL (6.3-8.2)
--- NOTE | 2018-10-23 16:11 | ER Document Report ---
ED Cardiac - General Chief Complaint: Chest Pain Stated Complaint: CHEST PAIN Time Seen by Provider: 10/23/18 16:10 Primary Care Provider: SHELLY SETHI MD [Primary Care Provider] - Follow up as needed DANITA PEÑA MD [ACTIVE STAFF] - Follow up as needed Notes: 63-year-old male to the emergency department chief complaint of chest pain. Patient has long-standing history of cardiac issues. Bypass surgery, multiple stents. Multiple issues associated with his heart. Followed by Dr. Cavanaugh with cardiology. Patient states he had chest pain and came on and was quite severe so he called 911. He was given medication in route. Chest pain is mostly resolved at this time. Denies any other symptoms at this time. Patient was sleeping when I went in the room. TRAVEL OUTSIDE OF THE [place] IN LAST 30 DAYS: No - HPI Patient complains to provider of: Chest pain Is the pain a: Chronic problem Chest pain location: Substernal Quality of pain: Moderate, Heaviness Severity now: Moderate Severity at worst: Moderate Pain level currently: 2 Associated symptoms: None - Related Data Allergies/Adverse Reactions: adhesive [Adhesive] Allergy (Severe, Verified 10/23/18 16:43) peels skin gabapentin [From Neurontin] Allergy (Unknown, Verified 10/23/18 16:43) disoriented levofloxacin [From Levaquin] Allergy (Unknown, Verified 10/23/18 16:43) Sulfa (Sulfonamide Antibiotics) Allergy (Unknown, Verified 10/23/18 16:43) skin wilson tramadol [Tramadol] Allergy (Unknown, Verified 10/23/18 16:43) ibuprofen [From Motrin] Allergy (Verified 10/23/18 16:43) naproxen Allergy (Verified 10/23/18 16:43) Past Medical History - General Information source: Patient - Social History Smoking Status: Current Every Day Smoker Cigarette use (# per day): Yes Frequency of alcohol use: None Drug Abuse: None Lives with: Family Family History: CAD, CVA, Malignancy Patient has suicidal ideation: No Patient has homicidal ideation: No - Past Medical History Cardiac Medical History: Reports: Hx Coronary Artery Disease, 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 Denies: Hx Peritoneal Dialysis GI Medical History: Reports: Hx Gastroesophageal Reflux Disease. Denies: Hx Pancreatitis Musculoskeletal Medical History: Denies Hx Arthritis, Reports Hx Muscle Weakness, Reports Hx Musculoskeletal Deformity, Reports Hx Musculoskeletal Trauma Psychiatric Medical History: Reports: Hx Anxiety, Hx Depression Traumatic Medical History: Reports: Hx Fractures Past Surgical History: Reports: Hx Adenoidectomy, Hx Appendectomy, Hx Bowel Surgery - hemorrhoidectomy, Hx Cardiac Catheterization - last one was 2010, stent x 10, Hx Cardiac Surgery - CABG, Hx Coronary Artery Bypass Graft, Hx Coronary Stent - [id number] recent was 2017, Hx Genitourinary Surgery - Vasectomy, Hx Open Heart Surgery, Hx Rectal Surgery - hemorrhoids, Hx Testicular Surgery - torsion, Hx Tonsillectomy - Immunizations Immunizations up to date: Yes Hx Diphtheria, Pertussis, Tetanus Vaccination: Yes Hx Pneumococcal Vaccination: 03/21/12 Review of Systems - Review of Systems Notes: Constitutional: denies: Chills, Diaphoresis, Fever, Malaise, Weakness EENT: denies: Eye discharge, Blurred vision, Tearing, Double vision, Nose congestion, Nose discharge, Throat swelling, Mouth pain Cardiovascular: denies: Palpitations, Heart racing, Orthopnea, Dyspnea,+ Chest pain Respiratory: denies: Cough, Hurts to breathe, Wheezing, Shortness of breath Gastrointestinal: denies: Abdominal pain, Diarrhea, Nausea, Vomiting, Black stools, bright red blood in stool Genitourinary: denies: Burning, Dysuria, Discharge, Frequency, Flank pain, Hematuria Musculoskeletal: denies: Joint pain, Joint swelling, Muscle pain, Muscle stiffness, back pain Hematologic/Lymphatic: denies: Anemia, Easy bleeding, Easy bruising, Blood clots Neurological/Psychological: denies: Confusion, Dementia, Depression, Loss of consciousness Skin: No lesions, no masses, no skin breakdown, no abscesses Physical Exam - Vital signs Vitals: Pulse 69 10/23/18 15:07 Interpretation: Normal - General General appearance: Appears well, Alert - HEENT Head: Normocephalic, Atraumatic Eyes: Normal Pupils: PERRL - Respiratory Respiratory status: No respiratory distress Chest status: Nontender Breath sounds: Normal Chest palpation: Normal - Cardiovascular Rhythm: Regular Heart sounds: Normal auscultation Murmur: No - Abdominal Inspection: Normal Distension: No distension Bowel sounds: Normal Tenderness: Nontender Organomegaly: No organomegaly - Back Back: Normal, Nontender - Extremities General upper extremity: Normal inspection, Nontender, Normal color, Normal ROM, Normal temperature General lower extremity: Normal inspection, Nontender, Normal color, Normal ROM, Normal temperature, Normal weight bearing. No: Enrique's sign - Neurological Neuro grossly intact: Yes Cognition: Normal Orientation: AAOx4 Ken Coma Scale Eye Opening: Spontaneous [place] Coma Scale Verbal: Oriented [place] Coma Scale Motor: Obeys Commands [place] Coma Scale Total: 15 Speech: Normal Motor strength normal: LUE, RUE, LLE, RLE Sensory: Normal - Psychological Associated symptoms: Normal affect, Normal mood - Skin Skin Temperature: Warm Skin Moisture: Dry Skin Color: Normal Course - Re-evaluation Re-evalutation: 10/23/18 20:52 Patient has heart rates in the 60s, blood pressure is low but looking at the record his blood pressure is always low. Takes long-acting nitroglycerin and had nitroglycerin in route by EMS. His EKG is fairly unremarkable. Followed by real estate lawyer. Troponin x2 4 hours apart are normal. Patient reports that he has had a stress test in the last 3 months as well. At this time I feel patient is stable for discharge. 10/23/18 20:52 Laboratory 10/23/18 10/23/18 10/23/18 15:27 15:27 15:27 WBC 7.6 RBC 3.86 L Hgb 11.9 L Hct 35.1 L MCV 91 MCH 30.9 MCHC 33.9 RDW 15.2 H Plt Count 216 Seg Neutrophils % 53.6 Lymphocytes % 37.7 Monocytes % 6.5 Eosinophils % 1.6 Basophils % 0.6 Absolute Neutrophils 4.1 Absolute Lymphocytes 2.9 Absolute Monocytes 0.5 Absolute Eosinophils 0.1 Absolute Basophils 0.0 Sodium 139.8 Potassium 3.8 Chloride 106 Carbon Dioxide 25 Anion Gap 9 BUN 9 Creatinine 0.88 Est GFR ( Amer) > 60 Est GFR (Non-Af Amer) > 60 Glucose 130 H Calcium 9.7 Total Bilirubin 0.4 Direct Bilirubin 0.3 Neonat Total Bilirubin Not Reportable Neonat Direct Bilirubin Not Reportable Neonat Indirect Bili Not Reportable AST 17 ALT 27 Alkaline Phosphatase 87 Creatine Kinase 71 CK-MB (CK-2) 0.32 Troponin I < 0.012 Total Protein 6.5 Albumin 3.7 10/23/18 19:45 WBC RBC Hgb Hct MCV MCH MCHC RDW Plt Count Seg Neutrophils % Lymphocytes % Monocytes % Eosinophils % Basophils % Absolute Neutrophils Absolute Lymphocytes Absolute Monocytes Absolute Eosinophils Absolute Basophils Sodium Potassium Chloride Carbon Dioxide Anion Gap BUN Creatinine Est GFR ( Amer) Est GFR (Non-Af Amer) Glucose Calcium Total Bilirubin Direct Bilirubin Neonat Total Bilirubin Neonat Direct Bilirubin Neonat Indirect Bili AST ALT Alkaline Phosphatase Creatine Kinase CK-MB (CK-2) Troponin I < 0.012 Total Protein Albumin Chest X-Ray 10/23/18 15:45 IMPRESSION: 1. No significant interval changes since the previous examination dated 10/11/2018. No acute findings. 10/23/18 21:59 Patient has had 2 sets of troponins at 4-hour intervals with troponin negative. No chest pain at this time. Chronic chest pain patient. Has had a stress test by his report within the last 3 months which was unremarkable. Has an outpatient real estate lawyer. His blood pressure was low however going back to the records his blood pressure is always low. Patient feels comfortable at this time going home. I find no further concern that patient is having a significant WI. Will DC at this time in stable condition - Vital Signs Vital signs: Temp Pulse Resp BP Pulse Ox 98.5 F 69 17 90/69 L 96 10/23/18 15:25 10/23/18 15:07 10/23/18 19:30 10/23/18 19:30 10/23/18 19:30 - Laboratory Result Diagrams: 10/23/18 15:27 10/23/18 15:27 Laboratory results interpreted by nc: 10/23/18 10/23/18 15:27 15:27 RBC 3.86 L Hgb 11.9 L Hct 35.1 L RDW 15.2 H Glucose 130 H - EKG Interpretation by Nv EKG shows normal: Sinus rhythm, [employer], Intervals, QRS Complexes. abnormal: ST-T Waves - Nonspecific T wave abnormalities lateral leads. When compared to previous EKG there are: No significant change Discharge - Discharge Clinical Impression: Chronic stable angina Condition: Good Disposition: HOME, SELF-CARE Instructions: Angina Episode ([facility]) Additional Instructions: Please follow-up with your real estate lawyer for repeat evaluation. Return if symptoms are getting worse. Referrals: SHELLY SETHI MD [Primary Care Provider] - Follow up as needed DANITA PEÑA MD [ACTIVE STAFF] - Follow up as needed
[2018-10-23 16:18] LABS: CREATINE KINASE MB 0.32 ng/mL (<4.55)
[2018-10-23 16:20] LABS: TROPONIN I < 0.012 ng/mL
--- NOTE | 2018-10-23 16:49 | RADIOLOGY REPORT (SQ) ---
EXAM DESCRIPTION: CHEST SINGLE VIEW COMPLETED DATE/TIME: 10/23/2018 4:18 pm REASON FOR STUDY: chest pain COMPARISON: 10/11/2018 EXAM PARAMETERS: NUMBER OF VIEWS: One view. TECHNIQUE: Single frontal radiographic view of the chest acquired. RADIATION DOSE: NA LIMITATIONS: None. FINDINGS: LUNGS AND PLEURA: No opacities, masses or pneumothorax. No pleural effusion. MEDIASTINUM AND HILAR STRUCTURES: Stable post operative on the left. HEART AND VASCULAR STRUCTURES: Heart normal in size. Normal vasculature. BONES: No acute findings. HARDWARE: Prior anterior median sternotomy, stable findings. OTHER: No other significant finding. IMPRESSION: 1. No significant interval changes since the previous examination dated 10/11/2018. No acute findings. TECHNICAL DOCUMENTATION: JOB ID: [id number] [employer]- All Rights Reserved Reading location - IP/workstation name: [email or web address]
[2018-10-23] MEDS ORDERED: ONDANSETRON HCL INJ/PF 4 MG/2 ML SDV IV ONE (17:35)
--- NOTE | 2018-10-23 18:36 | EKG REPORT ---
SEVERITY:- ABNORMAL ECG - SINUS RHYTHM PROBABLE POSTERIOR INFARCT NONSPECIFIC T ABNORMALITIES, LATERAL LEADS : Confirmed by: Elio Rae MD 23-Oct-2018 18:35:54
[2018-10-23 22:49] VITALS: BP 82/68
== END 2018-10-23 22:56 | disposition home or self-care (01) ==
LOC: ER 15:06
DX: I25.119 Atherosclerotic heart disease of native coronary artery with unspecified angina pectoris (principal); I95.9 Hypotension, unspecified; I25.2 Old myocardial infarction; E11.9 Type 2 diabetes mellitus without complications; F17.200 Nicotine dependence, unspecified, uncomplicated; Z95.1 Presence of aortocoronary bypass graft; Z95.5 Presence of coronary angioplasty implant and graft; Z91.048 Other nonmedicinal substance allergy status; Z88.6 Allergy status to analgesic agent; Z88.1 Allergy status to other antibiotic agents; Z88.2 Allergy status to sulfonamides; Z88.5 Allergy status to narcotic agent; Z88.8 Allergy status to other drugs, medicaments and biological substances
CPT/HCPCS: 93005; 99283; 96372; 36415; 82553; 82550; 85025; 80053; 84484; 71045; 93010; J2405

== ENCOUNTER 2019-01-26 11:01 | Emergency (ER) | payer MEDICARE, MEDICAID ==
--- NOTE | 2019-01-26 11:24 | EKG REPORT ---
SEVERITY:- ABNORMAL ECG - SINUS RHYTHM NONSPECIFIC T ABNORMALITIES, ANT-LAT LEADS : Confirmed by: Ann Domingo MD 26-Jan-2019 11:23:08
--- NOTE | 2019-01-26 11:25 | ER Document Report ---
ED Medical Screen (RME) - General Chief Complaint: Chest Pain > 30 Stated Complaint: CHEST PAIN Time Seen by Provider: 01/26/19 11:24 Primary Care Provider: SHELLY SETHI MD [Primary Care Provider] - Follow up as needed Mode of Arrival: Ambulatory Information source: Patient Notes: Patient presents complaining of left-sided chest pain that started around 1015 today. Patient describes pain as sharp in nature with shortness of breath. Patient denies any nausea or vomiting. Patient is on Plavix and aspirin hx: Hypertension, [place], CABG, stent x11 I have greeted and performed a rapid initial assessment of this patient. A comprehensive ED assessment and evaluation of the patient, analysis of test results and completion of the medical decision making process will be conducted by additional ED providers. TRAVEL OUTSIDE OF THE [place] IN LAST 30 DAYS: No - Related Data Allergies/Adverse Reactions: adhesive [Adhesive] Allergy (Severe, Verified 10/23/18 16:43) peels skin gabapentin [From Neurontin] Allergy (Unknown, Verified 10/23/18 16:43) disoriented levofloxacin [From Levaquin] Allergy (Unknown, Verified 10/23/18 16:43) Sulfa (Sulfonamide Antibiotics) Allergy (Unknown, Verified 10/23/18 16:43) skin wilson tramadol [Tramadol] Allergy (Unknown, Verified 10/23/18 16:43) ibuprofen [From Motrin] Allergy (Verified 10/23/18 16:43) naproxen Allergy (Verified 10/23/18 16:43) Past Medical History - Social History Family history: DM, Hyperlipidemia, Hypertension - Past Medical History Cardiac Medical History: Reports: Hx Coronary Artery Disease, 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 Denies: Hx Peritoneal Dialysis GI Medical History: Reports: Hx Gastroesophageal Reflux Disease. Denies: Hx Pancreatitis Musculoskeltal Medical History: Denies Hx Arthritis, Reports Hx Muscle Weakness, Reports Hx Musculoskeletal Deformity, Reports Hx Musculoskeletal Trauma Psychiatric Medical History: Reports: Hx Anxiety, Hx Depression Traumatic Medical History: Reports: Hx Fractures Past Surgical History: Reports: Hx Adenoidectomy, Hx Appendectomy, Hx Bowel Surgery - hemorrhoidectomy, Hx Cardiac Catheterization - last one was 2010, stent x 10, Hx Cardiac Surgery - CABG, Hx Coronary Artery Bypass Graft, Hx Coronary Stent - [id number] recent was 2017, Hx Genitourinary Surgery - Vasectomy, Hx Open Heart Surgery, Hx Rectal Surgery - hemorrhoids, Hx Testicular Surgery - torsion, Hx Tonsillectomy - Immunizations Immunizations up to date: Yes Hx Diphtheria, Pertussis, Tetanus Vaccination: Yes History of Influenza Vaccine for 04/2017 - 09/2017 Season: Yes Influenza Administration Date for 04/2017 - 09/2017 Season: 07/21/17 Physical Exam - Cardiovascular Rhythm: Regular Heart sounds: S1 appreciated, S2 appreciated Murmur: No Doctor's Discharge - Discharge Referrals: SHELLY SETHI MD [Primary Care Provider] - Follow up as needed
[2019-01-26 11:55] LABS: ABSOLUTE EOSINOPHILS # (AUTO) 0.1 10^3/uL (0.0-0.6); ABSOLUTE LYMPHOCYTES (AUTO) 1.8 10^3/uL (0.5-4.7); ABSOLUTE MONOCYTES (AUTO) 0.2 10^3/uL (0.1-1.4); ABSOLUTE NEUT (AUTO) 2.6 10^3/uL (1.7-8.2); BASOPHILS % (AUTO) 0.8 % (0-2); EOSINOPHILS % (AUTO) 2.1 % (0-6); HEMATOCRIT 38.8 % (37.9-51.0); HEMOGLOBIN 13.1 g/dL (13.5-17.0); LYMPHOCYTES % (AUTO) 37.2 % (13-45); MEAN CORPUSCULAR HEMOGLOBIN 30.9 pg (27.0-33.4); MEAN CORPUSCULAR HGB CONC 33.6 g/dL (32.0-36.0); MEAN CORPUSCULAR VOLUME 92 fl (80-97); MONOCYTES % (AUTO) 5.1 % (3-13); PLATELET COUNT 183 10^3/uL (150-450); RED BLOOD COUNT 4.22 10^6/uL (4.35-5.55); RED CELL DISTRIBUTION WIDTH 15.3 % (11.5-14.0); SEGMENTED NEUTROPHILS % (AUTO) 54.8 % (42-78); TOTAL CELLS COUNTED % (AUTO) 100 %; WHITE BLOOD COUNT 4.7 10^3/uL (4.0-10.5)
[2019-01-26 12:21] LABS: ALANINE AMINOTRANSFERASE 21 U/L (21-72); ALBUMIN 4.1 g/dL (3.5-5.0); ALKALINE PHOSPHATASE 64 U/L (38-126); ANION GAP 9 (5-19); ASPARTATE AMINO TRANSFERASE 24 U/L (17-59); BILIRUBIN,DIRECT 0.3 mg/dL (0.0-0.4); BILIRUBIN,TOTAL 0.7 mg/dL (0.2-1.3); BLOOD UREA NITROGEN 8 mg/dL (7-20); CALCIUM 9.5 mg/dL (8.4-10.2); CARBON DIOXIDE 28 mmol/L (22-30); CHLORIDE 104 mmol/L (98-107); GLUCOSE 190 mg/dL (75-110); LIPASE 389.8 U/L (23-300); POTASSIUM 3.9 mmol/L (3.6-5.0); SODIUM 140.9 mmol/L (137-145); TOTAL PROTEIN 7.1 g/dL (6.3-8.2)
--- NOTE | 2019-01-26 13:07 | RADIOLOGY REPORT (SQ) ---
EXAM DESCRIPTION: CHEST 2 VIEWS COMPLETED DATE/TIME: 01/26/2019 12:45 pm REASON FOR STUDY: cp COMPARISON: AP chest 10/23/2018, 10/11/2018 06/01/2016, 10/11/2018, 10/23/2018 EXAM PARAMETERS: NUMBER OF VIEWS: two views TECHNIQUE: Digital Frontal and Lateral radiographic views of the chest acquired. RADIATION DOSE: NA LIMITATIONS: none FINDINGS: LUNGS AND PLEURA: No opacities, masses or pneumothorax. No pleural effusion. MEDIASTINUM AND HILAR STRUCTURES: No masses or contour abnormalities. HEART AND VASCULAR STRUCTURES: No cardiomegaly. Old sternotomy. BONES: No acute findings. HARDWARE: Clips right upper quadrant post cholecystectomy. Old sternotomy OTHER: No other significant finding. IMPRESSION: No acute findings. Old sternotomy without cardiomegaly TECHNICAL DOCUMENTATION: JOB ID: [id number] [employer]- All Rights Reserved Reading location - IP/workstation name: [email or web address]
[2019-01-26 16:34] VITALS: BP 96/73
--- NOTE | 2019-01-26 16:47 | ER Document Report ---
ED Cardiac - General Chief Complaint: Chest Pain > 30 Stated Complaint: CHEST PAIN Time Seen by Provider: 01/26/19 11:24 Primary Care Provider: SHELLY SETHI MD [Primary Care Provider] - Follow up as needed Mode of Arrival: Ambulatory Notes: Patient says he has been having chest pains off and on over the last 3 to 4 days. This morning, he went out to breakfast around 10:00. He says while he was eating, he had worsening chest pains that were "sharp" in nature and "cut my breathing off"., Patient's concern is that he does not get sharp pains very often and he wants to be checked out. Reviewing his records, patient has been here numerous times over many years. He does have some true disease and is gone through bypass surgery. However, he is frequently here to be reassured. He says that he has morphine which he takes 30 mg twice a day scheduled. Also, in addition, he has oxymorphone that he takes when needed for such pains as he is having today. However, patient says he did not want to take that medication unless he was checked out to make sure he was not having a real heart attack. He says most of the times when he comes and like this he never gets out of the emergency department. They repeat his troponin and if it stays negative, he is discharged home. He is agreeable with that plan today as well. Patient does not take nitroglycerin as he does not tolerate it well, it drops his blood pressure significantly and his blood pressure is already low. Patient is under pain management. Has his own pain pills here with him today. TRAVEL OUTSIDE OF THE [place] IN LAST 30 DAYS: No - Related Data Allergies/Adverse Reactions: adhesive [Adhesive] Allergy (Severe, Verified 10/23/18 16:43) peels skin gabapentin [From Neurontin] Allergy (Unknown, Verified 10/23/18 16:43) disoriented levofloxacin [From Levaquin] Allergy (Unknown, Verified 10/23/18 16:43) Sulfa (Sulfonamide Antibiotics) Allergy (Unknown, Verified 10/23/18 16:43) skin wilson tramadol [Tramadol] Allergy (Unknown, Verified 10/23/18 16:43) ibuprofen [From Motrin] Allergy (Verified 10/23/18 16:43) naproxen Allergy (Verified 10/23/18 16:43) Past Medical History - General Information source: Patient - Social History Smoking Status: Current Every Day Smoker Chew tobacco use (# tins/day): No Frequency of alcohol use: None Drug Abuse: None Family History: Reviewed & Not Pertinent, CAD, CVA, Malignancy Patient has suicidal ideation: No Patient has homicidal ideation: No - Past Medical History Cardiac Medical History: Reports: Hx Coronary Artery Disease, Hx Heart Attack - x2 TOTAL OF 11 STENTS/ MOST RECENT 08/21/16, Hx Hypercholesterolemia, Hx Hypertension Pulmonary Medical History: Neurological Medical History: Denies: Hx Cerebrovascular Accident, Hx Seizures Endocrine Medical History: Reports: Hx Diabetes Mellitus Type 2, Hx Hypothyroidism Renal/ Medical History: Reports: Hx Testicular Torsion GI Medical History: Reports: Hx Gastroesophageal Reflux Disease Musculoskeletal Medical History: Reports Hx Muscle Weakness, Reports Hx Musculoskeletal Deformity, Reports Hx Musculoskeletal Trauma Psychiatric Medical History: Reports: Hx Anxiety, Hx Depression Traumatic Medical History: Reports: Hx Fractures Past Surgical History: Reports: Hx Adenoidectomy, Hx Appendectomy, Hx Bowel Surgery - hemorrhoidectomy, Hx Cardiac Catheterization - last one was 2010, stent x 10, Hx Cardiac Surgery - CABG, Hx Coronary Artery Bypass Graft, Hx Coronary Stent - [id number] recent was 2017, Hx Genitourinary Surgery - Vasectomy, Hx Open Heart Surgery, Hx Rectal Surgery - hemorrhoids, Hx Testicular Surgery - torsion, Hx Tonsillectomy - Immunizations Immunizations up to date: Yes Hx Diphtheria, Pertussis, Tetanus Vaccination: Yes Hx Pneumococcal Vaccination: 03/21/12 Review of Systems - Review of Systems Notes: REVIEW OF SYSTEMS: CONSTITUTIONAL : Denies fever. EENT: Denies eye, ear, nose or mouth or throat pain or other symptoms. CARDIOVASCULAR: See HPI. RESPIRATORY: Denies cough, chest congestion, or shortness of breath. See HPI. GASTROINTESTINAL: Denies abdominal pain or nausea, vomiting, or diarrhea. GENITOURINARY: Denies difficulty or painful urinating, urinary frequency, blood in urine. MUSCULOSKELETAL: Denies back or neck pain. Denies joint pain or swelling. SKIN: Denies rash or skin lesions. NEUROLOGICAL: Denies LOC or altered mental status. Denies headache. Denies sensory loss or motor deficits. ALL OTHER SYSTEMS REVIEWED AND NEGATIVE. Physical Exam - Vital signs Vitals: Resp Pulse Ox 20 98 01/26/19 12:51 01/26/19 12:51 Interpretation: Normal Notes: PHYSICAL EXAMINATION: GENERAL: Well-appearing, in no acute distress. Anxious. HEAD: Atraumatic, normocephalic. EYES: Pupils equal round and reactive to light, extraocular movements intact. ENT: oropharynx clear without exudates. Moist mucous membranes. NECK: Normal range of motion, supple. LUNGS: Breath sounds clear and equal bilaterally. HEART: Regular rate and rhythm without murmurs. ABDOMEN: Soft, nontender. No guarding or rebound. No masses. BACK: No tenderness throughout entire back. EXTREMITIES: Normal range of motion without pain. NEUROLOGICAL: Normal speech, normal gait. Normal sensory, motor, and reflex exams. Awake, alert, and oriented x3. Cranial nerves normal. PSYCH: Normal mood, normal affect. Anxious. SKIN: Warm, dry, no rashes. Course - Re-evaluation Re-evalutation: 01/26/19 17:59 With my agreeing, patient took 1 of his oxymorphone pills. Subsequently, checked on a couple of times and he said he was no longer having any chest pains at all. Patient's repeat troponin was negative and unchanged from his prior res ults earlier in his visit. All other lab studies are essentially normal. - Vital Signs Vital signs: Temp Pulse Resp BP Pulse Ox 16 96/73 L 96 01/26/19 16:01 01/26/19 16:01 01/26/19 16:01 - Laboratory Result Diagrams: 01/26/19 11:37 01/26/19 11:37 Laboratory results interpreted by me: 01/26/19 01/26/19 11:37 11:37 RBC 4.22 L Hgb 13.1 L RDW 15.3 H Glucose 190 H Lipase 389.8 H - EKG Interpretation by [place] EKG shows normal: Sinus rhythm Rate: Normal Rhythm: NSR Additional EKG results interpreted by me: 01/26/19 18:[address] and T changes. No ST elevations. Discharge - Discharge Clinical Impression: Chest pain Condition: Stable Disposition: HOME, SELF-CARE Additional Instructions: CHEST PAIN OF UNCLEAR CAUSE: The exact cause of your chest pain isn't clear. Fortunately, there is no evidence of a dangerous medical condition. Further testing may be required to find the source of the pain. Most often, we find that this pain is coming from the chest wall -- the muscles or rib joints in the chest. But chest pain can come from the lung and lung lining, the esophagus, the heart valves or heart lining, and even the stomach or gallbladder. Rest. Eat lightly until the pain is gone. We may prescribe medicine for pain and inflammation. You should call the physician immediately if the pain radiates to the shoulder, jaw or arms; if you start to run a fever or develop a cough; or if you develop shortness of breath, or other new or alarming symptoms. NORMAL EXAM AND WORKUP: At this time, your examination and workup show no significant abnormality. No significant abnormal physical findings were noted. All laboratory, EKG, and imaging (x-ray, CT scans, ultrasound) studies that were ordered show no signific ant abnormality. Although your examination and all studies that were ordered showed no significant abnormal finding, there are no examinations and no studies that are 100% accurate. There is always the possibility that some abnormality could exist and not be detected with physical examination or within the limits and capabilities of laboratory and other studies. You should return or follow up as you were instructed on your visit today for further evaluation if your symptoms do not resolve. Your troponin test showed no change, no increase, from the first value when you first got here today. ASPIRIN: Aspirin has been shown to have a beneficial effect on blood circulation by reducing the clotting effect of platelets in the blood. These beneficial effects can be achieved by taking just a single baby (81 mg) aspirin a day. It is recommended that any person over the age of forty take a single baby aspirin every day for heart and brain circulation, unless you are allergic to aspirin or have some significant bleeding disorder. It is strongly recommended that people who have proven cardiac or blood circulation disturbances should take a baby aspirin every day. Continue to take your regular size aspirin daily. Keep on taking your Plavix. If you have new or different or worsening pains, come back for us to reevaluate. FOLLOW-UP CARE: If you have been referred to a physician for follow-up care, call the physicians office for an appointment as you were instructed or within the next two days. If you experience worsening or a significant change in your symptoms, notify the physician immediately or return to the Emergency Department at any time for re-evaluation. Referrals: SHELLY SETHI MD [Primary Care Provider] - Follow up as needed
== END 2019-01-26 16:48 | disposition home or self-care (01) ==
LOC: ER 11:01
DX: R07.9 Chest pain, unspecified (principal); I95.9 Hypotension, unspecified; Z79.899 Other long term (current) drug therapy; F17.200 Nicotine dependence, unspecified, uncomplicated; I25.10 Atherosclerotic heart disease of native coronary artery without angina pectoris; I25.2 Old myocardial infarction; I10 Essential (primary) hypertension; E11.9 Type 2 diabetes mellitus without complications
CPT/HCPCS: 36415; 71046; 80053; 83690; 84484; 85025; 93005; 93010; 99284

== ENCOUNTER 2019-02-20 16:29 | Emergency (ER) | payer MEDICARE, MEDICAID ==
[2019-02-20 17:26] LABS: ABSOLUTE EOSINOPHILS # (AUTO) 0.2 10^3/uL (0.0-0.6); ABSOLUTE LYMPHOCYTES (AUTO) 2.4 10^3/uL (0.5-4.7); ABSOLUTE MONOCYTES (AUTO) 0.3 10^3/uL (0.1-1.4); ABSOLUTE NEUT (AUTO) 2.2 10^3/uL (1.7-8.2); BASOPHILS % (AUTO) 0.7 % (0-2); EOSINOPHILS % (AUTO) 4.4 % (0-6); HEMOGLOBIN 11.8 g/dL (13.5-17.0); LYMPHOCYTES % (AUTO) 45.6 % (13-45); MEAN CORPUSCULAR HEMOGLOBIN 30.7 pg (27.0-33.4); MEAN CORPUSCULAR HGB CONC 33.5 g/dL (32.0-36.0); MEAN CORPUSCULAR VOLUME 92 fl (80-97); MONOCYTES % (AUTO) 6.6 % (3-13); PLATELET COUNT 188 10^3/uL (150-450); RED BLOOD COUNT 3.82 10^6/uL (4.35-5.55); RED CELL DISTRIBUTION WIDTH 14.8 % (11.5-14.0); SEGMENTED NEUTROPHILS % (AUTO) 42.7 % (42-78); TOTAL CELLS COUNTED % (AUTO) 100 %; WHITE BLOOD COUNT 5.2 10^3/uL (4.0-10.5)
[2019-02-20 17:27] LABS: INTERNATIONAL RATION (INR) 1.06; PROTHROMBIN TIME 13.8 SEC (11.4-15.4)
[2019-02-20 17:31] LABS: ALBUMIN 3.2 g/dL (3.5-5.0); ALKALINE PHOSPHATASE 60 U/L (38-126); ASPARTATE AMINO TRANSFERASE 19 U/L (17-59); BILIRUBIN,DIRECT 0.2 mg/dL (0.0-0.4); BILIRUBIN,TOTAL 0.3 mg/dL (0.2-1.3); BLOOD UREA NITROGEN 6 mg/dL (7-20); CALCIUM 8.6 mg/dL (8.4-10.2); CARBON DIOXIDE 28 mmol/L (22-30); CHLORIDE 110 mmol/L (98-107); CREATINE KINASE 67 U/L (55-170); GLUCOSE 87 mg/dL (75-110); POTASSIUM 4.1 mmol/L (3.6-5.0); TOTAL PROTEIN 5.9 g/dL (6.3-8.2)
[2019-02-20 17:32] LABS: ANION GAP 2 (5-19)
[2019-02-20 17:44] LABS: CREATINE KINASE MB < 0.22 ng/mL (<4.55); TROPONIN I < 0.012 ng/mL
--- NOTE | 2019-02-20 17:51 | ER Document Report ---
Addendum entered and electronically signed by ABBI PACK PA 02/21/19 07:49: Course - Re-evaluation Re-evalutation: 02/21/19 07:50 Patient reevaluated again at bedside, transport team is reportedly almost here, his vital signs are unremarkable, he is awake and alert, he has no complaints. He states he is ready to go. Stable for transport. - Vital Signs Vital signs: Temp Pulse Resp BP Pulse Ox 97.9 F 70 17 110/78 98 02/21/19 07:00 02/20/19 16:30 02/21/19 07:00 02/21/19 07:01 02/21/19 07:01 - Laboratory Result Diagrams: 02/20/19 16:44 02/20/19 16:44 Laboratory results interpreted by me: 02/20/19 02/20/19 02/20/19 16:44 16:44 16:44 RBC 3.82 L Hgb 11.8 L Hct 35.0 L RDW 14.8 H Lymphocytes % 45.6 H APTT 37.3 H Chloride 110 H Anion Gap 2 L BUN 6 L Total Protein 5.9 L Albumin 3.2 L Addendum entered and electronically signed by ABBI PACK PA 02/21/19 06:26: Course - Re-evaluation Re-evalutation: 02/21/19 06:25 Patient is awake, he was reevaluated, he actually has no complaints at this time. He is well-appearing. We are still awaiting transfer. - Vital Signs Vital signs: Temp Pulse Resp BP Pulse Ox 97.9 F 70 9 L 95/68 L 99 02/21/19 04:00 02/20/19 16:30 02/21/19 04:01 02/21/19 04:01 02/21/19 04:01 - Laboratory Result Diagrams: 02/20/19 16:44 02/20/19 16:44 Laboratory results interpreted by me: 02/20/19 02/20/19 02/20/19 16:44 16:44 16:44 RBC 3.82 L Hgb 11.8 L Hct 35.0 L RDW 14.8 H Lymphocytes % 45.6 H APTT 37.3 H Chloride 110 H Anion Gap 2 L BUN 6 L Total Protein 5.9 L Albumin 3.2 L Addendum entered and electronically signed by ABBI PACK PA 02/21/19 01:57: Course - Re-evaluation Re-evalutation: 02/21/19 01:55 Patient has had a bed assignment for a while, however we are unable to transport him because we do not have available transfer. On recheck now he is still currently sleeping with no concerning abnormality noted on the monitors. - Vital Signs Vital signs: Temp Pulse Resp BP Pulse Ox 97.4 F 70 11 L 103/78 99 02/20/19 23:00 02/20/19 16:30 02/21/19 01:01 02/21/19 01:01 02/21/19 01:01 - Laboratory Result Diagrams: 02/20/19 16:44 02/20/19 16:44 Laboratory results interpreted by me: 02/20/19 02/20/19 02/20/19 16:44 16:44 16:44 RBC 3.82 L Hgb 11.8 L Hct 35.0 L RDW 14.8 H Lymphocytes % 45.6 H APTT 37.3 H Chloride 110 H Anion Gap 2 L BUN 6 L Total Protein 5.9 L Albumin 3.2 L Original Note: ED Cardiac - General Chief Complaint: Chest Pain Stated Complaint: CHEST PAIN Time Seen by Provider: 02/20/19 17:35 Primary Care Provider: SHELLY SETHI MD [Primary Care Provider] - Follow up as needed TRAVEL OUTSIDE OF THE [place] IN LAST 30 DAYS: No - HPI Quality of pain: Heaviness, Pressure Chest pain radiation location: None Pain level currently: 4 Cardiac risk factors: Hypertension, Smoker, + Family history, Dyslipidemia, Hx TX Positive cardiac history: Yes Relieved by: Nothing Similar symptoms previously: Yes - Feels similar to prior [place] Notes: 63-year-old male to the emergency department with complaints of constant chest pain with associated shortness of breath that began 3 days ago. He states that today the chest pain got worse and is now a 4 out of 5 with 5 being the worst pain. 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 He also has a history of CABG with one artery graft. He also states that he has had 11 stents. He takes Plavix daily as well as 1 full-strength aspirin. He did take aspirin today and also 2 sublingual nitroglycerin prior to calling the medics. He denies worsening with exertion. He does see Dr. Domingo locally for cardiology and has been told that his collateral vasculature has coronary artery disease as w rajiv. He denies any diaphoresis, nausea vomiting, radiation into the back or into either arm, jaw pain, neck pain. He denies any fevers, cough, worsening of pain with big deep breath. He states that when he has had chest pain in the past like this he is always been transferred to [facility] for further intervention. - Related Data Allergies/Adverse Reactions: adhesive [Adhesive] Allergy (Severe, Verified 10/23/18 16:43) peels skin gabapentin [From Neurontin] Allergy (Unknown, Verified 10/23/18 16:43) disoriented levofloxacin [From Levaquin] Allergy (Unknown, Verified 10/23/18 16:43) Sulfa (Sulfonamide Antibiotics) Allergy (Unknown, Verified 10/23/18 16:43) skin wilson tramadol [Tramadol] Allergy (Unknown, Verified 10/23/18 16:43) ibuprofen [From Motrin] Allergy (Verified 10/23/18 16:43) naproxen Allergy (Verified 10/23/18 16:43) Past Medical History - General Information source: Patient - Social History Smoking Status: Current Every Day Smoker Frequency of alcohol use: None Drug Abuse: None Family History: Reviewed & Not Pertinent, CAD, CVA, Malignancy - Past Medical History Cardiac Medical History: Reports: Hx Coronary Artery Disease, 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 Denies: Hx Peritoneal Dialysis GI Medical History: Reports: Hx Gastroesophageal Reflux Disease. Denies: Hx Pancreatitis Musculoskeletal Medical History: Denies Hx Arthritis, Reports Hx Muscle Weakness, Reports Hx Musculoskeletal Deformity, Reports Hx Musculoskeletal Trauma Psychiatric Medical History: Reports: Hx Anxiety, Hx Depression Traumatic Medical History: Reports: Hx Fractures Past Surgical History: Reports: Hx Adenoidectomy, Hx Appendectomy, Hx Bowel Surgery - hemorrhoidectomy, Hx Cardiac Catheterization - last one was 2010, s tent x 10, Hx Cardiac Surgery - CABG, Hx Coronary Artery Bypass Graft, Hx Coronary Stent - [id number] recent was 2017, Hx Genitourinary Surgery - Vasectomy, Hx Open Heart Surgery, Hx Rectal Surgery - hemorrhoids, Hx Testicular Surgery - torsion, Hx Tonsillectomy - Immunizations Immunizations up to date: Yes Hx Diphtheria, Pertussis, Tetanus Vaccination: Yes Hx Pneumococcal Vaccination: 03/21/12 Review of Systems - Review of Systems Constitutional: denies: Chills, Diaphoresis, Fever EENT: No symptoms reported Cardiovascular: Chest pain, Dyspnea. denies: Syncope, Dizziness, Lightheaded Respiratory: Short of breath. denies: Cough Gastrointestinal: denies: Abdominal pain, Diarrhea, Nausea, Vomiting Musculoskeletal: No symptoms reported Skin: No symptoms reported Hematologic/Lymphatic: No symptoms reported Neurological/Psychological: denies: Headaches, Numbness, Tingling -: Yes All other systems reviewed and negative Physical Exam - Vital signs Vitals: Temp Pulse Resp BP Pulse Ox 98.2 F 70 16 98/67 L 96 02/20/19 16:30 02/20/19 16:30 02/20/19 16:30 02/20/19 16:30 02/20/19 16:30 Notes: Noted blood pressure of 98/67 - General General appearance: Appears well, Alert In distress: None - HEENT Head: Normocephalic, Atraumatic Eyes: Normal Pupils: PERRL - Respiratory Respiratory status: No respiratory distress Chest status: Nontender Breath sounds: Normal Chest palpation: Normal - Cardiovascular Rhythm: Regular Heart sounds: Normal auscultation Murmur: No - Abdominal Inspection: Normal Distension: No distension Bowel sounds: Normal Tenderness: Nontender Organomegaly: No organomegaly - Back Back: Nontender, CVA tenderness - Neurological Neuro grossly intact: Yes Cognition: Normal Orientation: AAOx4 [place] Coma Scale Eye Opening: Spontaneous [place] Coma Scale Verbal: Oriented [place] Coma Scale Motor: Obeys Commands Ken Coma Scale Total: 15 Speech: Normal Motor strength normal: LUE, RUE, LLE, RLE Sensory: Normal - Psychological Associated symptoms: Normal affect, Normal mood - Skin Skin Temperature: Warm Skin Moisture: Dry Skin Color: Normal Course - Re-evaluation Re-evalutation: 02/20/[address] Staples, ER attending. She agrees that patient has concerning history for cardiac origin for this chest pain. We discussed possibly putting patient on a nitro drip but his blood pressure is low currently and we do not want to make that worse. He has had aspirin as well as 2 sublingual nitros with EMS. He still had pain so morphine was ordered. He was also placed on oxygen. We will plan to go ahead and transfer patient divided since he is a high risk chest pain and may require cath intervention. Discussed with patient he agrees with plan for transfer. Placed a page for transfer with [facility] to transfer and admit patient. Will await return call from cardiology. 02/20/19 20:19 Discussed patient with [employer], Dr. Sanjay Denny. She accepts patient. Aware of his HEART score of 5 and high risk chest pain. Aware of BP. Aware of nitro, asa and morphine given. Agrees with not giving more nitro or beta tucker. Would like to hold on lovenox for now. [facility] will call back with transfer/bed assignment. Impression: High risk chest pain with HEART score of 5. Will transfer for admission since cardiac cath and intervention is not capable here. Dr. Godwin agrees with the plan. EMTALA form has been completed. - Vital Signs Vital signs: Temp Pulse Resp BP Pulse Ox 98.2 F 70 12 93/73 L 96 02/20/19 16:30 02/20/19 16:30 02/20/19 19:01 02/20/19 19:01 02/20/19 19:01 - Laboratory Result Diagrams: 02/20/19 16:44 02/20/19 16:44 Laboratory results interpreted by me: 02/20/19 02/20/19 02/20/19 16:44 16:44 16:44 RBC 3.82 L Hgb 11.8 L Hct 35.0 L RDW 14.8 H Lymphocytes % 45.6 H APTT 37.3 H Chloride 110 H Anion Gap 2 L BUN 6 L Total Protein 5.9 L Albumin 3.2 L - Diagnostic Test Radiology reviewed: Image reviewed, Reports reviewed - EKG Interpretation by Me EKG shows normal: Sinus rhythm Rate: Normal Rhythm: NSR When compared to previous EKG there are: No significant change Additional EKG results interpreted by me: 02/20/19 No STEMI, noted T wave inversions in V2 and flattening T wave in lead I. However these are not different from prior EKG on January 26, 2019. Discharge - Discharge Clinical Impression: Chest pain Condition: Stable Disposition: [facility] Referrals: SHELLY SETHI MD [Primary Care Provider] - Follow up as needed
[2019-02-20] MEDS ORDERED: MORPHINE SULFATE 10 MG/ML INJ IV ONE (18:08)
--- NOTE | 2019-02-20 18:40 | RADIOLOGY REPORT (SQ) ---
EXAM DESCRIPTION: CHEST SINGLE VIEW COMPLETED DATE/TIME: 02/20/2019 6:25 pm REASON FOR STUDY: chest pain COMPARISON: 01/26/2019 EXAM PARAMETERS: NUMBER OF VIEWS: One view. TECHNIQUE: Single frontal radiographic view of the chest acquired. RADIATION DOSE: NA LIMITATIONS: None. FINDINGS: LUNGS AND PLEURA: No opacities, masses or pneumothorax. No pleural effusion. MEDIASTINUM AND HILAR STRUCTURES: No masses. Contour normal. HEART AND VASCULAR STRUCTURES: Heart normal in size. Normal vasculature. BONES: No acute findings. HARDWARE: Sternotomy wires. OTHER: No other significant finding. IMPRESSION: NO ACUTE RADIOGRAPHIC FINDING IN THE CHEST. TECHNICAL DOCUMENTATION: JOB ID: [id number] [employer]- All Rights Reserved Reading location - IP/workstation name: [email or web address]
[2019-02-20 21:40] LABS: APPEARANCE,URINE CLEAR; BILIRUBIN,URINE NEGATIVE (NEGATIVE); COLOR,URINE YELLOW; GLUCOSE, URINE NEGATIVE (NEGATIVE); KETONES,URINE NEGATIVE (NEGATIVE); LEUKOCYTE ESTERASE,URINE NEGATIVE (NEGATIVE); NITRITE,URINE NEGATIVE (NEGATIVE); PROTEIN,URINE NEGATIVE (NEGATIVE); URINE SPECIFIC GRAVITY 1.015; UROBILINOGEN,URINE NEGATIVE mg/dL (<2.0)
--- NOTE | 2019-02-21 01:54 | EKG REPORT ---
SEVERITY:- BORDERLINE ECG - SINUS RHYTHM BORDERLINE T ABNORMALITIES, ANT-LAT LEADS : Confirmed by: Ann Domingo MD 21-Feb-2019 01:53:56
[2019-02-21 07:09] VITALS: BP 110/78
== END 2019-02-21 08:06 | disposition short-term general hospital (02) ==
LOC: ER 16:29
DX: R07.9 Chest pain, unspecified (principal); R06.02 Shortness of breath; Z79.01 Long term (current) use of anticoagulants; Z79.82 Long term (current) use of aspirin; F17.200 Nicotine dependence, unspecified, uncomplicated; I25.2 Old myocardial infarction; I25.10 Atherosclerotic heart disease of native coronary artery without angina pectoris; I10 Essential (primary) hypertension; E11.9 Type 2 diabetes mellitus without complications
CPT/HCPCS: 93005; 99285; 96374; 36415; 82553; 82550; 85025; 85610; 85730; 80053; 81001; 84484; 71045; 93010; J2270

== ENCOUNTER 2019-03-15 20:48 | Emergency (ER) | payer MEDICARE, MEDICAID ==
[2019-03-15] MEDS ORDERED: AMOXICILLIN TR/POT CLAVULANATE 500-125 MG TAB PO ONE (22:31)
[2019-03-15] MEDS ORDERED: DIPH/PERTUSS(ACELL)/TETANUS VAC/PF 0.5 ML SYR (>=10YO) IM ONE (22:31)
--- NOTE | 2019-03-15 22:37 | ER Document Report ---
ED Medical Screen (RME) - General Chief Complaint: Dog Bite Stated Complaint: DOG BITE LEFT ARM Time Seen by Provider: 03/15/19 22:31 Primary Care Provider: SHELLY SETHI MD [Primary Care Provider] - Follow up as needed Mode of Arrival: Ambulatory Information source: Patient Notes: 63-year-old male presented to ED for dog bites to the left forearm. He states that he has 2 dogs and they were fighting he tried to break them up and the dog bit his arm. He states animal control was called and they said it we would fill out her animal control paperwork and fax it to them. He states that the dog's vaccines are not up-to-date and his tetanus is not up-to-date. He is not allergic to Augmentin and I have ordered Augmentin for him as well as a tetanus shot. He is alert oriented respirations regular and unlabored speaking in full sentences walks with even steady gait. He does have multiple lacerations to his left forearm. I have greeted and performed a rapid initial assessment of this patient. A comprehensive ED assessment and evaluation of the patient, analysis of test results and completion of medical decision making process will be conducted by an additional ED providers. TRAVEL OUTSIDE OF THE [place] IN LAST 30 DAYS: No - Related Data Allergies/Adverse Reactions: adhesive [Adhesive] Allergy (Severe, Verified 10/23/18 16:43) peels skin gabapentin [From Neurontin] Allergy (Unknown, Verified 10/23/18 16:43) disoriented levofloxacin [From Levaquin] Allergy (Unknown, Verified 10/23/18 16:43) Sulfa (Sulfonamide Antibiotics) Allergy (Unknown, Verified 10/23/18 16:43) skin wilson tramadol [Tramadol] Allergy (Unknown, Verified 10/23/18 16:43) ibuprofen [From Motrin] Allergy (Verified 10/23/18 16:43) naproxen Allergy (Verified 10/23/18 16:43) Past Medical History - Social History Family history: DM, Hyperlipidemia, Hypertension - Past Medical History Cardiac Medical History: Reports: Hx Coronary Artery Disease, 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 Denies: Hx Peritoneal Dialysis GI Medical History: Reports: Hx Gastroesophageal Reflux Disease. Denies: Hx Pa ncreatitis Musculoskeltal Medical History: Denies Hx Arthritis, Reports Hx Muscle Weakness, Reports Hx Musculoskeletal Deformity, Reports Hx Musculoskeletal Trauma Psychiatric Medical History: Reports: Hx Anxiety, Hx Depression Traumatic Medical History: Reports: Hx Fractures Past Surgical History: Reports: Hx Adenoidectomy, Hx Appendectomy, Hx Bowel Surgery - hemorrhoidectomy, Hx Cardiac Catheterization - last one was 2010, stent x 10, Hx Cardiac Surgery - CABG, Hx Coronary Artery Bypass Graft, Hx Coronary Stent - [id number] recent was 2016, Hx Genitourinary Surgery - Vasectomy, Hx Open Heart Surgery, Hx Rectal Surgery - hemorrhoids, Hx Testicular Surgery - torsion, Hx Tonsillectomy - Immunizations Immunizations up to date: Yes Hx Diphtheria, Pertussis, Tetanus Vaccination: Yes History of Influenza Vaccine for 04/2017 - 09/2017 Season: Yes Influenza Administration Date for 04/2017 - 09/2017 Season: 07/21/17 Physical Exam - Vital signs Vitals: Temp Pulse Resp BP Pulse Ox 98.0 F 94 16 111/77 96 03/15/19 21:06 03/15/19 21:06 03/15/19 21:06 03/15/19 21:06 03/15/19 21:06 Course - Vital Signs Vital signs: Temp Pulse Resp BP Pulse Ox 98.0 F 94 16 111/77 96 03/15/19 21:06 03/15/19 21:06 03/15/19 21:06 03/15/19 21:06 03/15/19 21:06 Doctor's Discharge - Discharge Referrals: SHELLY SETHI MD [Primary Care Provider] - Follow up as needed
--- NOTE | 2019-03-15 23:24 | RADIOLOGY REPORT (SQ) ---
EXAM DESCRIPTION: XR LEFT FOREARM 2 VIEWS COMPLETED DATE/TME: 03/15/2019 22:32 CLINICAL HISTORY: 63 years, Male, dog bite pain COMPARISON: None. NUMBER OF VIEWS: TECHNIQUE: LIMITATIONS: None. FINDINGS: No fracture or dislocation. No evidence of radiopaque foreign body within the soft tissues. Mineralization of bone appears normal. IMPRESSION: No fracture or radiopaque foreign body. copyright 2010 [employer]- All Rights Reserved
--- NOTE | 2019-03-16 01:18 | ER Document Report ---
ED General - General Chief Complaint: Dog Bite Stated Complaint: DOG BITE LEFT ARM Time Seen by Provider: 03/15/19 22:31 Primary Care Provider: SHELLY SETHI MD [Primary Care Provider] - Follow up as needed Mode of Arrival: Ambulatory Information source: Patient TRAVEL OUTSIDE OF THE [place] IN LAST 30 DAYS: No - HPI Notes: 63-year-old male presented to ED for dog bites to the left forearm. He states that he has 2 dogs and they were fighting he tried to break them up and the dog bit his arm. He states animal control was called and they said it we would fill out her animal control paperwork and fax it to them. He states that the dog's vaccines are not up-to-date and his tetanus is not up-to-date. He is not allergic to Augmentin and I have ordered Augmentin for him as well as a tetanus shot. He is alert oriented respirations regular and unlabored speaking in full sentences walks with even steady gait. He does have multiple superficial lacerations to his left forearm. No numbness, paresthesia, fever, chills, chest pain, difficulty breathing. No other musculoskeletal complaint or injury. - Related Data Allergies/Adverse Reactions: adhesive [Adhesive] Allergy (Severe, Verified 10/23/18 16:43) peels skin gabapentin [From Neurontin] Allergy (Unknown, Verified 10/23/18 16:43) disoriented levofloxacin [From Levaquin] Allergy (Unknown, Verified 10/23/18 16:43) Sulfa (Sulfonamide Antibiotics) Allergy (Unknown, Verified 10/23/18 16:43) skin wilson tramadol [Tramadol] Allergy (Unknown, Verified 10/23/18 16:43) ibuprofen [From Motrin] Allergy (Verified 10/23/18 16:43) naproxen Allergy (Verified 10/23/18 16:43) Past Medical History - General Information source: Patient - Social History Smoking Status: Unknown if Ever Smoked Frequency of alcohol use: None Drug Abuse: None Lives with: Family Family History: Reviewed & Not Pertinent, CAD, CVA, Malignancy Patient has suicidal ideation: No Patient has homicidal ideation: No - Past Medical History Cardiac Medical History: Reports: Hx Coronary Artery Disease, 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 Denies: Hx Peritoneal Dialysis GI Medical History: Reports: Hx Gastroesophageal Reflux Disease. Denies: Hx Pancreatitis Musculoskeletal Medical History: Denies Hx Arthritis, Reports Hx Muscle Weakness, Reports Hx Musculoskeletal Deformity, Reports Hx Musculoskeletal Trauma Psychiatric Medical History: Reports: Hx Anxiety, Hx Depression Traumatic Medical History: Reports: Hx Fractures Past Surgical History: Reports: Hx Adenoidectomy, Hx Appendectomy, Hx Bowel Surgery - hemorrhoidectomy, Hx Cardiac Catheterization - last one was 2010, stent x 10, Hx Cardiac Surgery - CABG, Hx Coronary Artery Bypass Graft, Hx Coronary Stent - [id number] recent was 2017, Hx Genitourinary Surgery - Vasectomy, Hx Open Heart Surgery, Hx Rectal Surgery - hemorrhoids, Hx Testicular Surgery - torsion, Hx Tonsillectomy - Immunizations Immunizations up to date: Yes Hx Diphtheria, Pertussis, Tetanus Vaccination: Yes Hx Pneumococcal Vaccination: 03/21/12 Review of Systems - Review of Systems -: Yes All other systems reviewed and negative Physical Exam - Vital signs Vitals: Temp Pulse Resp BP Pulse Ox 98.0 F 94 16 111/77 96 03/15/19 21:06 03/15/19 21:06 03/15/19 21:06 03/15/19 21:06 03/15/19 21:06 - Notes Notes: In general - no apparent distress. HEENTatraumatic normocephalic conjunctiva clear Necksupple nontender Examination of both upper extremities shows minimal superficial abrasions and lacerations left greater than right. There is contusion on the left forearm, but no evidence for compartment syndrome or gross bony deformity. There is full range of motion. There is no proximal erythema or adenopathy. Distally, the pa tient is neurovascularly intact with good distal sensation and capillary refill and pulses. No specific joint pain. Course - Re-evaluation Re-evalutation: 03/16/19 01:32 X-ray was negative on the forearm. There is no evidence for compartment syndrome. The wounds were cleaned and antibiotic appointment was applied and the patient received Augmentin and a tetanus shot. - Vital Signs Vital signs: Temp Pulse Resp BP Pulse Ox 98.0 F 94 16 111/77 96 03/15/19 21:06 03/15/19 21:06 03/15/19 21:06 03/15/19 21:06 03/15/19 21:06 Discharge - Discharge Clinical Impression: Dog bite Qualifiers: Encounter type: initial encounter Qualified Code(s): W54.0XXA - Bitten by dog, initial encounter Condition: Stable Disposition: HOME, SELF-CARE Instructions: Animal Bites ([facility]) Additional Instructions: Watch blood sugars closely. Apply antibiotic ointment to the wound. Return to the emergency department in case of fever, worsening swelling, significant redness. Prescriptions: Amox Tr/Potassium Clavulanate [Augmentin 875-125 Tablet] 1 tab PO BID 8 Days tablet Referrals: SHELLY SETHI MD [Primary Care Provider] - Follow up as needed
[2019-03-16] MEDS ORDERED: AMOXICILLIN TR/POT CLAVULANATE 500-125 MG TAB PO ONE (01:28)
[2019-03-16] MEDS ORDERED: BACITRACIN ZINC OINTMENT 15 GM TP ONE (01:29)
[2019-03-16] MEDS ORDERED: DIPH/PERTUSS(ACELL)/TETANUS VAC/PF 0.5 ML SYR (>=10YO) IM ONE (01:36)
[2019-03-16] MEDS ORDERED: BACITRACIN ZINC OINTMENT 15 GM ONE (01:57)
[2019-03-16 02:15] VITALS: BP 110/73
== END 2019-03-16 02:15 | disposition home or self-care (01) ==
LOC: ER 20:48
DX: S50.872A Other superficial bite of left forearm, initial encounter (principal); W54.0XXA Bitten by dog, initial encounter; I25.10 Atherosclerotic heart disease of native coronary artery without angina pectoris; I25.2 Old myocardial infarction; I10 Essential (primary) hypertension; E11.9 Type 2 diabetes mellitus without complications
CPT/HCPCS: 73090; 90715; A9270; J3490; 90471; 99283

== ENCOUNTER 2019-05-17 20:42 | Emergency (ER) | payer MEDICARE, MEDICAID ==
[2019-05-17] MEDS ORDERED: ASPIRIN 81 MG TABLET, CHEWABLE PO ONE (20:43)
--- NOTE | 2019-05-17 21:43 | EKG REPORT ---
SEVERITY:- ABNORMAL ECG - SINUS RHYTHM PROBABLE LEFT ATRIAL ABNORMALITY EARLY PRECORDIAL TRANSITION R/O OLD TRUE POST IL. : Confirmed by: Elio Rae MD 17-May-2019 21:42:52
[2019-05-17 21:51] LABS: ABSOLUTE EOSINOPHILS # (AUTO) 0.1 10^3/uL (0.0-0.6); ABSOLUTE LYMPHOCYTES (AUTO) 2.7 10^3/uL (0.5-4.7); ABSOLUTE MONOCYTES (AUTO) 0.4 10^3/uL (0.1-1.4); ABSOLUTE NEUT (AUTO) 2.9 10^3/uL (1.7-8.2); BASOPHILS % (AUTO) 0.4 % (0-2); EOSINOPHILS % (AUTO) 1.6 % (0-6); HEMATOCRIT 35.8 % (37.9-51.0); HEMOGLOBIN 11.9 g/dL (13.5-17.0); LYMPHOCYTES % (AUTO) 43.9 % (13-45); MEAN CORPUSCULAR HEMOGLOBIN 31.3 pg (27.0-33.4); MEAN CORPUSCULAR HGB CONC 33.2 g/dL (32.0-36.0); MEAN CORPUSCULAR VOLUME 94 fl (80-97); MONOCYTES % (AUTO) 6.9 % (3-13); PLATELET COUNT 201 10^3/uL (150-450); RED CELL DISTRIBUTION WIDTH 15.1 % (11.5-14.0); SEGMENTED NEUTROPHILS % (AUTO) 47.2 % (42-78); TOTAL CELLS COUNTED % (AUTO) 100 %; WHITE BLOOD COUNT 6.2 10^3/uL (4.0-10.5)
--- NOTE | 2019-05-17 21:55 | RADIOLOGY REPORT (SQ) ---
XR CHEST 2 VIEWS CLINICAL STATEMENT: cp COMPARISON: 02/20/2019 FINDINGS: Status post median sternotomy. Cardiomediastinal silhouette is within normal limits. There is no focal lung consolidation or pleural effusion. No evidence of pulmonary edema or pneumothorax. IMPRESSION: No acute cardiopulmonary disease.
[2019-05-17 22:09] LABS: ALKALINE PHOSPHATASE 66 U/L (38-126); ANION GAP 9 (5-19); ASPARTATE AMINO TRANSFERASE 19 U/L (17-59); BILIRUBIN,DIRECT 0.1 mg/dL (0.0-0.4); BILIRUBIN,TOTAL 0.5 mg/dL (0.2-1.3); BLOOD UREA NITROGEN 8 mg/dL (7-20); CARBON DIOXIDE 25 mmol/L (22-30); CHLORIDE 108 mmol/L (98-107); CREATINE KINASE 80 U/L (55-170); GLUCOSE 83 mg/dL (75-110); POTASSIUM 3.7 mmol/L (3.6-5.0)
[2019-05-17 22:22] LABS: TROPONIN I < 0.012 ng/mL
[2019-05-17] MEDS ORDERED: MORPHINE SULFATE 10 MG/ML INJ IV ONE (22:55)
[2019-05-17] MEDS ORDERED: ONDANSETRON HCL INJ/PF 4 MG/2 ML SDV IV ONE (22:56)
--- NOTE | 2019-05-17 22:59 | ER Document Report ---
ED General - General Chief Complaint: Chest Pain Stated Complaint: CHEST PAIN Time Seen by Provider: 05/17/19 22:31 Primary Care Provider: SHELLY SETHI MD [Primary Care Provider] - Follow up as needed TRAVEL OUTSIDE OF THE [place] IN LAST 30 DAYS: No - HPI Notes: Patient is a 64-year-old male who presents the emergency department for evaluation of left-sided chest pain. He states that around 230 this afternoon he started feeling palpitations. Around 330 he started feeling nausea. Around 5 he noted a burning and aching left-sided chest pain. It does not radiate. At that point he decided to present to the ED for further evaluation. He states he has been evaluated for pain to let us in the past and nothing was found. He notes that he had a negative stress test in [place] 3 to 4 months ago. He currently puts his pain at a 6 out of 10, nothing seems to make it better or worse. - Related Data Allergies/Adverse Reactions: adhesive [Adhesive] Allergy (Severe, Verified 10/23/18 16:43) peels skin gabapentin [From Neurontin] Allergy (Unknown, Verified 10/23/18 16:43) disoriented levofloxacin [From Levaquin] Allergy (Unknown, Verified 10/23/18 16:43) Sulfa (Sulfonamide Antibiotics) Allergy (Unknown, Verified 10/23/18 16:43) skin wilson tramadol [Tramadol] Allergy (Unknown, Verified 10/23/18 16:43) ibuprofen [From Motrin] Allergy (Verified 10/23/18 16:43) naproxen Allergy (Verified 10/23/18 16:43) Past Medical History - General Information source: Patient - Social History Smoking Status: Current Every Day Smoker Chew tobacco use (# tins/day): No Frequency of alcohol use: None Drug Abuse: None Family History: Reviewed & Not Pertinent, CAD, CVA, Malignancy Patient has suicidal ideation: No Patient has homicidal ideation: No - Past Medical History Cardiac Medical History: Reports: Hx Coronary Artery Disease, Hx 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 Denies: Hx Peritoneal Dialysis GI Medical History: Reports: Hx Gastroesophageal Reflux Disease. Denies: Hx Pancreatitis Musculoskeletal Medical History: Denies Hx Arthritis, Reports Hx Muscle Weakness, Reports Hx Musculoskeletal Deformity, Reports Hx Musculoskeletal Trauma Psychiatric Medical History: Reports: Hx Anxiety, Hx Depression Traumatic Medical History: Reports: Hx Fractures Past Surgical History: Reports: Hx Adenoidectomy, Hx Appendectomy, Hx Bowel Surgery - hemorrhoidectomy, Hx Cardiac Catheterization - last one was 2010, stent x 10, Hx Cardiac Surgery - CABG, Hx Coronary Artery Bypass Graft, Hx Coronary Stent - [id number] recent was 2017, Hx Genitourinary Surgery - Vasectomy, Hx Open Heart Surgery, Hx Rectal Surgery - hemorrhoids, Hx Testicular Surgery - torsion, Hx Tonsillectomy - Immunizations Immunizations up to date: Yes Hx Diphtheria, Pertussis, Tetanus Vaccination: Yes Hx Pneumococcal Vaccination: 03/21/12 Review of Systems - Review of Systems Constitutional: No symptoms reported EENT: No symptoms reported Cardiovascular: See HPI Respiratory: No symptoms reported Gastrointestinal: See HPI Genitourinary: No symptoms reported Musculoskeletal: No symptoms reported Skin: No symptoms reported Neurological/Psychological: No symptoms reported Physical Exam - Vital signs Vitals: Temp Pulse Resp BP Pulse Ox 98.0 F 69 18 118/81 96 05/17/19 20:54 05/17/19 20:54 05/17/19 20:54 05/17/19 20:54 05/17/19 20:54 - Notes Notes: Vital signs reviewed, please refer to chart. Head is normocephalic, atraumatic. Pupils equal round, reactive to light. Neck is supple without meningismus. Heart is regular rate and rhythm. Lungs are clear to auscultation bilaterally. Nontender, without significant abnormality on inspection. Abdomen is soft, non tender, normoactive bowel sounds throughout. Extremities without cyanosis, clubbing. Posterior calves are nontender. Peripheral pulses are equal. Skin is warm and dry. Patient is awake, alert, neurological exam is nonfocal. Course - Re-evaluation Re-evalutation: 05/17/19 22:58 Presents emergency department for evaluation. His chest pain is atypical in nature. It was onset while at rest. He had similar pain in the past which was found to be not cardiac. He is not tachycardic. He is not short of breath. Initial enzymes are negative. Given his history we will order a delta. If this remains unremarkable, patient will follow-up with primary care cardiology. He is given morphine and Zofran for his pain. 05/18/19 01:51 Repeat troponin is negative. Patient remained stable. Again his pain is atypical. He is to follow-up with primary care, return to the ED with worsening. - Vital Signs Vital signs: Temp Pulse Resp BP Pulse Ox 98.0 F 69 22 H 105/79 95 05/17/19 20:54 05/17/19 20:54 05/18/19 01:02 05/18/19 01:02 05/18/19 01:02 - Laboratory Result Diagrams: 05/17/19 21:35 05/17/19 21:35 Laboratory results interpreted by me: 05/17/19 05/17/19 21:35 21:35 RBC 3.80 L Hgb 11.9 L Hct 35.8 L RDW 15.1 H Chloride 108 H - Diagnostic Test Radiology reviewed: Reports reviewed Radiology results interpreted by me: 05/17/19 22:58 Chest X-Ray 05/17/19 00:00 IMPRESSION: No acute cardiopulmonary disease. - EKG Interpretation by Me Additional EKG results interpreted by me: 05/17/19 22:58 Sinus mechanism with rate of 63 bpm. Normal axis and intervals, no acute ST changes concerning for ischemia or infarction Discharge - Discharge Clinical Impression: Chest pain Condition: Stable Disposition: HOME, SELF-CARE Instructions: Chest Pain of Unclear Cause ([facility]) Additional Instructions: No clear cause was found for your chest pain today. Follow-up with your primary care provider this week. Return the emergency department with worsening or concerning symptoms of any sort. Referrals: SHELLY SETHI MD [Primary Care Provider] - Follow up as needed
[2019-05-18 01:55] VITALS: BP 105/79
== END 2019-05-18 02:38 | disposition home or self-care (01) ==
LOC: ER 20:42
DX: R07.89 Other chest pain (principal); R00.2 Palpitations; R11.0 Nausea; I25.10 Atherosclerotic heart disease of native coronary artery without angina pectoris; I10 Essential (primary) hypertension; I25.2 Old myocardial infarction; E11.9 Type 2 diabetes mellitus without complications; Z95.5 Presence of coronary angioplasty implant and graft; Z91.048 Other nonmedicinal substance allergy status; Z88.6 Allergy status to analgesic agent; Z88.1 Allergy status to other antibiotic agents; Z88.5 Allergy status to narcotic agent; Z88.8 Allergy status to other drugs, medicaments and biological substances; F17.200 Nicotine dependence, unspecified, uncomplicated; Z82.49 Family history of ischemic heart disease and other diseases of the circulatory system; Z95.1 Presence of aortocoronary bypass graft
CPT/HCPCS: 93005; 99285; 96374; 96375; 36415; 82553; 82550; 85025; 80053; 84484; 71046; 93010; A9270; J2270; J2405

== ENCOUNTER 2019-06-14 11:57 | Emergency (ER) | payer MEDICARE, MEDICAID ==
--- NOTE | 2019-06-14 12:34 | ER Document Report ---
ED Medical Screen (RME) - General Chief Complaint: Testicular Problem Stated Complaint: TESTICULAR PAIN/BLEEDING Time Seen by Provider: 06/14/19 12:29 Primary Care Provider: SHELLY SETHI MD [Primary Care Provider] - Follow up as needed Mode of Arrival: Ambulatory Information source: Patient Notes: 64-year-old male presented to ED for complaint of pain and swelling to his right testicle. He states he has had a testicular torsion and they cut the left testicle and lifted in the sac and nausea has not the right testicle. He states that he is continuing to have blood in his ejaculation is having a lot of pain in his scrotum. He states he went to his primary care doctor Shelly Sethi MD and he sent him over to the emergency room to get examined. Patient is on pain management with benzodiazepines and narcotics. I have ordered urine and a ultrasound. He is on multiple medications for multiple conditions to include heart problems and he is on a blood thinner. I have greeted and performed a rapid initial assessment of this patient. A comprehensive ED assessment and evaluation of the patient, analysis of test results and completion of medical decision making process will be conducted by an additional ED providers. TRAVEL OUTSIDE OF THE [place] IN LAST 30 DAYS: No - Related Data Allergies/Adverse Reactions: adhesive [Adhesive] Allergy (Severe, Verified 10/23/18 16:43) peels skin gabapentin [From Neurontin] Allergy (Unknown, Verified 10/23/18 16:43) disoriented levofloxacin [From Levaquin] Allergy (Unknown, Verified 10/23/18 16:43) Sulfa (Sulfonamide Antibiotics) Allergy (Unknown, Verified 10/23/18 16:43) skin wilson tramadol [Tramadol] Allergy (Unknown, Verified 10/23/18 16:43) ibuprofen [From Motrin] Allergy (Verified 10/23/18 16:43) naproxen Allergy (Verified 10/23/18 16:43) Past Medical History - Social History Family history: DM, Hyperlipidemia, Hypertension - Past Medical History Cardiac Medical History: Reports: Hx Coronary Artery Disease, 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 Denies: Hx Peritoneal Dialysis GI Medical History: Reports: Hx Gastroesophageal Reflux Disease. Denies: Hx Pancreatitis Musculoskeltal Medical History: Denies Hx Arthritis, Reports Hx Muscle Weakness, Reports Hx Musculoskeletal Deformity, Reports Hx Musculoskeletal Trauma Psychiatric Medical History: Reports: Hx Anxiety, Hx Depression Traumatic Medical History: Reports: Hx Fractures Past Surgical History: Reports: Hx Adenoidectomy, Hx Appendectomy, Hx Bowel Surgery - hemorrhoidectomy, Hx Cardiac Catheterization - last one was 2010, stent x 10, Hx Cardiac Surgery - CABG, Hx Coronary Artery Bypass Graft, Hx Coronary Stent - [id number] recent was 2017, Hx Genitourinary Surgery - Vasectomy, Hx Open Heart Surgery, Hx Rectal Surgery - hemorrhoids, Hx Testicular Surgery - torsion, Hx Tonsillectomy - Immunizations Immunizations up to date: Yes Hx Diphtheria, Pertussis, Tetanus Vaccination: Yes Physical Exam - Vital signs Vitals: Temp Pulse Resp BP Pulse Ox 98 F 78 18 109/77 98 06/14/19 12:05 06/14/19 12:05 06/14/19 12:05 06/14/19 12:05 06/14/19 12:05 Course - Vital Signs Vital signs: Temp Pulse Resp BP Pulse Ox 98 F 78 18 109/77 98 06/14/19 12:05 06/14/19 12:05 06/14/19 12:05 06/14/19 12:05 06/14/19 12:05 Doctor's Discharge - Discharge Referrals: SHELLY SETHI MD [Primary Care Provider] - Follow up as needed
[2019-06-14 13:25] LABS: ABSOLUTE EOSINOPHILS # (AUTO) 0.1 10^3/uL (0.0-0.6); ABSOLUTE LYMPHOCYTES (AUTO) 1.8 10^3/uL (0.5-4.7); ABSOLUTE MONOCYTES (AUTO) 0.3 10^3/uL (0.1-1.4); ABSOLUTE NEUT (AUTO) 2.2 10^3/uL (1.7-8.2); BASOPHILS % (AUTO) 0.7 % (0-2); EOSINOPHILS % (AUTO) 2.5 % (0-6); HEMATOCRIT 38.9 % (37.9-51.0); HEMOGLOBIN 12.7 g/dL (13.5-17.0); LYMPHOCYTES % (AUTO) 40.8 % (13-45); MEAN CORPUSCULAR HEMOGLOBIN 31.2 pg (27.0-33.4); MEAN CORPUSCULAR HGB CONC 32.8 g/dL (32.0-36.0); MEAN CORPUSCULAR VOLUME 95 fl (80-97); MONOCYTES % (AUTO) 5.7 % (3-13); PLATELET COUNT 197 10^3/uL (150-450); RED BLOOD COUNT 4.09 10^6/uL (4.35-5.55); RED CELL DISTRIBUTION WIDTH 14.9 % (11.5-14.0); SEGMENTED NEUTROPHILS % (AUTO) 50.3 % (42-78); TOTAL CELLS COUNTED % (AUTO) 100 %; WHITE BLOOD COUNT 4.4 10^3/uL (4.0-10.5)
[2019-06-14 13:32] LABS: ALBUMIN 4.2 g/dL (3.5-5.0); ALKALINE PHOSPHATASE 72 U/L (38-126); ANION GAP 7 (5-19); ASPARTATE AMINO TRANSFERASE 24 U/L (17-59); BILIRUBIN,TOTAL 0.4 mg/dL (0.2-1.3); BLOOD UREA NITROGEN 7 mg/dL (7-20); CALCIUM 9.5 mg/dL (8.4-10.2); CARBON DIOXIDE 31 mmol/L (22-30); CHLORIDE 102 mmol/L (98-107); GLUCOSE 151 mg/dL (75-110); POTASSIUM 4.7 mmol/L (3.6-5.0); TOTAL PROTEIN 7.4 g/dL (6.3-8.2)
[2019-06-14 13:43] LABS: APPEARANCE,URINE CLEAR; BILIRUBIN,URINE NEGATIVE (NEGATIVE); COLOR,URINE YELLOW; GLUCOSE, URINE NEGATIVE (NEGATIVE); KETONES,URINE NEGATIVE (NEGATIVE); PROTEIN,URINE NEGATIVE (NEGATIVE); URINE SPECIFIC GRAVITY 1.013; UROBILINOGEN,URINE NEGATIVE mg/dL (<2.0)
--- NOTE | 2019-06-14 14:14 | RADIOLOGY REPORT (SQ) ---
EXAM DESCRIPTION: U/S SCROTUM W/DOPPLER COMPLETED DATE/TIME: 06/14/2019 2:01 pm REASON FOR STUDY: right testicular pain blood with ejaculation COMPARISON: 09/27/2018 CT abdomen and pelvis TECHNIQUE: Static and realtime freeman scale imaging of the scrotum and testes. Selected color Doppler and spectral images recorded to document blood flow. LIMITATIONS: None. FINDINGS: RIGHT: TESTICLE: Normal size, 6 x 3.2 x 2 cm in size. Normal echotexture. Normal blood flow. No mass. EPIDIDYMIS: Enlarged epididymal head, hypoechoic and irregular in shape, could be due to epididymitis or small epididymal mass. Epididymal head measures 1.7 x 0.9 cm in size HYDROCELE OR VARICOCELE: No. HERNIA OR EXTRA-TESTICULAR MASS: No. OTHER: No other significant finding. LEFT: TESTICLE: Patient states he had left-sided testicular torsion years ago. No testicle is seen over th e left hemiscrotum or inguinal region EPIDIDYMIS: Not identified HYDROCELE OR VARICOCELE: No. HERNIA OR EXTRA-TESTICULAR MASS: No. OTHER: No other significant finding. IMPRESSION: No ultrasound evidence of right testicular torsion Enlarged right epididymal head, epididymitis versus nodule Post tortion left testicle. Likely removed. TECHNICAL DOCUMENTATION: JOB ID: [id number] [employer]- All Rights Reserved Reading location - IP/workstation name: [email or web address]
--- NOTE | 2019-06-14 16:34 | ER Document Report ---
ED General - General Chief Complaint: Testicular Problem Stated Complaint: TESTICULAR PAIN/BLEEDING Time Seen by Provider: 06/14/19 12:29 Primary Care Provider: SHELLY SETHI MD [Primary Care Provider] - Follow up as needed Mode of Arrival: Ambulatory Information source: Patient TRAVEL OUTSIDE OF THE [place] IN LAST 30 DAYS: No - HPI Notes: Patient presents complaining of testicular pain. The pain is in the scrotal area bilaterally. It is sharp and radiates up into the inguinal area bilaterally. It is intermittent. It is worse when he has intercourse and better when he does not. He also states that he has had blood in his semen. He states now that his semen is almost pure blood. He states he does take Plavix a nd aspirin. He states he went to Dr. Bull this is office today and was referred here for further evaluation. He states he is currently awaiting referral to urology. No abdominal pain. No fevers. No vomiting or diarrhea. No rashes. He has not appreciated any significant swelling of the testicles. - Related Data Allergies/Adverse Reactions: adhesive [Adhesive] Allergy (Severe, Verified 10/23/18 16:43) peels skin gabapentin [From Neurontin] Allergy (Unknown, Verified 10/23/18 16:43) disoriented levofloxacin [From Levaquin] Allergy (Unknown, Verified 10/23/18 16:43) Sulfa (Sulfonamide Antibiotics) Allergy (Unknown, Verified 10/23/18 16:43) skin wilson tramadol [Tramadol] Allergy (Unknown, Verified 10/23/18 16:43) ibuprofen [From Motrin] Allergy (Verified 10/23/18 16:43) naproxen Allergy (Verified 10/23/18 16:43) Home Medications: Nitroglycerin, Latanoprost, Isosorbide, Atrovastatin, Ranolazine, Metformin, Oxymorphone, Diazepam, Morphine, Clopidgrel, Lisinopril, Ranitidine. Sertraline, Norvasc, Aspirin. Past Medical History - General Information source: Patient - Social History Smoking Status: Former Smoker Frequency of alcohol use: None Drug Abuse: None Family History: Reviewed & Not Pertinent, CAD, CVA, Malignancy Patient has suicidal ideation: No Patient has homicidal ideation: No - Past Medical History Cardiac Medical History: Reports: Hx Coronary Artery Disease, 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 Denies: Hx Peritoneal Dialysis GI Medical History: Reports: Hx Gastroesophageal Reflux Disease. Denies: Hx Pancreatitis Musculoskeletal Medical History: Denies Hx Arthritis, Reports Hx Muscle Weakne ss, Reports Hx Musculoskeletal Deformity, Reports Hx Musculoskeletal Trauma Psychiatric Medical History: Reports: Hx Anxiety, Hx Depression Traumatic Medical History: Reports: Hx Fractures Past Surgical History: Reports: Hx Adenoidectomy, Hx Appendectomy, Hx Bowel Surgery - hemorrhoidectomy, Hx Cardiac Catheterization - last one was 2010, stent x 10, Hx Cardiac Surgery - CABG, Hx Coronary Artery Bypass Graft, Hx Coronary Stent - [id number] recent was 2017, Hx Genitourinary Surgery - Vasectomy, Hx Open Heart Surgery, Hx Rectal Surgery - hemorrhoids, Hx Testicular Surgery - torsion, Hx Tonsillectomy - Immunizations Immunizations up to date: Yes Hx Diphtheria, Pertussis, Tetanus Vaccination: Yes Hx Pneumococcal Vaccination: 03/21/12 Review of Systems - Review of Systems Constitutional: denies: Chills, Fever Cardiovascular: denies: Chest pain, Palpitations Respiratory: denies: Cough, Short of breath -: Yes All other systems reviewed and negative Physical Exam - Vital signs Vitals: Temp Pulse Resp BP Pulse Ox 98 F 78 18 109/77 98 06/14/19 12:05 06/14/19 12:05 06/14/19 12:05 06/14/19 12:05 06/14/19 12:05 Interpretation: Normal - General General appearance: Appears well, Alert - HEENT Head: Normocephalic, Atraumatic Eyes: Normal Pupils: PERRL - Respiratory Respiratory status: No respiratory distress Chest status: Nontender Breath sounds: Normal Chest palpation: Normal - Cardiovascular Rhythm: Regular Heart sounds: Normal auscultation Murmur: No - Abdominal Inspection: Normal Distension: No distension Bowel sounds: Normal Tenderness: Nontender Organomegaly: No organomegaly - Genitourinary Inspection: Normal Tenderness: Nontender Scrotum: Normal - Back Back: Normal, Nontender - Extremities General upper extremity: Normal inspection, Nontender, Normal color, Normal ROM, Normal temperature General lower extremity: Normal inspection, Nontender, Normal color, Normal ROM, Normal temperature, Normal weight bearing. No: Enrique's sign - Neurological Neuro grossly intact: Yes Cognition: Normal Orientation: AAOx4 [place] Coma Scale Eye Opening: Spontaneous [place] Coma Scale Verbal: Oriented [place] Coma Scale Motor: Obeys Commands [place] Coma Scale Total: 15 Speech: Normal Motor strength normal: LUE, RUE, LLE, RLE Sensory: Normal - Psychological Associated symptoms: Normal affect, Normal mood - Skin Skin Temperature: Warm Skin Moisture: Dry Skin Color: Normal Course - Re-evaluation Re-evalutation: 06/14/19 16:31 Patient presents with vague scrotal pain, blood in his semen, and an enlarged epididymis on ultrasound. It is possible this is a early infection although he has no fever and has a normal urinalysis. To be on the safe side I will start him on some antibiotics. He has no penile discharge. He definitely needs to f ollow-up with urology which I have urged him to do. Laboratory evaluation and physical exam are otherwise unremarkable in the emergency department. - Vital Signs Vital signs: Temp Pulse Resp BP Pulse Ox 98 F 78 18 109/77 98 06/14/19 12:05 06/14/19 12:05 06/14/19 12:05 06/14/19 12:05 06/14/19 12:05 - Laboratory Result Diagrams: 06/14/19 12:50 06/14/19 12:50 Laboratory results interpreted by me: 06/14/19 06/14/19 12:50 12:50 RBC 4.09 L Hgb 12.7 L RDW 14.9 H Carbon Dioxide 31 H Glucose 151 H - Diagnostic Test Radiology reviewed: Image reviewed, Reports reviewed Discharge - Discharge Clinical Impression: Acute epididymitis, Blood in semen Condition: Stable Disposition: HOME, SELF-CARE Instructions: Epididymitis ([facility]) Additional Instructions: Please follow-up with urology as soon as possible Prescriptions: Doxycycline Hyclate 100 mg PO BID 5 Days #10 capsule Referrals: SHELLY SETHI MD [Primary Care Provider] - Follow up as needed SPARKLE ROSALES MD [NO LOCAL MD] - Follow up in 3-5 days
[2019-06-14 17:13] VITALS: BP 104/69
== END 2019-06-14 17:00 | disposition home or self-care (01) ==
LOC: ER 11:57
DX: N45.1 Epididymitis (principal); R36.1 Hematospermia; N50.812 Left testicular pain; N50.811 Right testicular pain; Z79.02 Long term (current) use of antithrombotics/antiplatelets; Z79.82 Long term (current) use of aspirin; Z79.899 Other long term (current) drug therapy; Z87.891 Personal history of nicotine dependence; I25.10 Atherosclerotic heart disease of native coronary artery without angina pectoris; I25.2 Old myocardial infarction; I10 Essential (primary) hypertension; E11.9 Type 2 diabetes mellitus without complications
CPT/HCPCS: 36415; 76870; 80053; 81001; 85025; 93976; 99284

== ENCOUNTER 2019-08-14 21:19 | Emergency (ER) | payer MEDICARE, MEDICAID ==
--- NOTE | 2019-08-14 22:08 | ER Document Report ---
ED Medical Screen (RME) - General Chief Complaint: Chest Pain Stated Complaint: CHEST PRESSURE Time Seen by Provider: 08/14/19 22:02 Primary Care Provider: SHELLY SETHI MD [Primary Care Provider] - Follow up as needed Mode of Arrival: Ambulatory Information source: Patient Notes: This 64-year-old male with history of high blood pressure positive for influenza presents emergency department with complaints of chest pain palpitations high blood pressure and diarrhea that started tonight around 1999. Patient was also wearing a Holter monitor because few weeks ago he passed out. Patient reports he was diagnosed with the flu 2 days ago at urgent care. He is taking and Tamiflu. I have greeted and performed a rapid initial assessment of this patient. A comprehensive ED assessment and evaluation of the patient, analysis of test results and completion of the medical decision making process will be conducted by additional ED providers. TRAVEL OUTSIDE OF THE [place] IN LAST 30 DAYS: No - Related Data Allergies/Adverse Reactions: adhesive [Adhesive] Allergy (Severe, Verified 08/14/19 21:58) peels skin gabapentin [From Neurontin] Allergy (Unknown, Verified 08/14/19 21:58) disoriented levofloxacin [From Levaquin] Allergy (Unknown, Verified 08/14/19 21:58) Sulfa (Sulfonamide Antibiotics) Allergy (Unknown, Verified 08/14/19 21:58) skin wilson tramadol [Tramadol] Allergy (Unknown, Verified 08/14/19 21:58) ibuprofen [From Motrin] Allergy (Verified 08/14/19 21:58) naproxen Allergy (Verified 08/14/19 21:58) Past Medical History - Social History Family history: DM, Hyperlipidemia, Hypertension - Past Medical History Cardiac Medical History: Reports: Hx Coronary Artery Disease, 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 Denies: Hx Peritoneal Dialysis GI Medical History: Reports: Hx Gastroesophageal Reflux Disease. Denies: Hx Pancreatitis Musculoskeltal Medical History: Denies Hx Arthritis, Reports Hx Muscle Weakness, Reports Hx Musculoskeletal Deformity, Reports Hx Musculoskeletal Trauma Psychiatric Medical History: Reports: Hx Anxiety, Hx Depression Traumatic Medical History: Reports: Hx Fractures Past Surgical History: Reports: Hx Adenoidectomy, Hx Appendectomy, Hx Bowel Surgery - hemorrhoidectomy, Hx Cardiac Catheterization - last one was 2010, stent x 10, Hx Cardiac Surgery - CABG, Hx Coronary Artery Bypass Graft, Hx Coronary Stent - [id number] recent was 2017, Hx Genitourinary Surgery - Vasectomy, Hx Open Heart Surgery, Hx Rectal Surgery - hemorrhoids, Hx Testicular Surgery - torsion, Hx Tonsillectomy - Immunizations Immunizations up to date: Yes Hx Diphtheria, Pertussis, Tetanus Vaccination: Yes Physical Exam - Vital signs Vitals: Temp Pulse Resp BP Pulse Ox 97.8 F 79 20 108/88 H 99 08/14/19 21:54 08/14/19 21:54 08/14/19 21:54 08/14/19 21:54 08/14/19 21:54 Course - Vital Signs Vital signs: Temp Pulse Resp BP Pulse Ox 97.8 F 79 20 108/88 H 99 08/14/19 21:54 08/14/19 21:54 08/14/19 21:54 08/14/19 21:54 08/14/19 21:54 Doctor's Discharge - Discharge Referrals: SHELLY SETHI MD [Primary Care Provider] - Follow up as needed
--- NOTE | 2019-08-14 22:59 | EKG REPORT ---
SEVERITY:- BORDERLINE ECG - SINUS RHYTHM PROBABLE LEFT ATRIAL ABNORMALITY NONSPECIFIC LATERAL ST-T CHANGES : Confirmed by: Elio Rae MD 14-Aug-2019 22:58:34
--- NOTE | 2019-08-14 23:17 | RADIOLOGY REPORT (SQ) ---
PA and lateral chest radiograph: 08/14/2019 10:16 PM [employer] History: 64-year old patient with chest pain. Comparison: Chest radiograph performed 05/17/2019 Findings: The cardiomediastinal silhouette is normal in size. No pneumothorax is seen. No discrete pleural effusion is apparent. No acute airspace opacities are seen. Midline sternotomy changes are seen. Impression: No acute airspace opacities are seen.
[2019-08-14 23:45] LABS: ABSOLUTE EOSINOPHILS # (AUTO) 0.3 10^3/uL (0.0-0.6); ABSOLUTE MONOCYTES (AUTO) 0.5 10^3/uL (0.1-1.4); ABSOLUTE NEUT (AUTO) 3.6 10^3/uL (1.7-8.2); BASOPHILS % (AUTO) 0.5 % (0-2); EOSINOPHILS % (AUTO) 4.2 % (0-6); HEMATOCRIT 39.2 % (37.9-51.0); HEMOGLOBIN 13.3 g/dL (13.5-17.0); LYMPHOCYTES % (AUTO) 40.1 % (13-45); MEAN CORPUSCULAR HEMOGLOBIN 31.9 pg (27.0-33.4); MEAN CORPUSCULAR HGB CONC 33.9 g/dL (32.0-36.0); MEAN CORPUSCULAR VOLUME 94 fl (80-97); MONOCYTES % (AUTO) 6.9 % (3-13); PLATELET COUNT 209 10^3/uL (150-450); RED BLOOD COUNT 4.18 10^6/uL (4.35-5.55); SEGMENTED NEUTROPHILS % (AUTO) 48.3 % (42-78); TOTAL CELLS COUNTED % (AUTO) 100 %; WHITE BLOOD COUNT 7.5 10^3/uL (4.0-10.5)
[2019-08-14 23:54] LABS: ALBUMIN 4.2 g/dL (3.5-5.0); ALKALINE PHOSPHATASE 80 U/L (38-126); ANION GAP 10 (5-19); ASPARTATE AMINO TRANSFERASE 21 U/L (17-59); BILIRUBIN,DIRECT 0.2 mg/dL (0.0-0.4); BILIRUBIN,TOTAL 0.9 mg/dL (0.2-1.3); BLOOD UREA NITROGEN 7 mg/dL (7-20); CALCIUM 9.8 mg/dL (8.4-10.2); CARBON DIOXIDE 26 mmol/L (22-30); CHLORIDE 105 mmol/L (98-107); GLUCOSE 99 mg/dL (75-110); POTASSIUM 3.7 mmol/L (3.6-5.0); TOTAL PROTEIN 7.5 g/dL (6.3-8.2)
--- NOTE | 2019-08-15 02:28 | ER Document Report ---
ED Cardiac - General Chief Complaint: Chest Pain Stated Complaint: CHEST PRESSURE Time Seen by Provider: 08/14/19 22:02 Primary Care Provider: SHELLY SETHI MD [Primary Care Provider] - Follow up as needed Mode of Arrival: Ambulatory Notes: Patient is a 64-year-old male who presents to the emergency department with a chief complaint of chest pain and palpitations. Patient states that his symptoms started around 1999. Patient was diagnosed with the flu 2 days ago. He states that he is able to tolerate oral fluids, but has continued to have diarrhea. Patient is currently on Tamiflu. TRAVEL OUTSIDE OF THE [place] IN LAST 30 DAYS: No - Related Data Allergies/Adverse Reactions: adhesive [Adhesive] Allergy (Severe, Verified 08/14/19 21:58) peels skin gabapentin [From Neurontin] Allergy (Unknown, Verified 08/14/19 21:58) disoriented levofloxacin [From Levaquin] Allergy (Unknown, Verified 08/14/19 21:58) Sulfa (Sulfonamide Antibiotics) Allergy (Unknown, Verified 08/14/19 21:58) skin wilson tramadol [Tramadol] Allergy (Unknown, Verified 08/14/19 21:58) ibuprofen [From Motrin] Allergy (Verified 08/14/19 21:58) naproxen Allergy (Verified 08/14/19 21:58) Past Medical History - General Information source: Patient - Social History Smoking Status: Unknown if Ever Smoked Family History: Reviewed & Not Pertinent, CAD, CVA, Malignancy Patient has suicidal ideation: No Patient has homicidal ideation: No - Past Medical History Cardiac Medical History: Reports: Hx Coronary Artery Disease, Hx Heart Attack - x2 TOTAL OF 11 STENTS/ MOST RECENT 08/21/16, Hx Hypercholesterolemia, Hx Hype rtension Pulmonary Medical History: Denies: Hx Asthma, Hx Bronchitis, Hx COPD, Hx Pneumonia Neurological Medical History: Denies: Hx Cerebrovascular Accident, Hx Seizures Endocrine Medical History: Reports: Hx Diabetes Mellitus Type 2, Hx Hypothyroidism Renal/ Medical History: Reports: Hx Testicular Torsion. Denies: Hx Peritoneal Dialysis GI Medical History: Reports: Hx Gastroesophageal Reflux Disease. Denies: Hx Pancreatitis Musculoskeletal Medical History: Denies Hx Arthritis, Reports Hx Muscle Weakness, Reports Hx Musculoskeletal Deformity, Reports Hx Musculoskeletal Trauma Psychiatric Medical History: Reports: Hx Anxiety, Hx Depression Traumatic Medical History: Reports: Hx Fractures Past Surgical History: Reports: Hx Adenoidectomy, Hx Appendectomy, Hx Bowel Surgery - hemorrhoidectomy, Hx Cardiac Catheterization - last one was 2010, stent x 10, Hx Cardiac Surgery - CABG, Hx Coronary Artery Bypass Graft, Hx Coronary Stent - [id number] recent was 2017, Hx Genitourinary Surgery - Vasectomy, Hx Open Heart Surgery, Hx Rectal Surgery - hemorrhoids, Hx Testicular Surgery - torsion, Hx Tonsillectomy - Immunizations Immunizations up to date: Yes Hx Diphtheria, Pertussis, Tetanus Vaccination: Yes Hx Pneumococcal Vaccination: 03/21/12 Review of Systems - Review of Systems Notes: REVIEW OF SYSTEMS: CONSTITUTIONAL : Denies recent illness. Denies recent unintentional weight loss. Denies fever, chills, or sweats. EENT: See HPI. CARDIOVASCULAR: See HPI. RESPIRATORY: Denies shortness of breath, cough, congestion, difficulty breathing, or wheezing. GASTROINTESTINAL: Denies nausea, vomiting, and diarrhea. Denies abdominal pain. Denies constipation. GENITOURINARY: See HPI. MUSCULOSKELETAL: Denies neck and back pain. Denies joint pain or swelling. SKIN: Denies rash, itchiness, or lesions HEMATOLOGIC : Denies easy bruising or bleeding. LYMPHATIC: Denies swollen, painful, enlarged glands. NEUROLOGICAL: Denies no numbness or tingling denies weakness. Denies headache. Denies altered mental status. Denies alteration in speech. PSYCHIATRIC: Denies stress, anxiety, alteration in sleep patterns, or depression. All other systems reviewed and negative. Physical Exam - Vital signs Vitals: Temp Pulse Resp BP Pulse Ox 97.8 F 79 20 108/88 H 99 08/14/19 21:54 08/14/19 21:54 08/14/19 21:54 08/14/19 21:54 08/14/19 21:54 - Notes Notes: PHYSICAL EXAMINATION: GENERAL: Appears well, healthy, well-nourished, no acute distress. HEAD: Normocephalic, atraumatic. EYES: PERRL, conjunctiva normal, all extraocular movements intact, sclera nonicteric ENT: Moist mucous membranes. Edema and erythema noted to the nasal mucosa. Tympanic membranes are noninjected. NECK: Supple, no noticeable swelling, redness, rash. Normal range of motion. LUNGS: Equal breath sounds bilaterally and clear to auscultation. No wheezes rales or rhonchi. CARDIOVASCULAR: S1-S2, regular rate, regular rhythm. Radial pulses 2+, normal. ABDOMEN: Normoactive bowel sounds. Soft, nontender, no guarding, no rebound tenderness, and no masses palpated. EXTREMITIES: Normal strength and range of motion, no pitting or edema. No cyanosis. NEUROLOGICAL: Moves all extremities upon command. Strength 5/5 in all extremities. PSYCH: Normal mood, normal affect. SKIN: Warm, dry. No rash, lesions, ulcerations noted. Normal skin turgor. Course - Re-evaluation Re-evalutation: 08/15/19 02:45 Patient's hematology is unremarkable. Other than a small mild anemia noted with a hemoglobin of 13.3. Chemistries are unremarkable. Troponin x2 is negative. Chest x-ray is also negative. I suspect the patient is having his symptoms from his flu symptoms. Patient does have some edema and erythema noted to his nasal mucosa. He will be started on Flonase I told him to take his Flonase, as he is not taking it every day. I instructed him to continue oral fluids and to take loperamide to help with his diarrhea. He is going to follow up with his primary care provider. He is in agreement with this plan. Follow-up precautions were given. Verbal discharge instructions were given to the patient. They verbalized understanding. They are stable for discharge. - Vital Signs Vital signs: Temp Pulse Resp BP Pulse Ox 97.8 F 79 20 108/88 H 99 08/14/19 21:54 08/14/19 21:54 08/14/19 21:54 08/14/19 21:54 08/14/19 21:54 - Laboratory Result Diagrams: 08/14/19 22:50 08/14/19 22:50 Laboratory results interpreted by me: 08/14/19 22:50 RBC 4.18 L Hgb 13.3 L RDW 15.0 H - EKG Interpretation by Me Additional EKG results interpreted by me: 08/15/19 02:52 Sinus rhythm. Rate 76. PA 168; QRS 92; QT 388; QTc 437. No acute change from previous EKG dated 05/17/2019. Discharge - Discharge Clinical Impression: Chest pain Qualifiers: Chest pain type: unspecified Qualified Code(s): R07.9 - Chest pain, unspecified URI (upper respiratory infection) Qualifiers: URI type: unspecified URI Qualified Code(s): J06.9 - Acute upper respiratory infection, unspecified Diarrhea Qualifiers: Diarrhea type: unspecified type Qualified Code(s): R19.7 - Diarrhea, unspecified Condition: Stable Disposition: HOME, SELF-CARE Additional Instructions: You were seen today in the emergency department for chest pain. Your chest pain work-up is normal. Please stop taking the Tamiflu, as this is causing your diarrhea. Please make sure you drink plenty of fluids. Follow-up with your primary care provider in regards to this visit. Please restart your Flonase. You are also being started on cetirizine. Please take these medications for your runny nose. Prescriptions: Cetirizine HCl [All Day Allergy] 10 mg PO DAILY #30 tablet Referrals: SHELLY SETHI MD [Primary Care Provider] - Follow up in 3-5 days
[2019-08-15] MEDS ORDERED: CETIRIZINE 10 MG TABLET PO ONE (02:43)
[2019-08-15] MEDS ORDERED: LOPERAMIDE HCL 2 MG CAPSULE PO ONE (02:44)
[2019-08-15 03:31] VITALS: BP 109/73
== END 2019-08-15 03:37 | disposition home or self-care (01) ==
LOC: ER 21:19
DX: J06.9 Acute upper respiratory infection, unspecified (principal); R19.7 Diarrhea, unspecified; R07.9 Chest pain, unspecified; R00.2 Palpitations; I25.10 Atherosclerotic heart disease of native coronary artery without angina pectoris; E78.00 Pure hypercholesterolemia, unspecified; I10 Essential (primary) hypertension; E11.9 Type 2 diabetes mellitus without complications; Z88.2 Allergy status to sulfonamides; Z95.1 Presence of aortocoronary bypass graft; Z88.6 Allergy status to analgesic agent; I25.2 Old myocardial infarction
CPT/HCPCS: 93005; 99285; 36415; 85025; 80053; 84484; 71046; 93010; A9270 ×2

== ENCOUNTER 2019-08-27 16:37 | Emergency (ER) | payer MEDICARE, MEDICAID ==
[2019-08-27] MEDS ORDERED: OXYCODONE-ACETAMINOPHEN 5-325 MG TABLET PO ONE (17:40)
[2019-08-27 17:45] LABS: ABSOLUTE EOSINOPHILS # (AUTO) 0.1 10^3/uL (0.0-0.6); ABSOLUTE LYMPHOCYTES (AUTO) 2.7 10^3/uL (0.5-4.7); ABSOLUTE MONOCYTES (AUTO) 0.4 10^3/uL (0.1-1.4); ABSOLUTE NEUT (AUTO) 1.8 10^3/uL (1.7-8.2); BASOPHILS % (AUTO) 0.7 % (0-2); EOSINOPHILS % (AUTO) 2.7 % (0-6); HEMATOCRIT 36.4 % (37.9-51.0); HEMOGLOBIN 12.3 g/dL (13.5-17.0); LYMPHOCYTES % (AUTO) 52.4 % (13-45); MEAN CORPUSCULAR HEMOGLOBIN 31.7 pg (27.0-33.4); MEAN CORPUSCULAR HGB CONC 33.7 g/dL (32.0-36.0); MEAN CORPUSCULAR VOLUME 94 fl (80-97); MONOCYTES % (AUTO) 8.7 % (3-13); PLATELET COUNT 196 10^3/uL (150-450); RED BLOOD COUNT 3.87 10^6/uL (4.35-5.55); RED CELL DISTRIBUTION WIDTH 15.1 % (11.5-14.0); SEGMENTED NEUTROPHILS % (AUTO) 35.5 % (42-78); TOTAL CELLS COUNTED % (AUTO) 100 %; WHITE BLOOD COUNT 5.1 10^3/uL (4.0-10.5)
--- NOTE | 2019-08-27 17:49 | RADIOLOGY REPORT (SQ) ---
EXAM DESCRIPTION: CHEST 2 VIEWS COMPLETED DATE/TIME: 08/27/2019 5:15 pm REASON FOR STUDY: chest pain COMPARISON: 08/14/2019 EXAM PARAMETERS: NUMBER OF VIEWS: two views TECHNIQUE: Digital Frontal and Lateral radiographic views of the chest acquired. RADIATION DOSE: NA LIMITATIONS: none FINDINGS: LUNGS AND PLEURA: No opacities, masses or pneumothorax. No pleural effusion. MEDIASTINUM AND HILAR STRUCTURES: No masses or contour abnormalities. HEART AND VASCULAR STRUCTURES: Heart normal size. No evidence for failure. BONES: No acute findings. HARDWARE: Sternotomy wires. OTHER: No other significant finding. IMPRESSION: NO ACUTE RADIOGRAPHIC FINDING IN THE CHEST. TECHNICAL DOCUMENTATION: JOB ID: [id number] [employer]- All Rights Reserved Reading location - IP/workstation name: [email or web address]
[2019-08-27 18:10] LABS: ALBUMIN 3.7 g/dL (3.5-5.0); ALKALINE PHOSPHATASE 61 U/L (38-126); ANION GAP 6 (5-19); ASPARTATE AMINO TRANSFERASE 27 U/L (17-59); BILIRUBIN,DIRECT 0.2 mg/dL (0.0-0.4); BILIRUBIN,TOTAL 0.4 mg/dL (0.2-1.3); BLOOD UREA NITROGEN 10 mg/dL (7-20); CALCIUM 9.2 mg/dL (8.4-10.2); CARBON DIOXIDE 32 mmol/L (22-30); CHLORIDE 103 mmol/L (98-107); CREATINE KINASE 66 U/L (55-170); GLUCOSE 73 mg/dL (75-110); POTASSIUM 4.4 mmol/L (3.6-5.0); TOTAL PROTEIN 6.8 g/dL (6.3-8.2)
[2019-08-27 18:22] LABS: CREATINE KINASE MB 0.37 ng/mL (<4.55)
[2019-08-27 18:23] LABS: TROPONIN I < 0.012 ng/mL
--- NOTE | 2019-08-27 19:49 | ER Document Report ---
ED General - General Chief Complaint: Chest Pain > 30 Stated Complaint: CHEST PAIN Time Seen by Provider: 08/27/19 16:54 Primary Care Provider: SHELLY SETHI MD [Primary Care Provider] - Follow up as needed TRAVEL OUTSIDE OF THE [place] IN LAST 30 DAYS: No - HPI Notes: Mr. Mclaughlin is a 64-year-old male with a longstanding history of coronary disease who had CABG procedure greater than 10 years ago and has had multiple subsequent stents the most recent of which was placed in 2010 at [facility] now presenting with a chief complaint of chest pain. This man also has a longstanding history of chronic pain syndrome and is been evaluated through this ED and through the office of his wood sawyer Dr. Domingo multiple times for noncardiac chest pain. Dr. Domingo telephoned me regarding this man and had spoken with the patient by phone earlier in the day. He felt that this was probably chest wall pain again but requested that we evaluate the patient and get a set of cardiac enzymes and EKG. Patient describes a sharp cramping discomfort which is intermittent intensity around 5/10 with some radiation into his neck and left shoulder but not down the extremity. This is nonpleuritic. This is not associated with diaphoresis, syncope or presyncope. There is no associated nausea vomiting. - Related Data Allergies/Adverse Reactions: adhesive [Adhesive] Allergy (Severe, Verified 08/14/19 21:58) peels skin gabapentin [From Neurontin] Allergy (Unknown, Verified 08/14/19 21:58) disoriented levofloxacin [From Levaquin] Allergy (Unknown, Verified 08/14/19 21:58) Sulfa (Sulfonamide Antibiotics) Allergy (Unknown, Verified 08/14/19 21:58) skin wilson tramadol [Tramadol] Allergy (Unknown, Verified 08/14/19 21:58) ibuprofen [From Motrin] Allergy (Verified 08/14/19 21:58) naproxen Allergy (Verified 08/14/19 21:58) Past Medical History - General Information source: Patient - Social History Smoking Status: Never Smoker Family History: Reviewed & Not Pertinent, CAD, CVA, Malignancy Patient has suicidal ideation: No Patient has homicidal ideation: No - Past Medical History Cardiac Medical History: Reports: Hx Coronary Artery Disease, Hx Heart Attack - x2 TOTAL OF 11 STENTS/ MOST RECENT 08/21/16, Hx Hypercholesterolemia, Hx Hypertension Pulmonary Medical History: Denies: Hx Asthma, Hx Bronchitis, Hx COPD, Hx Pneumonia Neurological Medical History: Denies: Hx Cerebrovascular Accident, Hx Seizures Endocrine Medical History: Reports: Hx Diabetes Mellitus Type 2, Hx H ypothyroidism Renal/ Medical History: Reports: Hx Testicular Torsion. Denies: Hx Peritoneal Dialysis GI Medical History: Reports: Hx Gastroesophageal Reflux Disease. Denies: Hx Pancreatitis Musculoskeletal Medical History: Denies Hx Arthritis, Reports Hx Muscle Weakness, Reports Hx Musculoskeletal Deformity, Reports Hx Musculoskeletal Trauma Psychiatric Medical History: Reports: Hx Anxiety, Hx Depression Traumatic Medical History: Reports: Hx Fractures Past Surgical History: Reports: Hx Adenoidectomy, Hx Appendectomy, Hx Bowel Surgery - hemorrhoidectomy, Hx Cardiac Catheterization - last one was 2010, stent x 10, Hx Cardiac Surgery - CABG, Hx Coronary Artery Bypass Graft, Hx Coronary Stent - [id number] recent was 2017, Hx Genitourinary Surgery - Vasectomy, Hx Open Heart Surgery, Hx Rectal Surgery - hemorrhoids, Hx Testicular Surgery - torsion, Hx Tonsillectomy - Immunizations Immunizations up to date: Yes Hx Diphtheria, Pertussis, Tetanus Vaccination: Yes Hx Pneumococcal Vaccination: 03/21/12 Review of Systems - Review of Systems Notes: Constitutional: Negative for fever. HENT: Negative for sore throat. Eyes: Negative for visual changes. Cardiovascular: As per HPI. Respiratory: Negative for shortness of breath. Gastrointestinal: Negative for abdominal pain, vomiting or diarrhea. Genitourinary: Negative for dysuria. Musculoskeletal: As per HPI. Skin: Negative for rash. Neurological: Negative for headaches, weakness or numbness. 10 point ROS negative except as marked above and in HPI. Physical Exam - Vital signs Vitals: BP 140/98 H 08/27/19 16:47 - Notes Notes: GENERAL: Slender male approximately stated age appearing in no acute distress. SKIN: Good turgor no rashes. HEAD: Normocephalic atraumatic. EYES: PERRLA. EOMI. Conjunctivae and sclerae clear. EARS: CANALS AND TMS CLEAR. NOSE: CLEAR. MOUTH: Moist mucosa. Good dentition. No stridor or edema. No drooling. NECK: Supple. No masses or thyromegaly. No adenopathy. Carotids 2+ without bruits. No JVD. BACK: Symmetrical without tenderness. CHEST: Respirations unlabored. Breath sounds clear and symmetrical. HEART: Healed CABG scar. Diffuse anterior chest tenderness which exactly reproduces his pain regular rhythm. No murmur gallop or rub. ABDOMEN: Soft nontender without masses, organomegaly or rebound. Bowel sounds normally active. No bruits. GENITALIA: Deferred. EXTREMITIES: No edema. No calf tenderness. Cap refill less than 1.5 seconds. Dorsalis pedis and posterior tibial pulses 3+ and symmetrical. NEUROLOGICAL: GCS 15. Alert and oriented x3. Normal gait. Fluent speech. Cranial nerves II through XII intact. Sensorimotor and cerebellar normal. Normal tone. PSYCHIATRIC: Appropriate affect. Course - Re-evaluation Re-evalutation: 08/27/19 19:52 Initial troponin is normal. D-dimer is pending. We will going to get a second troponin at 4 hours and if this and repeat EKG are normal I think this man can go home. I will speak with his wood sawyer Dr. Domingo regarding outpatient follow-up and treadmill testing within the next 24 hours. 08/27/19 20:31 Patient has a normal d-dimer and 2 normal troponins and EKGs. His pain was controlled with Percocet and appears to be of musculoskeletal origin. Case was discussed with his wood sawyer Dr. Domingo who agrees with discharging him at this time and patient is instructed to call Dr. Delgadillo tomorrow morning to arrange further evaluation. - Vital Signs Vital signs: Temp Pulse Resp BP Pulse Ox 97.9 F 14 148/102 H 97 08/27/19 17:23 08/27/19 20:01 08/27/19 20:01 08/27/19 20:01 - Laboratory Result Diagrams: 08/27/19 17:07 08/27/19 17:07 Laboratory results interpreted by me: 08/27/19 08/27/19 17:07 17:07 RBC 3.87 L Hgb 12.3 L Hct 36.4 L RDW 15.1 H Lymph % (Auto) 52.4 H Seg Neutrophils % 35.5 L Carbon Dioxide 32 H Glucose 73 L - Diagnostic Test Radiology reviewed: Reports reviewed Radiology results interpreted by me: 08/27/19 19:54 No active disease per radiologist. - EKG Interpretation by Me Additional EKG results interpreted by me: 08/27/19 19:55 Twelve-lead EKG from 1702 hrs. reviewed contemporaneously by me demonstrating sinus bradycardia with a rate of 52 and old anteroseptal RI with no acute ST changes and a normal axis of 13 degrees. Discharge - Discharge Clinical Impression: Chest pain Qualifiers: Chest pain type: other chest pain Qualified Code(s): R07.89 - Other chest pain; R07.8 - Other chest pain Condition: Stable Disposition: HOME, SELF-CARE Instructions: Chest Wall Pain ([facility]) Referrals: SHELLY SETHI MD [Primary Care Provider] - Follow up as needed
[2019-08-27 20:27] VITALS: BP 148/102
--- NOTE | 2019-08-27 22:00 | EKG REPORT ---
SEVERITY:- ABNORMAL ECG - SINUS RHYTHM PROBABLE LEFT ATRIAL ABNORMALITY PROBABLE ANTEROSEPTAL INFARCT, AGE INDETERM : Confirmed by: Ann Domingo MD 27-Aug-2019 21:59:49
== END 2019-08-27 20:58 | disposition home or self-care (01) ==
LOC: ER 16:37
DX: R07.89 Other chest pain (principal); I25.10 Atherosclerotic heart disease of native coronary artery without angina pectoris; E78.00 Pure hypercholesterolemia, unspecified; I10 Essential (primary) hypertension; Z95.1 Presence of aortocoronary bypass graft; Z88.2 Allergy status to sulfonamides; Z88.6 Allergy status to analgesic agent; I25.2 Old myocardial infarction
CPT/HCPCS: 93005; 36415; 82553; 82550; 85025; 80053; 84484; 85379; 71046; 93010; A9270; 99285

== ENCOUNTER → 2019-09-13 | Outpatient (CLI) | payer MEDICARE, MEDICAID ==
[2019-09-13 12:43] LABS: ABSOLUTE EOSINOPHILS # (AUTO) 0.2 10^3/uL (0.0-0.6); ABSOLUTE LYMPHOCYTES (AUTO) 2.4 10^3/uL (0.5-4.7); ABSOLUTE MONOCYTES (AUTO) 0.5 10^3/uL (0.1-1.4); ABSOLUTE NEUT (AUTO) 2.4 10^3/uL (1.7-8.2); BASOPHILS % (AUTO) 0.8 % (0-2); EOSINOPHILS % (AUTO) 3.1 % (0-6); HEMATOCRIT 37.6 % (37.9-51.0); HEMOGLOBIN 12.9 g/dL (13.5-17.0); LYMPHOCYTES % (AUTO) 44.1 % (13-45); MEAN CORPUSCULAR HEMOGLOBIN 32.1 pg (27.0-33.4); MEAN CORPUSCULAR HGB CONC 34.2 g/dL (32.0-36.0); MEAN CORPUSCULAR VOLUME 94 fl (80-97); MONOCYTES % (AUTO) 9.1 % (3-13); PLATELET COUNT 188 10^3/uL (150-450); RED BLOOD COUNT 4.01 10^6/uL (4.35-5.55); RED CELL DISTRIBUTION WIDTH 15.2 % (11.5-14.0); SEGMENTED NEUTROPHILS % (AUTO) 42.9 % (42-78); TOTAL CELLS COUNTED % (AUTO) 100 %; WHITE BLOOD COUNT 5.5 10^3/uL (4.0-10.5)
[2019-09-13 12:50] LABS: INTERNATIONAL RATION (INR) 1.03; PROTHROMBIN TIME 13.5 SEC (11.4-15.4)
[2019-09-13 12:51] LABS: PARTIAL THROMBOPLASTIN TIME 36.3 SEC (23.5-35.8)
[2019-09-13 13:11] LABS: ANION GAP 10 (5-19); BLOOD UREA NITROGEN 10 mg/dL (7-20); CARBON DIOXIDE 28 mmol/L (22-30); CHLORIDE 103 mmol/L (98-107); GLUCOSE 102 mg/dL (75-110); POTASSIUM 4.1 mmol/L (3.6-5.0)
== END ==
LOC: OD 11:39
PROVIDERS: ATTEND Specialist
DX: I25.10 Atherosclerotic heart disease of native coronary artery without angina pectoris (principal); I10 Essential (primary) hypertension; E11.9 Type 2 diabetes mellitus without complications; E78.5 Hyperlipidemia, unspecified; R01.1 Cardiac murmur, unspecified; R07.9 Chest pain, unspecified; R94.31 Abnormal electrocardiogram [ECG] [EKG]; Z79.899 Other long term (current) drug therapy; Z98.61 Coronary angioplasty status; Z95.1 Presence of aortocoronary bypass graft
CPT/HCPCS: 36415; 80051; 82565; 82947; 83735; 84520; 85025; 85610; 85730

== ENCOUNTER 2019-09-22 14:42 | Emergency (ER) | payer MEDICARE, MEDICAID ==
--- NOTE | 2019-09-22 16:22 | ER Document Report ---
ED Medical Screen (RME) - General Chief Complaint: Rectal Pain Stated Complaint: RECTAL PAIN Time Seen by Provider: 09/22/19 16:18 Primary Care Provider: DANITA PEÑA MD [Primary Care Provider] - Follow up as needed Notes: HPI: 64-year-old male with prior history of hemorrhoids and hemorrhoidectomy most recently in July by Dr. Simon presenting for rectal pain that began today. Has not seen any bleeding. Has not had fever. States rectal pain is significant. States he called the surgical clinic and was referred over to the emergency department for evaluation I have greeted and performed a rapid initial assessment of this patient. A comprehensive ED assessment and evaluation of the patient, analysis of test results and completion of the medical decision making process will be conducted by additional ED providers PHYSICAL EXAMINATION: GENERAL: Well-appearing, well-nourished and in mild acute distress. HEAD: Atraumatic, normocephalic. EYES: sclera anicteric, conjunctiva are normal. ENT: Moist mucous membranes. NECK: Normal range of motion LUNGS: Normal work of breathing HEART: 2+ radial pulses bilaterally ABD: limited by positioning for exam in triage. Rectal exam deferred in triage EXTREMITIES: no pitting or edema. No cyanosis. NEUROLOGICAL: No focal neurological deficits. Moves all extremities spontaneously and on command. PSYCH: Normal mood, normal affect. SKIN: Warm, Dry, normal turgor, no rashes or lesions noted. TRAVEL OUTSIDE OF THE [place] IN LAST 30 DAYS: No - Related Data Allergies/Adverse Reactions: adhesive [Adhesive] Allergy (Severe, Verified 09/22/19 16:17) peels skin gabapentin [From Neurontin] Allergy (Unknown, Verified 09/22/19 16:17) disoriented levofloxacin [From Levaquin] Allergy (Unknown, Verified 09/22/19 16:17) Sulfa (Sulfonamide Antibiotics) Allergy (Unknown, Verified 09/22/19 16:17) skin wilson tramadol [Tramadol] Allergy (Unknown, Verified 09/22/19 16:17) ibuprofen [From Motrin] Allergy (Verified 09/22/19 16:17) naproxen Allergy (Verified 09/22/19 16:17) Past Medical History - Social History Family history: DM, Hyperlipidemia, Hypertension - Past Medical History Cardiac Medical History: Reports: Hx Coronary Artery Disease, 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 Denies: Hx Peritoneal Dialysis GI Medical History: Reports: Hx Gastroesophageal Reflux Disease. Denies: Hx Pancreatitis Musculoskeltal Medical History: Denies Hx Arthritis, Reports Hx Muscle Weakness, Reports Hx Musculoskeletal Deformity, Reports Hx Musculoskeletal Trauma Psychiatric Medical History: Reports: Hx Anxiety, Hx Depression Traumatic Medical History: Reports: Hx Fractures Past Surgical History: Reports: Hx Adenoidectomy, Hx Appendectomy, Hx Bowel Surgery - hemorrhoidectomy, Hx Cardiac Catheterization - last one was 2010, stent x 10, Hx Cardiac Surgery - CABG, Hx Coronary Artery Bypass Graft, Hx Coronary Stent - [id number] recent was 2017, Hx Genitourinary Surgery - Vasectomy, Hx Open Heart Surgery, Hx Rectal Surgery - hemorrhoids, Hx Testicular Surgery - torsion, Hx Tonsillectomy - Immunizations Immunizations up to date: Yes Hx Diphtheria, Pertussis, Tetanus Vaccination: Yes Physical Exam - Vital signs Vitals: Temp Pulse Resp BP Pulse Ox 98.3 F 81 16 118/77 97 09/22/19 15:26 09/22/19 15:26 09/22/19 15:26 09/22/19 15:26 09/22/19 15:26 Course - Vital Signs Vital signs: Temp Pulse Resp BP Pulse Ox 98.3 F 81 16 118/77 97 09/22/19 15:26 09/22/19 15:26 09/22/19 15:26 09/22/19 15:26 09/22/19 15:26 Doctor's Discharge - Discharge Referrals: DANITA PEÑA MD [Primary Care Provider] - Follow up as needed
--- NOTE | 2019-09-22 20:06 | EKG REPORT ---
SEVERITY:- ABNORMAL ECG - SINUS RHYTHM PROBABLE LEFT ATRIAL ABNORMALITY NONSPECIFIC-T INVERSION ANTEROSEPTAL WALL. : Confirmed by: Elio Rae MD 22-Sep-2019 20:05:41
--- NOTE | 2019-09-22 20:07 | EKG REPORT ---
SEVERITY:- ABNORMAL ECG - SINUS TACHYCARDIA NONSPECIFIC ST-T CHANGES ANTEROSEPTAL LEADS. : Confirmed by: Elio Rae MD 22-Sep-2019 20:06:35
[2019-09-22] MEDS ORDERED: LIDOCAINE 2% URO-JET 5 ML KIT MM ONE ×2 (20:27)
[2019-09-22] MEDS ORDERED: MINERAL OIL 30 ML UDCUP PR ONE (20:28)
--- NOTE | 2019-09-22 20:34 | ER Document Report ---
ED General - General Chief Complaint: Rectal Pain Stated Complaint: RECTAL PAIN Time Seen by Provider: 09/22/19 16:18 Primary Care Provider: DANITA PEÑA MD [ACTIVE STAFF] - Follow up as needed Notes: 64 year old male who presents to the ED complaining of severe rectal pain associated with diarrhea and inability to have a solid bowel movement for several days. Patient has a history of hemorrhoids that had to be treated surgically several months ago, patient is worried that his hemorrhoids may have reoccurred. He called to speak with the surgical clinic today and was referred to the emergency department. Patient's additional concern is that when he strains to have a bowel movement he has palpitations so he is concerned he may have a problem with his heart. Denies nausea or vomiting, denies fevers, denies blood in his stool, denies abdominal pain. TRAVEL OUTSIDE OF THE [place] IN LAST 30 DAYS: No - Related Data Allergies/Adverse Reactions: adhesive [Adhesive] Allergy (Severe, Verified 09/22/19 16:17) peels skin gabapentin [From Neurontin] Allergy (Unknown, Verified 09/22/19 16:17) disoriented levofloxacin [From Levaquin] Allergy (Unknown, Verified 09/22/19 16:17) Sulfa (Sulfonamide Antibiotics) Allergy (Unknown, Verified 09/22/19 16:17) skin wilson tramadol [Tramadol] Allergy (Unknown, Verified 09/22/19 16:17) ibuprofen [From Motrin] Allergy (Verified 09/22/19 16:17) naproxen Allergy (Verified 09/22/19 16:17) Home Medications: docusate,flonase,glucophage,lipitor,lisinopril, morphine, nitro, norvasc, plavix, ranexa, ranitidine, sertraline, valium, renexa, valium, zoloft Past Medical History - General Information source: Patient - Social History Smoking Status: Current Every Day Smoker Chew tobacco use (# tins/day): No Frequency of alcohol use: None Drug Abuse: None Family History: Reviewed & Not Pertinent, CAD, CVA, Malignancy Patient has suicidal ideation: No Patient has homicidal ideation: No - Past Medical History Cardiac Medical History: Reports: Hx Coronary Artery Disease, 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 Denies: Hx Peritoneal Dialysis GI Medical History: Reports: Hx Gastroesophageal Reflux Disease. Denies: Hx Pancreatitis Musculoskeletal Medical History: Denies Hx Arthritis, Reports Hx Muscle Weakness, Reports Hx Musculoskeletal Deformity, Reports Hx Musculoskeletal Trauma Psychiatric Medical History: Reports: Hx Anxiety, Hx Depression Traumatic Medical History: Reports: Hx Fractures Past Surgical History: Reports: Hx Adenoidectomy, Hx Appendectomy, Hx Bowel Surgery - hemorrhoidectomy, Hx Cardiac Catheterization - last one was 2010, stent x 10, Hx Cardiac Surgery - CABG, Hx Coronary Artery Bypass Graft, Hx Coronary Stent - [id number] recent was 2017, Hx Genitourinary Surgery - Vasectomy, Hx Open Heart Surgery, Hx Rectal Surgery - hemorrhoids, Hx Testicular Surgery - torsion, Hx Tonsillectomy - Immunizations Immunizations up to date: Yes Hx Diphtheria, Pertussis, Tetanus Vaccination: Yes Hx Pneumococcal Vaccination: 03/21/12 Review of Systems - Review of Systems Constitutional: No symptoms reported Cardiovascular: See HPI, Palpitations. denies: Chest pain Gastrointestinal: See HPI, Diarrhea, Constipation, Other - Rectal pain. -: Yes All other systems reviewed and negative Physical Exam - Vital signs Vitals: Temp Pulse Resp BP Pulse Ox 98.3 F 81 16 118/77 97 09/22/19 15:26 09/22/19 15:26 09/22/19 15:26 09/22/19 15:26 09/22/19 15:26 Interpretation: Normal - Notes Notes: GENERAL: Initially sitting on the bedside commode, straining, appears uncomfortable. Transitions to the bed and kneels on the bed in order to facilitate a rectal exam without difficulty. HEAD: Normocephalic, atraumatic EYES: Pupils equal, round and reactive to light, extraocular movements intact. ENT: Oral mucosa moist, tongue midline. NECK: Full range of motion, supple, trachea midline. LUNGS: no respiratory distress. HEART: Regular rate and rhythm, no murmurs, gallops, rubs. ABDOMEN: Soft, nontender, nondistended, bowel sounds present in all 4 quadrants. RECTAL: No hemorrhoids, no fissures, no fluctuance, he does complain of pain on rectal examination, there is a moderate amount of firm stool approximately 3 cm into the rectum. EXTREMITIES: Moves all 4 extremities spontaneously. No cyanosis. NEUROLOGICAL: Alert and oriented x3, normal speech. PSYCH: Normal mood, normal affect. SKIN: Warm, Dry. Course - Re-evaluation Re-evalutation: 09/22/19 21:35 Patient had a large bowel movement after soapsuds and mineral oil enema, feels much better, walking around now without difficulty, no longer writhing in pain when he tries to straighten up. Patient will be given a bottle of magnesium citrate to drink to facilitate further bowel movements and given instruction on MiraLAX. Discharged home. - Vital Signs Vital signs: Temp Pulse Resp BP Pulse Ox 99.2 F 89 20 129/84 H 96 09/22/19 21:16 09/22/19 21:16 09/22/19 21:16 09/22/19 21:16 09/22/19 21:16 Discharge - Discharge Clinical Impression: Constipation Qualifiers: Constipation type: unspecified constipation type Qualified Code(s): K59.00 - Constipation, unspecified Condition: Stable Disposition: HOME, SELF-CARE Additional Instructions: Constipation Constipation is a common problem. It is especially likely as you get older. Constipation is a common cause of abdominal pain, but sometimes causes no symptoms at all. Causes of constipation include certain medications, dehydration, diets, inactivity, and low-fiber intake. Rarely, it can be a symptom of underlying disease. The physician has evaluated you for this. Avoid constipation by eating a diet high in fiber, fruits, and vegetables. Drink plenty of liquids. Get regular exercise. If possible, avoid constipating medicines like narcotic pain medication. Some vitamin tablets can cause constipation. Please dissolve 1 scoop of MiraLAX in a glass of water once a day to treat constipation. You may increase to twice a day if needed to create soft bowel movements and you may decrease to every other day if you develop diarrhea. For acute constipation, Fleet's Enemas and Dulcolax suppositories are helpful. Chronic, long-term use of laxatives or enemas is not a good idea. Your bowel may become dependant on them. You do not need to have a bowel movement every day. Many people do fine with a bowel movement every three or four days. You should call your doctor or return for re-evaluation if you pass blood in the stool, or if you develop fever or increasing abdominal pain. Please drink the bottle of magnesium citrate when you get home. This will cause a large amount of stool and possibly diarrhea but will remove any remaining constipation. Referrals: DANITA PEÑA MD [ACTIVE STAFF] - Follow up as needed
[2019-09-22] MEDS ORDERED: MAGNESIUM CITRATE 296 ML BOTTLE PO ONE (21:12)
[2019-09-22 21:17] VITALS: BP 129/84
== END 2019-09-22 21:45 | disposition home or self-care (01) ==
LOC: ER 14:42
DX: K59.00 Constipation, unspecified (principal); K62.89 Other specified diseases of anus and rectum; R19.7 Diarrhea, unspecified; R00.2 Palpitations; K21.9 Gastro-esophageal reflux disease without esophagitis; E78.00 Pure hypercholesterolemia, unspecified; I25.10 Atherosclerotic heart disease of native coronary artery without angina pectoris; I10 Essential (primary) hypertension; E11.9 Type 2 diabetes mellitus without complications; F41.9 Anxiety disorder, unspecified; F32.9 Major depressive disorder, single episode, unspecified; F17.200 Nicotine dependence, unspecified, uncomplicated; Z79.891 Long term (current) use of opiate analgesic; Z79.899 Other long term (current) drug therapy; Z79.84 Long term (current) use of oral hypoglycemic drugs; Z79.02 Long term (current) use of antithrombotics/antiplatelets; Z98.890 Other specified postprocedural states; Z91.018 Allergy to other foods; Z88.6 Allergy status to analgesic agent; Z88.1 Allergy status to other antibiotic agents; Z88.2 Allergy status to sulfonamides; Z88.8 Allergy status to other drugs, medicaments and biological substances; Z95.5 Presence of coronary angioplasty implant and graft; Z95.1 Presence of aortocoronary bypass graft
CPT/HCPCS: 93005; 99283; 93010; A9270 ×3; J3490

== ENCOUNTER → 2019-10-11 | Outpatient (CLI) | payer MEDICARE, MEDICAID ==
--- NOTE | 2019-10-11 09:57 | RADIOLOGY REPORT (SQ) ---
EXAM DESCRIPTION: CT HEAD WITHOUT COMPLETED DATE/TIME: 10/11/2019 9:03 am REASON FOR STUDY: (R51)HEADACHE R51 HEADACHE COMPARISON: None. TECHNIQUE: Axial images acquired through the brain without intravenous contrast. Images reviewed wi th bone, brain and subdural windows. Additional sagittal and coronal reconstructions were generated. Images stored on PACS. All CT scanners at this facility use dose modulation, iterative reconstruction, and/or weight based d osing when appropriate to reduce radiation dose to as low as reasonably achievable (ALARA). [facility]: Dose Right [facility]: CareDose [facility]: Dose Right [facility]: Teradose 4D [facility]: Affectv RADIATION DOSE: CT Rad equipment meets quality standard of care and radiation dose reduction techniq ues were employed. CTDIvol: 48.8 mGy. DLP: 1005 mGy-cm. mGy. LIMITATIONS: None. FINDINGS: VENTRICLES: Normal size and contour. CEREBRUM: No masses. No hemorrhage. No midline shift. No evidence for acute infarction. Normal gra y/white matter differentiation. No areas of low density in the white matter. CEREBELLUM: No masses. No hemorrhage. No alteration of density. No evidence for acute infarction. EXTRAAXIAL SPACES: No fluid collections. No masses. ORBITS AND GLOBE: No intra- or extraconal masses. Normal contour of globe without masses. CALVARIUM: No fracture. PARANASAL SINUSES: No fluid or mucosal thickening. SOFT TISSUES: No mass or hematoma. OTHER: No other significant finding. IMPRESSION: NORMAL BRAIN CT WITHOUT CONTRAST. EVIDENCE OF ACUTE STROKE: NO. COMMENT: Quality ID # [id number]: Final reports with documentation of one or more dose reduction techniques (e.g., Automated exposure control, adjustment of the mA and/or kV according to patient size, use of iterative reconstruction technique) TECHNICAL DOCUMENTATION: JOB ID: [id number] 2010 [employer]- All Rights Reserved Reading location - IP/workstation name: [email or web address]
== END ==
LOC: RAD 08:47
PROVIDERS: ATTEND Internal Medicine
DX: R51 Headache (principal)
CPT/HCPCS: 70450

== ENCOUNTER 2019-10-17 14:15 | Emergency (ER) | payer MEDICARE, MEDICAID ==
[2019-10-17 14:32] LABS: ABSOLUTE EOSINOPHILS # (AUTO) 0.1 10^3/uL (0.0-0.6); ABSOLUTE LYMPHOCYTES (AUTO) 1.9 10^3/uL (0.5-4.7); ABSOLUTE MONOCYTES (AUTO) 0.3 10^3/uL (0.1-1.4); BASOPHILS % (AUTO) 0.7 % (0-2); EOSINOPHILS % (AUTO) 2.4 % (0-6); HEMATOCRIT 40.2 % (37.9-51.0); HEMOGLOBIN 13.8 g/dL (13.5-17.0); LYMPHOCYTES % (AUTO) 44.5 % (13-45); MEAN CORPUSCULAR HEMOGLOBIN 32.3 pg (27.0-33.4); MEAN CORPUSCULAR HGB CONC 34.2 g/dL (32.0-36.0); MEAN CORPUSCULAR VOLUME 94 fl (80-97); MONOCYTES % (AUTO) 6.2 % (3-13); PLATELET COUNT 200 10^3/uL (150-450); RED BLOOD COUNT 4.27 10^6/uL (4.35-5.55); RED CELL DISTRIBUTION WIDTH 14.8 % (11.5-14.0); SEGMENTED NEUTROPHILS % (AUTO) 46.2 % (42-78); TOTAL CELLS COUNTED % (AUTO) 100 %; WHITE BLOOD COUNT 4.3 10^3/uL (4.0-10.5)
--- NOTE | 2019-10-17 14:46 | RADIOLOGY REPORT (SQ) ---
EXAM DESCRIPTION: CHEST SINGLE VIEW IMAGES COMPLETED DATE/TIME: 10/17/2019 2:31 pm REASON FOR STUDY: cp COMPARISON: 08/27/2019 NUMBER OF VIEWS: One view. TECHNIQUE: Single frontal radiographic view of the chest acquired. LIMITATIONS: None. FINDINGS: LUNGS AND PLEURA: No opacities, masses or pneumothorax. No pleural effusion. MEDIASTINUM AND HILAR STRUCTURES: Stable postoperative contours. HEART AND VASCULAR STRUCTURES: Heart normal in size. Normal vasculature. BONES: No acute findings. HARDWARE: None in the chest. OTHER: No other significant finding. IMPRESSION: NO SIGNIFICANT RADIOGRAPHIC FINDING IN THE CHEST. TECHNICAL DOCUMENTATION: JOB ID: [id number] 2010 [employer]- All Rights Reserved Reading location - IP/workstation name: [email or web address]
[2019-10-17 14:52] LABS: ALKALINE PHOSPHATASE 59 U/L (38-126); ANION GAP 7 (5-19); ASPARTATE AMINO TRANSFERASE 24 U/L (17-59); BILIRUBIN,DIRECT 0.1 mg/dL (0.0-0.4); BILIRUBIN,TOTAL 0.7 mg/dL (0.2-1.3); BLOOD UREA NITROGEN 11 mg/dL (7-20); CALCIUM 9.4 mg/dL (8.4-10.2); CARBON DIOXIDE 28 mmol/L (22-30); CHLORIDE 104 mmol/L (98-107); CREATINE KINASE 84 U/L (55-170); GLUCOSE 136 mg/dL (75-110); POTASSIUM 4.6 mmol/L (3.6-5.0); TOTAL PROTEIN 7.4 g/dL (6.3-8.2)
[2019-10-17 15:04] LABS: TROPONIN I < 0.012 ng/mL
--- NOTE | 2019-10-17 16:15 | ER Document Report ---
Entered by EMMA BURCIAGA SCRIBE 10/17/19 1517 Acting as scribe for:JOCELIN OTTO MD ED General - General Chief Complaint: Chest Pain Stated Complaint: CHEST PAIN Time Seen by Provider: 10/17/19 15:05 Primary Care Provider: SHELLY SETHI MD [Primary Care Provider] - Follow up as needed Mode of Arrival: Ambulatory Information source: Patient Notes: This 64-year-old male patient presents to the emergency department today with complaints of chest pain which began around noon today. Patient states when he woke up this morning he took his daily medications, ate some breakfast, and felt "sleepy" so he laid down on his sofa and watched TV. Patient states that he ended up falling back to sleep and he was awoken right around noon by this chest pain. Patient reports that this chest pain radiated to his left shoulder and into the left side of his neck. Patient reports that the chest pain is still present and unchanged, the neck pain is also still present but not as severe as it was earlier. Patient denies shortness of breath, palpitations, nausea, vomiting, or diaphoresis. TRAVEL OUTSIDE OF THE [place] IN LAST 30 DAYS: No - Related Data Allergies/Adverse Reactions: adhesive [Adhesive] Allergy (Severe, Verified 10/17/19 14:28) peels skin gabapentin [From Neurontin] Allergy (Unknown, Verified 10/17/19 14:28) disoriented levofloxacin [From Levaquin] Allergy (Unknown, Verified 10/17/19 14:28) Sulfa (Sulfonamide Antibiotics) Allergy (Unknown, Verified 10/17/19 14:28) skin wilson tramadol [Tramadol] Allergy (Unknown, Verified 10/17/19 14:28) ibuprofen [From Motrin] Allergy (Verified 10/17/19 14:28) naproxen Allergy (Verified 10/17/19 14:28) Past Medical History - General Information source: Patient, [facility] Records - Social History Smoking Status: Current Every Day Smoker Cigarette use (# per day): No - Smokes approximately 2 cigars a day Chew tobacco use (# tins/day): No Frequency of alcohol use: None Drug Abuse: None Lives with: Family Family History: Reviewed & Not Pertinent, CAD, CVA, Malignancy Patient has suicidal ideation: No Patient has homicidal ideation: No - Past Medical History Cardiac Medical History: Reports: Hx Coronary Artery Disease, Hx Heart Attack - x2 TOTAL OF 11 STENTS/ MOST RECENT 08/21/16, Hx Hypercholesterolemia, Hx Hypertension Pulmonary Medical History: Endocrine Medical History: Reports: Hx Diabetes Mellitus Type 2, Hx Hypothyroidism Renal/ Medical History: Reports: Hx Testicular Torsion GI Medical History: Reports: Hx Gastroesophageal Reflux Disease Musculoskeletal Medical History: Reports Hx Muscle Weakness, Reports Hx Musculoskeletal Deformity, Reports Hx Musculoskeletal Trauma Psychiatric Medical History: Reports: Hx Anxiety, Hx Depression Traumatic Medical History: Reports: Hx Fractures Past Surgical History: Reports: Hx Adenoidectomy, Hx Appendectomy, Hx Cardiac Catheterization - stent x 11, Hx Coronary Artery Bypass Graft, Hx Coronary Stent - [id number] recent was 2016, Hx Rectal Surgery - hemorrhoids, Hx Testicular Surgery - Orchiopexy, vasectomy, Hx Tonsillectomy - Immunizations Immunizations up to date: Yes Hx Diphtheria, Pertussis, Tetanus Vaccination: Yes Hx Pneumococcal Vaccination: 03/21/12 Review of Systems - Review of Systems Constitutional: denies: Diaphoresis EENT: No symptoms reported Cardiovascular: See HPI, Chest pain. denies: Palpitations Respiratory: denies: Short of breath Gastrointestinal: denies: Nausea, Vomiting Genitourinary: No symptoms reported Male Genitourinary: No symptoms reported Musculoskeletal: No symptoms reported Skin: No symptoms reported Hematologic/Lymphatic: No symptoms reported Neurological/Psychological: No symptoms reported -: Yes All other systems reviewed and negative Physical Exam - Notes Notes: Physical Exam: General: Alert, appears well. HEENT: Normocephalic. Atraumatic. PERRL. Extraocular movements intact. Oropharynx clear. Neck: Supple. Non-tender. Respiratory: No respiratory distress. Clear and equal breath sounds bilaterally. No anterior chest wall tenderness to palpation. Cardiovascular: Regular rate and rhythm. Abdominal: Normal Inspection. Non-tender. No distension. Normal Bowel Sounds. Back: No gross abnormalities. Extremities: Moves all four extremities. Upper extremities: Normal inspection. Normal ROM. Lower extremities: Normal inspection. No edema. Normal ROM. Neurological: Normal cognition. AAOx4. Normal speech. Psychological: Normal affect. Normal Mood. Skin: Warm. Dry. Normal color. Course - Laboratory Result Diagrams: 10/17/19 14:18 10/17/19 14:18 Laboratory results interpreted by me: 10/17/19 10/17/19 14:18 14:18 RBC 4.27 L RDW 14.8 H Glucose 136 H - Diagnostic Test Radiology reviewed: Image reviewed, Reports reviewed - Chest x-ray does not show acute changes or significant findings. - EKG Interpretation by Me EKG shows normal: Sinus rhythm, Mission, Intervals, QRS Complexes. abnormal: ST-T Waves - Nonspecific anterolateral T abnormalities Rate: Normal - 71 Rhythm: NSR When compared to previous EKG there are: No significant change Discharge - Discharge Clinical Impression: Chest pain Qualifiers: Chest pain type: unspecified Qualified Code(s): R07.9 - Chest pain, unspecified Condition: Stable Disposition: HOME, SELF-CARE Additional Instructions: Chest Pain of Unclear Cause The exact cause of your chest pain isn't clear. Fortunately, there is no evidence of a dangerous medical condition. Further testing may be required to find the source of the pain. Most often, we find that this pain is coming from the chest wall -- the muscles or rib joints in the chest. But chest pain can come from the lung and lung lining, the esophagus, the heart valves or heart lining, and even the stomach or gallbladder. Rest. Eat lightly until the pain is gone. We may prescribe medicine for pain and inflammation. You should call the physician immediately if the pain radiates to the shoulder, jaw or arms; if you start to run a fever or develop a cough; or if you develop shortness of breath, or other new or alarming symptoms. Your EKG does not show acute changes. Your serial troponins are undetectable. Continue your regular medications and rest. Follow-up with your primary care provider tomorrow if not improving. RETURN TO THE EMERGENCY ROOM IF ANY NEW OR WORSENING SYMPTOMS. Referrals: SHELLY SETHI MD [Primary Care Provider] - Follow up as needed I personally performed the services described in the documentation, reviewed and edited the documentation which was dictated to the scribe in my presence, and it accurately records my words and actions.
[2019-10-17 18:53] VITALS: BP 122/78
--- NOTE | 2019-10-17 18:57 | EKG REPORT ---
SEVERITY:- ABNORMAL ECG - SINUS RHYTHM NONSPECIFIC T ABNORMALITIES, ANT-LAT LEADS : Confirmed by: Elio Rae MD 17-Oct-2019 18:56:43
== END 2019-10-17 18:43 | disposition home or self-care (01) ==
LOC: ER 14:15
DX: R07.9 Chest pain, unspecified (principal); R94.31 Abnormal electrocardiogram [ECG] [EKG]; M54.2 Cervicalgia; I25.10 Atherosclerotic heart disease of native coronary artery without angina pectoris; I10 Essential (primary) hypertension; I25.2 Old myocardial infarction; E11.9 Type 2 diabetes mellitus without complications; Z95.5 Presence of coronary angioplasty implant and graft; Z95.1 Presence of aortocoronary bypass graft; Z91.048 Other nonmedicinal substance allergy status; Z88.6 Allergy status to analgesic agent; Z79.899 Other long term (current) drug therapy; Z88.1 Allergy status to other antibiotic agents; Z88.2 Allergy status to sulfonamides; F17.290 Nicotine dependence, other tobacco product, uncomplicated; Z82.49 Family history of ischemic heart disease and other diseases of the circulatory system
CPT/HCPCS: 36415; 71045; 80053; 82550; 82553; 84484; 85025; 93005; 93010; 99285

== ENCOUNTER 2019-10-18 14:16 | Emergency (ER) | payer MEDICARE, MEDICAID ==
--- NOTE | 2019-10-18 14:33 | ER Document Report ---
ED Cardiac - General Chief Complaint: Chest Pain Stated Complaint: CHEST PAIN Time Seen by Provider: 10/18/19 14:21 Primary Care Provider: SHELLY SETHI MD [Primary Care Provider] - Follow up as needed Notes: CHIEF COMPLAINT: Chest pain this morning HPI: 64-year-old male with history of diabetes, coronary artery bypass x1, CAD, smoker presenting for left chest pain again today. Patient states he was seen for the same thing yesterday. Did feel better when he went home, got up and ate breakfast this morning and then had recurrence of the chest discomfort describes it as a sharpness in the left chest that does not radiate into the neck back shoulder or arm. Denies abdominal pain nausea vomiting. 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 ROS: See HPI - all other systems were reviewed and are otherwise negative Constitutional: no fever Eyes: no drainage, no blurred vision ENT: no runny nose, no sore throat Cardiovascular: + chest pain Resp: no SOB, no cough GI: no vomiting, no diarrhea, no abdominal pain : no dysuria Integumentary: no rash Allergy: no hives Musculoskeletal: no extremity pain or swelling Neurological: no numbness/tingling, no weakness MEDICATIONS: I agree with the patient medications as charted by the RN. ALLERGIES: I agree with the allergies as charted by the RN. PAST MEDICAL HISTORY/PAST SURGICAL HISTORY: Reviewed and agree as charted by RN. SOCIAL HISTORY: Reviewed and agree as charted by RN. FAMILY HISTORY: No significant familial comorbid conditions directly related to patient complaint EXAM: Reviewed vital signs as charted by RN. CONSTITUTIONAL: Alert and oriented and responds appropriately to questions. Well-appearing; well-nourished, no acute distress HEAD: Normocephalic; atraumatic EYES: PERRL; Conjunctivae clear, sclerae non-icteric ENT: normal nose; no rhinorrhea; moist mucous membranes; pharynx without lesions noted, no uvula edema or deviation, no tonsillar hypertrophy, phonation normal NECK: Supple without meningismus; non-tender; no cervical lymphadenopathy, no masses CARD: RRR; no murmurs, no clicks, no rubs, no gallops; symmetric distal pulses, no reproducible pain in the left chest wall on palpation RESP: Normal chest excursion without splinting or tachypnea; breath sounds clear and equal bilaterally; no wheezes, no rhonchi, no rales, pulse oximetry 98% on room air not hypoxic ABD/GI: Normal bowel sounds; non-distended; soft, non-tender, no rebound, no guarding; no palpable organomegaly or masses. BACK: The back appears normal and is non-tender to palpation, there is no CVA tenderness EXT: Normal ROM in all joints; non-tender to palpation; no cyanosis, no effusions, no edema SKIN: Normal color for age and race; warm; dry; good turgor; no acute lesions noted NEURO: Moves all extremities equally; Motor and sensory function intact PSYCH: The patient's mood and manner are appropriate. Grooming and personal hygiene are appropriate. MDM: 64-year-old male presenting for evaluation of left chest pain again today. States he did have a stress test in August 2019 with his choir director, states he was going to be referred possibly for another stent. Was seen yesterday for exact same complaint had completely normal lab work including troponin x2. Will recheck a screening troponin on the patient today. Will plan to call his choir director regarding management options for the patient TRAVEL OUTSIDE OF THE [place] IN LAST 30 DAYS: No - Related Data Allergies/Adverse Reactions: adhesive [Adhesive] Allergy (Severe, Verified 10/17/19 14:28) peels skin gabapentin [From Neurontin] Allergy (Unknown, Verified 10/17/19 14:28) disoriented levofloxacin [From Levaquin] Allergy (Unknown, Verified 10/17/19 14:28) Sulfa (Sulfonamide Antibiotics) Allergy (Unknown, Verified 10/17/19 14:28) skin wilson tramadol [Tramadol] Allergy (Unknown, Verified 10/17/19 14:28) ibuprofen [From Motrin] Allergy (Verified 10/17/19 14:28) naproxen Allergy (Verified 10/17/19 14:28) Past Medical History - Social History Smoking Status: Current Every Day Smoker Family History: Reviewed & Not Pertinent, CAD, CVA, Malignancy - Past Medical History Cardiac Medical History: Reports: Hx Coronary Artery Disease, Hx Heart Attack - x2 TOTAL OF 11 STENTS/ MOST RECENT 08/21/16, Hx Hypercholesterolemia, Hx Hyper tension Pulmonary Medical History: Denies: Hx Asthma, Hx Bronchitis, Hx COPD, Hx Pneumonia Neurological Medical History: Denies: Hx Cerebrovascular Accident, Hx Seizures Endocrine Medical History: Reports: Hx Diabetes Mellitus Type 2, Hx Hypothyroidism Renal/ Medical History: Reports: Hx Testicular Torsion. Denies: Hx Peritoneal Dialysis GI Medical History: Reports: Hx Gastroesophageal Reflux Disease. Denies: Hx Pancreatitis Musculoskeletal Medical History: Denies Hx Arthritis, Reports Hx Muscle Weakness, Reports Hx Musculoskeletal Deformity, Reports Hx Musculoskeletal Trauma Psychiatric Medical History: Reports: Hx Anxiety, Hx Depression Traumatic Medical History: Reports: Hx Fractures Past Surgical History: Reports: Hx Adenoidectomy, Hx Appendectomy, Hx Bowel Surgery - hemorrhoidectomy, Hx Cardiac Catheterization - stent x 11, Hx Cardiac Surgery - CABG, Hx Coronary Artery Bypass Graft, Hx Coronary Stent - [id number] recent was 2016, Hx Genitourinary Surgery - Vasectomy, Hx Open Heart Surgery, Hx Rectal Surgery - hemorrhoids, Hx Testicular Surgery - Orchiopexy, vasectomy, Hx Tonsillectomy - Immunizations Immunizations up to date: Yes Hx Diphtheria, Pertussis, Tetanus Vaccination: Yes Hx Pneumococcal Vaccination: 03/21/12 Physical Exam - Vital signs Vitals: Pulse Ox 98 10/18/19 14:22 Course - Re-evaluation Re-evalutation: 10/18/19 15:10 Dr. Wagner, patient choir director called in and spoke with Dr. Bose, attending. requests patient be transferred to [facility] to have cardiology evaluate and catheterize. 10/18/19 15:20 Further discussion with the patient, history of type 2 diabetes, myocardial infarction x2 with 11 stents most recent stent was in 2010. He has had a CABG x1 in 2008. Also reports history of cholecystectomy appendectomy. He is a smoker. He has a history of CAD, hyperlipidemia and diverticulitis. States that he has had the majority of his cardiac work done at [facility]. 10/18/19 15:50 I spoke with [facility] at [facility]. Dr. Hartley will call me back. Patient is completely pain-free at this time after morphine 10/18/19 16:[address] Fiore, department store manager at [facility]. Case was discussed, labs and work-up reviewed. Accepts patient for cardiology to evaluate. To be transferred under Dr. Catrachito Lennon. 10/18/19 16:33 - Vital Signs Vital signs: Temp Pulse Resp BP Pulse Ox 16 118/81 98 10/18/19 15:01 10/18/19 15:01 10/18/19 15:01 - Laboratory Result Diagrams: 10/18/19 14:29 10/18/19 14:29 Laboratory results interpreted by me: 10/18/19 14:29 RBC 4.12 L Hgb 13.1 L RDW 14.3 H Lymph % (Auto) 46.4 H Discharge - Discharge Clinical Impression: Angina at rest Condition: Stable Disposition: [facility] Referrals: SHELLY SETHI MD [Primary Care Provider] - Follow up as needed
[2019-10-18 14:47] LABS: ABSOLUTE EOSINOPHILS # (AUTO) 0.1 10^3/uL (0.0-0.6); ABSOLUTE LYMPHOCYTES (AUTO) 2.2 10^3/uL (0.5-4.7); ABSOLUTE MONOCYTES (AUTO) 0.4 10^3/uL (0.1-1.4); BASOPHILS % (AUTO) 0.4 % (0-2); EOSINOPHILS % (AUTO) 2.6 % (0-6); HEMATOCRIT 38.5 % (37.9-51.0); HEMOGLOBIN 13.1 g/dL (13.5-17.0); LYMPHOCYTES % (AUTO) 46.4 % (13-45); MEAN CORPUSCULAR HEMOGLOBIN 31.8 pg (27.0-33.4); MEAN CORPUSCULAR VOLUME 94 fl (80-97); MONOCYTES % (AUTO) 8.4 % (3-13); PLATELET COUNT 187 10^3/uL (150-450); RED BLOOD COUNT 4.12 10^6/uL (4.35-5.55); RED CELL DISTRIBUTION WIDTH 14.3 % (11.5-14.0); SEGMENTED NEUTROPHILS % (AUTO) 42.2 % (42-78); TOTAL CELLS COUNTED % (AUTO) 100 %; WHITE BLOOD COUNT 4.7 10^3/uL (4.0-10.5)
[2019-10-18 15:09] LABS: ALBUMIN 3.6 g/dL (3.5-5.0); ALKALINE PHOSPHATASE 54 U/L (38-126); ASPARTATE AMINO TRANSFERASE 20 U/L (17-59); BILIRUBIN,TOTAL 0.4 mg/dL (0.2-1.3); BLOOD UREA NITROGEN 10 mg/dL (7-20); CALCIUM 9.1 mg/dL (8.4-10.2); CARBON DIOXIDE 28 mmol/L (22-30); CREATINE KINASE 61 U/L (55-170); GLUCOSE 82 mg/dL (75-110); POTASSIUM 4.5 mmol/L (3.6-5.0); TOTAL PROTEIN 6.6 g/dL (6.3-8.2)
[2019-10-18] MEDS ORDERED: ASPIRIN 81 MG TABLET, CHEWABLE PO ONE (15:12)
[2019-10-18] MEDS ORDERED: NITROGLYCERIN 2% OINTMENT 1 GM PACKET TP ONE (15:12)
[2019-10-18 15:15] LABS: ANION GAP 6 (5-19); CHLORIDE 106 mmol/L (98-107)
[2019-10-18] MEDS ORDERED: NORMAL SALINE 500 ML IV ONE (15:23)
[2019-10-18] MEDS ORDERED: MORPHINE SULFATE 10 MG/ML INJ IV ONE (15:23)
--- NOTE | 2019-10-18 18:06 | EKG REPORT ---
SEVERITY:- BORDERLINE ECG - SINUS RHYTHM PROBABLE LEFT ATRIAL ABNORMALITY : Confirmed by: Bety Cobb 18-Oct-2019 18:05:53
[2019-10-18 19:05] VITALS: BP 126/77
== END 2019-10-18 19:40 | disposition short-term general hospital (02) ==
LOC: ER 14:16
DX: I20.9 Angina pectoris, unspecified (principal); R07.9 Chest pain, unspecified; F17.200 Nicotine dependence, unspecified, uncomplicated; E11.9 Type 2 diabetes mellitus without complications; E78.00 Pure hypercholesterolemia, unspecified; I10 Essential (primary) hypertension; Z95.1 Presence of aortocoronary bypass graft; Z88.2 Allergy status to sulfonamides; Z88.3 Allergy status to other anti-infective agents; Z88.6 Allergy status to analgesic agent; I25.2 Old myocardial infarction
CPT/HCPCS: 93005; 99285; 96361; 96374; 36415; 82550; 85025; 80053; 84484; 93010; A9270; J2270; J7040

== ENCOUNTER 2019-11-01 15:11 | Emergency (ER) | payer MEDICARE, MEDICAID ==
--- NOTE | 2019-11-01 15:30 | ER Document Report ---
ED Medical Screen (RME) - General Chief Complaint: Chest Pain Stated Complaint: CHEST PAIN, LEFT ARM/NECK PAIN Time Seen by Provider: 11/01/19 15:25 Primary Care Provider: SHELLY SETHI MD [Primary Care Provider] - Follow up as needed Notes: HPI: 64-year-old male with history of diabetes hypertension coronary artery disease, multiple prior stents, CABG x1 presenting for continued left chest pain with radiation of the discomfort into the left shoulder and upper arm. Patient states he was sent to [facility] 2 weeks ago for chest pain, had a coronary catheterization that showed 2 small blockages, states the open heart team was consulted but they did not want to do open heart surgery at the time because of the current pandemic environment. Patient states that they chose to max out all of his medications. He states that he has been taking his medications as prescribed, used his Plavix aspirin and isosorbide today. Has also used spray nitroglycerin but states this drops his blood pressure very low, took his other pain medications this morning has not had relief from the discomfort so decided to come back into the emergency department today after calling his cardiac team in [place] I have greeted and performed a rapid initial assessment of this patient. A comprehensive ED assessment and evaluation of the patient, analysis of test results and completion of the medical decision making process will be conducted by additional ED providers PHYSICAL EXAMINATION: Lung sounds are clear to auscultation, regular rate and rhythm, alert and oriented x3, no reproducible pain on palpation of the left chest wall I have greeted and performed a rapid initial assessment of this patient. A comprehensive ED assessment and evaluation of the patient, analysis of test results and completion of medical decision making process will be conducted by an additional ED providers. TRAVEL OUTSIDE OF THE [place] IN LAST 30 DAYS: No - Related Data Allergies/Adverse Reactions: adhesive [Adhesive] Allergy (Severe, Verified 10/17/19 14:28) peels skin gabapentin [From Neurontin] Allergy (Unknown, Verified 10/17/19 14:28) disoriented levofloxacin [From Levaquin] Allergy (Unknown, Verified 10/17/19 14:28) Sulfa (Sulfonamide Antibiotics) Allergy (Unknown, Verified 10/17/19 14:28) skin wilson tramadol [Tramadol] Allergy (Unknown, Verified 10/17/19 14:28) ibuprofen [From Motrin] Allergy (Verified 10/17/19 14:28) naproxen Allergy (Verified 10/17/19 14:28) Past Medical History - Social History Family history: DM, Hyperlipidemia, Hypertension - Past Medical History Cardiac Medical History: Reports: Hx Coronary Artery Disease, 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 Denies: Hx Peritoneal Dialysis GI Medical History: Reports: Hx Gastroesophageal Reflux Disease. Denies: Hx Pancreatitis Musculoskeltal Medical History: Denies Hx Arthritis, Reports Hx Muscle Weakness, Reports Hx Musculoskeletal Deformity, Reports Hx Musculoskeletal Trauma Psychiatric Medical History: Reports: Hx Anxiety, Hx Depression Traumatic Medical History: Reports: Hx Fractures Past Surgical History: Reports: Hx Adenoidectomy, Hx Appendectomy, Hx Bowel Surgery - hemorrhoidectomy, Hx Cardiac Catheterization - stent x 11, Hx Cardiac Surgery - CABG, Hx Coronary Artery Bypass Graft, Hx Coronary Stent - [id number] recent was 2016, Hx Genitourinary Surgery - Vasectomy, Hx Open Heart Surgery, Hx Rectal Surgery - hemorrhoids, Hx Testicular Surgery - Orchiopexy, vasectomy, Hx Tonsillectomy - Immunizations Immunizations up to date: Yes Hx Diphtheria, Pertussis, Tetanus Vaccination: Yes Physical Exam - Vital signs Vitals: Temp Pulse Resp BP Pulse Ox 98.3 F 76 16 118/84 76 L 11/01/19 15:19 11/01/19 15:19 11/01/19 15:19 11/01/19 15:19 11/01/19 15:19 Course - Vital Signs Vital signs: Temp Pulse Resp BP Pulse Ox 98.3 F 76 16 118/84 76 L 11/01/19 15:19 11/01/19 15:19 11/01/19 15:19 11/01/19 15:19 11/01/19 15:19 Doctor's Discharge - Discharge Referrals: SHELLY SETHI MD [Primary Care Provider] - Follow up as needed
[2019-11-01 15:55] LABS: ABSOLUTE EOSINOPHILS # (AUTO) 0.1 10^3/uL (0.0-0.6); ABSOLUTE MONOCYTES (AUTO) 0.5 10^3/uL (0.1-1.4); TOTAL CELLS COUNTED % (AUTO) 100 %
--- NOTE | 2019-11-01 15:59 | RADIOLOGY REPORT (SQ) ---
EXAM DESCRIPTION: CHEST 2 VIEWS IMAGES COMPLETED DATE/TIME: 11/01/2019 3:49 pm REASON FOR STUDY: chest pain COMPARISON: AP view of the chest from 10/17/2019. EXAM PARAMETERS: NUMBER OF VIEWS: Two views. TECHNIQUE: PA and lateral views of the chest were obtained. RADIATION DOSE: NA LIMITATIONS: None. FINDINGS: LUNGS AND PLEURA: No consolidation, pleural effusion or pneumothorax. MEDIASTINUM AND HILAR STRUCTURES: No mediastinal or hilar contour abnormality. HEART AND VASCULAR STRUCTURES: The cardiac silhouette and pulmonary vasculature are within normal thurman its. BONES: No acute findings. HARDWARE: Status post median sternotomy and cholecystectomy. OTHER: No other finding. IMPRESSION: No acute cardiopulmonary process. TECHNICAL DOCUMENTATION: JOB ID: [id number] 2010 [employer]- All Rights Reserved Reading location - IP/workstation name: [email or web address]
[2019-11-01 16:00] LABS: INTERNATIONAL RATION (INR) 1.05; PROTHROMBIN TIME 13.7 SEC (11.4-15.4)
[2019-11-01 16:04] LABS: ABSOLUTE LYMPHOCYTES (AUTO) 3.1 10^3/uL (0.5-4.7); ABSOLUTE NEUT (AUTO) 2.6 10^3/uL (1.7-8.2); BASOPHILS % (AUTO) 0.5 % (0-2); EOSINOPHILS % (AUTO) 1.9 % (0-6); HEMATOCRIT 39.4 % (37.9-51.0); HEMOGLOBIN 13.7 g/dL (13.5-17.0); LYMPHOCYTES % (AUTO) 49.3 % (13-45); MEAN CORPUSCULAR HEMOGLOBIN 32.6 pg (27.0-33.4); MEAN CORPUSCULAR HGB CONC 34.8 g/dL (32.0-36.0); MEAN CORPUSCULAR VOLUME 94 fl (80-97); MONOCYTES % (AUTO) 7.9 % (3-13); PLATELET COUNT 201 10^3/uL (150-450); RED BLOOD COUNT 4.21 10^6/uL (4.35-5.55); RED CELL DISTRIBUTION WIDTH 14.4 % (11.5-14.0); SEGMENTED NEUTROPHILS % (AUTO) 40.4 % (42-78); WHITE BLOOD COUNT 6.3 10^3/uL (4.0-10.5)
[2019-11-01 16:11] LABS: ALBUMIN 4.2 g/dL (3.5-5.0); ALKALINE PHOSPHATASE 56 U/L (38-126); ASPARTATE AMINO TRANSFERASE 26 U/L (17-59); BILIRUBIN,TOTAL 0.8 mg/dL (0.2-1.3); BLOOD UREA NITROGEN 10 mg/dL (7-20); CALCIUM 9.5 mg/dL (8.4-10.2); CREATINE KINASE 83 U/L (55-170); GLUCOSE 89 mg/dL (75-110); POTASSIUM 4.2 mmol/L (3.6-5.0); TOTAL PROTEIN 7.3 g/dL (6.3-8.2)
[2019-11-01 16:16] LABS: CARBON DIOXIDE 29 mmol/L (22-30); CHLORIDE 106 mmol/L (98-107)
[2019-11-01 16:17] LABS: ANION GAP 5 (5-19)
[2019-11-01 16:23] LABS: CREATINE KINASE MB 0.81 ng/mL (<4.55)
[2019-11-01 16:25] LABS: TROPONIN I < 0.012 ng/mL
--- NOTE | 2019-11-01 16:25 | ER Document Report ---
ED General - General Chief Complaint: Chest Pain > 30 Stated Complaint: CHEST PAIN, LEFT ARM/NECK PAIN Time Seen by Provider: 11/01/19 15:25 Primary Care Provider: SHELLY SETHI MD [Primary Care Provider] - Follow up as needed Mode of Arrival: Ambulatory Information source: Patient TRAVEL OUTSIDE OF THE [place] IN LAST 30 DAYS: No - HPI Onset: Other - patinet has been having off and on chest pain for close to a month now Onset/Duration: Gradual Quality of pain: Pressure Severity: Mild Pain Level: 1 Associated symptoms: Other - left arm pain Exacerbated by: Denies Relieved by: Denies Similar symptoms previously: Yes Recently seen / treated by doctor: Yes - patient has been seen in this ER on 09/19 04/09 and 10/18/19. Was at [facility] too. Notes: 64 year old male with a history of CAD s/p CABG x1 and multiple stents, HTN, HLD, DM, Hypothyroidism, GERD, Anxiety, Depression here in the ER for chest pain. The patient was seen in this ER for chest pain on 10/18/19 and he was t ransferred to [facility] then. The patient apparently had a Cardiac Cath and was told he had two narrowed arteries but that no stents could be placed then. The patient has a follow up appointment with a Cardiothoracic Surgeon at [facility] at the end of October. The patient has been having off and on on chest pain since leaving [facility] on October 19. The patient says the chest pain radiates to his left arm but he denies nausea, vomiting, sweating, shortness of breath. The patient follows up locally with Dr. Cavanaugh of Cardiology. - Related Data Allergies/Adverse Reactions: adhesive [Adhesive] Allergy (Severe, Verified 11/01/19 15:31) peels skin gabapentin [From Neurontin] Allergy (Unknown, Verified 11/01/19 15:31) disoriented levofloxacin [From Levaquin] Allergy (Unknown, Verified 11/01/19 15:31) Sulfa (Sulfonamide Antibiotics) Allergy (Unknown, Verified 11/01/19 15:31) skin wilson tramadol [Tramadol] Allergy (Unknown, Verified 11/01/19 15:31) ibuprofen [From Motrin] Allergy (Verified 11/01/19 15:31) naproxen Allergy (Verified 11/01/19 15:31) Home Medications: asa, plavix, lipitor, coreg, valium, colace, imdur, xalatan eye drops, lisinopril, morphine, nitro prn, oxymorphone, zantac, ranolazine, sertraline, Past Medical History - General Information source: Patient - Social History Smoking Status: Current Some Day Smoker Chew tobacco use (# tins/day): No Frequency of alcohol use: None Drug Abuse: None Family History: Reviewed & Not Pertinent, CAD, CVA, Malignancy Patient has suicidal ideation: No Patient has homicidal ideation: No - Past Medical History Cardiac Medical History: Reports: Hx Coronary Artery Disease, 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 Denies: Hx Peritoneal Dialysis GI Medical History: Reports: Hx Gastroesophageal Reflux Disease. Denies: Hx Pancreatitis Musculoskeletal Medical History: Denies Hx Arthritis, Reports Hx Muscle Weakness, Reports Hx Musculoskeletal Deformity, Reports Hx Musculoskeletal Trauma Psychiatric Medical History: Reports: Hx Anxiety, Hx Depression Traumatic Medical History: Reports: Hx Fractures Past Surgical History: Reports: Hx Adenoidectomy, Hx Appendectomy, Hx Bowel Lucio minnie - hemorrhoidectomy, Hx Cardiac Catheterization - stent x 11, Hx Cardiac Surgery - CABG, Hx Coronary Artery Bypass Graft, Hx Coronary Stent - [id number] recent was 2016, Hx Genitourinary Surgery - Vasectomy, Hx Open Heart Surgery, Hx Rectal Surgery - hemorrhoids, Hx Testicular Surgery - Orchiopexy, vasectomy, Hx Tonsillectomy - Immunizations Immunizations up to date: Yes Hx Diphtheria, Pertussis, Tetanus Vaccination: Yes Hx Pneumococcal Vaccination: 03/21/12 Review of Systems - Review of Systems Constitutional: No symptoms reported EENT: No symptoms reported Cardiovascular: Chest pain Respiratory: No symptoms reported Gastrointestinal: No symptoms reported Genitourinary: No symptoms reported Male Genitourinary: No symptoms reported Musculoskeletal: No symptoms reported Skin: No symptoms reported Hematologic/Lymphatic: No symptoms reported Neurological/Psychological: No symptoms reported -: Yes All other systems reviewed and negative Physical Exam - Vital signs Vitals: Temp Pulse Resp BP Pulse Ox 98.3 F 76 16 118/84 76 L 11/01/19 15:19 11/01/19 15:19 11/01/19 15:19 11/01/19 15:19 11/01/19 15:19 - Notes Notes: GENERAL: Well-appearing, well-nourished and in no acute distress. HEAD: Atraumatic, normocephalic. EYES: Pupils equal round and reactive to light, extraocular movements intact, sclera anicteric, conjunctiva are normal. ENT: Nares patent, oropharynx clear without exudates. Moist mucous membranes. NECK: Normal range of motion, supple without lymphadenopathy or JVD. LUNGS: Breath sounds clear to auscultation bilaterally and equal. No wheezes rales or rhonchi. HEART: Regular rate and rhythm without murmurs, rubs or gallops. ABDOMEN: Soft, nontender, normoactive bowel sounds. No guarding, no rebound. N o masses appreciated. EXTREMITIES: Normal range of motion, no pitting or edema. No clubbing or cyan osis. NEUROLOGICAL: Cranial nerves II through XII grossly intact. Normal speech, normal gait. PSYCH: Normal mood, normal affect. SKIN: Warm, Dry, normal turgor, no rashes or lesions noted. Course - Re-evaluation Re-evalutation: 11/01/19 17:06 The patient is here for off and on chest pain since the end of September. The patient just had a cardiac cath at [facility] and he has a follow up appointment at the end of the month with a Cardiothroacic Surgeon there. I spoke with the patient's local [employer] (Dr. Cavanaugh) and he feels the patient is safe for outpatient follow up with him given his Trop is negative and his EKG is unchanged. - Vital Signs Vital signs: Temp Pulse Resp BP Pulse Ox 98.3 F 76 16 118/84 76 L 11/01/19 15:19 11/01/19 15:19 11/01/19 15:19 11/01/19 15:19 11/01/19 15:19 - Laboratory Result Diagrams: 11/01/19 15:39 11/01/19 15:39 Laboratory results interpreted by me: 11/01/19 15:39 RBC 4.21 L RDW 14.4 H Lymph % (Auto) 49.3 H Seg Neutrophils % 40.4 L - Diagnostic Test Radiology reviewed: Image reviewed, Reports reviewed - EKG Interpretation by Me EKG shows normal: Sinus rhythm, Electra, Intervals, QRS Complexes Rate: Normal Rhythm: NSR Additional EKG results interpreted by me: 11/01/19 16:30 T wave inversions in aVR, aVL, V1, V2 Discharge - Discharge Clinical Impression: Chest pain Qualifiers: Chest pain type: unspecified Qualified Code(s): R07.9 - Chest pain, unspecified Condition: Stable Disposition: HOME, SELF-CARE Instructions: Chest Pain of Unclear Cause (OM) Additional Instructions: Follow up with your local [employer] (he was contacted and expects you to fo llow up with him) and with your Doctor at [facility]. You had lab work, a Chest Xray, and an EKG in the ER today which were all unremarkable. Referrals: SHELLY SETHI MD [Primary Care Provider] - Follow up as needed DANITA PEÑA MD [ACTIVE STAFF] - Follow up as needed
[2019-11-01 17:28] VITALS: BP 108/82
--- NOTE | 2019-11-01 18:39 | EKG REPORT ---
SEVERITY:- BORDERLINE ECG - SINUS RHYTHM PROBABLE LEFT ATRIAL ABNORMALITY BORDERLINE T ABNORMALITIES, ANT-LAT LEADS : Confirmed by: Elio Rae MD 01-Nov-2019 18:38:49
== END 2019-11-01 17:39 | disposition home or self-care (01) ==
LOC: ER 15:11
DX: R07.9 Chest pain, unspecified (principal); M79.602 Pain in left arm; M54.2 Cervicalgia; I25.10 Atherosclerotic heart disease of native coronary artery without angina pectoris; Z95.1 Presence of aortocoronary bypass graft; I10 Essential (primary) hypertension; E78.5 Hyperlipidemia, unspecified; E03.9 Hypothyroidism, unspecified; K21.9 Gastro-esophageal reflux disease without esophagitis; F41.9 Anxiety disorder, unspecified; F32.9 Major depressive disorder, single episode, unspecified; Z88.8 Allergy status to other drugs, medicaments and biological substances; Z88.2 Allergy status to sulfonamides; Z79.899 Other long term (current) drug therapy; Z79.02 Long term (current) use of antithrombotics/antiplatelets; Z79.82 Long term (current) use of aspirin; F17.200 Nicotine dependence, unspecified, uncomplicated; I25.2 Old myocardial infarction
CPT/HCPCS: 36415; 71046; 80053; 82550; 82553; 84484; 85025; 85610; 93005; 93010; 99285

== ENCOUNTER 2019-11-10 12:30 | Emergency (ER) | payer OTHER, MEDICARE, MEDICAID ==
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
[2019-11-10 13:18] LABS: ABSOLUTE EOSINOPHILS # (AUTO) 0.1 10^3/uL (0.0-0.6); ABSOLUTE LYMPHOCYTES (AUTO) 1.6 10^3/uL (0.5-4.7); ABSOLUTE MONOCYTES (AUTO) 0.3 10^3/uL (0.1-1.4); BASOPHILS % (AUTO) 0.5 % (0-2); EOSINOPHILS % (AUTO) 3.5 % (0-6); HEMATOCRIT 38.8 % (37.9-51.0); HEMOGLOBIN 13.3 g/dL (13.5-17.0); MEAN CORPUSCULAR HEMOGLOBIN 32.2 pg (27.0-33.4); MEAN CORPUSCULAR HGB CONC 34.3 g/dL (32.0-36.0); MEAN CORPUSCULAR VOLUME 94 fl (80-97); MONOCYTES % (AUTO) 7.8 % (3-13); PLATELET COUNT 195 10^3/uL (150-450); RED BLOOD COUNT 4.14 10^6/uL (4.35-5.55); RED CELL DISTRIBUTION WIDTH 14.5 % (11.5-14.0); SEGMENTED NEUTROPHILS % (AUTO) 49.2 % (42-78); TOTAL CELLS COUNTED % (AUTO) 100 %
[2019-11-10 13:20] LABS: ALBUMIN 3.9 g/dL (3.5-5.0); ALKALINE PHOSPHATASE 60 U/L (38-126); ASPARTATE AMINO TRANSFERASE 22 U/L (17-59); BILIRUBIN,TOTAL 0.7 mg/dL (0.2-1.3); BLOOD UREA NITROGEN 8 mg/dL (7-20); CALCIUM 9.2 mg/dL (8.4-10.2); GLUCOSE 100 mg/dL (75-110); POTASSIUM 4.9 mmol/L (3.6-5.0); TOTAL PROTEIN 6.9 g/dL (6.3-8.2)
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
[2019-11-10 13:25] LABS: ANION GAP 5 (5-19); CARBON DIOXIDE 30 mmol/L (22-30); CHLORIDE 105 mmol/L (98-107)
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
[2019-11-10 14:50] VITALS: BP 128/82
--- NOTE | 2019-11-10 18:46 | EKG REPORT ---
SEVERITY:- NORMAL ECG - SINUS RHYTHM : Confirmed by: Bety Cobb 10-Nov-2019 18:46:01
== END 2019-11-10 14:51 | disposition home or self-care (01) ==
LOC: ER 12:30
DX: S16.1XXA Strain of muscle, fascia and tendon at neck level, initial encounter (principal); G44.319 Acute post-traumatic headache, not intractable; M54.2 Cervicalgia; R07.9 Chest pain, unspecified; V87.7XXA Person injured in collision between other specified motor vehicles (traffic), initial encounter; I25.10 Atherosclerotic heart disease of native coronary artery without angina pectoris; Z79.899 Other long term (current) drug therapy; Z88.8 Allergy status to other drugs, medicaments and biological substances; Z88.2 Allergy status to sulfonamides; F17.200 Nicotine dependence, unspecified, uncomplicated; I25.2 Old myocardial infarction
CPT/HCPCS: 36415; 70450; 71046; 72125; 80053; 84484; 85025; 93005; 93010; 99284

== ENCOUNTER 2019-11-20 22:24 | Emergency (ER) | payer MEDICARE, MEDICAID ==
[2019-11-20 23:26] LABS: ABSOLUTE EOSINOPHILS # (AUTO) 0.2 10^3/uL (0.0-0.6); ABSOLUTE MONOCYTES (AUTO) 0.4 10^3/uL (0.1-1.4); ABSOLUTE NEUT (AUTO) 2.1 10^3/uL (1.7-8.2); BASOPHILS % (AUTO) 0.7 % (0-2); HEMATOCRIT 37.6 % (37.9-51.0); LYMPHOCYTES % (AUTO) 52.7 % (13-45); MEAN CORPUSCULAR HEMOGLOBIN 32.3 pg (27.0-33.4); MEAN CORPUSCULAR HGB CONC 34.7 g/dL (32.0-36.0); MEAN CORPUSCULAR VOLUME 93 fl (80-97); MONOCYTES % (AUTO) 7.7 % (3-13); PLATELET COUNT 188 10^3/uL (150-450); RED BLOOD COUNT 4.03 10^6/uL (4.35-5.55); RED CELL DISTRIBUTION WIDTH 14.6 % (11.5-14.0); SEGMENTED NEUTROPHILS % (AUTO) 35.9 % (42-78); TOTAL CELLS COUNTED % (AUTO) 100 %; WHITE BLOOD COUNT 5.7 10^3/uL (4.0-10.5)
[2019-11-20 23:44] LABS: ALBUMIN 3.9 g/dL (3.5-5.0); ALKALINE PHOSPHATASE 60 U/L (38-126); ANION GAP 5 (5-19); ASPARTATE AMINO TRANSFERASE 21 U/L (17-59); BILIRUBIN,TOTAL 0.6 mg/dL (0.2-1.3); BLOOD UREA NITROGEN 9 mg/dL (7-20); CALCIUM 9.2 mg/dL (8.4-10.2); CARBON DIOXIDE 29 mmol/L (22-30); CHLORIDE 104 mmol/L (98-107); GLUCOSE 85 mg/dL (75-110); POTASSIUM 4.2 mmol/L (3.6-5.0); TOTAL PROTEIN 6.9 g/dL (6.3-8.2)
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
--- NOTE | 2019-11-21 00:32 | RADIOLOGY REPORT (SQ) ---
EXAM DESCRIPTION: XR CHEST 1 VIEW COMPLETED DATE/TME: 11/20/2019 22:59 CLINICAL HISTORY: 64 years, Male, SOB COMPARISON: 10/17/2019 chest NUMBER OF VIEWS: 1 TECHNIQUE: Portable chest LIMITATIONS: None. FINDINGS: The heart size is normal. Stable postsurgical change. Osteopenia. No pneumothorax. Lungs are clear IMPRESSION: No acute cardiopulmonary process copyright 2010 [employer]- All Rights Reserved
[2019-11-21 01:11] LABS: APPEARANCE,URINE CLEAR; BILIRUBIN,URINE NEGATIVE (NEGATIVE); COLOR,URINE YELLOW; GLUCOSE, URINE NEGATIVE (NEGATIVE); KETONES,URINE NEGATIVE (NEGATIVE); LEUKOCYTE ESTERASE,URINE NEGATIVE (NEGATIVE); NITRITE,URINE NEGATIVE (NEGATIVE); PROTEIN,URINE NEGATIVE (NEGATIVE); URINE SPECIFIC GRAVITY 1.023; UROBILINOGEN,URINE NEGATIVE mg/dL (<2.0)
[2019-11-21 04:39] VITALS: BP 118/86
--- NOTE | 2019-11-21 10:18 | EKG REPORT ---
SEVERITY:- NORMAL ECG - SINUS RHYTHM : Confirmed by: Ann Domingo MD 21-Nov-2019 10:16:53
== END 2019-11-21 04:22 | disposition home or self-care (01) ==
LOC: ER 22:24
DX: R07.9 Chest pain, unspecified (principal); R06.02 Shortness of breath; F17.200 Nicotine dependence, unspecified, uncomplicated; I25.10 Atherosclerotic heart disease of native coronary artery without angina pectoris; E78.00 Pure hypercholesterolemia, unspecified; I10 Essential (primary) hypertension; E11.9 Type 2 diabetes mellitus without complications; I25.2 Old myocardial infarction; Z88.2 Allergy status to sulfonamides; Z88.5 Allergy status to narcotic agent; Z95.1 Presence of aortocoronary bypass graft
CPT/HCPCS: 36415; 71045; 80053; 81001; 84484; 85025; 93005; 93010; 99285

== ENCOUNTER 2019-12-01 16:31 | Emergency (ER) | payer MEDICARE, MEDICAID ==
[2019-12-01] MEDS ORDERED: VANCOMYCIN HCL INJ 1000 MG VIAL IV ONE (16:45)
[2019-12-01] MEDS ORDERED: ACETAMINOPHEN 325 MG TABLET PO ONE (16:45)
[2019-12-01] MEDS ORDERED: CEFEPIME INJ 1 GM VIAL IM ONE (16:45)
[2019-12-01] MEDS ORDERED: ASPIRIN 325 MG TABLET PO ONE (16:46)
[2019-12-01] MEDS ORDERED: FENTANYL CITRATE INJ/PF 100 MCG/2 ML AMPUL IV ONE (16:47)
--- NOTE | 2019-12-01 16:49 | ER Document Report ---
ED General - General Stated Complaint: CHEST PAIN Primary Care Provider: SHELLY SETHI MD [Primary Care Provider] - Follow up as needed Notes: 64-year-old male with coronary disease and chronic pain who is about 5 days out from a CABG surgery at [facility] presents with chest pain all across the chest sharp nonradiating for about 1 hour. It is pleuritic and he thinks "it is different than his prior cardiac chest pain. I put his TRAVEL OUTSIDE OF THE [place] IN LAST 30 DAYS: No - Related Data Allergies/Adverse Reactions: adhesive [Adhesive] Allergy (Severe, Verified 12/01/19 17:17) peels skin gabapentin [From Neurontin] Allergy (Unknown, Verified 12/01/19 17:17) disoriented levofloxacin [From Levaquin] Allergy (Unknown, Verified 12/01/19 17:17) Sulfa (Sulfonamide Antibiotics) Allergy (Unknown, Verified 12/01/19 17:17) skin wilson tramadol [Tramadol] Allergy (Unknown, Verified 12/01/19 17:17) ibuprofen [From Motrin] Allergy (Verified 12/01/19 17:17) naproxen Allergy (Verified 12/01/19 17:17) Past Medical History - Social History Smoking Status: Former Smoker Family History: Reviewed & Not Pertinent, CAD, CVA, Malignancy - Past Medical History Cardiac Medical History: Reports: Hx Coronary Artery Disease, 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 Denies: Hx Peritoneal Dialysis GI Medical History: Reports: Hx Gastroesophageal Reflux Disease. Denies: Hx Pancreatitis Musculoskeletal Medical History: Denies Hx Arthritis, Reports Hx Muscle Weakness, Reports Hx Musculoskeletal Deformity, Reports Hx Musculoskeletal Trauma Psychiatric Medical History: Reports: Hx Anxiety, Hx Depression Traumatic Medical History: Reports: Hx Fractures Past Surgical History: Reports: Hx Adenoidectomy, Hx Appendectomy, Hx Bowel Surgery - hemorrhoidectomy, Hx Cardiac Catheterization - stent x 11, Hx Cardiac Surgery - CABG, Hx Coronary Artery Bypass Graft, Hx Coronary Stent - [id number] recent was 2016, Hx Genitourinary Surgery - Vasectomy, Hx Open Heart Surgery, Hx Rectal Surgery - hemorrhoids, Hx Testicular Surgery - Orchiopexy, vasectomy, Hx Tonsillectomy - Immunizations Immunizations up to date: Yes Hx Diphtheria, Pertussis, Tetanus Vaccination: Yes Hx Pneumococcal Vaccination: 03/21/12 Physical Exam - Vital signs Vitals: Pulse Ox 98 12/01/19 16:35 Course - Re-evaluation Re-evalutation: 12/01/19 17:59 Patient presents with fever status post CABG less than 1 week with some chest pain. PE versus pericarditis versus pneumonia. Clearly septic. Will test for coronavirus but will treat empirically with bacterial agents. Will hold off on fluid bolus given he looks euvolemic and had a recent CABG with cardiomegaly on his recent scans. Patient's white count is normal his labs are otherwise unremarkable including h is blood gas. He has been given Rocephin and vancomycin. This will cover skin/incisional infections although I do not see evidence of this. Added azithromycin. CT PE was done because of the T wave inversionsthis is negative, but he does have pleural effusion and p consolidation in the left hemithorax. Will cover for pneumonia. No giant pericardial effusion. Discussed with Dr. Ken at [facility] from cardiothoracic surgery who has accepted the patient. - Vital Signs Vital signs: Temp Pulse Resp BP Pulse Ox 99.7 F 73 16 96/69 L 97 12/01/19 17:12 12/01/19 17:12 12/01/19 17:12 12/01/19 17:12 12/01/19 17:12 - Laboratory Result Diagrams: 12/01/19 16:35 12/01/19 16:35 Laboratory results interpreted by me: 12/01/19 12/01/19 16:35 16:35 RBC 2.75 L Hgb 9.3 L Hct 26.0 L MCH 33.9 H RDW 15.1 H Sodium 134.7 L Glucose 124 H - Diagnostic Test Radiology reviewed: Image reviewed, Reports reviewed - EKG Interpretation by Me EKG shows normal: Sinus rhythm Rate: Normal Rhythm: NSR When compared to previous EKG there are: Changes noted - T wave inversions in the anterior precordial leads Discharge - Discharge Clinical Impression: Pleural effusion, left Sepsis Qualifiers: Sepsis type: sepsis due to unspecified organism Sepsis acute organ dysfunction status: unspecified Qualified Code(s): A41.9 - Sepsis, unspecified organism Condition: Fair Disposition: [facility] Referrals: SHELLY SETHI MD [Primary Care Provider] - Follow up as needed
[2019-12-01 17:10] LABS: ABSOLUTE BASOPHILS # (AUTO) 0.1 10^3/uL (0.0-0.2); ABSOLUTE EOSINOPHILS # (AUTO) 0.2 10^3/uL (0.0-0.6); ABSOLUTE LYMPHOCYTES (AUTO) 2.5 10^3/uL (0.5-4.7); ABSOLUTE NEUT (AUTO) 5.1 10^3/uL (1.7-8.2); BASOPHILS % (AUTO) 1.1 % (0-2); EOSINOPHILS % (AUTO) 2.3 % (0-6); HEMOGLOBIN 9.3 g/dL (13.5-17.0); LYMPHOCYTES % (AUTO) 28.3 % (13-45); MEAN CORPUSCULAR HEMOGLOBIN 33.9 pg (27.0-33.4); MEAN CORPUSCULAR HGB CONC 35.9 g/dL (32.0-36.0); MEAN CORPUSCULAR VOLUME 95 fl (80-97); MONOCYTES % (AUTO) 11.5 % (3-13); PLATELET COUNT 292 10^3/uL (150-450); RED BLOOD COUNT 2.75 10^6/uL (4.35-5.55); RED CELL DISTRIBUTION WIDTH 15.1 % (11.5-14.0); SEGMENTED NEUTROPHILS % (AUTO) 56.8 % (42-78); TOTAL CELLS COUNTED % (AUTO) 100 %
[2019-12-01 17:14] LABS: INTERNATIONAL RATION (INR) 1.11; PROTHROMBIN TIME 14.3 SEC (11.4-15.4)
[2019-12-01 17:21] LABS: VENOUS BLOOD BASE EXCESS 0.1 mmol/L; VENOUS BLOOD PCO2 46.6 mmHg (35-63); VENOUS BLOOD PH 7.36 (7.30-7.42)
--- NOTE | 2019-12-01 17:39 | RADIOLOGY REPORT (SQ) ---
EXAM DESCRIPTION: CTA CHEST IMAGES COMPLETED DATE/TIME: 12/01/2019 5:26 pm REASON FOR STUDY: CABG new pleuritic chest pain T wave changes rule COMPARISON: None. TECHNIQUE: CT scan of the chest performed using helical scanning technique with dynamic intravenous contrast injection. Images reviewed with lung, soft tissue and bone windows. Reconstructed coronal and sagittal MPR images reviewed. Additional 3 dimensional post-processing performed to develop Maximal Intensity Projection images ([place] P). All images stored on PACS. All CT scanners at this facility use dose modulation, iterative reconstruction, and/or weight based d osing when appropriate to reduce radiation dose to as low as reasonably achievable (ALARA). [facility]: Dose Right [facility]: CareDose [facility]: Dose Right [facility]: Teradose 4D [facility]: Stadionaut CONTRAST TYPE AND DOSE: contrast/concentration: Isovue 350.00 mg/ml; Total Contrast Delivered: 65.0 ml; Total Saline Delivered: 57.0 ml Contrast bolus optimized for the pulmonary arteries. Not diagnostic for the aorta. RENAL FUNCTION: GFR > 60. RADIATION DOSE: CT Rad equipment meets quality standard of care and radiation dose reduction techniq ues were employed. CTDIvol: 14.4 - 26.4 mGy. DLP: 566 mGy-cm. . LIMITATIONS: None. FINDINGS: LUNGS AND PLEURA: Small left pleural effusion and associated dependent airspace disease. Mild paraseptal emphysema. AORTA AND GREAT VESSELS: No aneurysm. Contrast bolus not optimized for the aorta. HEART: No pericardial effusion. Cardiomegaly. CABG. PULMONARY ARTERIES: No emboli visualized in the main pulmonary arteries or the segmental branches. HILAR AND MEDIASTINAL STRUCTURES: No identified masses or abnormal nodes. HARDWARE: None in the chest. UPPER ABDOMEN: No significant findings. Limited exam. THYROID AND OTHER SOFT TISSUES: No masses. No adenopathy. BONES: No acute or significant finding. 3D MIPS: Confirm above findings. OTHER: No other significant finding. IMPRESSION: 1. No PE. 2. Small left pleural effusion and associated atelectasis or pneumonia. COMMENT: Quality ID # [id number]: Final reports with documentation of one or more dose reduction techniques (e.g., Automated exposure control, adjustment of the mA and/or kV according to patient size, use of iterative reconstruction technique) TECHNICAL DOCUMENTATION: JOB ID: [id number] [employer]- All Rights Reserved Reading location - IP/workstation name: [email or web address]
[2019-12-01] MEDS ORDERED: AZITHROMYCIN 250 MG TABLET PO ONE (17:40)
--- NOTE | 2019-12-01 17:40 | RADIOLOGY REPORT (SQ) ---
EXAM DESCRIPTION: CHEST SINGLE VIEW IMAGES COMPLETED DATE/TIME: 12/01/2019 5:16 pm REASON FOR STUDY: fever sob COMPARISON: 11/21/2019 EXAM PARAMETERS: NUMBER OF VIEWS: One view. TECHNIQUE: Single frontal radiographic view of the chest acquired. RADIATION DOSE: NA LIMITATIONS: None. FINDINGS: LUNGS AND PLEURA: Subsegmental airspace disease in the left lower lobe. The right lung is clear. MEDIASTINUM AND HILAR STRUCTURES: No masses. Contour normal. HEART AND VASCULAR STRUCTURES: Heart normal in size. Normal vasculature. BONES: No acute findings. HARDWARE: CABG. OTHER: No other significant finding. IMPRESSION: Left lower lobe pneumonia. TECHNICAL DOCUMENTATION: JOB ID: [id number] 2010 [employer]- All Rights Reserved Reading location - IP/workstation name: [email or web address]
[2019-12-01 17:48] LABS: ALBUMIN 3.5 g/dL (3.5-5.0); ALKALINE PHOSPHATASE 54 U/L (38-126); ANION GAP 9 (5-19); ASPARTATE AMINO TRANSFERASE 47 U/L (17-59); BILIRUBIN,DIRECT 0.2 mg/dL (0.0-0.4); BLOOD UREA NITROGEN 10 mg/dL (7-20); CALCIUM 8.6 mg/dL (8.4-10.2); CARBON DIOXIDE 22 mmol/L (22-30); CHLORIDE 104 mmol/L (98-107); GLUCOSE 124 mg/dL (75-110); POTASSIUM 4.4 mmol/L (3.6-5.0); TOTAL PROTEIN 6.9 g/dL (6.3-8.2)
[2019-12-01] MEDS ORDERED: OXYCODONE-ACETAMINOPHEN 5-325 MG TABLET PO ONE (17:59)
--- NOTE | 2019-12-01 20:42 | EKG REPORT ---
SEVERITY:- ABNORMAL ECG - SINUS RHYTHM NONSPECIFIC T ABNORMALITIES, ANT-LAT LEADS : Confirmed by: Bety Cobb 01-Dec-2019 20:41:49
[2019-12-01 20:46] VITALS: BP 101/73
--- NOTE | 2019-12-01 21:58 | ER Document Report ---
ED General - General Chief Complaint: Chest Pain Stated Complaint: CHEST PAIN Primary Care Provider: SHELLY SETHI MD [Primary Care Provider] - Follow up as needed Notes: Patient stable for transfer 9:58 PM TRAVEL OUTSIDE OF THE [place] IN LAST 30 DAYS: No - Related Data Allergies/Adverse Reactions: adhesive [Adhesive] Allergy (Severe, Verified 12/01/19 17:17) peels skin gabapentin [From Neurontin] Allergy (Unknown, Verified 12/01/19 17:17) disoriented levofloxacin [From Levaquin] Allergy (Unknown, Verified 12/01/19 17:17) Sulfa (Sulfonamide Antibiotics) Allergy (Unknown, Verified 12/01/19 17:17) skin wilson tramadol [Tramadol] Allergy (Unknown, Verified 12/01/19 17:17) ibuprofen [From Motrin] Allergy (Verified 12/01/19 17:17) naproxen Allergy (Verified 12/01/19 17:17) Past Medical History - Social History Smoking Status: Former Smoker Family History: Reviewed & Not Pertinent, CAD, CVA, Malignancy Patient has homicidal ideation: No - Past Medical History Cardiac Medical History: Reports: Hx Coronary Artery Disease, 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 Denies: Hx Peritoneal Dialysis GI Medical History: Reports: Hx Gastroesophageal Reflux Disease. Denies: Hx Pancreatitis Musculoskeletal Medical History: Denies Hx Arthritis, Reports Hx Muscle Weakness, Reports Hx Musculoskeletal Deformity, Reports Hx Musculoskeletal Trauma Psychiatric Medical History: Reports: Hx Anxiety, Hx Depression Traumatic Medical History: Reports: Hx Fractures Past Surgical History: Reports: Hx Adenoidectomy, Hx Appendectomy, Hx Bowel Surgery - hemorrhoidectomy, Hx Cardiac Catheterization - stent x 11, Hx Cardiac Surgery - CABG, Hx Coronary Artery Bypass Graft, Hx Coronary Stent - [id number] recent was 2016, Hx Genitourinary Surgery - Vasectomy, Hx Open Heart Surgery, Hx Rectal Surgery - hemorrhoids, Hx Testicular Surgery - Orchiopexy, vasectomy, Hx Tonsillectomy - Immunizations Immunizations up to date: Yes Hx Diphtheria, Pertussis, Tetanus Vaccination: Yes Hx Pneumococcal Vaccination: 03/21/12 Physical Exam - Vital signs Vitals: Pulse Ox 98 12/01/19 16:35 Course - Vital Signs Vital signs: Temp Pulse Resp BP Pulse Ox 98.3 F 73 19 101/73 100 12/01/19 20:48 12/01/19 17:12 12/01/19 20:01 12/01/19 20:01 12/01/19 20:01 - Laboratory Result Diagrams: 12/01/19 16:35 12/01/19 16:35 Laboratory results interpreted by me: 12/01/19 12/01/19 12/01/19 16:35 16:35 16:35 RBC 2.75 L Hgb 9.3 L Hct 26.0 L MCH 33.9 H RDW 15.1 H Sodium 134.7 L Glucose 124 H Lactic Acid 2.3 H Discharge - Discharge Clinical Impression: Pleural effusion, left Sepsis Qualifiers: Sepsis type: sepsis due to unspecified organism Sepsis acute organ dysfunction status: unspecified Qualified Code(s): A41.9 - Sepsis, unspecified organism Condition: Fair Disposition: [facility] Referrals: SHELLY SETHI MD [Primary Care Provider] - Follow up as needed
== END 2019-12-01 22:40 | disposition short-term general hospital (02) ==
LOC: ER 16:31
DX: J18.9 Pneumonia, unspecified organism (principal); J90 Pleural effusion, not elsewhere classified; I25.10 Atherosclerotic heart disease of native coronary artery without angina pectoris; I10 Essential (primary) hypertension; I25.2 Old myocardial infarction; E11.9 Type 2 diabetes mellitus without complications; Z91.048 Other nonmedicinal substance allergy status; Z88.6 Allergy status to analgesic agent; Z88.1 Allergy status to other antibiotic agents; Z88.2 Allergy status to sulfonamides; Z88.8 Allergy status to other drugs, medicaments and biological substances; Z87.891 Personal history of nicotine dependence; Z20.828 Contact with and (suspected) exposure to other viral communicable diseases
CPT/HCPCS: 93005; 99285; 96375; 96365; 96366; 36415; 87040; 83605; 85025; 85610; 80053; 84484; 82803; 71045; 71275; 93010; U0003; A9270 ×2; J3010; J0692; J3370; 87635

== ENCOUNTER 2019-12-07 15:42 | Emergency (ER) | payer MEDICARE, MEDICAID ==
--- NOTE | 2019-12-07 15:55 | ER Document Report ---
ED Medical Screen (RME) - General Stated Complaint: FEVER/CHEST PAIN AROUND SURGICAL SITE Primary Care Provider: SHELLY SETHI MD [Primary Care Provider] - Follow up as needed Mode of Arrival: Ambulatory Information source: Patient Notes: Patient is a 64-year-old male presenting to the emergency department with chest pain and chills. Patient reports he had heart surgery done on 11/24/2019 at [facility]. The attack was doing his EKG when he received a phone call from [facility] telling him that he needed to come to an appointment at their office tomorrow morning and that he did not need to be seen in the emergency department. I went in and spoke with the patient who tells me he has been having chest pain since he left the hospital and he is also had fevers. When I asked the patient what his fevers have been he states that his normal temperature is 96 and his fevers have been running 97 and 98 at home. He denies any other symptoms. He does not wish to stay in the emergency department. I counseled patient on the importance of staying to have a work-up done and patient opts to leave. He states that he will keep his appointment with [facility] in the morning. I told patient to please come back if anything changes or worsens on patient agrees with same. Patient did allow me to look at his midsternal incision, it appears to be healing well there is no surrounding erythema or drainage from this. He also had an EKG done that shows a sinus rhythm with no obvious ST segment elevations or depressions. TRAVEL OUTSIDE OF THE [place] IN LAST 30 DAYS: No - Related Data Allergies/Adverse Reactions: adhesive [Adhesive] Allergy (Severe, Verified 12/01/19 17:17) peels skin gabapentin [From Neurontin] Allergy (Unknown, Verified 12/01/19 17:17) disoriented levofloxacin [From Levaquin] Allergy (Unknown, Verified 12/01/19 17:17) Sulfa (Sulfonamide Antibiotics) Allergy (Unknown, Verified 12/01/19 17:17) skin wilson tramadol [Tramadol] Allergy (Unknown, Verified 12/01/19 17:17) ibuprofen [From Motrin] Allergy (Verified 12/01/19 17:17) naproxen Allergy (Verified 12/01/19 17:17) Past Medical History - Social History Family history: DM, Hyperlipidemia, Hypertension - Past Medical History Cardiac Medical History: Reports: Hx Coronary Artery Disease, 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 Denies: Hx Peritoneal Dialysis GI Medical History: Reports: Hx Gastroesophageal Reflux Disease. Denies: Hx Pancreatitis Musculoskeltal Medical History: Denies Hx Arthritis, Reports Hx Muscle Weakness, Reports Hx Musculoskeletal Deformity, Reports Hx Musculoskeletal Trauma Psychiatric Medical History: Reports: Hx Anxiety, Hx Depression Traumatic Medical History: Reports: Hx Fractures Past Surgical History: Reports: Hx Adenoidectomy, Hx Appendectomy, Hx Bowel Surgery - hemorrhoidectomy, Hx Cardiac Catheterization - stent x 11, Hx Cardiac Surgery - CABG, Hx Coronary Artery Bypass Graft, Hx Coronary Stent - [id number] recent was 2016, Hx Genitourinary Surgery - Vasectomy, Hx Open Heart Surgery, Hx Rectal Surgery - hemorrhoids, Hx Testicular Surgery - Orchiopexy, vasectomy, Hx Tonsillectomy - Immunizations Immunizations up to date: Yes Hx Diphtheria, Pertussis, Tetanus Vaccination: Yes Doctor's Discharge - Discharge Referrals: SHELLY SETHI MD [Primary Care Provider] - Follow up as needed
--- NOTE | 2019-12-08 07:49 | EKG REPORT ---
SEVERITY:- ABNORMAL ECG - SINUS RHYTHM NONSPECIFIC T ABNORMALITIES, ANT-LAT LEADS : Confirmed by: nAn Domingo MD 08-Dec-2019 07:47:53
== END 2019-12-07 16:00 | disposition left against medical advice (07) ==
LOC: ER 15:42
DX: Z53.20 Procedure and treatment not carried out because of patient's decision for unspecified reasons (principal); R50.9 Fever, unspecified

== ENCOUNTER 2019-12-12 22:19 | Emergency (ER) | payer MEDICARE, MEDICAID ==
[2019-12-12 22:57] LABS: ABSOLUTE EOSINOPHILS # (AUTO) 0.1 10^3/uL (0.0-0.6); ABSOLUTE LYMPHOCYTES (AUTO) 1.4 10^3/uL (0.5-4.7); ABSOLUTE MONOCYTES (AUTO) 0.6 10^3/uL (0.1-1.4); ABSOLUTE NEUT (AUTO) 3.9 10^3/uL (1.7-8.2); BASOPHILS % (AUTO) 0.3 % (0-2); EOSINOPHILS % (AUTO) 2.3 % (0-6); HEMATOCRIT 24.5 % (37.9-51.0); HEMOGLOBIN 8.3 g/dL (13.5-17.0); LYMPHOCYTES % (AUTO) 23.5 % (13-45); MEAN CORPUSCULAR HEMOGLOBIN 31.5 pg (27.0-33.4); MEAN CORPUSCULAR VOLUME 93 fl (80-97); MONOCYTES % (AUTO) 9.3 % (3-13); PLATELET COUNT 327 10^3/uL (150-450); RED BLOOD COUNT 2.64 10^6/uL (4.35-5.55); RED CELL DISTRIBUTION WIDTH 14.7 % (11.5-14.0); SEGMENTED NEUTROPHILS % (AUTO) 64.6 % (42-78); TOTAL CELLS COUNTED % (AUTO) 100 %
[2019-12-12 23:02] LABS: INTERNATIONAL RATION (INR) 1.25; PROTHROMBIN TIME 15.7 SEC (11.4-15.4)
[2019-12-12 23:12] LABS: ALBUMIN 2.9 g/dL (3.5-5.0); ALKALINE PHOSPHATASE 81 U/L (38-126); ANION GAP 7 (5-19); ASPARTATE AMINO TRANSFERASE 20 U/L (17-59); BILIRUBIN,TOTAL 0.5 mg/dL (0.2-1.3); BLOOD UREA NITROGEN 7 mg/dL (7-20); CALCIUM 8.3 mg/dL (8.4-10.2); CARBON DIOXIDE 24 mmol/L (22-30); CHLORIDE 103 mmol/L (98-107); GLUCOSE 121 mg/dL (75-110); POTASSIUM 4.5 mmol/L (3.6-5.0)
--- NOTE | 2019-12-12 23:21 | ER Document Report ---
Entered by AVTAR WILLAMS SCRIBE 12/12/19 2918 Acting as scribe for:IVON WILLIS IV, MD ED Cardiac - General Chief Complaint: Chest Pain Stated Complaint: CHEST PAIN Time Seen by Provider: 12/12/19 22:50 Primary Care Provider: SHELLY SETHI MD [Primary Care Provider] - Follow up as needed Mode of Arrival: Medic Information source: Patient, Emergency Med Personnel Notes: This 64 year old male patient with a history of CAD, CT x2, HTN, HLD, and unstable angina brought in by EMS presents to the ED today with complaints of intermittent chest pain and fevers since 11/24/2019. Patient had a triple CABG on 11/24/2019 at [facility] and has been having similar episodes of chest pain and fever since. ED nurse reports that EMS administered 975 mg Tylenol during transport. Patient notes that his blood pressure usually trends in the 90s systolic. Denies cough, dysuria, sick contacts, or COVID exposure. 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 Sethi. Patient tested negative for COVID-19 on 12/01/2019. TRAVEL OUTSIDE OF THE [place] IN LAST 30 DAYS: No - Related Data Allergies/Adverse Reactions: adhesive [Adhesive] Allergy (Severe, Verified 12/12/19 22:45) peels skin gabapentin [From Neurontin] Allergy (Unknown, Verified 12/12/19 22:45) disoriented levofloxacin [From Levaquin] Allergy (Unknown, Verified 12/12/19 22:45) Sulfa (Sulfonamide Antibiotics) Allergy (Unknown, Verified 12/12/19 22:45) skin wilson tramadol [Tramadol] Allergy (Unknown, Verified 12/12/19 22:45) ibuprofen [From Motrin] Allergy (Verified 12/12/19 22:45) naproxen Allergy (Verified 12/12/19 22:45) Past Medical History - General Information source: Patient, COUNTS INCLUDE 234 BEDS AT [facility] Records - Social History Smoking Status: Former Smoker Cigarette use (# per day): No Chew tobacco use (# tins/day): No Smoking Education Provided: No Frequency of alcohol use: None Drug Abuse: None Family History: Reviewed & Not Pertinent, CAD, CVA, Malignancy Patient has suicidal ideation: No Patient has homicidal ideation: No - Past Medical History Cardiac Medical History: Reports: Hx Coronary Artery Disease, Hx Heart Attack - x2 TOTAL OF 11 STENTS/ MOST RECENT 08/21/16, Hx Hypercholesterolemia, Hx Hypertension Pulmonary Medical History: Endocrine Medical History: Reports: Hx Diabetes Mellitus Type 2, Hx Hypothyroidism Renal/ Medical History: Reports: Hx Testicular Torsion GI Medical History: Reports: Hx Gastroesophageal Reflux Disease Musculoskeletal Medical History: Reports Hx Muscle Weakness, Reports Hx Muscu loskeletal Deformity, Reports Hx Musculoskeletal Trauma Psychiatric Medical History: Reports: Hx Anxiety, Hx Depression Traumatic Medical History: Reports: Hx Fractures Past Surgical History: Reports: Hx Adenoidectomy, Hx Appendectomy, Hx Bowel Surgery - hemorrhoidectomy, Hx Cardiac Catheterization, Hx Coronary Artery Bypas s Graft, Hx Coronary Stent - [id number] recent was 2016, Hx Genitourinary Surgery - Vasectomy, Hx Open Heart Surgery, Hx Rectal Surgery - hemorrhoids, Hx Testicular Surgery - Orchiopexy, vasectomy, Hx Tonsillectomy - Immunizations Immunizations up to date: Yes Hx Diphtheria, Pertussis, Tetanus Vaccination: Yes Hx Pneumococcal Vaccination: 03/21/12 Review of Systems - Review of Systems Constitutional: See HPI, Fever EENT: No symptoms reported Cardiovascular: Chest pain Respiratory: See HPI. denies: Cough Gastrointestinal: No symptoms reported Genitourinary: See HPI. denies: Dysuria Male Genitourinary: No symptoms reported Musculoskeletal: No symptoms reported Skin: No symptoms reported Hematologic/Lymphatic: No symptoms reported Neurological/Psychological: No symptoms reported -: Yes All other systems reviewed and negative Physical Exam - Vital signs Vitals: Pulse Ox 94 12/11/20 22:19 - General General appearance: Alert In distress: None - HEENT Head: Normocephalic, Atraumatic Eyes: Normal Pupils: PERRL - Respiratory Respiratory status: No respiratory distress Chest status: Nontender, Other - Well healed midline incision Breath sounds: Normal Chest palpation: Normal - Cardiovascular Rhythm: Regular Heart sounds: Normal auscultation Murmur: No Friction rub: No Gallop: None auscultated - Abdominal Inspection: Normal Distension: No distension Bowel sounds: Normal Tenderness: Nontender - Abdomen soft Organomegaly: No organomegaly - Back Back: Normal, Nontender - Extremities General upper extremity: Normal inspection General lower extremity: Normal inspection - Neurological Neuro grossly intact: Yes Orientation: AAOx4 - Psychological Associated symptoms: Normal affect, Normal mood - Skin Skin Temperature: Warm Skin Moisture: Dry Skin Color: Normal Course - Re-evaluation Re-evalutation: 12/13/19 03:55 Findings of ED MSE discussed with patient reason for transfer discussed with patient. All questions were answered. - Vital Signs Vital signs: Temp Pulse Resp BP Pulse Ox 100.6 F H 16 97/63 L 99 12/12/19 22:26 12/13/19 03:31 12/13/19 03:31 12/13/19 03:31 - Laboratory Result Diagrams: 12/12/19 22:38 12/12/19 22:38 Laboratory results interpreted by me: 12/12/19 12/12/19 12/12/19 22:38 22:38 22:38 RBC 2.64 L Hgb 8.3 L Hct 24.5 L RDW 14.7 H PT 15.7 H Sodium 134.1 L Glucose 121 H Calcium 8.3 L Total Protein 6.0 L Albumin 2.9 L Urine Protein Urine Urobilinogen 12/13/19 00:00 RBC Hgb Hct RDW PT Sodium Glucose Calcium Total Protein Albumin Urine Protein 30 H Urine Urobilinogen 2.0 H - Diagnostic Test Radiology reviewed: Reports reviewed - EKG Interpretation by Me Additional EKG results interpreted by me: 12/13/19 03:56 EKG obtained on 12/12/2019 at 2223 hrs. was interpreted by this MD. Findings: Sinus rhythm, rate 77, normal axis, P waves preceding QRS complexes, QRS complex appears narrow there are nonspecific ST segment abnormalities present. Impression sinus rhythm with nonspecific ST segments. - Consults DR. SIRI QUINTERO Time consulted: 02:47 - DR. QUINTERO ACCEPTED PT FOR TRANSFER TO HIS FACILITY; REQUESTED RAPID COVID TEST BE DONE PRIOR TO TRANSFER Reason for consultation: 12/13/19 03:57 PT HAD CABG LESS THAN 30 DAYS AGO AT [facility], PRESENTING WITH FEVER Discharge - Discharge Clinical Impression: Elevated lactic acid level, S/P CABG (coronary artery bypass graft) Fever Qualifiers: Fever type: unspecified Qualified Code(s): R50.9 - Fever, unspecified Condition: Good [facility] Referrals: SHELLY SETHI MD [Primary Care Provider] - Follow up as needed I personally performed the services described in the documentation, reviewed and edited the documentation which was dictated to the scribe in my presence, and it accurately records my words and actions.
--- NOTE | 2019-12-12 23:21 | RADIOLOGY REPORT (SQ) ---
CLINICAL INDICATION: chest pain, post-op CABG 11/22. TECHNIQUE: A single portable AP view was obtained of the chest at 2243 hours. COMPARISON: December 01, 2019. FINDINGS: The cardiomediastinal silhouette is enlarged but stable with postsurgical change. The lungs demonstrate mild progressive congestive change compared to prior. No significant pleural fluid. No pneumothorax. The visualized bones are unremarkable. IMPRESSION: Mild progressive congestive change from compared to prior.
[2019-12-13] MEDS ORDERED: HYDROMORPHONE HCL INJ/PF 2 MG/ML AMPULE IV ONE (00:06)
[2019-12-13] MEDS ORDERED: PIPERACILLIN/TAZOBACTAM 3.375 GM VIAL IV ONE (00:06)
[2019-12-13] MEDS ORDERED: NORMAL SALINE IV ONE (00:07)
[2019-12-13] MEDS ORDERED: NORMAL SALINE 1000 ML 1,000 ML IV ONE (00:16)
[2019-12-13 00:22] LABS: APPEARANCE,URINE CLEAR; BILIRUBIN,URINE NEGATIVE (NEGATIVE); COLOR,URINE YELLOW; GLUCOSE, URINE NEGATIVE (NEGATIVE); KETONES,URINE NEGATIVE (NEGATIVE); LEUKOCYTE ESTERASE,URINE NEGATIVE (NEGATIVE); NITRITE,URINE NEGATIVE (NEGATIVE); PROTEIN,URINE 30 mg/dL (NEGATIVE); URINE SPECIFIC GRAVITY 1.024
--- NOTE | 2019-12-13 00:56 | EKG REPORT ---
SEVERITY:- ABNORMAL ECG - SINUS RHYTHM NONSPECIFIC T ABNORMALITIES, INFERIOR LEADS : Confirmed by: Ann Domingo MD 13-Dec-2019 00:56:02
[2019-12-13] MEDS ORDERED: NOREPINEPHRINE BITARTRATE INJ/PF 4 MG/4 ML SDV IV ONE ×2 (01:36→08:06)
[2019-12-13] MEDS ORDERED: DEXTROSE 5%-WATER 250 ML with NOREPINEPHRINE BITARTRATE 4 MG IV PRN ×2 (01:37)
--- NOTE | 2019-12-13 01:45 | RADIOLOGY REPORT (SQ) ---
EXAM DESCRIPTION: CT CHEST ANGIOGRAPHY WITHOUT THEN WITH IV CONTRAST COMPLETED DATE/TME: 12/12/2019 23:53 CLINICAL HISTORY: 64 years, Male, chest pain, recent surgery COMPARISON: 12/01/2019 TECHNIQUE: Axial CT images of the chest were obtained after the administration of IV contrast. MPR and MIP reconstructions were performed. DLP 636 Images stored on PACS. All CT scanners at this facility use dose modulation, iterative reconstruction, and/or weight based dosing when appropriate to reduce radiation dose to as low as reasonably achievable (ALARA). [facility]: Dose Right [facility]: CareDose [facility]: Dose Right [facility]: Teradose 4D [facility]: [employer] Interactive LIMITATIONS: None. FINDINGS: Upper abdomen: Partially imaged. Cholecystectomy. Thoracic aorta: Sagittal note is made of the left vertebral artery arising directly from the aortic arch. No evidence of an aneurysm or dissection. Heart: No right atrial thrombus. Changes of a CABG. Atherosclerotic calcifications of the coronary arteries. RV/LV ratio: Within normal limits. Pulmonary arteries: Technical: Adequate opacification to the level of the segmental vessels. Pulmonary embolus: No low-density filling defect to suggest acute PE. Overall embolic burden: None. Mediastinum: No pathologic sized middle mediastinal lymphadenopathy. Tracheobronchial tree: Unremarkable. Lungs: Lobar consolidation: Negative. There is bibasilar subsegmental atelectasis. Pleural effusion: Small left, increased in size compared to the prior. Pneumothorax: Negative. Other: Negative. Bones: Unremarkable. IMPRESSION: No CT evidence of acute pulmonary embolism. Small left pleural effusion, slightly increased in size compared to the prior exam. TECHNICAL DOCUMENTATION: Quality ID # [id number]: Final reports with documentation of one or more dose reduction techniques (e.g., Automated exposure control, adjustment of the mA and/or kV according to patient size, use of iterative reconstruction technique) copyright 2011 [employer]- All Rights Reserved
[2019-12-13 08:15] VITALS: BP 127/91
[2019-12-13] MEDS ORDERED: MORPHINE SULFATE 10 MG/ML INJ IV ONE (08:18)
[2019-12-13] MEDS ORDERED: ONDANSETRON HCL INJ/PF 4 MG/2 ML SDV IV ONE (08:19)
--- NOTE | 2019-12-13 08:22 | ER Document Report ---
Doctor's Note Notes: 12/13/19 08:16 Just prior to transport to [facility] patient complains of his chronic anterior chest pain. Patient states he thinks Dilaudid and morphine tablets for his anterior chest wall pain. Patient reports this pain is not new and is not reproducible on exam. Vital signs see patient's chart vital signs are stable systolic blood pressures up to 127 at this time. Lungs are clear equal breath sounds no reproducible chest wall pain. Plan IV morphine 4 mg and IV Zofran 4 mg. Patient stable and able to make transport to [facility] by ground , [facility] EMS service. 12/13/19 08:22 Inasmuch as patient is very inconsistent with his complaint of chest pain. Patient now states that his chest pain again only because the lights were turned on as they were preparing to transport him by EMS ground transport to [facility]. With that said I am discontinuing any pain medications just prior to discharge for transport. Discussed this with the EMS team and they have fentanyl if necessary in route that they will administer if needed.
== END 2019-12-13 08:43 | disposition short-term general hospital (02) ==
LOC: ER 22:19
DX: R07.9 Chest pain, unspecified (principal); R50.9 Fever, unspecified; R74.0 Nonspecific elevation of levels of transaminase and lactic acid dehydrogenase [LDH]; I10 Essential (primary) hypertension; Z20.828 Contact with and (suspected) exposure to other viral communicable diseases; Z95.1 Presence of aortocoronary bypass graft; I25.2 Old myocardial infarction
CPT/HCPCS: 93005; 99285; 96361; 96375; 96365; 96366; 96367; 36415; 87040; 83605; 85025; 85610; 80053; 81001; 84484; 71045; 71275; 93010; U0003; J2270; J3490; J1170; J2405; J7060; J7030; J2543; 87635

== ENCOUNTER 2020-01-06 12:12 | Emergency (ER) | payer MEDICARE, MEDICAID ==
[2020-01-06 13:06] LABS: ALBUMIN 3.5 g/dL (3.5-5.0); ALKALINE PHOSPHATASE 164 U/L (38-126); ANION GAP 7 (5-19); ASPARTATE AMINO TRANSFERASE 23 U/L (17-59); BILIRUBIN,TOTAL 0.4 mg/dL (0.2-1.3); BLOOD UREA NITROGEN 5 mg/dL (7-20); CALCIUM 9.5 mg/dL (8.4-10.2); CARBON DIOXIDE 28 mmol/L (22-30); CHLORIDE 104 mmol/L (98-107); CREATINE KINASE 74 U/L (55-170); GLUCOSE 159 mg/dL (75-110); POTASSIUM 4.1 mmol/L (3.6-5.0); TOTAL PROTEIN 6.9 g/dL (6.3-8.2)
[2020-01-06 13:17] LABS: CREATINE KINASE MB 0.37 ng/mL (<4.55)
[2020-01-06 13:20] LABS: TROPONIN I < 0.012 ng/mL
--- NOTE | 2020-01-06 13:21 | ER Document Report ---
ED General - General Chief Complaint: High Blood Pressure Stated Complaint: BLOOD PRESSURE ISSUES Time Seen by Provider: 01/06/20 13:00 Primary Care Provider: SHELLY SETHI MD [Primary Care Provider] - Follow up as needed DANITA PEÑA MD [ACTIVE STAFF] - Follow up as needed TRAVEL OUTSIDE OF THE [place] IN LAST 30 DAYS: No - HPI Notes: 64-year-old male with a history of hypertension GERD, hyperlipidemia with 2 CABGs, 2 MIs and 11 stents who recently had a CABG on November 24, 2019 at [facility] presents to the emergency room today via EMS for elevated blood pressure of 159 /90 as well as having left-sided chest pain. Patient reports having low-grade fever. patient states that he has had his chest pain since having his CABG this past November. States that his nitro brought his blood pressure down. Patient is managed by Dr. 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 Patient is a current smoker. patient states that both of his MIs were 1996, had a CABG in 2007 and this past 1 in 2019, has had 11 stents placed over the years. Denies any radiation of pain to shoulder or jaw, denies any numbness or tingling down arms or legs. Patient did try to contact Dr. Cavanaugh's office, his nurse advised him to come to the emergency room due to elevated blood pressure. Denies chills, p alpitations, shortness of breath, dyspnea, nausea, vomiting, diarrhea, abdominal pain, hematuria,blurred vision, double vision, loss of vision, speech changes, LH, dizziness, syncope, headaches, wheezing, ST, URI, neck pain, weakness, bowel or bladder dysfunction, saddle anesthesia, numbness or tingling in bilateral upper or lower extremities equally, muscle paralysis, weakness in bilateral upper or lower extremities equally or rash. - Related Data Allergies/Adverse Reactions: adhesive [Adhesive] Allergy (Severe, Verified 01/06/20 12:28) peels skin gabapentin [From Neurontin] Allergy (Unknown, Verified 01/06/20 12:28) disoriented levofloxacin [From Levaquin] Allergy (Unknown, Verified 01/06/20 12:28) Sulfa (Sulfonamide Antibiotics) Allergy (Unknown, Verified 01/06/20 12:28) skin wilson tramadol [Tramadol] Allergy (Unknown, Verified 01/06/20 12:28) ibuprofen [From Motrin] Allergy (Verified 01/06/20 12:28) naproxen Allergy (Verified 01/06/20 12:28) Past Medical History - General Information source: Patient - Social History Smoking Status: Current Some Day Smoker Chew tobacco use (# tins/day): No Frequency of alcohol use: None Drug Abuse: None Family History: Reviewed & Not Pertinent, CAD, CVA, Malignancy Patient has homicidal ideation: No - Past Medical History Cardiac Medical History: Reports: Hx Coronary Artery Disease, 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 Denies: Hx Peritoneal Dialysis GI Medical History: Reports: Hx Gastroesophageal Reflux Disease. Denies: Hx Pancreatitis Musculoskeletal Medical History: Denies Hx Arthritis, Reports Hx Muscle Weakness, Reports Hx Musculoskeletal Deformity, Reports Hx Musculoskeletal Trauma Psychiatric Medical History: Reports: Hx Anxiety, Hx Depression Traumatic Medical History: Reports: Hx Fractures Past Surgical History: Reports: Hx Adenoidectomy, Hx Appendectomy, Hx Bowel Surgery - hemorrhoidectomy, Hx Cardiac Catheterization, Hx Cardiac Surgery - CABG, Hx Coronary Artery Bypass Graft, Hx Coronary Stent - H12-xams recent was 2016, Hx Genitourinary Surgery - Vasectomy, Hx Open Heart Surgery, Hx Rectal Lucio minnie - hemorrhoids, Hx Testicular Surgery - Orchiopexy, vasectomy, Hx Tonsillectomy - Immunizations Immunizations up to date: Yes Hx Diphtheria, Pertussis, Tetanus Vaccination: Yes Hx Pneumococcal Vaccination: 03/21/12 Review of Systems - Review of Systems Constitutional: See HPI EENT: No symptoms reported Cardiovascular: See HPI Respiratory: No symptoms reported Gastrointestinal: No symptoms reported Genitourinary: No symptoms reported Male Genitourinary: No symptoms reported Musculoskeletal: No symptoms reported Skin: No symptoms reported Hematologic/Lymphatic: No symptoms reported Neurological/Psychological: No symptoms reported Physical Exam - Vital signs Vitals: Resp Pulse Ox 18 98 01/06/20 12:25 01/06/20 12:25 - Notes Notes: MEDICATIONS: I agree with the patient medications as charted by the RN. ALLERGIES: I agree with the allergies as charted by the RN. PAST MEDICAL HISTORY/PAST SURGICAL HISTORY: Reviewed and agree as charted by RN. SOCIAL HISTORY: Reviewed and agree as charted by RN. FAMILY HISTORY: No significant familial comorbid conditions directly related to patient complaint EXAM: Reviewed vital signs as charted by RN. PHYSICAL EXAMINATION:reviewed vital signs by RN GENERAL: Well-appearing, well-nourished and in no acute distress. HEAD: Atraumatic, normocephalic. EYES: Pupils equal round and reactive to light, extraocular movements intact, sclera anicteric, conjunctiva are normal. ENT: Nares patent, oropharynx clear without exudates. Moist mucous membranes. NECK: Normal range of motion, supple without lymphadenopathy LUNGS: Breath sounds clear to auscultation bilaterally and equal. No wheezes rales or rhonchi. HEART: Regular rate and rhythm without murmurs ABDOMEN: Soft, nontender, nondistended abdomen. No guarding, no rebound. No masses appreciated. Musculoskeletal: Normal range of motion, no pitting or edema. No cyanosis. NEUROLOGICAL: Cranial nerves grossly intact. Normal speech, normal gait. Nor mal sensory, motor exams PSYCH: Normal mood, normal affect. SKIN: Warm, Dry, normal turgor, no rashes or lesions noted. Healing scar to substernal chest. Course - Re-evaluation Re-evalutation: 01/06/20 13:20 Afebrile vital stable no distress. Nurses notes reviewed. No STEMI seen on EKG, chest x-ray unremarkable, no pneumonia, pneumothorax, tension. CBC negative for leukocytosis or anemia, CMP negative for hepatic or renal dysfunction, no electrolyte disturbances. Initial troponin normal. Vital signs stable. Consulted with Dr. Adan Peña,at [id number] craft demonstrator (patient's craft demonstrator since 1996) to consult patient's recent past medical history of having a CABG placed in November 2019 with complaints of having his blood pressure being elevated, has had consistent chest pain since having his CABG in November 2019 which was not relieved by the nitro which patient suspects is due to surgical pain that patient's blood pressure was elevated, was given 2 0.4mg nitro by EMS and was noted to have elevation in V2 by EMS. Consulted Dr. Cavanaugh reviewed chart and felt it was appropriate for him to go home, he does not need observation or admission to hospital. Also felt that patient should be placed on lisinopril 10 mg daily along with his other medications to help manage his blood pressures. Dr. Cavanaugh did come to bedside to evaluate patient. After performing a Medical Screening Examination, I estimate there is LOW risk for RUPTURED ESOPHAGUS, PNEUMOTHORAX, PULMONARY EMBOLISM, ACUTE CORONARY SYNDROME, OR THORACIC AORTIC DISSECTION, thus I consider the discharge disposition reasonable. I have reevaluated this patient multiple times and no significant life threatening changes are noted. The patient and I have discussed the diagnosis and risks, and we agree with discharging home with close follow-up. We also discussed returning to the Emergency Department immediately if new or worsening symptoms occur. We have discussed the symptoms which are most concerning (e.g., bloody sputum, worsening pain or shortness of breath) that necessitate immediate return. 01/06/20 13:48 01/06/20 17:59 - Vital Signs Vital signs: Temp Pulse Resp BP Pulse Ox 97.9 F 82 19 133/96 H 97 01/06/20 15:00 01/06/20 12:26 01/06/20 15:01 01/06/20 15:00 01/06/20 15:01 - Laboratory Result Diagrams: 01/06/20 13:55 01/06/20 12:25 Laboratory results interpreted by me: 01/06/20 01/06/20 12:25 13:55 RBC 3.52 L Hgb 10.1 L Hct 30.4 L RDW 16.4 H BUN 5 L Glucose 159 H Alkaline Phosphatase 164 H Discharge - Discharge Clinical Impression: Chronic chest pain, Hypertension Condition: Stable Disposition: HOME, SELF-CARE Instructions: High Blood Pressure ([facility]), High Blood Pressure, Requiring Treatment ([facility]) Additional Instructions: Your seen in the emergency room today for hypertension. Consulted with Dr. Cavanaugh, your craft demonstrator, who felt that you were okay to go home would like to start you on a blood pressure medication called lisinopril for you to take once a day and stated that it is important for you to also be taking her Cardizem after having a recent CABG. Please follow-up with him outpatient Prescriptions: Lisinopril [Prinivil] 10 mg PO DAILY #30 tablet Referrals: SHELLY SETHI MD [Primary Care Provider] - Follow up as needed DANITA PEÑA MD [ACTIVE STAFF] - Follow up as needed
[2020-01-06 14:09] LABS: ABSOLUTE BASOPHILS # (AUTO) 0.1 10^3/uL (0.0-0.2); ABSOLUTE EOSINOPHILS # (AUTO) 0.1 10^3/uL (0.0-0.6); ABSOLUTE MONOCYTES (AUTO) 0.4 10^3/uL (0.1-1.4); HEMATOCRIT 30.4 % (37.9-51.0); HEMOGLOBIN 10.1 g/dL (13.5-17.0); LYMPHOCYTES % (AUTO) 35.2 % (13-45); MEAN CORPUSCULAR HEMOGLOBIN 28.6 pg (27.0-33.4); MEAN CORPUSCULAR HGB CONC 33.1 g/dL (32.0-36.0); MONOCYTES % (AUTO) 7.8 % (3-13); PLATELET COUNT 319 10^3/uL (150-450); RED BLOOD COUNT 3.52 10^6/uL (4.35-5.55); RED CELL DISTRIBUTION WIDTH 16.4 % (11.5-14.0); TOTAL CELLS COUNTED % (AUTO) 100 %; WHITE BLOOD COUNT 5.6 10^3/uL (4.0-10.5)
[2020-01-06 14:15] LABS: MEAN CORPUSCULAR VOLUME 86 fl (80-97)
--- NOTE | 2020-01-06 15:44 | PDOC CONSULTATION ---
Consultation-Blank Consultation: Cardiology CONSULTATION by Dr. Ann Domingo on 01/06/2020 patient seen in the emergency room at 3:30 PM. 50 minutes spent as patient with more than 50% of time spent in direct patient care. REASON FOR CONSULTATION: Elevated blood pressure the patient with the chest pain. Consult REQUESTING PHYSICIAN: Dr. Lorraine Garcia, ER physician HISTORY OF PRESENT ILLNESS: Patient is a 4-year-old -[place] male with a history of hypertension, diabetes mellitus, coronary artery disease history of multiple stents and history of coronary artery bypass graft surgery in the past with one-vessel GAMEZ to the LAD, who recently in July 2019 had angina and was worked up in [facility]. He subsequently ended up having redo coronary artery bypass graft surgery with a free radial graft placed to the ramus intermedius, a saphenous vein graft to the first diagonal branch and a saphenous vein graft to the obtuse marginal 1 branch which arose from a left dominant circumflex. The patient since then has been having chest wall pain. He has no anginal symptoms. Today the patient found out that his blood pressure was elevated. He came to the emergency room. He also has a history of anxiety. He denies palpitations near syncope or syncope. There is no shortness of breath palpitations. There is no PND orthopnea or leg edema. The patient after he was given sublingual nitroglycerin and his blood pressure now is good. Note after the coronary bypass graft surgery his antihypertensives have been stopped and he is only on Cardizem 30 mg p.o. every 8 hours due to the patient having free radial graft to the ramus intermedius. At present the patient is asymptomatic and his blood pressure is well controlled. Related Data Allergies/Adverse Reactions: adhesive [Adhesive] Allergy (Severe, Verified 01/06/20 12:28) peels skin gabapentin [From Neurontin] Allergy (Unknown, Verified 01/06/20 12:28) disoriented levofloxacin [From Levaquin] Allergy (Unknown, Verified 01/06/20 12:28) Sulfa (Sulfonamide Antibiotics) Allergy (Unknown, Verified 01/06/20 12:28) skin wilson tramadol [Tramadol] Allergy (Unknown, Verified 01/06/20 12:28) ibuprofen [From Motrin] Allergy (Verified 01/06/20 12:28) naproxen Allergy (Verified 01/06/20 12:28) Past Medical History - General Information source: Patient - Social History Smoking Status: Current Some Day Smoker Chew tobacco use (# tins/day): No Frequency of alcohol use: None Drug Abuse: None Family History: Reviewed & Not Pertinent, CAD, CVA, Malignancy Patient has homicidal ideation: No - Past Medical History Cardiac Medical History: Reports: Hx Coronary Artery Disease, 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 Denies: Hx Peritoneal Dialysis GI Medical History: Reports: Hx Gastroesophageal Reflux Disease. Denies: Hx Pancreatitis Musculoskeletal Medical History: Denies Hx Arthritis, Reports Hx Muscle Weakn ess, Reports Hx Musculoskeletal Deformity, Reports Hx Musculoskeletal Trauma Psychiatric Medical History: Reports: Hx Anxiety, Hx Depression Traumatic Medical History: Reports: Hx Fractures Past Surgical History: Reports: Hx Adenoidectomy, Hx Appendectomy, Hx Bowel Surgery - hemorrhoidectomy, Hx Cardiac Catheterization, Hx Cardiac Surgery - CABG, Hx Coronary Artery Bypass Graft, Hx Coronary Stent - [id number] recent was 2016, Hx Genitourinary Surgery - Vasectomy, Hx Open Heart Surgery, Hx Rectal Surgery - hemorrhoids, Hx Testicular Surgery - Orchiopexy, vasectomy, Hx Tonsillectomy - Immunizations Immunizations up to date: Yes Hx Diphtheria, Pertussis, Tetanus Vaccination: Yes Hx Pneumococcal Vaccination: 03/21/12 Resuscitation STATUS: The patient is a full code. His significant other is a surrogate healthcare decision maker. Aspirin [Ecotrin 325 mg EC Tablet] 325 mg PO DAILY 09/21/18 Fluticasone Propionate [Flonase Nasal [place] 50 Mcg/[place] 16 gm] 1 spray NASL Q12 09/21/18 Latanoprost [Xalatan 0.005% Oph Soln 2.5 ml] 1 drop OP QHS 09/21/18 Morphine Sulfate [Morphine Sulfate ER] 30 mg PO Q12 09/21/18 Oxymorphone HCl [Opana] 10 mg PO Q6HP PRN 09/21/18 Sertraline HCl [Zoloft] 50 mg PO DAILY 09/21/18 Carvedilol [Coreg] 1 tab PO Q12 12/12/19 Docusate Sodium [Colace] 100 mg PO PRN PRN 12/12/19 Famotidine [Pepcid 20 mg Tablet] 20 mg PO BID 12/12/19 Review of Systems - Review of Systems Constitutional: See HPI EENT: No symptoms reported Cardiovascular: See HPI Respiratory: No symptoms reported Gastrointestinal: No symptoms reported Genitourinary: No symptoms reported Male Genitourinary: No symptoms reported Musculoskeletal: No symptoms reported Skin: No symptoms reported Hematologic/Lymphatic: No symptoms reported Neurological/Psychological: No symptoms reported Physical EXAMINATION: The patient is well-built and well-nourished in no acute distress. Selected Entries 01/06/20 01/06/20 12:28 13:00 Temperature 98.7 F Heart Rate ( 79 Monitors) Respiratory 17 Rate Blood Pressure 121/88 H Blood Pressure 99 Mean O2 Sat by Pulse 97 Oximetry HEAD: Is atraumatic normocephalic. EYES: Pupils equal round regular reactive light accommodation. Extraocular movements are normal. There is no conjunctival pallor. There is no scleral icterus. EARS: Tympanic membranes are intact. External auditory canals are clear. NOSE: There is no deviated nasal septum. There is no inflammation nasal mucous membrane. MOUTH: There is no bleeding from the gums. Mucous membrane mucous membranes of mouth are moist. Tongue is moist. THROAT: There is no redness of the oropharynx. There is no exudates. SKIN: There is no skin rashes. There is no petechia or ecchymosis. NECK: Supple. There is no JVD. Carotids are equal there is no bruit. There is no lymphadenopathy. There is no goiter. There is no accessory muscle respira tion use. Trachea central. LUNGS: Is clear to auscultation percussion without any rhonchi rales wheezing. HEART: S1-S2 is heard. There is no S3 gallop there is no S4 gallop. There is systolic murmur left sternal border and the apex. CHEST WALL: There is a healed incision of coronary artery bypass graft surgery. With no evidence of infection. There is tenderness on palpating the area of incision. This is clearly musculoskeletal and not anginal. ABDOMEN: Soft. Nontender. There is no hepatosplenomegaly. Bowel sounds are well heard. EXTREMITIES: Femorals are slightly diminished. There is no femoral bruits. Leg pulses are diminished. There is no pedal edema. There is no DVT or cellulitis. There is no cyanosis or clubbing. 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 PSYCHIATRIC: The patient judgment insight are intact his affect is normal. EKG: Sinus rhythm. Diffuse T inversion nonspecific. Labs- All tests 24 hr 01/06/20 01/06/20 01/06/20 12:25 12:25 12:25 WBC Cancelled RBC Cancelled Hgb Cancelled Hct Cancelled MCV Cancelled MCH Cancelled MCHC Cancelled RDW Cancelled Plt Count Cancelled Lymph % (Auto) Cancelled [place] % (Auto) Cancelled Eos % (Auto) Cancelled Baso % (Auto) Cancelled Absolute Neuts (auto) Cancelled Absolute Lymphs (auto) Cancelled Absolute Monos (auto) Cancelled Absolute Eos (auto) Cancelled Absolute Basos (auto) Cancelled Seg Neutrophils % Cancelled Platelet Estimate Cancelled Sodium 138.6 Potassium 4.1 Chloride 104 Carbon Dioxide 28 Anion Gap 7 BUN 5 L Creatinine 0.75 Est GFR ( Amer) > 60 Est GFR (MDRD) Non-Af > 60 Glucose 159 H Calcium 9.5 Total Bilirubin 0.4 Direct Bilirubin 0.0 Neonat Total Bilirubin Not Reportable Neonat Direct Bilirubin Not Reportable Neonat Indirect Bili Not Reportable AST 23 ALT 33 Alkaline Phosphatase 164 H Creatine Kinase 74 CK-MB (CK-2) 0.37 Troponin I < 0.012 Total Protein 6.9 Albumin 3.5 Slides for Path Review Cancelled 01/06/20 13:55 WBC 5.6 RBC 3.52 L Hgb 10.1 L Hct 30.4 L MCV 86 D MCH 28.6 MCHC 33.1 RDW 16.4 H Plt Count 319 Lymph % (Auto) 35.2 [place] % (Auto) 7.8 Eos % (Auto) 2.0 Baso % (Auto) 1.0 Absolute Neuts (auto) 3.0 Absolute Lymphs (auto) 2.0 Absolute Monos (auto) 0.4 Absolute Eos (auto) 0.1 Absolute Basos (auto) 0.1 Seg Neutrophils % 54.0 Platelet Estimate Sodium Potassium Chloride Carbon Dioxide Anion Gap BUN Creatinine Est GFR ( Amer) Est GFR (MDRD) Non-Af Glucose Calcium Total Bilirubin Direct Bilirubin Neonat Total Bilirubin Neonat Direct Bilirubin Neonat Indirect Bili AST ALT Alkaline Phosphatase Creatine Kinase CK-MB (CK-2) Troponin I Total Protein Albumin Slides for Path Review IMPRESSION/RECOMMENDATION: 1. Hypertension: This may be secondary to patient's antihypertensive being stopped after bypass surgery. Hence would recommend discharge the patient home with current medications and add lisinopril 10 mg p.o. daily. 2. Coronary artery disease history of redo coronary bypass graft surgery: Stable no anginal symptoms. No evidence of acute coronary syndrome. 3. Chest wall pain: Nonanginal. 4. Diabetes mellitus: Continue antidiabetic medication. 5. Hypothyroidism: Continue thyroid replacement. 6. History of anxiety and depression: Patient reassured Patient medications reviewed. Medical regimen and management plan discussed with the ER physician. Including the recommendation to add lisinopril 10 mg p .o. daily. The patient will be seen by me in the office on Friday 12 noon. The patient is aware he will follow-up with me. The patient has my cell phone number will call me if he has any problems. Medical decision making is of moderate complexity.. We will discharge the patient home as his cardiac status is stable.
[2020-01-06 15:59] VITALS: BP 133/96
--- NOTE | 2020-01-06 18:46 | EKG REPORT ---
SEVERITY:- ABNORMAL ECG - SINUS RHYTHM PROBABLE LEFT ATRIAL ABNORMALITY NONSPECIFIC T ABNORMALITIES, DIFFUSE LEADS BORDERLINE PROLONGED QT INTERVAL : Confirmed by: Elio Rae MD 06-Jan-2020 18:46:02
== END 2020-01-06 15:59 | disposition home or self-care (01) ==
LOC: ER 12:12
DX: I10 Essential (primary) hypertension (principal); R07.9 Chest pain, unspecified; G89.29 Other chronic pain; I25.10 Atherosclerotic heart disease of native coronary artery without angina pectoris; I25.2 Old myocardial infarction; E11.9 Type 2 diabetes mellitus without complications; F17.200 Nicotine dependence, unspecified, uncomplicated; Z95.5 Presence of coronary angioplasty implant and graft; Z95.1 Presence of aortocoronary bypass graft; Z79.899 Other long term (current) drug therapy; Z91.048 Other nonmedicinal substance allergy status; Z88.6 Allergy status to analgesic agent; Z88.1 Allergy status to other antibiotic agents; Z88.2 Allergy status to sulfonamides; Z88.8 Allergy status to other drugs, medicaments and biological substances; Z82.49 Family history of ischemic heart disease and other diseases of the circulatory system
CPT/HCPCS: 36415; 80053; 82550; 82553; 84484; 85025; 93005; 93010; 99284

== ENCOUNTER 2020-01-22 23:41 | Emergency (ER) | payer MEDICARE, MEDICAID ==
--- NOTE | 2020-01-23 01:52 | RADIOLOGY REPORT (SQ) ---
CLINICAL INDICATION: chest pain. TECHNIQUE: PA and lateral views were obtained of the chest COMPARISON: December 12, 2019. FINDINGS: The cardiomediastinal silhouette is enlarged but stable. The lungs demonstrate presumed chronic parenchymal change. No evidence of effusion or pneumothorax. Laxity in the shoulders. . IMPRESSION: No evidence of active intrathoracic disease . Chronic change, no adverse change
[2020-01-23 02:37] LABS: ABSOLUTE EOSINOPHILS # (AUTO) 0.2 10^3/uL (0.0-0.6); ABSOLUTE LYMPHOCYTES (AUTO) 2.4 10^3/uL (0.5-4.7); ABSOLUTE MONOCYTES (AUTO) 0.6 10^3/uL (0.1-1.4); ABSOLUTE NEUT (AUTO) 3.9 10^3/uL (1.7-8.2); BASOPHILS % (AUTO) 0.3 % (0-2); EOSINOPHILS % (AUTO) 2.8 % (0-6); HEMATOCRIT 31.7 % (37.9-51.0); HEMOGLOBIN 10.4 g/dL (13.5-17.0); LYMPHOCYTES % (AUTO) 33.7 % (13-45); MEAN CORPUSCULAR HEMOGLOBIN 27.6 pg (27.0-33.4); MEAN CORPUSCULAR HGB CONC 32.8 g/dL (32.0-36.0); MEAN CORPUSCULAR VOLUME 84 fl (80-97); MONOCYTES % (AUTO) 8.7 % (3-13); PLATELET COUNT 315 10^3/uL (150-450); RED BLOOD COUNT 3.77 10^6/uL (4.35-5.55); RED CELL DISTRIBUTION WIDTH 17.1 % (11.5-14.0); SEGMENTED NEUTROPHILS % (AUTO) 54.5 % (42-78); TOTAL CELLS COUNTED % (AUTO) 100 %; WHITE BLOOD COUNT 7.2 10^3/uL (4.0-10.5)
[2020-01-23 02:42] LABS: PROTHROMBIN TIME 14.3 SEC (11.4-15.4)
[2020-01-23 02:58] LABS: ALBUMIN 3.8 g/dL (3.5-5.0); ALKALINE PHOSPHATASE 166 U/L (38-126); ANION GAP 6 (5-19); ASPARTATE AMINO TRANSFERASE 28 U/L (17-59); BILIRUBIN,TOTAL 0.4 mg/dL (0.2-1.3); BLOOD UREA NITROGEN 8 mg/dL (7-20); CALCIUM 9.2 mg/dL (8.4-10.2); CARBON DIOXIDE 27 mmol/L (22-30); CHLORIDE 106 mmol/L (98-107); GLUCOSE 106 mg/dL (75-110); POTASSIUM 3.8 mmol/L (3.6-5.0); TOTAL PROTEIN 7.3 g/dL (6.3-8.2)
--- NOTE | 2020-01-23 03:59 | ER Document Report ---
ED Cardiac - General Chief Complaint: Chest Pain Stated Complaint: CHEST PAIN Time Seen by Provider: 01/23/20 03:35 Primary Care Provider: SHELLY SETHI MD [Primary Care Provider] - Follow up as needed Mode of Arrival: Ambulatory Information source: Patient Notes: Patient is a 64-year-old male presents emergency department chief complaint of chest pain. Patient reports pain starts in the midsternum and radiates to his right shoulder and right arm. He rates the pain at its worst is 4 out of 5. He took 4 aspirin at home and also took a tablet of morphine and a tablet of oxymorphone for the pain. He states there is no relief. Patient reports the pain goes away when he lies still. TRAVEL OUTSIDE OF THE [place] IN LAST 30 DAYS: No - Related Data Allergies/Adverse Reactions: adhesive [Adhesive] Allergy (Severe, Verified 01/06/20 12:28) peels skin gabapentin [From Neurontin] Allergy (Unknown, Verified 01/06/20 12:28) disoriented levofloxacin [From Levaquin] Allergy (Unknown, Verified 01/06/20 12:28) Sulfa (Sulfonamide Antibiotics) Allergy (Unknown, Verified 01/06/20 12:28) skin wilson tramadol [Tramadol] Allergy (Unknown, Verified 01/06/20 12:28) ibuprofen [From Motrin] Allergy (Verified 01/06/20 12:28) naproxen Allergy (Verified 01/06/20 12:28) Past Medical History - General Information source: Patient - Social History Smoking Status: Current Every Day Smoker Frequency of alcohol use: None Drug Abuse: None Family History: Reviewed & Not Pertinent, CAD, CVA, Malignancy Patient has homicidal ideation: No - Past Medical History Cardiac Medical History: Reports: Hx Coronary Artery Disease, 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 Denies: Hx Peritoneal Dialysis GI Medical History: Reports: Hx Gastroesophageal Reflux Disease. Denies: Hx Pancreatitis Musculoskeletal Medical History: Denies Hx Arthritis, Reports Hx Muscle Weakness, Reports Hx Musculoskeletal Deformity, Reports Hx Musculoskeletal Tr auma Psychiatric Medical History: Reports: Hx Anxiety, Hx Depression Traumatic Medical History: Reports: Hx Fractures Past Surgical History: Reports: Hx Adenoidectomy, Hx Appendectomy, Hx Bowel Surgery - hemorrhoidectomy, Hx Cardiac Catheterization, Hx Cardiac Surgery - CABG, Hx Coronary Artery Bypass Graft, Hx Coronary Stent - [id number] recent was 2016, Hx Genitourinary Surgery - Vasectomy, Hx Open Heart Surgery, Hx Rectal Surgery - hemorrhoids, Hx Testicular Surgery - Orchiopexy, vasectomy, Hx Tonsillectomy - Immunizations Immunizations up to date: Yes Hx Diphtheria, Pertussis, Tetanus Vaccination: Yes Hx Pneumococcal Vaccination: 03/21/12 Review of Systems - Review of Systems Constitutional: No symptoms reported EENT: No symptoms reported Cardiovascular: Chest pain Respiratory: No symptoms reported Gastrointestinal: No symptoms reported Genitourinary: No symptoms reported Male Genitourinary: No symptoms reported Musculoskeletal: No symptoms reported Skin: No symptoms reported Hematologic/Lymphatic: No symptoms reported Neurological/Psychological: No symptoms reported Physical Exam - Vital signs Vitals: Temp Pulse Resp BP Pulse Ox 98.9 F 86 18 135/97 H 95 01/23/20 00:31 01/23/20 00:31 01/23/20 00:31 01/23/20 00:31 01/23/20 00:31 - Notes Notes: PHYSICAL EXAMINATION: GENERAL: Well-appearing, well-nourished and in no acute distress. HEAD: Atraumatic, normocephalic. EYES: Pupils equal round and reactive to light, extraocular movements intact, sclera anicteric, conjunctiva are normal. ENT: Nares patent, oropharynx clear without exudates. Moist mucous membranes. NECK: Normal range of motion, supple without lymphadenopathy LUNGS: Breath sounds clear to auscultation bilaterally and equal. No wheezes rales or rhonchi. HEART: Regular rate and rhythm without murmurs ABDOMEN: Soft, nontender, nondistended abdomen. No guarding, no rebound. No masses appreciated. Musculoskeletal: Normal range of motion, no pitting or edema. No cyanosis. NEUROLOGICAL: Cranial nerves grossly intact. Normal speech, normal gait. Normal sensory, motor exams PSYCH: Normal mood, normal affect. SKIN: Healing midsternal scar. Course - Re-evaluation Re-evalutation: 01/23/20 03:58 EKG reviewed, shows a sinus rhythm, rate 83, QTc 419, normal axis, no ST segment elevations or depressions. 01/23/20 07:03 Called and spoke with Dr. Cavanaugh. He is okay with patient being discharged home. Patient has had 2- troponins here in the emergency department. He has an unchanged EKG from previous. He has a normal chest x-ray. No acute findings today. Follow-up with cardiology. - Vital Signs Vital signs: Temp Pulse Resp BP Pulse Ox 98.3 F 82 16 109/73 95 01/23/20 07:20 01/23/20 07:20 01/23/20 07:20 01/23/20 07:20 01/23/20 07:20 - Laboratory Result Diagrams: 01/23/20 02:08 01/23/20 02:08 Laboratory results interpreted by me: 01/23/20 01/23/20 02:08 02:08 RBC 3.77 L Hgb 10.4 L Hct 31.7 L RDW 17.1 H Alkaline Phosphatase 166 H - Diagnostic Test Radiology reviewed: Image reviewed, Reports reviewed - EKG Interpretation by Me EKG shows normal: Sinus rhythm Rate: Normal Rhythm: NSR - No ST segment elevations or depressions to suggest ischemia, normal axis. Discharge - Discharge Clinical Impression: Chest pain Qualifiers: Chest pain type: unspecified Qualified Code(s): R07.9 - Chest pain, unspecified Condition: Stable Disposition: HOME, SELF-CARE Additional Instructions: Your work-up today was reassuring. Your cardiac enzymes were normal. We called and spoke with your rug dyer helper, Dr. Domingo who states it is safe to discharge you home. Please follow-up with him in the office. Return to the e mergency department with any new or worsening symptoms. Referrals: SHELLY SETHI MD [Primary Care Provider] - Follow up as needed
[2020-01-23] MEDS ORDERED: MORPHINE SULFATE 10 MG/ML INJ IV ONE (04:31)
[2020-01-23 07:22] VITALS: BP 109/73
--- NOTE | 2020-01-23 17:24 | EKG REPORT ---
SEVERITY:- ABNORMAL ECG - SINUS RHYTHM NONSPECIFIC T ABNORMALITIES, DIFFUSE LEADS : Confirmed by: Ann Domingo MD 23-Jan-2020 17:24:11
== END 2020-01-23 07:22 | disposition home or self-care (01) ==
LOC: ER 23:41
DX: R07.9 Chest pain, unspecified (principal); F17.200 Nicotine dependence, unspecified, uncomplicated; I25.10 Atherosclerotic heart disease of native coronary artery without angina pectoris; E11.9 Type 2 diabetes mellitus without complications; I25.2 Old myocardial infarction; Z95.1 Presence of aortocoronary bypass graft; Z88.2 Allergy status to sulfonamides
CPT/HCPCS: 93005; 99285; 96374; 36415; 85025; 85610; 80053; 84484; 71046; 93010; J2270

== ENCOUNTER 2020-03-06 16:08 | Emergency (ER) | payer MEDICARE, MEDICAID ==
[2020-03-06 17:29] LABS: ALBUMIN 4.1 g/dL (3.5-5.0); ALKALINE PHOSPHATASE 103 U/L (38-126); ANION GAP 5 (5-19); ASPARTATE AMINO TRANSFERASE 23 U/L (17-59); BILIRUBIN,TOTAL 0.3 mg/dL (0.2-1.3); BLOOD UREA NITROGEN 7 mg/dL (7-20); CARBON DIOXIDE 28 mmol/L (22-30); CHLORIDE 107 mmol/L (98-107); CREATINE KINASE 90 U/L (55-170); POTASSIUM 3.8 mmol/L (3.6-5.0); TOTAL PROTEIN 7.5 g/dL (6.3-8.2)
[2020-03-06 17:31] LABS: GLUCOSE 55 mg/dL (75-110)
[2020-03-06 17:41] LABS: CREATINE KINASE MB 0.61 ng/mL (<4.55)
[2020-03-06 17:45] LABS: TROPONIN I < 0.012 ng/mL
[2020-03-06 17:49] LABS: HEMATOCRIT 34.6 % (37.9-51.0); HEMOGLOBIN 11.3 g/dL (13.5-17.0); MEAN CORPUSCULAR HEMOGLOBIN 26.1 pg (27.0-33.4); MEAN CORPUSCULAR HGB CONC 32.6 g/dL (32.0-36.0); MEAN CORPUSCULAR VOLUME 80 fl (80-97); PLATELET COUNT 204 10^3/uL (150-450); RED BLOOD COUNT 4.32 10^6/uL (4.35-5.55); RED CELL DISTRIBUTION WIDTH 19.2 % (11.5-14.0); WHITE BLOOD COUNT 7.2 10^3/uL (4.0-10.5)
[2020-03-06] MEDS ORDERED: FENTANYL CITRATE INJ/PF 100 MCG/2 ML AMPUL IV ONE (18:04)
[2020-03-06] MEDS ORDERED: COLCHICINE 0.6 MG TABLET PO ONE (18:04)
--- NOTE | 2020-03-06 18:04 | ER Document Report ---
ED General - General Chief Complaint: Chest Pain Stated Complaint: CHEST PAIN Time Seen by Provider: 03/06/20 17:48 Primary Care Provider: SHELLY SETHI MD [Primary Care Provider] - Follow up as needed TRAVEL OUTSIDE OF THE [place] IN LAST 30 DAYS: No - HPI Patient complains to provider of: chest pain Notes: 64 y/o presenting to ED for evaluation of chest pain he has a h/o cabg and has had frequent hospitalizations for chest pain he is followed by Dr Afshan daniels and had his CABG in [place] earlier this year he denies h/o PE or DVT he is compliant w/ his home medications which include multiple narcotics for chest wall/cabg related pain he was given ntg and denies any change to his pain w/ this he denies sob, nausea, sweats he states this feels similar to his previous chest pain that he has experienced since his cabg - Related Data Allergies/Adverse Reactions: adhesive [Adhesive] Allergy (Severe, Verified 01/06/20 12:28) peels skin gabapentin [From Neurontin] Allergy (Unknown, Verified 01/06/20 12:28) disoriented levofloxacin [From Levaquin] Allergy (Unknown, Verified 01/06/20 12:28) Sulfa (Sulfonamide Antibiotics) Allergy (Unknown, Verified 01/06/20 12:28) skin wilson tramadol [Tramadol] Allergy (Unknown, Verified 01/06/20 12:28) ibuprofen [From Motrin] Allergy (Verified 01/06/20 12:28) naproxen Allergy (Verified 01/06/20 12:28) Past Medical History - Social History Smoking Status: Current Every Day Smoker Chew tobacco use (# tins/day): No Frequency of alcohol use: None Drug Abuse: None Family History: Reviewed & Not Pertinent, CAD, CVA, Malignancy Patient has homicidal ideation: No - Past Medical History Cardiac Medical History: Reports: Hx Coronary Artery Disease, 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 Denies: Hx Diabetes Mellitus Type 1, Hx Hyperthyroidism Renal/ Medical History: Reports: Hx Testicular Torsion. Denies: Hx Peritoneal Dialysis GI Medical History: Reports: Hx Gastroesophageal Reflux Disease. Denies: Hx Cirrhosis, Hx Hepatitis, Hx Pancreatitis, Hx Ulcerative Colitis Musculoskeletal Medical History: Denies Hx Arthritis, Denies Hx Gout, Reports Hx Muscle Weakness, Reports Hx Musculoskeletal Deformity, Reports Hx Musculoskeletal Trauma Skin Medical History: Denies Hx Eczema, Denies Hx Psoriasis Psychiatric Medical History: Reports: Hx Anxiety, Hx Depression Traumatic Medical History: Reports: Hx Fractures Infectious Medical History: Denies: Hx Hepatitis Past Surgical History: Reports: Hx Adenoidectomy, Hx Appendectomy, Hx Bowel Surgery - hemorrhoidectomy, Hx Cardiac Catheterization, Hx Cardiac Surgery - CABG, Hx Coronary Artery Bypass Graft, Hx Coronary Stent - [id number] recent was 2016, Hx Genitourinary Surgery - Vasectomy, Hx Open Heart Surgery, Hx Rectal Surgery - hemorrhoids, Hx Testicular Surgery - Orchiopexy, vasectomy, Hx Tonsillectomy - Immunizations Immunizations up to date: Yes Hx Diphtheria, Pertussis, Tetanus Vaccination: Yes Hx Pneumococcal Vaccination: 03/21/12 Review of Systems - Review of Systems Constitutional: No symptoms reported EENT: No symptoms reported Cardiovascular: Chest pain Respiratory: No symptoms reported Gastrointestinal: No symptoms reported Genitourinary: No symptoms reported Male Genitourinary: No symptoms reported Musculoskeletal: No symptoms reported Skin: No symptoms reported Hematologic/Lymphatic: No symptoms reported Neurological/Psychological: No symptoms reported Physical Exam - Vital signs Vitals: Temp 98.1 F 03/06/20 16:09 Interpretation: Normal - General General appearance: Appears well, Alert - HEENT Head: Normocephalic, Atraumatic Eyes: Normal Pupils: PERRL - Respiratory Respiratory status: No respiratory distress Chest status: Nontender Breath sounds: Normal Chest palpation: Normal - Cardiovascular Rhythm: Regular Heart sounds: Normal auscultation Murmur: No Normal capillary refill: Yes Notes: he has cabg wound to sternum. pain is reproducible adjacent to strernum - Abdominal Inspection: Normal Distension: No distension Bowel sounds: Normal Tenderness: Nontender Organomegaly: No organomegaly - Back Back: Normal, Nontender - Extremities General upper extremity: Normal inspection, Nontender, Normal color, Normal ROM, Normal temperature General lower extremity: Normal inspection, Nontender, Normal color, Normal ROM, Normal temperature, Normal weight bearing. No: Enrique's sign - Neurological Neuro grossly intact: Yes Cognition: Normal Orientation: AAOx4 [place] Coma Scale Eye Opening: Spontaneous [place] Coma Scale Verbal: Oriented [place] Coma Scale Motor: Obeys Commands [place] Coma Scale Total: 15 Speech: Normal Motor strength normal: LUE, RUE, LLE, RLE Sensory: Normal - Psychological Associated symptoms: Normal affect, Normal mood - Skin Skin Temperature: Warm Skin Moisture: Dry Skin Color: Normal Course - Re-evaluation Re-evalutation: 03/06/20 18:03 EKG - NSR, rate of 73, left atrial abnormality, borderline T abnormal. no ST segment changes 03/06/20 18:04 I spoke w/ Dr Cavanaugh about this patient and he recommends 2 trops and discharge if negative given stable ekg and recurrent nature of this discomfort recommends trying colchicine 0.6 daily to address chest wall pain 03/06/20 20:24 repeat trop is negative will dc w/ colchicine as directed by cards - Vital Signs Vital signs: Temp Pulse Resp BP Pulse Ox 98.1 F 19 134/89 H 100 03/06/20 16:09 03/06/20 17:53 03/06/20 17:53 03/06/20 17:53 - Laboratory Result Diagrams: 03/06/20 17:40 03/06/20 16:50 Laboratory results interpreted by me: 03/06/20 03/06/20 16:50 17:40 RBC 4.32 L Hgb 11.3 L Hct 34.6 L MCH 26.1 L RDW 19.2 H Glucose 55 L - Diagnostic Test Radiology reviewed: Image reviewed, Reports reviewed Discharge - Discharge Clinical Impression: Chest pain Qualifiers: Chest pain type: unspecified Qualified Code(s): R07.9 - Chest pain, unspecified CAD (coronary artery disease) Qualifiers: Coronary Disease-Associated Artery/Lesion type: unspecified vessel or lesion type [place] vs. transplanted heart: [place] heart Associated angina: angina presence unspecified Qualified Code(s): I25.10 - Atherosclerotic heart disease of [place] coronary artery without angina pectoris Condition: Stable Disposition: HOME, SELF-CARE Instructions: Chest Pain of Unclear Cause ([facility]) Additional Instructions: You were seen for chest pain in the ED I spoke with your oyster planter regarding your care and he recommends calling his office in the morning to be seen and starting colchicine (prescription given) Return to the ED with worsening symptoms or concerns Prescriptions: Colchicine [Colcrys 0.6 mg Tablet] 0.6 mg PO DAILY #14 tablet Referrals: SHELLY SETHI MD [Primary Care Provider] - Follow up as needed DANITA PEÑA MD [ACTIVE STAFF] - Follow up as needed
[2020-03-06 18:08] LABS: ABSOLUTE LYMPHOCYTES# (MANUAL) 2.6 10^3/uL (0.5-4.7); ABSOLUTE MONOCYTES # (MANUAL) 0.6 10^3/uL (0.1-1.4); BASOPHILS % (MANUAL) 0 % (0-2); EOSINOPHILS % (MANUAL) 0 % (0-6); LYMPHOCYTES % (MANUAL) 36 % (13-45); MONOCYTES % (MANUAL) 8 % (3-13); SEGMENTED NEUTROPHILS % (MAN) 56 % (42-78); TOTAL CELLS COUNTED 100
[2020-03-06 18:10] LABS: ANISOCYTOSIS 2+; BURR CELLS SLIGHT; HYPOCHROMASIA SLIGHT; OVALOCYTES SLIGHT; PLATELET COMMENT ADEQUATE; POIKILOCYTOSIS SLIGHT
[2020-03-06 20:55] VITALS: BP 134/95
--- NOTE | 2020-03-06 21:31 | EKG REPORT ---
SEVERITY:- BORDERLINE ECG - SINUS RHYTHM PROBABLE LEFT ATRIAL ABNORMALITY BORDERLINE T WAVE ABNORMALITIES : Confirmed by: Bety Cobb 06-Mar-2020 21:30:56
== END 2020-03-06 20:50 | disposition home or self-care (01) ==
LOC: ER 16:08
DX: R07.89 Other chest pain (principal); I25.10 Atherosclerotic heart disease of native coronary artery without angina pectoris; I10 Essential (primary) hypertension; I25.2 Old myocardial infarction; E11.9 Type 2 diabetes mellitus without complications; Z95.1 Presence of aortocoronary bypass graft; Z95.5 Presence of coronary angioplasty implant and graft; Z79.891 Long term (current) use of opiate analgesic; Z91.048 Other nonmedicinal substance allergy status; Z88.6 Allergy status to analgesic agent; Z88.1 Allergy status to other antibiotic agents; Z88.2 Allergy status to sulfonamides; Z88.8 Allergy status to other drugs, medicaments and biological substances; F17.210 Nicotine dependence, cigarettes, uncomplicated
CPT/HCPCS: 93005; 99284; 96374; 36415; 82553; 82962; 82550; 85025; 80053; 84484; 93010; A9270; J3010

== ENCOUNTER 2020-04-04 08:27 | Emergency (ER) | payer MEDICARE, MEDICAID ==
[2020-04-04 10:01] LABS: ABSOLUTE EOSINOPHILS # (AUTO) 0.4 10^3/uL (0.0-0.6); ABSOLUTE LYMPHOCYTES (AUTO) 1.8 10^3/uL (0.5-4.7); ABSOLUTE MONOCYTES (AUTO) 0.4 10^3/uL (0.1-1.4); ABSOLUTE NEUT (AUTO) 3.3 10^3/uL (1.7-8.2); BASOPHILS % (AUTO) 0.6 % (0-2); EOSINOPHILS % (AUTO) 5.9 % (0-6); HEMATOCRIT 37.3 % (37.9-51.0); HEMOGLOBIN 12.2 g/dL (13.5-17.0); LYMPHOCYTES % (AUTO) 30.2 % (13-45); MEAN CORPUSCULAR HEMOGLOBIN 25.9 pg (27.0-33.4); MEAN CORPUSCULAR HGB CONC 32.6 g/dL (32.0-36.0); MEAN CORPUSCULAR VOLUME 80 fl (80-97); MONOCYTES % (AUTO) 7.5 % (3-13); PLATELET COUNT 208 10^3/uL (150-450); RED CELL DISTRIBUTION WIDTH 20.2 % (11.5-14.0); SEGMENTED NEUTROPHILS % (AUTO) 55.8 % (42-78); TOTAL CELLS COUNTED % (AUTO) 100 %
[2020-04-04 10:10] LABS: INTERNATIONAL RATION (INR) 0.98; PROTHROMBIN TIME 13.2 SEC (11.4-15.4)
[2020-04-04 10:21] LABS: ALBUMIN 4.2 g/dL (3.5-5.0); ALKALINE PHOSPHATASE 115 U/L (38-126); ANION GAP 7 (5-19); ASPARTATE AMINO TRANSFERASE 56 U/L (17-59); BILIRUBIN,DIRECT 0.3 mg/dL (0.0-0.4); BILIRUBIN,TOTAL 0.6 mg/dL (0.2-1.3); BLOOD UREA NITROGEN 10 mg/dL (7-20); CALCIUM 9.3 mg/dL (8.4-10.2); CARBON DIOXIDE 30 mmol/L (22-30); CHLORIDE 105 mmol/L (98-107); CREATINE KINASE 86 U/L (55-170); GLUCOSE 109 mg/dL (75-110); POTASSIUM 4.9 mmol/L (3.6-5.0); TOTAL PROTEIN 7.5 g/dL (6.3-8.2)
[2020-04-04 10:32] LABS: CREATINE KINASE MB 0.84 ng/mL (<4.55)
[2020-04-04] MEDS ORDERED: MORPHINE SULFATE 10 MG/ML INJ IV ONE (10:40)
[2020-04-04 10:41] LABS: TROPONIN I < 0.012 ng/mL
--- NOTE | 2020-04-04 10:45 | RADIOLOGY REPORT (SQ) ---
EXAM DESCRIPTION: CHEST SINGLE VIEW IMAGES COMPLETED DATE/TIME: 04/04/2020 10:08 am REASON FOR STUDY: chest pain, N/V COMPARISON: 02/15/2020 EXAM PARAMETERS: NUMBER OF VIEWS: One view. TECHNIQUE: Single frontal radiographic view of the chest acquired. RADIATION DOSE: NA LIMITATIONS: None. FINDINGS: LUNGS AND PLEURA: Stable scarring in the left lung. No evidence of pulmonary edema or pne umonia. MEDIASTINUM AND HILAR STRUCTURES: No masses. Contour normal. HEART AND VASCULAR STRUCTURES: Heart normal in size. Normal vasculature. BONES: No acute findings. HARDWARE: CABG. OTHER: No other significant finding. IMPRESSION: NO ACUTE RADIOGRAPHIC FINDING IN THE CHEST. TECHNICAL DOCUMENTATION: JOB ID: [id number] [employer]- All Rights Reserved Reading location - IP/workstation name: [email or web address]
--- NOTE | 2020-04-04 13:12 | RADIOLOGY REPORT (SQ) ---
EXAM DESCRIPTION: CTA CHEST IMAGES COMPLETED DATE/TIME: 04/04/2020 12:45 pm REASON FOR STUDY: cp COMPARISON: 02/15/2020 TECHNIQUE: CT scan of the chest performed using helical scanning technique with dynamic intravenous contrast injection. Images reviewed with lung, soft tissue and bone windows. Reconstructed coronal and sagittal MPR images reviewed. Additional 3 dimensional post-processing performed to develop Maximal Intensity Projection images (MD P). All images stored on PACS. All CT scanners at this facility use dose modulation, iterative reconstruction, and/or weight based d osing when appropriate to reduce radiation dose to as low as reasonably achievable (ALARA). [facility]: Dose Right [facility]: CareDose [facility]: Dose Right [facility]: Teradose 4D [facility]: NowledgeData CONTRAST TYPE AND DOSE: contrast/concentration: Isovue 350.00 mmol/ml; Total Contrast Delivered: 66. 0 ml; Total Saline Delivered: 70.0 ml Contrast bolus optimized for the pulmonary arteries. Not diagnostic for the aorta. RENAL FUNCTION: BUN 10 creatinine 0.92 RADIATION DOSE: CT Rad equipment meets quality standard of care and radiation dose reduction techniq ues were employed. CTDIvol: 13.2 - 14.3 mGy. DLP: 558 mGy-cm. . LIMITATIONS: None. FINDINGS: LUNGS AND PLEURA: No masses, infiltrates, or pneumothorax. No pleural effusions or pleura l calcifications. AORTA AND GREAT VESSELS: No aneurysm. Contrast bolus not optimized for the aorta. HEART: No pericardial effusion. Prior CABG. PULMONARY ARTERIES: No emboli visualized in the main pulmonary arteries or the segmental branches. HILAR AND MEDIASTINAL STRUCTURES: No identified masses or abnormal nodes. HARDWARE: Sternotomy wires. UPPER ABDOMEN: No significant findings. Limited exam. THYROID AND OTHER SOFT TISSUES: No masses. No adenopathy. BONES: No acute or significant finding. 3D MIPS: Confirm above findings. OTHER: No other significant finding. IMPRESSION: There are no pulmonary emboli. There is no aortic aneurysm. No acute findings. COMMENT: Quality ID # [id number]: Final reports with documentation of one or more dose reduction techniques (e.g., Automated exposure control, adjustment of the mA and/or kV according to patient size, use of iterative reconstruction technique) TECHNICAL DOCUMENTATION: JOB ID: [id number] 2010 [employer]- All Rights Reserved Reading location - IP/workstation name: [email or web address]
[2020-04-04 14:13] VITALS: BP 118/79
--- NOTE | 2020-04-04 14:21 | ER Document Report ---
ED Cardiac - General Chief Complaint: Chest Pain > 30 Stated Complaint: CHEST PAIN,NAUSEA,DIARRHEA Time Seen by Provider: 04/04/20 09:39 Primary Care Provider: SHELLY SETHI MD [Primary Care Provider] - Follow up as needed Mode of Arrival: Ambulatory Information source: Patient TRAVEL OUTSIDE OF THE [place] IN LAST 30 DAYS: No - HPI Notes: Patient presents with chest pain. Is left-sided. It is sharp. He states that he has had this pain intermittently for last 3 to 4 days. He denies any accompanying systems such as shortness of breath nausea or vomiting. He has not been sweaty. He has had no cough cold or congestion. No trauma. Patient had coronary artery bypass graft surgery in November of this year and has had in termittent chest pain since that time with multiple admissions. He has had no further coronary artery disease but has had some pulmonary issues since the surgery. He states he is currently taking colchicine for some chronic chest wall pain. Patient states that this pain does not feel similar to the pain for which she had to have a bypass graft surgery which was a burning sensation. He states this pain is more sharp. - Related Data Allergies/Adverse Reactions: adhesive [Adhesive] Allergy (Severe, Verified 04/04/20 09:42) peels skin gabapentin [From Neurontin] Allergy (Unknown, Verified 04/04/20 09:42) disoriented levofloxacin [From Levaquin] Allergy (Unknown, Verified 04/04/20 09:42) Sulfa (Sulfonamide Antibiotics) Allergy (Unknown, Verified 04/04/20 09:42) skin wilson tramadol [Tramadol] Allergy (Unknown, Verified 04/04/20 09:42) ibuprofen [From Motrin] Allergy (Verified 04/04/20 09:42) naproxen Allergy (Verified 04/04/20 09:42) Past Medical History - Social History Smoking Status: Never Smoker Chew tobacco use (# tins/day): No Frequency of alcohol use: None Drug Abuse: None Family History: Reviewed & Not Pertinent, CAD, CVA, Malignancy Patient has homicidal ideation: No - Past Medical History Cardiac Medical History: Reports: Hx Coronary Artery Disease, 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 Denies: Hx Diabetes Mellitus Type 1, Hx Hyperthyroidism Renal/ Medical History: Reports: Hx Testicular Torsion. Denies: Hx Peritoneal Dialysis GI Medical History: Reports: Hx Gastroesophageal Reflux Disease. Denies: Hx Cirrhosis, Hx Hepatitis, Hx Pancreatitis, Hx Ulcerative Colitis Musculoskeletal Medical History: Denies Hx Arthritis, Denies Hx Gout, Reports Hx Muscle Weakness, Reports Hx Musculoskeletal Deformity, Reports Hx Musculoskeletal Trauma Skin Medical History: Denies Hx Eczema, Denies Hx Psoriasis Psychiatric Medical History: Reports: Hx Anxiety, Hx Depression Traumatic Medical History: Reports: Hx Fractures Infectious Medical History: Denies: Hx Hepatitis Past Surgical History: Reports: Hx Adenoidectomy, Hx Appendectomy, Hx Bowel Surgery - hemorrhoidectomy, Hx Cardiac Catheterization, Hx Cardiac Surgery - CABG, Hx Coronary Artery Bypass Graft, Hx Coronary Stent - [id number] recent was 2016, Hx Genitourinary Surgery - Vasectomy, Hx Open Heart Surgery, Hx Rectal Surgery - hemorrhoids, Hx Testicular Surgery - Orchiopexy, vasectomy, Hx Tonsillectomy - Immunizations Immunizations up to date: Yes Hx Diphtheria, Pertussis, Tetanus Vaccination: Yes Hx Pneumococcal Vaccination: 03/21/12 Review of Systems - Review of Systems Constitutional: denies: Chills, Fever Cardiovascular: Chest pain. denies: Palpitations Respiratory: denies: Cough, Short of breath -: Yes All other systems reviewed and negative Physical Exam - Vital signs Vitals: Pulse Ox 100 04/04/20 09:35 Interpretation: Normal - General General appearance: Appears well, Alert - HEENT Head: Normocephalic, Atraumatic Eyes: Normal Pupils: PERRL - Respiratory Respiratory status: No respiratory distress Chest status: Tender - Patient has pinpoint tenderness to palpation of the left chest wall. Breath sounds: Normal Chest palpation: Normal - Cardiovascular Rhythm: Regular Heart sounds: Normal auscultation Murmur: No - Abdominal Inspection: Normal Distension: No distension Bowel sounds: Normal Tenderness: Nontender Organomegaly: No organomegaly - Back Back: Normal, Nontender - Extremities General upper extremity: Normal inspection, Nontender, Normal color, Normal ROM, Normal temperature General lower extremity: Normal inspection, Nontender, Normal color, Normal ROM, Normal temperature, Normal weight bearing. No: Enrique's sign - Neurological Neuro grossly intact: Yes Cognition: Normal Orientation: AAOx4 Ken Coma Scale Eye Opening: Spontaneous [place] Coma Scale Verbal: Oriented [place] Coma Scale Motor: Obeys Commands [place] Coma Scale Total: 15 Speech: Normal Motor strength normal: LUE, RUE, LLE, RLE Sensory: Normal - Psychological Associated symptoms: Normal affect, Normal mood - Skin Skin Temperature: Warm Skin Moisture: Dry Skin Color: Normal Course - Re-evaluation Re-evalutation: 04/04/20 14:19 Patient presents with pinpoint tenderness that is reproducible of the left chest wall. He has no ischemic EKG changes. He has no changes on x-ray or laboratories. I did call and discussed the case with his sustain engineer Dr. Peña. He asked me to increase the patient's colchicine to twice a day and states that the patient is to call him on his cell phone and he will set the patient up with an appointment. This is a patient who appears to have chronic chest wall pain and once again today it appears to be a presentation that is consistent with chest wall pain and not with coronary artery disease. - Vital Signs Vital signs: Temp Pulse Resp BP Pulse Ox 97.7 F 11 L 118/79 98 04/04/20 14:01 04/04/20 14:01 04/04/20 14:00 04/04/20 14:01 - Laboratory Result Diagrams: 04/04/20 09:35 04/04/20 09:35 Laboratory results interpreted by me: 04/04/20 09:35 Hgb 12.2 L Hct 37.3 L MCH 25.9 L RDW 20.2 H - Diagnostic Test Radiology reviewed: Image reviewed, Reports reviewed - EKG Interpretation by Me EKG shows normal: Sinus rhythm Rate: Normal - 83 Rhythm: NSR [place]/QRS: No: Right axis deviation, Left axis deviation Discharge - Discharge Clinical Impression: Chest wall pain, Chronic chest pain Condition: Stable Disposition: HOME, SELF-CARE Instructions: Chest Wall Pain ([facility]) Additional Instructions: Please increase your colchicine to twice per day Forms: Return to Work Referrals: DANITA PEÑA MD [ACTIVE STAFF] - Follow up tomorrow
--- NOTE | 2020-04-05 00:53 | EKG REPORT ---
SEVERITY:- BORDERLINE ECG - SINUS RHYTHM PROBABLE LEFT ATRIAL ABNORMALITY BORDERLINE T ABNORMALITIES, LATERAL LEADS : Confirmed by: Bety Cobb 05-Apr-2020 00:52:26
== END 2020-04-04 14:40 | disposition home or self-care (01) ==
LOC: ER 08:27
DX: G89.29 Other chronic pain (principal); R07.89 Other chest pain; R19.7 Diarrhea, unspecified; R11.0 Nausea; Z88.2 Allergy status to sulfonamides
CPT/HCPCS: 93005; 99285; 96374; 36415; 82553; 82550; 85025; 85610; 80053; 84484; 71045; 71275; 93010; J2270

== ENCOUNTER 2020-04-08 09:19 | Emergency (ER) | payer MEDICARE, MEDICAID ==
--- NOTE | 2020-04-08 10:27 | ER Document Report ---
ED Cardiac - General Chief Complaint: Chest Pain Stated Complaint: CHEST PAIN,SWELLING Time Seen by Provider: 04/08/20 10:03 Primary Care Provider: SHELLY SETHI MD [Primary Care Provider] - Follow up as needed Notes: HPI: 64-year-old male with extensive cardiac history including CABG x2 with multiple stents in the past with his last repeat CABG in November of last year who presents today with what he states is some ongoing chest pain for around 5 to 7 days. He was seen here recently around 4 days ago. He states that his left side. He describes it as "burning" also when he touches it. No trauma, cough, shortness of breath, calf pain or leg swelling. No fevers. No nausea or vomiting. ROS: See HPI All other review of systems reviewed and otherwise negative Reviewed vital signs and nursing note as charted by RN. PHYSICAL EXAM: CONSTITUTIONAL: Alert and oriented and responds appropriately to questions. Well-appearing; well-nourished HEAD: Normocephalic; atraumatic EYES: PERRL; Conjunctivae clear, sclerae non-icteric CARD: Regular rate and rhythm; no murmurs; symmetric distal pulses RESP: Normal chest excursion without splinting or tachypnea; exquisite tenderness to the left anterior chest wall just left lateral of the nipple with no obvious swelling, erythema, fluctuance; breath sounds clear and equal bilaterally; no wheezes, no rhonchi, no rales ABD/GI: Normal bowel sounds; non-distended; soft, non-tender; no palpable organomegaly or masses BACK: The back appears normal and is non-tender to palpation EXT: Normal ROM in all joints; non-tender to palpation; no edema SKIN: No acute lesions noted NEURO: CN 2-12 intact; 5/5 bilateral upper and lower extremity strength with sensation intact to light touch PSYCH: The patient's mood and manner are appropriate. Grooming and personal hygiene are appropriate. TRAVEL OUTSIDE OF THE [place] IN LAST 30 DAYS: No - Related Data Allergies/Adverse Reactions: adhesive [Adhesive] Allergy (Severe, Verified 04/04/20 09:42) peels skin gabapentin [From Neurontin] Allergy (Unknown, Verified 04/04/20 09:42) disoriented levofloxacin [From Levaquin] Allergy (Unknown, Verified 04/04/20 09:42) Sulfa (Sulfonamide Antibiotics) Allergy (Unknown, Verified 04/04/20 09:42) skin wilson tramadol [Tramadol] Allergy (Unknown, Verified 04/04/20 09:42) ibuprofen [From Motrin] Allergy (Verified 04/04/20 09:42) naproxen Allergy (Verified 04/04/20 09:42) Past Medical History - Social History Smoking Status: Current Some Day Smoker Chew tobacco use (# tins/day): No Frequency of alcohol use: None Drug Abuse: None Family History: Reviewed & Not Pertinent, CAD, CVA, Malignancy - Past Medical History Cardiac Medical History: Reports: Hx Coronary Artery Disease, 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 Denies: Hx Diabetes Mellitus Type 1, Hx Hyperthyroidism Renal/ Medical History: Reports: Hx Testicular Torsion. Denies: Hx Peritoneal Dialysis GI Medical History: Reports: Hx Gastroesophageal Reflux Disease. Denies: Hx Cirrhosis, Hx Hepatitis, Hx Pancreatitis, Hx Ulcerative Colitis Musculoskeletal Medical History: Denies Hx Arthritis, Denies Hx Gout, Reports Hx Muscle Weakness, Reports Hx Musculoskeletal Deformity, Reports Hx Musculoskeletal Trauma Skin Medical History: Denies Hx Eczema, Denies Hx Psoriasis Psychiatric Medical History: Reports: Hx Anxiety, Hx Depression Traumatic Medical History: Reports: Hx Fractures Infectious Medical History: Denies: Hx Hepatitis Past Surgical History: Reports: Hx Adenoidectomy, Hx Appendectomy, Hx Bowel Surgery - hemorrhoidectomy, Hx Cardiac Catheterization, Hx Cardiac Surgery - CABG, Hx Coronary Artery Bypass Graft, Hx Coronary Stent - [id number] recent was 2016, Hx Genitourinary Surgery - Vasectomy, Hx Open Heart Surgery, Hx Rectal Surgery - hemorrhoids, Hx Testicular Surgery - Orchiopexy, vasectomy, Hx Tonsillectomy - Immunizations Immunizations up to date: Yes Hx Diphtheria, Pertussis, Tetanus Vaccination: Yes Hx Pneumococcal Vaccination: 03/21/12 Physical Exam - Vital signs Vitals: Temp Pulse Resp BP Pulse Ox 98.2 F 87 18 150/103 H 96 04/08/20 09:43 04/08/20 09:43 04/08/20 09:43 04/08/20 09:43 04/08/20 09:43 Course - Re-evaluation Re-evalutation: 04/08/20 10:26 Given the history and physical examination, with very reproducible left-sided pain, both objectively and subjectively, I do believe ACS, PE, dissection to be unlikely. However given the patient's extensive cardiac history, I will obtain an EKG, cardiac panel, x-ray of the chest, and reassess. Patient has already taken 325 mg of aspirin. I did review the patient's past chart and recent visit. 04/08/20 10:29 I have reviewed the patient's past chart as well as the most recent emergency room visit. It appears that the patient has had some chronic anterior left chest discomfort since his CABG. He is followed by the local blasting clay miner and has been provided colchicine. The colchicine was supposed to be increased during the patient's last visit after speaking directly with the blasting clay miner 4 days ago. 04/08/20 11:35 EKG shows a heart rate of 87, normal sinus rhythm, normal axis, no obvious ST elevation or depression. When I compare this to the previous EKG on 04 April. I do not detect any obvious appreciable change. 04/08/20 12:35 No change in exam. Labs as recorded. Imaging as recorded. I did call and speak directly with the blasting clay miner that is following the patient very closely. He does not believe that the patient requires admission or observation. Does not believe a repeat troponin is necessary. Patient understands that he is supposed to be taking his colchicine. He will follow-up with the blasting clay miner on Friday. Strict return precautions have been explained. - Vital Signs Vital signs: Temp Pulse Resp BP Pulse Ox 98.2 F 87 16 114/85 97 04/08/20 09:43 04/08/20 09:43 04/08/20 11:01 04/08/20 11:31 04/08/20 11:31 - Laboratory Result Diagrams: 04/08/20 09:54 04/08/20 09:54 Laboratory results interpreted by me: 04/08/20 04/08/20 09:54 09:54 Hgb 12.4 L MCH 25.6 L RDW 19.9 H Glucose 172 H Discharge - Discharge Clinical Impression: Chest wall pain Condition: Good Disposition: HOME, SELF-CARE Additional Instructions: Come back immediately for any change in pain, increased pain, shortness of breath, leg swelling, fever, or any other acute problems. Please follow-up with a blasting clay miner on Friday as we have expedited for you. Please restart your colchicine twice daily until that time. Referrals: SHELLY SETHI MD [Primary Care Provider] - Follow up as needed
[2020-04-08 11:25] LABS: ABSOLUTE EOSINOPHILS # (AUTO) 0.3 10^3/uL (0.0-0.6); ABSOLUTE LYMPHOCYTES (AUTO) 1.7 10^3/uL (0.5-4.7); ABSOLUTE MONOCYTES (AUTO) 0.4 10^3/uL (0.1-1.4); BASOPHILS % (AUTO) 0.8 % (0-2); EOSINOPHILS % (AUTO) 5.1 % (0-6); HEMATOCRIT 38.4 % (37.9-51.0); HEMOGLOBIN 12.4 g/dL (13.5-17.0); LYMPHOCYTES % (AUTO) 31.8 % (13-45); MEAN CORPUSCULAR HEMOGLOBIN 25.6 pg (27.0-33.4); MEAN CORPUSCULAR HGB CONC 32.2 g/dL (32.0-36.0); MEAN CORPUSCULAR VOLUME 80 fl (80-97); MONOCYTES % (AUTO) 7.1 % (3-13); PLATELET COUNT 213 10^3/uL (150-450); RED BLOOD COUNT 4.83 10^6/uL (4.35-5.55); RED CELL DISTRIBUTION WIDTH 19.9 % (11.5-14.0); SEGMENTED NEUTROPHILS % (AUTO) 55.2 % (42-78); TOTAL CELLS COUNTED % (AUTO) 100 %; WHITE BLOOD COUNT 5.4 10^3/uL (4.0-10.5)
[2020-04-08 11:32] LABS: ANION GAP 9 (5-19); BLOOD UREA NITROGEN 8 mg/dL (7-20); CALCIUM 9.2 mg/dL (8.4-10.2); CARBON DIOXIDE 29 mmol/L (22-30); CHLORIDE 103 mmol/L (98-107); GLUCOSE 172 mg/dL (75-110); POTASSIUM 4.4 mmol/L (3.6-5.0)
--- NOTE | 2020-04-08 11:42 | RADIOLOGY REPORT (SQ) ---
EXAM DESCRIPTION: CHEST SINGLE VIEW IMAGES COMPLETED DATE/TIME: 04/08/2020 11:24 am REASON FOR STUDY: 17; chest pain COMPARISON: Chest radiograph 04/04/2020 and 02/15/2020 NUMBER OF VIEWS: One view. TECHNIQUE: Single frontal radiographic view of the chest acquired. LIMITATIONS: None. FINDINGS: LUNGS AND PLEURA: Similar scarring in the left mid lung. Otherwise, no opacities, masses or pneumothorax. No pleural effusion. MEDIASTINUM AND HILAR STRUCTURES: No masses. Contour normal. HEART AND VASCULAR STRUCTURES: Heart normal in size. Normal vasculature. BONES: No acute findings. HARDWARE: Median sternotomy wires and post CABG changes are present. OTHER: No other significant finding. IMPRESSION: No acute pulmonary process. TECHNICAL DOCUMENTATION: JOB ID: [id number] 2010 [employer]- All Rights Reserved Reading location - IP/workstation name: [email or web address]
[2020-04-08 13:05] VITALS: BP 117/86
--- NOTE | 2020-04-08 17:16 | EKG REPORT ---
SEVERITY:- ABNORMAL ECG - SINUS RHYTHM PROBABLE LEFT ATRIAL ABNORMALITY NONSPECIFIC T ABNORMALITIES, ANT-LAT LEADS : Confirmed by: Bety Cobb 08-Apr-2020 17:15:56
== END 2020-04-08 13:03 | disposition home or self-care (01) ==
LOC: ER 09:19
DX: R07.89 Other chest pain (principal); F17.200 Nicotine dependence, unspecified, uncomplicated; E78.00 Pure hypercholesterolemia, unspecified; I10 Essential (primary) hypertension; E11.9 Type 2 diabetes mellitus without complications; Z95.1 Presence of aortocoronary bypass graft; I25.2 Old myocardial infarction
CPT/HCPCS: 36415; 71045; 80048; 84484; 85025; 93005; 93010; 99285

== ENCOUNTER → 2020-04-13 | Outpatient (CLI) | payer MEDICARE, MEDICAID ==
--- NOTE | 2020-04-13 11:37 | WOMENS IMAGING REPORT ---
EXAM DESCRIPTION: U/S BREAST UNILAT LIMITED IMAGES COMPLETED DATE/TIME: 04/13/2020 10:54 am REASON FOR STUDY: N62 HYPERTROPHY OF BREAST N62 HYPERTROPHY OF BREAST COMPARISON: None. TECHNIQUE: Real-time and static grayscale imaging performed of the left breast targeted to the area of clinical/mammographic concern. Selected color Doppler images recorded. LIMITATIONS: None. FINDINGS: MASS: No mass identified. Normal glandular tissue. OTHER: No other significant finding. IMPRESSION: No suspicious findings detected by ultrasound. BIRAD: Negative. RECOMMENDATION: RECOMMENDED FOLLOW-UP: Follow-up as clinically indicated. COMMENT: The [employer] ([employer]) has developed recommendations for screening MRI of the breasts in certain patient populations, to be used in conjunction with mammography. Breast MRI s urveillance may be appropriate for women with more than 20% lifetime risk of developing breast cancer as determined by genetic testing, significant family history of the disease, or history of mantle r adiation for Hodgkins Disease. ACR Practice Guidelines 2008. TECHNICAL DOCUMENTATION: JOB ID: [id number] 2010 [employer]- All Rights Reserved Reading location - IP/workstation name: [email or web address]
== END ==
LOC: WI 10:16
PROVIDERS: ATTEND Family Medicine Geriatric Medicine
DX: N62 Hypertrophy of breast (principal)
CPT/HCPCS: 76642

== ENCOUNTER 2020-05-09 19:37 | Emergency (ER) | payer MEDICARE, MEDICAID ==
[2020-05-09] MEDS ORDERED: MORPHINE SULFATE SR 30 MG TABLET PO ONE (20:22)
--- NOTE | 2020-05-09 20:23 | ER Document Report ---
HPI - HPI Patient complains to provider of: Left ankle injury Time Seen by Provider: 05/09/20 20:15 Notes: 65-year-old male with past medical history for coronary artery disease, bypass, multiple stents, chronic pain to the emergency department with complaints of left ankle swelling and pain after he injured it while wrestling with his son stephan. He states they were joking around and horse playing when he got his ankle caught up and felt a pop and snap. He states it really is swollen. He states that he is unable to bear weight on it. He states he took chronic pain medicine with oxymorphone 10 mg prior to arrival. He states that that has not really helped his pain. He states this patient take his 30 mg morphine tablet today and he has not taken that yet. He denies any other injuries. He did not hit his head. He denies any back pain, abdominal pain, chest pain, arm pain, hip pain or knee pain. - ROS Systems Reviewed and Negative: Yes All other systems reviewed and negative - CONSTITUTIONAL Constitutional: DENIES: Fever, Chills - EENT EENT: DENIES: Sore Throat, Ear Pain, Congestion - NEURO Neurology: DENIES: Headache, Weakness - CARDIOVASCULAR Cardiovascular: DENIES: Chest pain - RESPIRATORY Respiratory: DENIES: Trouble Breathing, Coughing - GASTROINTESTINAL Gastrointestinal: DENIES: Abdominal Pain, Nausea, Patient vomiting, Diarrhea - MUSCULOSKELETAL Musculoskeletal: REPORTS: Extremity pain - Left ankle injury and swelling, Swelling - DERM Skin Color: Normal Skin Problems: None Past Medical History - General Information source: Patient - Social History Smoking Status: Former Smoker Frequency of alcohol use: None Drug Abuse: None Family History: Reviewed & Not Pertinent, CAD, CVA, Malignancy - Past Medical History Cardiac Medical History: Reports: Hx Coronary Artery Disease, 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 Denies: Hx Diabetes Mellitus Type 1, Hx Hyperthyroidism Renal/ Medical History: Reports: Hx Testicular Torsion. Denies: Hx Peritoneal Dialysis GI Medical History: Reports: Hx Gastroesophageal Reflux Disease. Denies: Hx Cirrhosis, Hx Hepatitis, Hx Pancreatitis, Hx Ulcerative Colitis Musculoskeletal Medical History: Denies Hx Arthritis, Denies Hx Gout, Reports Hx Muscle Weakness, Reports Hx Musculoskeletal Deformity, Reports Hx Musculoskeletal Trauma Skin Medical History: Denies Hx Eczema, Denies Hx Psoriasis Psychiatric Medical History: Reports: Hx Anxiety, Hx Depression Traumatic Medical History: Reports: Hx Fractures Infectious Medical History: Denies: Hx Hepatitis Past Surgical History: Reports: Hx Adenoidectomy, Hx Appendectomy, Hx Bowel Surgery - hemorrhoidectomy, Hx Cardiac Catheterization, Hx Cardiac Surgery - CABG, Hx Coronary Artery Bypass Graft, Hx Coronary Stent - [id number] recent was 2016, Hx Genitourinary Surgery - Vasectomy, Hx Open Heart Surgery, Hx Rectal Surgery - hemorrhoids, Hx Testicular Surgery - Orchiopexy, vasectomy, Hx Tonsillectomy - Immunizations Immunizations up to date: Yes Hx Diphtheria, Pertussis, Tetanus Vaccination: Yes Hx Pneumococcal Vaccination: 03/21/12 Vertical Provider Document - CONSTITUTIONAL Exam Limitations: No Limitations General Appearance: WD/WN, Moderate Distress - Moderate pain discomfort - INFECTION CONTROL TRAVEL OUTSIDE OF THE [place] IN LAST 30 DAYS: No - HEENT HEENT: Atraumatic, Normocephalic, PERRLA - NECK Neck: Normal Inspection, Supple - RESPIRATORY Respiratory: Breath Sounds Normal, No Respiratory Distress. negative: Rales, Rhonchi, Wheezing - CARDIOVASCULAR Cardiovascular: Regular Rate, Regular Rhythm, No Murmur - GI/ABDOMEN Gastrointestinal: Abdomen Soft, Abdomen Non-Tender, No Organomegaly - BACK Back: Normal Inspection - MUSCULOSKELETAL/EXTREMETIES Notes: There is tenderness to palpation over the lateral aspect of the left ankle with noted edema and ecchymosis. Patient is not able to perform dorsi flexion or plantar flexion without increased pain. Strength is approximately 4 out of 5 due to pain. He can wiggle all toes. DP pulses are intact and equal. He is nontender to palpation over the left knee and left hip. - NEURO Level of Consciousness: Awake, Alert, Appropriate Motor/Sensory: No Motor Deficit, No Sensory Deficit - DERM Integumentary: Warm, Dry, No Rash Course - Re-evaluation Re-evalutation: Impression: Left fibular fracture. We will place the patient in a splint and on crutches. Patient states that he can handle the crutches without any difficulty. We will have him follow-up with orthopedist. He is in chronic pain management taking 10 mg of oxymorphone 1-2 times daily as needed and 30 mg of morphine twice a day. He is very aware that I cannot write him any further pain medicine. Will have him follow-up with pain management. Encouraged rest, ice, elevation, no weightbearing. Patient agrees with the plan - Vital Signs Vital signs: Temp Pulse Resp BP Pulse Ox 99.2 F 82 16 155/99 H 97 05/09/20 19:43 05/09/20 19:43 05/09/20 19:43 05/09/20 19:43 05/09/20 19:43 - Diagnostic Test Radiology reviewed: Image reviewed, Reports reviewed Procedures - Immobilization Left Ankle Pre-Proc Neuro Vasc Exam: Normal Immobilizer type: Other - Short leg posterior with stirrup Performed by: PCT Post-Proc Neuro Vasc Exam: Normal, Unchanged from pre-exam Alignment checked and good: Yes Discharge - Discharge Clinical Impression: Left fibular fracture Qualifiers: Encounter type: initial encounter Fibula location: distal Fracture type: closed Fracture morphology: unspecified fracture morphology Qualified Code(s): S82.832A - Other fracture of upper and lower end of left fibula, initial encounter for closed fracture Left ankle pain Qualifiers: Chronicity: acute Qualified Code(s): M25.572 - Pain in left ankle and joints of left foot Condition: Stable Disposition: HOME, SELF-CARE Instructions: Use of Crutches ([facility]), Fractured Ankle (Bimalleolar) ([facility]) Additional Instructions: You have a fracture to the fibula and your left ankle. Please use crutches and wear splint without fail. You need to keep the ankle elevated. Continue your At Home pain medicine regimen. Follow-up with orthopedist. Call them tomorrow to get an appointment by the end of the week. No weightbearing. Referrals: IZA COLEMAN MD [COMMUNITY BASED STAFF] - Follow up in 1 week MIKY FUNES DO [ACTIVE STAFF] - Follow up in 3-5 days
--- NOTE | 2020-05-09 21:05 | RADIOLOGY REPORT (SQ) ---
CLINICAL INDICATION: left ankle swelling. . TECHNIQUE: 3 view(s) were obtained of the left ankle. COMPARISON: None. FINDINGS: Minimally displaced fracture of the distal diaphysis of the fibula. No other acute bony injury is seen. Joint spaces are within normal limits for age. Soft tissue swelling. IMPRESSION: Lateral malleolar fracture.
[2020-05-09 22:06] VITALS: BP 138/93
== END 2020-05-09 22:10 | disposition home or self-care (01) ==
LOC: ER 19:37
PROC: 2W3RX1Z Immobilization of Left Lower Leg using Splint (ICD-10-PCS; principal; 2020-05-09)
DX: S82.832A Other fracture of upper and lower end of left fibula, initial encounter for closed fracture (principal); M79.89 Other specified soft tissue disorders; M25.572 Pain in left ankle and joints of left foot; X58.XXXA Exposure to other specified factors, initial encounter; I25.10 Atherosclerotic heart disease of native coronary artery without angina pectoris; I25.2 Old myocardial infarction; I10 Essential (primary) hypertension; E11.9 Type 2 diabetes mellitus without complications
CPT/HCPCS: 99283; 73610; 29515; A9270

== ENCOUNTER 2020-05-13 21:18 | Emergency (ER) | payer MEDICARE, MEDICAID ==
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
[2020-05-13] MEDS ORDERED: MORPHINE SULFATE 10 MG/ML INJ IV ONE (21:39)
[2020-05-13 21:40] LABS: ABSOLUTE EOSINOPHILS # (AUTO) 0.2 10^3/uL (0.0-0.6); ABSOLUTE MONOCYTES (AUTO) 0.5 10^3/uL (0.1-1.4); MEAN CORPUSCULAR HEMOGLOBIN 26.6 pg (27.0-33.4); MEAN CORPUSCULAR HGB CONC 33.1 g/dL (32.0-36.0); MONOCYTES % (AUTO) 6.5 % (3-13); TOTAL CELLS COUNTED % (AUTO) 100 %
--- NOTE | 2020-05-13 21:46 | ER Document Report ---
ED General - General Chief Complaint: Chest Pain > 30 Stated Complaint: CHEST PAIN Time Seen by Provider: 05/13/20 21:26 Primary Care Provider: SHELLY SETHI MD [Primary Care Provider] - Follow up as needed Mode of Arrival: Medic Information source: Patient Notes: ED Medical Screen (Dontae yap) - General Chief Complaint: Chest Pain > 30 Stated Complaint: CHEST PAIN Time Seen by Provider: 05/13/20 21:26 Primary Care Provider: SHELLY SETHI MD [Primary Care Provider] - Follow up as needed Mode of Arrival: Medic Information source: Patient Notes: 65-year-old male presented ED for complaint of shortness of breath about an hour before coming and chest pain. He states that shortness of breath started first. He just recently broke his left foot. 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 He also has 11 coronary artery disease stents. He states he is cut his cigarettes down to 1 black amount of the day trying to cut that out also due to his history. He is alert oriented respirations regular nonlabored at this time. He does not drink or use any illicit drugs. He does have an extensive medical history he has a list of all of his medical history at his bedside. I have ordered blood urine chest x-ray EKG and a CTA due to the history of the fractured foot and the shortness of breath and chest pain. Did consult Dr. Cano and asked him to examine the patient promptly due to his history. MY NOTES 65-year-old black male arrives by EMS with chief complaint of 1 hour history of shortness of breath with left anterior chest pain. Patient has a left lower leg Ortho boot on because of a left lateral malleolus injury 1 week ago as he was wrestling with his 17-year-old son and got his leg pinned underneath him. Patient takes 30 mg of morphine daily as well as 10 mg of oxymorphone as needed. Patient has a history of having 11 stents 2 MIs and had a three-vessel CABG in November of this year with scar tissue evident that is pink and keloidal in character and he reports this is tender requiring lidocaine injections by his PMD. He sees Dr. Parada as his PMD. Patient denies any hemoptysis fever chills coronavirus or influenza. His chest pain is 6 out of 10. TRAVEL OUTSIDE OF THE [place] IN LAST 30 DAYS: No - HPI Onset: Just prior to arrival Onset/Duration: Sudden, Persistent Quality of pain: Achy Severity: Moderate Pain Level: 3 Associated symptoms: Shortness of breath Exacerbated by: Denies Relieved by: Denies Similar symptoms previously: Yes Recently seen / treated by doctor: Yes - Related Data Allergies/Adverse Reactions: adhesive [Adhesive] Allergy (Severe, Verified 05/13/20 21:29) peels skin gabapentin [From Neurontin] Allergy (Unknown, Verified 05/13/20 21:29) disoriented levofloxacin [From Levaquin] Allergy (Unknown, Verified 05/13/20 21:29) Sulfa (Sulfonamide Antibiotics) Allergy (Unknown, Verified 05/13/20 21:29) skin wilson tramadol [Tramadol] Allergy (Unknown, Verified 05/13/20 21:29) ibuprofen [From Motrin] Allergy (Verified 05/13/20 21:29) naproxen Allergy (Verified 05/13/20 21:29) Past Medical History - General Information source: Patient - Social History Smoking Status: Current Every Day Smoker Cigarette use (# per day): Yes - 1/3 ppd, but up to this year smoked 1 pack daily Chew tobacco use (# tins/day): No Smoking Education Provided: Yes Frequency of alcohol use: None Drug Abuse: None Lives with: Family Family History: Reviewed & Not Pertinent, CAD, CVA, Malignancy Patient has suicidal ideation: No Patient has homicidal ideation: No - Past Medical History Cardiac Medical History: Reports: Hx Coronary Artery Disease, 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 Denies: Hx Diabetes Mellitus Type 1, Hx Hyperthyroidism Renal/ Medical History: Reports: Hx Testicular Torsion. Denies: Hx Peritoneal Dialysis GI Medical History: Reports: Hx Gastroesophageal Reflux Disease. Denies: Hx Cirrhosis, Hx Hepatitis, Hx Pancreatitis, Hx Ulcerative Colitis Musculoskeletal Medical History: Denies Hx Arthritis, Denies Hx Gout, Reports Hx Muscle Weakness, Reports Hx Musculoskeletal Deformity, Reports Hx Musc uloskeletal Trauma Skin Medical History: Denies Hx Eczema, Denies Hx Psoriasis Psychiatric Medical History: Reports: Hx Anxiety, Hx Depression Traumatic Medical History: Reports: Hx Fractures Infectious Medical History: Denies: Hx Hepatitis Past Surgical History: Reports: Hx Adenoidectomy, Hx Appendectomy, Hx Bowel Surgery - hemorrhoidectomy, Hx Cardiac Catheterization, Hx Cardiac Surgery - CABG, Hx Coronary Artery Bypass Graft, Hx Coronary Stent - [id number] recent was 2016, Hx Genitourinary Surgery - Vasectomy, Hx Open Heart Surgery, Hx Rectal Surgery - hemorrhoids, Hx Testicular Surgery - Orchiopexy, vasectomy, Hx Tonsillectomy - Immunizations Immunizations up to date: Yes Hx Diphtheria, Pertussis, Tetanus Vaccination: Yes Hx Pneumococcal Vaccination: 03/21/12 Physical Exam - Vital signs Vitals: Temp 99.1 F 05/13/20 21:19 Interpretation: Hypertensive, Febrile - General General appearance: Appears well, Alert - HEENT Head: Normocephalic, Atraumatic Eyes: Normal Pupils: PERRL - Respiratory Respiratory status: No respiratory distress Chest status: Tender - Tender to palpation over left chest but no obvious edema ecchymosis or hematoma noted patient also has a well healing pink CABG scar from manubrium to xiphoid that is tender to palpation as well. The wound appears to have some evidence of keloid type appearance. Breath sounds: Normal Chest palpation: Normal - Cardiovascular Rhythm: Regular Heart sounds: Normal auscultation Murmur: No - Abdominal Inspection: Normal Distension: No distension Bowel sounds: Normal Tenderness: Nontender Organomegaly: No organomegaly - Rectal Prostate: Other - deferred - Genitourinary Scrotum: Other - deferred - Back Back: Normal, Nontender - Extremities General upper extremity: Normal inspection, Nontender, Normal color, Normal ROM, Normal temperature General lower extremity: Normal inspection, Nontender, Normal color, Normal ROM, Normal temperature, Normal weight bearing. No: Enrique's sign - Neurological Neuro grossly intact: Yes Cognition: Normal Orientation: AAOx4 [place] Coma Scale Eye Opening: Spontaneous [place] Coma Scale Verbal: Oriented [place] Coma Scale Motor: Obeys Commands [place] Coma Scale Total: 15 Speech: Normal Motor strength normal: LUE, RUE, LLE, RLE Sensory: Normal - Psychological Associated symptoms: Normal affect, Normal mood - Skin Skin Temperature: Warm Skin Moisture: Dry Skin Color: Normal Course - Vital Signs Vital signs: Temp Pulse Resp BP Pulse Ox 99.1 F 20 116/75 96 05/13/20 21:19 05/13/20 22:11 05/13/20 22:11 05/13/20 22:11 - Laboratory Result Diagrams: 05/13/20 21:28 05/13/20 21:28 Laboratory results interpreted by me: 05/13/20 05/13/20 05/13/20 21:28 21:28 21:28 Hgb 11.9 L Hct 36.0 L MCH 26.6 L RDW 21.1 H APTT 39.9 H Glucose 162 H ALT 52 H Alkaline Phosphatase 143 H - Diagnostic Test Radiology reviewed: Reports reviewed - Low-grade fever may indicate atypical infection as per radiologist with groundglass appearance with question of edema bilaterally and chest x-ray NAD per radiology - EKG Interpretation by Me EKG shows normal: Sinus rhythm Rate: Normal Rhythm: NSR - 98 bpm with sinus rhythm probable left atrial abnormality and nonspecific T wave abnormalities anterior lateral leads and this was read by myself and I concur with EKG machine Critical Care Note - Critical Care Note Comments: I spoke with Dr. Kirill Miguel about this patient as well as Dr. Allen about this patient; Dr. Allen understands about follow-up and Dr. Roy advises he will see the patient and if the second troponin is negative the patient may go home under quarantine. I advised patient of these findings and he appears to be agreeable to this. Dr. Roy did see this patient around 0 115 and patient advised him he had did have some pneumonia recently. Discharge - Discharge Clinical Impression: Lung infection, COVID-19 virus test result unknown Chest pain Qualifiers: Chest pain type: unspecified Qualified Code(s): R07.9 - Chest pain, unspecified Fever Qualifiers: Fever type: unspecified Qualified Code(s): R50.9 - Fever, unspecified Condition: Good Disposition: HOME, SELF-CARE Instructions: Upper Respiratory Illness ([facility]) Additional Instructions: Follow-up with personal doctor this week; try to stay quarantined if possible until test return. Take medicines until COVID-19 test returns. Encourage fluids. Prescriptions: Dexamethasone [Decadron 4 Mg Tablet] 4 mg PO DAILY #5 tablet Famotidine [Pepcid 20 mg Tablet] 20 mg PO BID #12 tablet Azithromycin [Zithromax 250 mg Tablet] 250 mg PO ASDIR PRN #6 tablet PRN Reason: Referrals: SHELLY SETHI MD [Primary Care Provider] - Follow up as needed
[2020-05-13 21:55] LABS: INTERNATIONAL RATION (INR) 1.15; PROTHROMBIN TIME 14.9 SEC (11.4-15.4)
[2020-05-13 21:56] LABS: ALBUMIN 3.9 g/dL (3.5-5.0); ALKALINE PHOSPHATASE 143 U/L (38-126); ANION GAP 11 (5-19); ASPARTATE AMINO TRANSFERASE 35 U/L (17-59); BILIRUBIN,DIRECT 0.3 mg/dL (0.0-0.4); BILIRUBIN,TOTAL 0.7 mg/dL (0.2-1.3); BLOOD UREA NITROGEN 9 mg/dL (7-20); CALCIUM 9.4 mg/dL (8.4-10.2); CARBON DIOXIDE 26 mmol/L (22-30); CHLORIDE 105 mmol/L (98-107); GLUCOSE 162 mg/dL (75-110); PARTIAL THROMBOPLASTIN TIME 39.9 SEC (23.5-35.8); POTASSIUM 4.1 mmol/L (3.6-5.0); TOTAL PROTEIN 7.3 g/dL (6.3-8.2)
[2020-05-13 22:10] LABS: ABSOLUTE LYMPHOCYTES (AUTO) 2.6 10^3/uL (0.5-4.7); ABSOLUTE NEUT (AUTO) 4.6 10^3/uL (1.7-8.2); BASOPHILS % (AUTO) 0.4 % (0-2); HEMOGLOBIN 11.9 g/dL (13.5-17.0); LYMPHOCYTES % (AUTO) 32.3 % (13-45); MEAN CORPUSCULAR VOLUME 80 fl (80-97); PLATELET COUNT 219 10^3/uL (150-450); RED BLOOD COUNT 4.48 10^6/uL (4.35-5.55); RED CELL DISTRIBUTION WIDTH 21.1 % (11.5-14.0); SEGMENTED NEUTROPHILS % (AUTO) 57.8 % (42-78)
--- NOTE | 2020-05-13 22:41 | RADIOLOGY REPORT (SQ) ---
EXAM DESCRIPTION: XR CHEST 2 VIEWS COMPLETED DATE/TME: 05/13/2020 21:27 CLINICAL HISTORY: 65 years, Male, chest pain short of breath COMPARISON: Prior study from 04/08/2020 NUMBER OF VIEWS: 2 TECHNIQUE: Frontal and lateral radiographs were obtained LIMITATIONS: None. FINDINGS: Status post median sternotomy. Cardiac and mediastinal contours are stable. Lungs are clear. No pleural effusion or pneumothorax. IMPRESSION: No acute disease. copyright 2010 [employer] All Rights Reserved
--- NOTE | 2020-05-13 23:38 | RADIOLOGY REPORT (SQ) ---
CT ANGIOGRAM CHEST WITH and without IV CONTRAST: 05/13/2020 9:59 PM CDT HISTORY: 65-year old patient with chest pain, dyspnea. TECHNIQUE: Postcontrast CT through the chest was performed per protocol for CT angiography. Noncontrast imaging was also obtained through the chest. 3D Multiplanar reformations were performed at the workstation. Reconstructed sagittal and coronal images were also obtained through the chest. This exam was performed according to our departmental dose-optimization program, which includes automated exposure control, adjustment of the mA and/or KV according to the patient's size and/or use of iterative reconstruction technique. COMPARISON: CTA of the chest from 02/07/2020 FINDINGS: The heart size is enlarged. No large pericardial effusion is seen. There is evidence of prior CABG. Coronary artery calcifications are seen. No significant mediastinal, supraclavicular, or axillary lymphadenopathy is seen. The thoracic aorta is within normal limits of size. No filling defects are seen within the pulmonary arteries to suggest a pulmonary artery embolism. The main pulmonary artery is within normal limits in size. The thyroid gland is unremarkable. The central tracheobronchial tree is patent. There are bilateral groundglass airspace opacities present minimal interlobular septal thickening is also apparent.. No discrete pleural effusion is seen. There is no evidence of a pneumothorax. The bones demonstrate no suspicious lytic or blastic lesion. Midline sternotomy changes are seen. Surgical clips are seen overlying the right upper quadrant of the abdomen, consistent with a previous cholecystectomy. IMPRESSION: There are bilateral groundglass changes present which may reflect edema, less likely atypical infection. No filling defect is seen to suggest a pulmonary artery embolism.
[2020-05-14] MEDS ORDERED: AZITHROMYCIN INJ 500 MG VIAL IV ONE (00:21)
[2020-05-14] MEDS ORDERED: CEFTRIAXONE INJ 1000 MG VIAL IV ONE (00:22)
[2020-05-14] MEDS ORDERED: FAMOTIDINE INJ/PF 20 MG/2 ML SDV IV ONE (00:22)
[2020-05-14] MEDS ORDERED: DEXAMETHASONE SOD PHOS INJ 10 MG/1 ML VIAL IV ONE (00:23)
--- NOTE | 2020-05-14 01:39 | Progress Note ---
Provider Note Provider Note: Mr. Mclaughlin is a 65-year-old -[place] male with a history of CAD status post bypass, diabetes and hypertension who presents today with a 5 hours duration of burning left-sided chest pain. He describes the pain 5-7/10 intensity at worst, nonradiating and not associated with exertion. The pain was relieved after he was given morphine. Currently patient is chest pain-free and denies shortness of breath, palpitation, dizziness, orthopnea or PND. 2 sets of cardiac enzymes were done at the emergency department and are negative. EKG shows no acute ST-T wave changes consistent with ischemia. 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 Physical examination GENERAL APPEARANCE: In no acute distress or discomfort, alert and oriented x4 HEENT: Normocephalic and atraumatic. Moist oral mucosa NECK: Supple. No carotid bruit. No JVD CHEST: Symmetric. Has a well-healed scar of bypass surgery. Has mild reproducible chest pain on the left side LUNGS: Breath sounds are equal and clear bilaterally. No wheezes, rhonchi, or rales. HEART: Regular rate and rhythm with normal S1 and S2. No murmurs, gallops, or rubs. ABDOMEN: Soft, positive bowel sounds, nontender, no organomegaly EXTREMITIES: No cyanosis, clubbing, or edema. MUSCULOSKELETAL: No deformity, atrophy or swelling noted SKIN: Warm, dry, and well perfused. No lesions or rashes are noted. NEUROLOGIC: No focal sensory or motor deficits are noted. Assessment ======== Chest pain -Atypical in nature and reproducible with palpation -Patient is high risk with 2 sets of cardiac enzymes 6 hours apart have been negative -Has no new EKG changes -Currently patient is chest pain-free -Patient is going to be discharged from ED to follow-up with with cardiology as outpatient for stress test
[2020-05-14] MEDS ORDERED: CEFTRIAXONE 1 GM/D5W RTU 1 GM/50 ML RTUPB IV ONE (02:36)
[2020-05-14 03:10] VITALS: BP 119/84
--- NOTE | 2020-05-14 19:21 | EKG REPORT ---
SEVERITY:- ABNORMAL ECG - SINUS RHYTHM PROBABLE LEFT ATRIAL ABNORMALITY NONSPECIFIC T ABNORMALITIES, ANT-LAT LEADS : Confirmed by: Marko Pate MD 14-May-2020 19:21:15
== END 2020-05-14 03:35 | disposition home or self-care (01) ==
LOC: ER 21:18
DX: J18.9 Pneumonia, unspecified organism (principal); R06.02 Shortness of breath; R07.89 Other chest pain; R50.9 Fever, unspecified; S92.902D Unspecified fracture of left foot, subsequent encounter for fracture with routine healing; X58.XXXD Exposure to other specified factors, subsequent encounter; I25.10 Atherosclerotic heart disease of native coronary artery without angina pectoris; I10 Essential (primary) hypertension; I25.2 Old myocardial infarction; E11.9 Type 2 diabetes mellitus without complications; F17.210 Nicotine dependence, cigarettes, uncomplicated; Z95.1 Presence of aortocoronary bypass graft; Z95.5 Presence of coronary angioplasty implant and graft; Z91.048 Other nonmedicinal substance allergy status; Z88.6 Allergy status to analgesic agent; Z88.1 Allergy status to other antibiotic agents; Z88.2 Allergy status to sulfonamides; Z88.8 Allergy status to other drugs, medicaments and biological substances; Z82.49 Family history of ischemic heart disease and other diseases of the circulatory system; Z20.828 Contact with and (suspected) exposure to other viral communicable diseases
CPT/HCPCS: 93005; 99285; 96375; 96365; 96367; 36415; 87040; 83735; 85025; 85610; 85730; 80053; 84484; 87150 ×26; 83880; 71046; 71275; 93010; U0003; J2270; J0696; J0456; S0028; J1100; C9803; 87077; 87635

== ENCOUNTER 2020-06-25 08:26 | Emergency (ER) | payer MEDICARE, MEDICAID ==
[2020-06-25 08:58] LABS: ABSOLUTE EOSINOPHILS # (AUTO) 0.2 10^3/uL (0.0-0.6); ABSOLUTE LYMPHOCYTES (AUTO) 1.6 10^3/uL (0.5-4.7); ABSOLUTE MONOCYTES (AUTO) 0.3 10^3/uL (0.1-1.4); ABSOLUTE NEUT (AUTO) 2.3 10^3/uL (1.7-8.2); BASOPHILS % (AUTO) 0.4 % (0-2); EOSINOPHILS % (AUTO) 4.4 % (0-6); HEMATOCRIT 38.4 % (37.9-51.0); HEMOGLOBIN 12.4 g/dL (13.5-17.0); LYMPHOCYTES % (AUTO) 35.8 % (13-45); MEAN CORPUSCULAR HEMOGLOBIN 27.2 pg (27.0-33.4); MEAN CORPUSCULAR HGB CONC 32.4 g/dL (32.0-36.0); MEAN CORPUSCULAR VOLUME 84 fl (80-97); MONOCYTES % (AUTO) 7.5 % (3-13); PLATELET COUNT 194 10^3/uL (150-450); RED BLOOD COUNT 4.58 10^6/uL (4.35-5.55); RED CELL DISTRIBUTION WIDTH 19.5 % (11.5-14.0); SEGMENTED NEUTROPHILS % (AUTO) 51.9 % (42-78); TOTAL CELLS COUNTED % (AUTO) 100 %; WHITE BLOOD COUNT 4.4 10^3/uL (4.0-10.5)
[2020-06-25 09:18] LABS: ALKALINE PHOSPHATASE 103 U/L (38-126); ANION GAP 7 (5-19); ASPARTATE AMINO TRANSFERASE 30 U/L (17-59); BILIRUBIN,DIRECT 0.1 mg/dL (0.0-0.4); BILIRUBIN,TOTAL 0.7 mg/dL (0.2-1.3); BLOOD UREA NITROGEN 10 mg/dL (7-20); CALCIUM 9.3 mg/dL (8.4-10.2); CARBON DIOXIDE 26 mmol/L (22-30); CHLORIDE 108 mmol/L (98-107); CREATINE KINASE 110 U/L (55-170); GLUCOSE 123 mg/dL (75-110); POTASSIUM 4.4 mmol/L (3.6-5.0); TOTAL PROTEIN 6.9 g/dL (6.3-8.2)
[2020-06-25 09:29] LABS: TROPONIN I < 0.012 ng/mL
--- NOTE | 2020-06-25 09:40 | RADIOLOGY REPORT (SQ) ---
EXAM DESCRIPTION: CHEST SINGLE VIEW IMAGES COMPLETED DATE/TIME: 06/25/2020 6:13 am REASON FOR STUDY: chest pain COMPARISON: 05/13/2020 EXAM PARAMETERS: NUMBER OF VIEWS: One view. TECHNIQUE: Single frontal radiographic view of the chest acquired. RADIATION DOSE: NA LIMITATIONS: External leads partially obscure underlying structures. FINDINGS: LUNGS AND PLEURA: No opacities, masses or pneumothorax. No pleural effusion. MEDIASTINUM AND HILAR STRUCTURES: No masses. Contour normal. HEART AND VASCULAR STRUCTURES: Postoperative changes related to prior CABG. No significant pulmonary vascular congestion. Stable heart size. BONES: No acute findings. HARDWARE: None in the chest. OTHER: No other significant finding. IMPRESSION: No acute radiographic abnormality. TECHNICAL DOCUMENTATION: JOB ID: [id number] 2010 [employer]- All Rights Reserved Reading location - IP/workstation name: [email or web address]
--- NOTE | 2020-06-25 10:10 | RADIOLOGY REPORT (SQ) ---
EXAM DESCRIPTION: ABDOMEN 2 VIEWS IMAGES COMPLETED DATE/TIME: 06/25/2020 6:59 am REASON FOR STUDY: abd pain/diarrhea COMPARISON: 08/01/2018 NUMBER OF VIEWS: Two views. TECHNIQUE: Supine and erect/decubitus radiographic images of the abdomen acquired. LIMITATIONS: Inguinal regions are not fully included. FINDINGS: FREE AIR: None. No abnormal gas collections. LUNG BASES: Clear. BOWEL GAS PATTERN: Nonobstructive pattern. No dilated loops or air fluid levels. CALCIFICATIONS: Numerous pelvic phleboliths. Vascular calcifications. SOFT TISSUES: No gross mass or suggestion of organomegaly. HARDWARE: Surgical clips in the right upper quadrant and right lower abdomen. BONES: No acute fracture. No worrisome bone lesions. OTHER: No other significant finding. IMPRESSION: Nonobstructive bowel gas pattern. TECHNICAL DOCUMENTATION: JOB ID: [id number] 2010 [employer]- All Rights Reserved Reading location - IP/workstation name: [email or web address]
[2020-06-25] MEDS ORDERED: ONDANSETRON HCL INJ/PF 4 MG/2 ML SDV IV ONE (11:33)
--- NOTE | 2020-06-25 12:59 | ER Document Report ---
Entered by EMMA BURCIAGA SCRIBE 06/25/20 0915 Acting as scribe for:PATTY BREWSTER MD ED General - General Chief Complaint: Chest Pain Stated Complaint: CHEST PAIN Time Seen by Provider: 06/25/20 08:47 Primary Care Provider: SHELLY SETHI MD [Primary Care Provider] - Follow up as needed Mode of Arrival: Medic Information source: Patient Notes: This 65 year old male patient presents to the emergency department today with complaints of diarrhea for the last x2-3 days. Patient reports that he "thought he had emptied it all out" yesterday but this morning he had two more episodes and he developed chest pain after so he decided to call 911. Patient was given two squirts of NTG by EMS and he took x4 81 mg aspirin prior to arrival. He describes his chest pain as a burning sensation, rated 3/5. Patient also complains of chills and hot flashes. TRAVEL OUTSIDE OF THE [place] IN LAST 30 DAYS: No - Related Data Allergies/Adverse Reactions: adhesive [Adhesive] Allergy (Severe, Verified 06/25/20 08:41) peels skin gabapentin [From Neurontin] Allergy (Unknown, Verified 06/25/20 08:41) disoriented levofloxacin [From Levaquin] Allergy (Unknown, Verified 06/25/20 08:41) Sulfa (Sulfonamide Antibiotics) Allergy (Unknown, Verified 06/25/20 08:41) skin wilson tramadol [Tramadol] Allergy (Unknown, Verified 06/25/20 08:41) ibuprofen [From Motrin] Allergy (Verified 06/25/20 08:41) naproxen Allergy (Verified 06/25/20 08:41) Home Medications: amlodipine. asa. atorvastatin. carvedilol. diazepam. docusate sodium. famotidine. flexeril. isosorbide. lipitor. lisinopril. metfomrin. morphine. ntg. norvasc. potassium. zantac. sertraline. valium Past Medical History - General Information source: Patient - Social History Smoking Status: Current Some Day Smoker Chew tobacco use (# tins/day): No Frequency of alcohol use: None Drug Abuse: None Family History: Reviewed & Not Pertinent, CAD, CVA, Malignancy Patient has homicidal ideation: No - Past Medical History Cardiac Medical History: Reports: Hx Coronary Artery Disease, Hx Heart Attack, Hx Hypercholesterolemia, Hx Hypertension Pulmonary Medical History: Endocrine Medical History: Reports: Hx Diabetes Mellitus Type 2 - hx of, Hx Hypothyroidism Renal/ Medical History: Reports: Hx Testicular Torsion GI Medical History: Reports: Hx Gastroesophageal Reflux Disease Musculoskeletal Medical History: Reports Hx Muscle Weakness, Reports Hx Musculoskeletal Deformity, Reports Hx Musculoskeletal Trauma Psychiatric Medical History: Reports: Hx Anxiety, Hx Depression Traumatic Medical History: Reports: Hx Fractures Past Surgical History: Reports: Hx Adenoidectomy, Hx Appendectomy, Hx Bowel Surgery - hemorrhoidectomy, Hx Cardiac Catheterization, Hx Cardiac Surgery - CABG, Hx Coronary Artery Bypass Graft, Hx Coronary Stent - [id number] recent was 2016, Hx Genitourinary Surgery - Vasectomy, Hx Open Heart Surgery, Hx Rectal Surgery - hemorrhoids, Hx Testicular Surgery - Orchiopexy, vasectomy, Hx Tonsillectomy - Immunizations Immunizations up to date: Yes Hx Diphtheria, Pertussis, Tetanus Vaccination: Yes Hx Pneumococcal Vaccination: 03/21/12 Review of Systems - Review of Systems Constitutional: No symptoms reported EENT: No symptoms reported Cardiovascular: See HPI, Chest pain Respiratory: No symptoms reported Gastrointestinal: See HPI, Diarrhea Genitourinary: No symptoms reported Male Genitourinary: No symptoms reported Musculoskeletal: No symptoms reported Skin: No symptoms reported Hematologic/Lymphatic: No symptoms reported Neurological/Psychological: No symptoms reported -: Yes All other systems reviewed and negative Physical Exam - Vital signs Vitals: Temp Resp Pulse Ox 98.5 F 13 95 06/25/20 08:35 06/25/20 08:35 06/25/20 08:35 - Notes Notes: Physical Exam: General: Alert, appears well. HEENT: Normocephalic. Atraumatic. PERRL. Extraocular movements intact. Oropharynx clear. Neck: Supple. Non-tender. Respiratory: No respiratory distress. Clear and equal breath sounds bilaterally. Cardiovascular: Regular rate and rhythm. Abdominal: Non-tender. Mild distension. Normal Bowel Sounds. Back: No gross abnormalities. Extremities: Moves all four extremities. Upper extremities: Normal inspection. Normal ROM. Lower extremities: Normal inspection. No edema. Normal ROM. Neurological: Normal cognition. AAOx4. Normal speech. Psychological: Normal affect. Normal Mood. Skin: Warm. Dry. Normal color. Course - Re-evaluation Re-evalutation: 06/25/20 12:55 Patient resting comfortably not showing any signs of distress at this time. - Vital Signs Vital signs: Temp Pulse Resp BP Pulse Ox 98.5 F 21 H 110/83 99 06/25/20 08:41 06/25/20 12:01 06/25/20 12:01 06/25/20 12:01 06/25/20 10:20 Vital signs 06/25/20 12:55 Vital signs stable afebrile. - Laboratory Result Diagrams: 06/25/20 08:32 06/25/20 08:32 Laboratory results interpreted by me: 06/25/20 06/25/20 06/25/20 08:32 08:32 08:32 Hgb 12.4 L RDW 19.5 H Chloride 108 H Glucose 123 H Lipase 350.4 H 06/25/20 12:55 06/25/20 08:32 06/25/20 08:32 MCV 84 fl (80-97) 06/25/20 08:32 MCH 27.2 pg (27.0-33.4) 06/25/20 08:32 MCHC 32.4 g/dL (32.0-36.0) 06/25/20 08:32 RDW 19.5 % (11.5-14.0) H 06/25/20 08:32 Seg Neutrophils % 51.9 % (42-78) 06/25/20 08:32 Chloride 108 mmol/L (98-107) H 06/25/20 08:32 Carbon Dioxide 26 mmol/L (22-30) 06/25/20 08:32 Anion Gap 7 (5-19) 06/25/20 08:32 Est GFR ( Amer) > 60 (>60) 06/25/20 08:32 Glucose 123 mg/dL (75-110) H 06/25/20 08:32 Calcium 9.3 mg/dL (8.4-10.2) 06/25/20 08:32 Total Bilirubin 0.7 mg/dL (0.2-1.3) 06/25/20 08:32 AST 30 U/L (17-59) 06/25/20 08:32 Alkaline Phosphatase 103 U/L (38-126) 06/25/20 08:32 Total Protein 6.9 g/dL (6.3-8.2) 06/25/20 08:32 Albumin 4.0 g/dL (3.5-5.0) 06/25/20 08:32 Lipase 350.4 U/L (23-300) H 06/25/20 08:32 06/25/20 06/25/20 06/25/20 08:32 08:32 11:31 Creatine Kinase 110 CK-MB (CK-2) 1.10 Troponin I < 0.012 < 0.012 Laboratory results unremarkable patient has 2 - troponins less than 0.012. - Diagnostic Test Radiology reviewed: Image reviewed, Reports reviewed Radiology results interpreted by me: 06/25/20 12:56 Chest X-Ray 06/25/20 08:40 IMPRESSION: No acute radiographic abnormality. Abdomen X-Ray 06/25/20 09:19 IMPRESSION: Nonobstructive bowel gas pattern. Chest x-ray shows no acute abnormality abdominal series nonobstructive bowel gas pattern. - EKG Interpretation by Me Additional EKG results interpreted by me: 06/25/20 12:57 Twelve-lead EKG shows normal sinus rhythm rate of 80 normal axis normal intervals NH interval QRS and QT interval no acute ST elevations to suggest any STEMI. Discharge - Discharge Clinical Impression: Chronic chest pain, CAD (coronary artery disease), Diarrhea Disposition: HOME, SELF-CARE Additional Instructions: Diarrhea Diarrhea means frequent, watery stools. There are many causes. Any problem that keeps the intestinal tract from absorbing water from the stool can lead to diarrhea. A sudden new diarrhea problem is usually caused by a virus, food sensitivity, toxic bacteria, or drugs. In this case, we expect the problem to go away soon. Testing is done only if you seem seriously ill from the diarrhea. If you have chronic diarrhea, or diarrhea that keeps coming back, we need to find out why. Chronic diarrhea can be due to inflammation of the bowels such as Crohn's disease or ulcerative colitis, food sensitivity such as intolerance to lactose or wheat protein, irritable bowel syndrome, and other problems. If your diarrhea is a significant problem but it's not clear why you have it, we'll refer you to a specialist for further testing. During an episode of diarrhea, drink small amounts (two to six ounces) of clear liquids (soft drinks, sport drinks, herb teas, broth, etc). Take fluids frequently to prevent dehydration. It's usually not a problem to take mild anti- diarrhea medication such as Kaopectate or Pepto-Bismol. As the diarrhea eases, advance to small amounts of bland food (mashed potato, toast) for 24 hours. Call the physician if blood appears in your vomit or stool, if vomiting lasts longer than 24 hours, if the abdominal pain worsens or becomes localized to one area, if you develop high fever, or if you become lightheaded and weak. Referrals: SHELLY SETHI MD [Primary Care Provider] - Follow up as needed I personally performed the services described in the documentation, reviewed and edited the documentation which was dictated to the scribe in my presence, and it accurately records my words and actions.
[2020-06-25 14:18] VITALS: BP 109/78
--- NOTE | 2020-06-26 08:12 | EKG REPORT ---
SEVERITY:- BORDERLINE ECG - SINUS RHYTHM PROBABLE LEFT ATRIAL ABNORMALITY : Confirmed by: Bety Cobb 26-Jun-2020 08:12:17
== END 2020-06-25 14:18 | disposition home or self-care (01) ==
LOC: ER 08:26
DX: R07.9 Chest pain, unspecified (principal); G89.29 Other chronic pain; I25.10 Atherosclerotic heart disease of native coronary artery without angina pectoris; R19.7 Diarrhea, unspecified; Z88.2 Allergy status to sulfonamides; Z88.8 Allergy status to other drugs, medicaments and biological substances; Z79.899 Other long term (current) drug therapy; Z79.82 Long term (current) use of aspirin; F17.200 Nicotine dependence, unspecified, uncomplicated; I25.2 Old myocardial infarction; I10 Essential (primary) hypertension; E11.9 Type 2 diabetes mellitus without complications
CPT/HCPCS: 93005; 99285; 96374; 36415; 82553; 82550; 83690; 85025; 80053; 84484; 74019; 71045; 93010; J2405

== ENCOUNTER 2020-08-14 14:58 | Emergency (ER) | payer MEDICARE, MEDICAID ==
--- NOTE | 2020-08-14 15:44 | ER Document Report ---
ED Medical Screen (RME) - General Chief Complaint: Chest Pain Stated Complaint: CHEST PAIN Time Seen by Provider: 08/14/20 15:36 Primary Care Provider: SHELLY SETHI MD [Primary Care Provider] - Follow up as needed TRAVEL OUTSIDE OF THE [place] IN LAST 30 DAYS: No - HPI Notes: Patient is a 65-year-old male with a history of IA x2, CABG x2, and A. fib who presents with left intermittent chest pain that began at 2 PM this afternoon while riding in the car. Patient describes the pain as a burning, stabbing pain. He denies any radiating pain. He denies shortness of breath, palpitations, syncope, abdominal pain, vomiting, and fever. Patient states his symptoms today are similar to his past MIs. - Related Data Allergies/Adverse Reactions: adhesive [Adhesive] Allergy (Severe, Verified 06/25/20 08:41) peels skin gabapentin [From Neurontin] Allergy (Unknown, Verified 06/25/20 08:41) disoriented levofloxacin [From Levaquin] Allergy (Unknown, Verified 06/25/20 08:41) Sulfa (Sulfonamide Antibiotics) Allergy (Unknown, Verified 06/25/20 08:41) skin wilson tramadol [Tramadol] Allergy (Unknown, Verified 06/25/20 08:41) ibuprofen [From Motrin] Allergy (Verified 06/25/20 08:41) naproxen Allergy (Verified 06/25/20 08:41) Home Medications: Aspirin. cardizem. cephalexin. colchicine. diazepam. docusate. famotidine. lipitor Past Medical History - Social History Chew tobacco use (# tins/day): No Frequency of alcohol use: None Drug Abuse: None Family history: DM, Hyperlipidemia, Hypertension - Past Medical History Cardiac Medical History: Reports: Hx Coronary Artery Disease, Hx Heart Attack, Hx Hypercholesterolemia, Hx Hypertension Denies: Hx DVT, Hx Pulmonary Embolism Pulmonary Medical History: Denies: Hx Asthma, Hx Bronchitis, Hx COPD, Hx Pneumonia Neurological Medical History: Denies: Hx Cerebrovascular Accident, Hx Seizures Endocrine Medical History: Reports: Hx Diabetes Mellitus Type 2 - hx of, Hx Hypothyroidism. Denies: Hx Diabetes Mellitus Type 1, Hx Hyperthyroidism Renal/ Medical History: Reports: Hx Testicular Torsion. Denies: Hx Peritoneal Dialysis GI Medical History: Reports: Hx Gastroesophageal Reflux Disease. Denies: Hx Cirrhosis, Hx Hepatitis, Hx Pancreatitis, Hx Ulcerative Colitis Musculoskeltal Medical History: Denies Hx Arthritis, Denies Hx Gout, Reports Hx Muscle Weakness, Reports Hx Musculoskeletal Deformity, Reports Hx Musculoskeletal Trauma Skin Medical History: Denies Hx Eczema, Denies Hx Psoriasis Psychiatric Medical History: Reports: Hx Anxiety, Hx Depression Traumatic Medical History: Reports: Hx Fractures Infectious Medical History: Denies: Hx Hepatitis Past Surgical History: Reports: Hx Adenoidectomy, Hx Appendectomy, Hx Bowel Surgery - hemorrhoidectomy, Hx Cardiac Catheterization, Hx Cardiac Surgery - CABG, Hx Coronary Artery Bypass Graft, Hx Coronary Stent - [id number] recent was 2016, Hx Genitourinary Surgery - Vasectomy, Hx Open Heart Surgery, Hx Rectal Surgery - hemorrhoids, Hx Testicular Surgery - Orchiopexy, vasectomy, Hx Tonsillectomy - Immunizations Immunizations up to date: Yes Hx Diphtheria, Pertussis, Tetanus Vaccination: Yes Physical Exam - Vital signs Vitals: Temp Pulse Resp BP Pulse Ox 98.2 F 75 20 155/109 H 95 08/14/20 15:05 08/14/20 15:05 08/14/20 15:05 08/14/20 15:05 08/14/20 15:05 - Respiratory Respiratory status: No respiratory distress Breath sounds: Normal - Cardiovascular Rhythm: Regular Heart sounds: Normal auscultation Course - Re-evaluation Re-evalutation: I have greeted and performed a rapid initial assessment of this patient. A comprehensive ED assessment and evaluation of the patient, analysis of test results and completion of medical decision making process will be conducted by an additional ED providers. - Vital Signs Vital signs: Temp Pulse Resp BP Pulse Ox 98.2 F 75 20 155/109 H 95 08/14/20 15:05 08/14/20 15:05 08/14/20 15:05 08/14/20 15:05 08/14/20 15:05 Doctor's Discharge - Discharge Referrals: SHELLY SETHI MD [Primary Care Provider] - Follow up as needed
[2020-08-14 16:04] LABS: ABSOLUTE EOSINOPHILS # (AUTO) 0.1 10^3/uL (0.0-0.6); ABSOLUTE LYMPHOCYTES (AUTO) 1.1 10^3/uL (0.5-4.7); ABSOLUTE MONOCYTES (AUTO) 0.2 10^3/uL (0.1-1.4); ABSOLUTE NEUT (AUTO) 3.6 10^3/uL (1.7-8.2); BASOPHILS % (AUTO) 0.5 % (0-2); EOSINOPHILS % (AUTO) 1.3 % (0-6); HEMATOCRIT 38.6 % (37.9-51.0); HEMOGLOBIN 12.7 g/dL (13.5-17.0); LYMPHOCYTES % (AUTO) 22.1 % (13-45); MEAN CORPUSCULAR HEMOGLOBIN 28.4 pg (27.0-33.4); MEAN CORPUSCULAR HGB CONC 32.9 g/dL (32.0-36.0); MEAN CORPUSCULAR VOLUME 86 fl (80-97); MONOCYTES % (AUTO) 4.3 % (3-13); PLATELET COUNT 218 10^3/uL (150-450); RED BLOOD COUNT 4.47 10^6/uL (4.35-5.55); RED CELL DISTRIBUTION WIDTH 17.8 % (11.5-14.0); SEGMENTED NEUTROPHILS % (AUTO) 71.8 % (42-78); TOTAL CELLS COUNTED % (AUTO) 100 %
--- NOTE | 2020-08-14 16:10 | RADIOLOGY REPORT (SQ) ---
EXAM DESCRIPTION: CHEST SINGLE VIEW IMAGES COMPLETED DATE/TIME: 08/14/2020 12:59 pm REASON FOR STUDY: chest pain COMPARISON: 06/25/2020 EXAM PARAMETERS: NUMBER OF VIEWS: One view. TECHNIQUE: Single frontal radiographic view of the chest acquired. RADIATION DOSE: NA LIMITATIONS: None. FINDINGS: LUNGS AND PLEURA: There are some faint interstitial and airspace opacities in the right joanie ng and mild retrocardiac opacities. No pleural effusion or pneumothorax. MEDIASTINUM AND HILAR STRUCTURES: No masses. Contour normal. HEART AND VASCULAR STRUCTURES: Heart normal in size. Normal vasculature. BONES: No acute findings. HARDWARE: Stable sternotomy wires. OTHER: No other significant finding. IMPRESSION: Some increase in faint interstitial and airspace opacities throughout the right lung and in the left lower lung which may reflect infection. Some asymmetric pulmonary edema is a considerat ion. No pleural effusion. TECHNICAL DOCUMENTATION: JOB ID: [id number] 2010 [employer]- All Rights Reserved Reading location - IP/workstation name: [email or web address]
[2020-08-14 16:29] LABS: ALBUMIN 4.2 g/dL (3.5-5.0); ALKALINE PHOSPHATASE 89 U/L (38-126); ANION GAP 9 (5-19); ASPARTATE AMINO TRANSFERASE 41 U/L (17-59); BILIRUBIN,DIRECT 0.2 mg/dL (0.0-0.4); BILIRUBIN,TOTAL 0.7 mg/dL (0.2-1.3); BLOOD UREA NITROGEN 8 mg/dL (7-20); CALCIUM 9.4 mg/dL (8.4-10.2); CARBON DIOXIDE 28 mmol/L (22-30); CHLORIDE 102 mmol/L (98-107); GLUCOSE 105 mg/dL (75-110); POTASSIUM 4.6 mmol/L (3.6-5.0); TOTAL PROTEIN 7.4 g/dL (6.3-8.2)
--- NOTE | 2020-08-14 16:46 | EKG REPORT ---
SEVERITY:- BORDERLINE ECG - SINUS RHYTHM PROBABLE LEFT ATRIAL ABNORMALITY : Confirmed by: Marko Pate MD 14-Aug-2020 16:45:44
[2020-08-14] MEDS ORDERED: ASPIRIN 81 MG TABLET, CHEWABLE PO ONE (18:09)
[2020-08-14] MEDS ORDERED: ONDANSETRON HCL INJ/PF 4 MG/2 ML SDV IV ONE (18:51)
[2020-08-14] MEDS ORDERED: MORPHINE SULFATE 10 MG/ML INJ IV ONE (18:51)
--- NOTE | 2020-08-14 19:39 | ER Document Report ---
Entered by EMMA BURCIAGA SCRIBE 08/14/20 1858 Acting as scribe for:YAHIR TREVIÑO, DO ED General - General Chief Complaint: Chest Pain Stated Complaint: CHEST PAIN Time Seen by Provider: 08/14/20 15:36 Primary Care Provider: SHELLY SETHI MD [Primary Care Provider] - 08/15/20 Mode of Arrival: Ambulatory Information source: Patient Notes: This 65-year-old male patient with chronic chest pain presents to the emergency department today with reproducible chest pain. Patient states he noticed the chest pain when he woke up this morning so he took oxymorphone and Valium which relieved his pain but it came back at 2:00 this afternoon worse than it was this morning. He denies any nausea, vomiting, COVID-19 exposure, or cough. TRAVEL OUTSIDE OF THE [place] IN LAST 30 DAYS: No - Related Data Allergies/Adverse Reactions: adhesive [Adhesive] Allergy (Severe, Verified 06/25/20 08:41) peels skin gabapentin [From Neurontin] Allergy (Unknown, Verified 06/25/20 08:41) disoriented levofloxacin [From Levaquin] Allergy (Unknown, Verified 06/25/20 08:41) Sulfa (Sulfonamide Antibiotics) Allergy (Unknown, Verified 06/25/20 08:41) skin wilson tramadol [Tramadol] Allergy (Unknown, Verified 06/25/20 08:41) ibuprofen [From Motrin] Allergy (Verified 06/25/20 08:41) naproxen Allergy (Verified 06/25/20 08:41) Home Medications: Aspirin. cardizem. cephalexin. colchicine. diazepam. docusate. famotidine. lipitor Past Medical History - General Information source: Patient - Social History Smoking Status: Current Every Day Smoker Cigarette use (# per day): No - black & mild Chew tobacco use (# tins/day): No Frequency of alcohol use: None Drug Abuse: None Family History: Reviewed & Not Pertinent, CAD, CVA, Malignancy - Past Medical History Cardiac Medical History: Reports: Hx Coronary Artery Disease, Hx Heart Attack, Hx Hypercholesterolemia, Hx Hypertension Pulmonary Medical History: Endocrine Medical History: Reports: Hx Diabetes Mellitus Type 2 - hx of, Hx Hypothyroidism Renal/ Medical History: Reports: Hx Testicular Torsion GI Medical History: Reports: Hx Gastroesophageal Reflux Disease Musculoskeletal Medical History: Reports Hx Muscle Weakness, Reports Hx Musculoskeletal Deformity, Reports Hx Musculoskeletal Trauma Psychiatric Medical History: Reports: Hx Anxiety, Hx Depression Traumatic Medical History: Reports: Hx Fractures Past Surgical History: Reports: Hx Adenoidectomy, Hx Appendectomy, Hx Bowel Surgery - hemorrhoidectomy, Hx Cardiac Catheterization, Hx Cardiac Surgery - CABG, Hx Coronary Artery Bypass Graft, Hx Coronary Stent - [id number] recent was 2016, Hx Genitourinary Surgery - Vasectomy, Hx Open Heart Surgery, Hx Rectal Surgery - hemorrhoids, Hx Testicular Surgery - Orchiopexy, vasectomy, Hx Tonsillectomy - Immunizations Immunizations up to date: Yes Hx Diphtheria, Pertussis, Tetanus Vaccination: Yes Hx Pneumococcal Vaccination: 03/21/12 Review of Systems - Review of Systems Constitutional: No symptoms reported EENT: No symptoms reported Cardiovascular: See HPI, Chest pain Respiratory: denies: Cough Gastrointestinal: denies: Nausea, Vomiting Genitourinary: No symptoms reported Male Genitourinary: No symptoms reported Musculoskeletal: No symptoms reported Skin: No symptoms reported Hematologic/Lymphatic: No symptoms reported Neurological/Psychological: No symptoms reported -: Yes All other systems reviewed and negative Physical Exam - Vital signs Vitals: Temp Pulse Resp BP Pulse Ox 98.2 F 75 20 155/109 H 95 08/14/20 15:05 08/14/20 15:05 08/14/20 15:05 08/14/20 15:05 08/14/20 15:05 - Notes Notes: Physical Exam: General: Alert, appears well. HEENT: Normocephalic. Atraumatic. PERRL. Extraocular movements intact. Oropharynx clear. Neck: Supple. Non-tender. Respiratory: No respiratory distress. Clear and equal breath sounds bilaterally. Reproducible chest wall pain, tenderness to palpation over the CABG scar. No deformity or crepitus. Cardiovascular: Regular rate and rhythm. Abdominal: Normal Inspection. Non-tender. No distension. Normal Bowel Sounds. Back: No gross abnormalities. Extremities: Moves all four extremities. Upper extremities: Normal inspection. Normal ROM. Lower extremities: Normal inspection. No edema. Normal ROM. Neurological: Normal cognition. AAOx4. Normal speech. Psychological: Normal affect. Normal Mood. Skin: Warm. Dry. Normal color. Course - Re-evaluation Re-evalutation: 01/25/21 22:44 MDM 65 year old pt of Dr. Martins is here with reproducible chest pain is here with chest pain similar to previous. It is palpable and reprocucible and feels better here after treatment as he is sleeping when I visit him for recheck. I discussed follow up and he expressed understanding. - Vital Signs Vital signs: Temp Pulse Resp BP Pulse Ox 97.5 F 75 12 143/96 H 99 08/14/20 22:52 08/14/20 15:05 08/14/20 22:52 08/14/20 22:52 08/14/20 22:52 - Laboratory Results Result Diagrams: 08/14/20 15:51 08/14/20 15:51 Laboratory Results Interpreted: 08/14/20 15:51 Hgb 12.7 L RDW 17.8 H Critical Laboratory Results Reviewed: No Critical Results - Radiology Results Critical Radiology Results Reviewed: No Critical Results - EKG Interpretation by Me EKG shows normal: Sinus rhythm Rate: Normal Rhythm: NSR - NSR Nl axis [address] elevation or depression Discharge - Discharge Clinical Impression: Chest pain Qualifiers: Chest pain type: unspecified Qualified Code(s): R07.9 - Chest pain, unspecified Hypertension Qualifiers: Hypertension type: unspecified Qualified Code(s): I10 - Essential (primary) hypertension Condition: Stable Disposition: HOME, SELF-CARE Instructions: Chest Wall Pain ([facility]), Chest Pain of Unclear Cause ([facility]) Additional Instructions: See your doctor in follow up. Call in the morning. Take your medicine as directed. Return here for chest pain shortness of breath or other problems or concerns. Referrals: SHELLY SETHI MD [Primary Care Provider] - 08/15/20 I personally performed the services described in the documentation, reviewed and edited the documentation which was dictated to the scribe in my presence, and it accurately records my words and actions.
[2020-08-14 23:04] VITALS: BP 143/96
== END 2020-08-14 23:06 | disposition home or self-care (01) ==
LOC: ER 14:58
DX: R07.9 Chest pain, unspecified (principal); I10 Essential (primary) hypertension; F17.200 Nicotine dependence, unspecified, uncomplicated; I48.91 Unspecified atrial fibrillation; I25.10 Atherosclerotic heart disease of native coronary artery without angina pectoris; E78.00 Pure hypercholesterolemia, unspecified; Z95.1 Presence of aortocoronary bypass graft; I25.2 Old myocardial infarction; Z88.2 Allergy status to sulfonamides
CPT/HCPCS: 93005; 99285; 96374; 96375; 36415; 85025; 80053; 84484; 71045; 93010; A9270; J2270; J2405